=== PATIENT | male | born 1965 | race Caucasian/White ===

== ENCOUNTER 2016-10-06 11:03 | Inpatient (IN) | payer OTHER ==
[~2016-10-06] VITALS: Ht 182.9 cm; Wt 95.5 kg
[2016-10-06] MEDS ORDERED: SODIUM CHLOR 0.9% 1000 ML INJ 1,000 ML IV SCH (11:21)
[2016-10-06] MEDS ORDERED: MORPHINE SULFATE 4 MG/ML INJ IV PUSH ONE ×2 (11:30→15:00)
[2016-10-06] MEDS ORDERED: ONDANSETRON HCL 4 MG/2 ML VIAL IVP ONE (11:30)
[2016-10-06] MEDS ORDERED: SODIUM CHLORIDE 0.9% FLUSH 10 ML FLUSH IV FLUSH PRN ×2 (11:30→16:00)
[2016-10-06 11:35] VITALS: BP 184/103; PULSE 99; RESP 20; TEMP 98.4; O2SAT 95
[2016-10-06 11:50] VITALS: BP 139/114; PULSE 102; RESP 23; O2SAT 96
[2016-10-06 12:11] LABS: AUTOMATED NEUTROPHIL # 5.9 TH/MM3 (1.8-7.7); BASOPHIL # 0.1 TH/MM3 (0-0.2); BASOPHIL % 0.9 % (0.0-2.0); EOSINOPHIL # 0.1 TH/MM3 (0-0.4); EOSINOPHIL % 0.8 % (0.0-4.0); HEMATOCRIT 47.5 % (39.0-51.0); HEMO FLAGS DIFF FINAL; LYMPHOCYTE # 1.9 TH/MM3 (1.0-4.8); MEAN CORPUSCULAR HEMOGLOBIN 35.7 PG (27.0-34.0); MEAN CORPUSCULAR HGB CONC 35.6 % (32.0-36.0); MONO % 9.9 % (0.0-8.0); NEUT % 67.4 % (16.0-70.0); PLATELET COUNT 145 TH/MM3 (150-450); RED BLOOD COUNT 4.74 MIL/MM3 (4.50-5.90); RED CELL DISTRIBUTION WIDTH 13.9 % (11.6-17.2); WHITE BLOOD COUNT 8.8 TH/MM3 (4.0-11.0)
--- NOTE | 2016-10-06 12:22 | PD ---
HPI Chief Complaint: Abdominal Pain Time Seen by Provider: 11:13 Travel History International Travel<30 days: No Contact w/Intl Traveler<30days: No Traveled to known affect area: No History of Present Illness HPI This is a 51-year-old male who presents to the emergency department with 1 week of left-sided abdominal pain described as a cramping, constant, moderate severity associated with some loose stools and a fever to 102 this weekend. He went to an outside hospital 2 evenings ago and had a dry CT which demonstrated some lymphadenitis but no focal etiology for his symptoms. He was diagnosed with pancreatitis. At that time his lipase was 120. He's been at home but his symptoms are just getting worse and he is not been able to keep anything down. He says is not vomiting but he feels very nauseous. PFSH Past Medical History High Cholesterol: Yes Diminished Hearing: No GERD: Yes Hepatitis: Yes Hypertension: Yes Past Surgical History Oral Surgery: Yes (PLATE IN JAW ) Social History Alcohol Use: Yes (4-6 beers, 2-3 scotch ) Tobacco Use: Yes (1 PPD ) Substance Use: Yes (MARIJUANA DAILY ) Allergies-Medications (Allergen,Severity, Reaction): Coded Allergies: Codeine (Verified Adverse Reaction, Mild, 10/06/16) bothers stomach Review of Systems Except as stated in HPI: all other systems reviewed are Neg Physical Exam Narrative GENERAL:Well appearing, no acute distress SKIN: Focused skin assessment warm and dry. HEAD: Atraumatic. Normocephalic. EYES: Pupils equal and round. No injection or drainage. ENT: Moist mucous membranes NECK: Trachea midline. CARDIOVASCULAR: Regular rate and rhythm. No murmur appreciated. RESPIRATORY: Clear to auscultation. Breath sounds equal bilaterally. GASTROINTESTINAL: Abdomen soft, distended, tender to palpation in the left upper and left lower quadrants with guarding. MUSCULOSKELETAL: No obvious deformities. NEUROLOGICAL: Awake and alert. No obvious cranial nerve deficits. Moving all extremities. PSYCHIATRIC: Appropriate mood and affect; insight and judgment normal. Data Data Last Documented VS Vital Signs Date Time Temp Pulse Resp B/P Pulse Ox O2 Delivery O2 Flow Rate FiO2 10/06/16 14:50 90 21 150/80 97 Room Air 10/06/16 11:35 98.4 Orders Complete Blood Count With Diff (10/06/16 11:21) Comprehensive Metabolic Panel (10/06/16 11:21) Lipase (10/06/16 11:21) Urinalysis - C+S If Indicated (10/06/16 11:21) Ct Abd/Pel W Iv Contrast(Rout) (10/06/16 11:21) Iv Access Insert/Monitor (10/06/16 11:21) Ecg Monitoring (10/06/16 11:21) Oximetry (10/06/16 11:21) Morphine Inj (Morphine Inj) (10/06/16 11:30) Ondansetron Inj (Zofran Inj) (10/06/16 11:30) Sodium Chlor 0.9% 1000 Ml Inj (Ns 1000 M (10/06/16 11:21) Sodium Chloride 0.9% Flush (Ns Flush) (10/06/16 11:30) Iohexol 350 Inj (Omnipaque 350 Inj) (10/06/16 13:29) Admit Order (Ed Use Only) (10/06/16 14:54) Morphine Inj (Morphine Inj) (10/06/16 15:00) Labs Laboratory Tests Test 10/06/16 10/06/16 11:52 14:52 White Blood Count 8.8 TH/MM3 Red Blood Count 4.74 MIL/MM3 Hemoglobin 16.9 GM/DL Hematocrit 47.5 % Mean Corpuscular Volume 100.0 FL Mean Corpuscular Hemoglobin 35.7 PG Mean Corpuscular Hemoglobin 35.6 % Concent Red Cell Distribution Width 13.9 % Platelet Count 145 TH/MM3 Mean Platelet Volume 9.0 FL Neutrophils (%) (Auto) 67.4 % Lymphocytes (%) (Auto) 21.0 % Monocytes (%) (Auto) 9.9 % Eosinophils (%) (Auto) 0.8 % Basophils (%) (Auto) 0.9 % Neutrophils # (Auto) 5.9 TH/MM3 Lymphocytes # (Auto) 1.9 TH/MM3 Monocytes # (Auto) 0.9 TH/MM3 Eosinophils # (Auto) 0.1 TH/MM3 Basophils # (Auto) 0.1 TH/MM3 CBC Comment DIFF FINAL Differential Comment Sodium Level 134 MEQ/L Potassium Level 3.7 MEQ/L Chloride Level 97 MEQ/L Carbon Dioxide Level 28.7 MEQ/L Anion Gap 8 MEQ/L Blood Urea Nitrogen 10 MG/DL Creatinine 0.99 MG/DL Estimat Glomerular Filtration 79 ML/MIN Rate Random Glucose 92 MG/DL Calcium Level 9.3 MG/DL Total Bilirubin 1.2 MG/DL Aspartate Amino Transf 52 U/L (AST/SGOT) Alanine Aminotransferase 36 U/L (ALT/SGPT) Alkaline Phosphatase 102 U/L Total Protein 9.1 GM/DL Albumin 3.6 GM/DL Lipase 318 U/L Urine Color YELLOW Urine Turbidity CLEAR Urine pH 6.0 Urine Specific [place] 1.026 Urine Protein NEG mg/dL Urine Glucose (UA) NEG mg/dL Urine Ketones TRACE mg/dL Urine Occult Blood NEG Urine Nitrite NEG Urine Bilirubin NEG Urine Urobilinogen LESS THAN 2.0 MG/DL Urine Leukocyte Esterase NEG Urine RBC 1 /hpf Microscopic Urinalysis Comment CULT NOT INDICATED MDM Medical Decision Making Medical Screen Exam Complete: Yes Emergency Medical Condition: Yes Interpretation(s) Afebrile, mild tachycardia, hypertensive No leukocytosis Total bilirubin is 1.2 Urinalysis: No infection Last 24 hours Impressions Abdomen/Pelvis CT 10/06/16 1121 Signed Impressions: Service Date/Time: Thursday, October 06, 2016 13:23 - CONCLUSION: 1. No acute finding is identified to explain the left abdominal pain. 2. The liver demonstrates morphology diagnostic of cirrhosis. There is a suspicious hypodense lesion in the left lobe measuring 2.4 cm with possible perfusion abnormality versus enhancing mass within segment 2 of the liver. There is also an 8mm low density lesion in the right lobe that is incompletely characterized. These findings should be correlated with prior imaging studies and should be further characterized with liver protocol MRI with and without intravenous contrast. Since this is not an emergent finding this could be performed as an outpatient. 3. Abnormal retroperitoneal lymph nodes adjacent to the IVC. Reactive lymphadenopathy can sometimes be seen with chronic liver disease. However, these are larger than typically seen and demonstrate abnormal enhancement and surrounding stranding. Therefore, these are suspicious and should be followed. 4. Mild splenomegaly, likely related to portal hypertension. 5. Severe atherosclerotic disease. Santy Faria MD Differential Diagnosis Diverticulitis, pancreatitis, colitis, malignancy, dehydration, gastroenteritis Narrative Course This is a 51-year-old male who presents to the emergency department with left lower quadrant abdominal pain that's been going on for 1 week. He went to an outside hospital and had CT abdomen and pelvis and was diagnosed with possible acute pancreatitis. His lipase at that time was only 120. He was placed on a monitor and an IV was established. Labs were all reassuring. He was given a dose of IV pain medication and antiemetics. CT abdomen pelvis demonstrates a mass in the liver as well as bulky lymphadenopathy in the abdomen which I suspect is causing his pain. He continues to be really uncomfortable in the emergency department. Given this is his second presentation for intractable abdominal pain I think it's reasonable to place him in observation for GI consultation and continued pain control. Diagnosis Primary Impression: Intractable abdominal pain Admitting Information Admitting Physician Requests: Observation Elizabeth Todd MD Oct 06, 2016 12:22
[2016-10-06 12:30] LABS: ALT (GPT) 36 U/L (12-78); ANION GAP 8 MEQ/L (5-15); AST (GOT) 52 U/L (15-37); BICARBONATE 28.7 MEQ/L (21.0-32.0); BLOOD UREA NITROGEN 10 MG/DL (7-18); CHLORIDE 97 MEQ/L (98-107); GLOMERULAR FILTRATION RATE 79 ML/MIN (>89); POTASSIUM 3.7 MEQ/L (3.5-5.1); SODIUM (NA) 134 MEQ/L (136-145)
[2016-10-06 12:33] LABS: ALKALINE PHOSPHATASE 102 U/L (45-117); TOTAL BILIRUBIN ADULT 1.2 MG/DL (0.2-1.0)
[2016-10-06] MEDS ORDERED: IOHEXOL 350 MG/ML 10 ML VIAL (for RAD DIAG) IV ONE (13:29)
--- NOTE | 2016-10-06 14:10 | RADRPT ---
EXAM DATE/TIME: 10/06/2016 13:23 [facility] COMPARISON: No previous studies available for comparison. INDICATIONS : Left side abdominal pain. IV CONTRAST: 96 cc Omnipaque 350 (iohexol) IV ORAL CONTRAST: No oral contrast ingested. RADIATION DOSE: 10.48 CTDIvol (mGy) MEDICAL HISTORY : Hypertension. Hepatitis. SURGICAL HISTORY : None. ENCOUNTER: Initial ACUITY: 1 day PAIN SCALE: 8/10 LOCATION: Left abdomen TECHNIQUE: Volumetric scanning of the abdomen and pelvis was performed. Using automated exposure control and ad justment of the mA and/or kV according to patient size, radiation dose was kept as low as reasonably achievable to obtain optimal diagnostic quality images. DICOM format image data is available electro nically for review and comparison. FINDINGS: LOWER LUNGS: The visualized lower lungs are clear. There is coronary artery calcification. LIVER: Liver measures 15.5 cm and demonstrates a nodular contour characteristic of cirrhosis. In the left lo be there is a 2.4 cm hypo-dense lesion that does not meet criteria for a cyst. Superior from this are a within segment 2 is a geographic or potential masslike area of enhancement. In the right posterior liver there is an 8mm low density lesion that is too small to characterize. Portal vein and hepatic v eins demonstrate no abnormality. There is no dilation of the biliary tree. No calcified gallstones. SPLEEN: The spleen measures 13.4 cm. No focal lesion is present. PANCREAS: Within normal limits. KIDNEYS: Normal in size and shape. There is no mass, stone or hydronephrosis. ADRENAL GLANDS: Within normal limits. VASCULAR: There is no aortic aneurysm. There is severe atherosclerotic disease. BOWEL/MESENTERY: The stomach, small bowel, and colon demonstrate no acute abnormality. There is no free intraperitone al air or fluid. ABDOMINAL WALL: Within normal limits. RETROPERITONEUM: There are 2 abnormally enlarged lymph nodes adjacent to a normal sized portacaval lymph node. The lar rboyn of the 2 measures 2.4 x 3.6 cm and demonstrates heterogeneous enhancement. Immediately posterior to this lymph node and medial to the IVC is an abnormal lymph node measuring 1.8 cm. There are also p rominent lymph nodes in the gastrohepatic ligament. BLADDER: No wall thickening or mass. REPRODUCTIVE: Within normal limits. INGUINAL: There is no lymphadenopathy or hernia. MUSCULOSKELETAL: There are degenerative changes of the spine. CONCLUSION: 1. No acute finding is identified to explain the left abdominal pain. 2. The liver demonstrates morphology diagnostic of cirrhosis. There is a suspicious hypodense lesion in the left lobe measuring 2.4 cm with possible perfusion abnormality versus enhancing mass within se gment 2 of the liver. There is also an 8mm low density lesion in the right lobe that is incompletely characterized. These findings should be correlated with prior imaging studies and should be further c haracterized with liver protocol MRI with and without intravenous contrast. Since this is not an andrzej gent finding this could be performed as an outpatient. 3. Abnormal retroperitoneal lymph nodes adjacent to the IVC. Reactive lymphadenopathy can sometimes b e seen with chronic liver disease. However, these are larger than typically seen and demonstrate abno rmal enhancement and surrounding stranding. Therefore, these are suspicious and should be followed. 4. Mild splenomegaly, likely related to portal hypertension. 5. Severe atherosclerotic disease. Santy Faria MD on October 06, 2016 at 13:59 Board Certified Radiologist. This report was verified electronically.
[2016-10-06 14:50] VITALS: BP 150/80; PULSE 90; RESP 21; O2SAT 97
[2016-10-06 15:30] LABS: BLOOD, URINE NEG (NEG); GLUCOSE,URINE NEG (NEG); KETONE, URINE TRACE mg/dL (NEG); NITRITE,URINE NEG (NEG); URINE COLOR YELLOW (YELLW/STRAW)
[2016-10-06 15:31] LABS: COMMENT (UR) CULT NOT INDICATED; CULTURE IF INDICATED CULT NOT INDICATED
[2016-10-06] MEDS ORDERED: ONDANSETRON HCL 4 MG/2 ML VIAL IV PRN (16:00)
[2016-10-06] MEDS ORDERED: ACETAMINOPHEN/HYDROcodone 325 MG/5 MG TAB PO PRN (16:00)
[2016-10-06] MEDS ORDERED: ACETAMINOPHEN/HYDROcodone 325 MG/10 MG TAB PO PRN (16:00)
[2016-10-06] MEDS ORDERED: DOCUSATE SODIUM 50 MG/SENNA 8.6 MG TAB PO PRN (16:00)
[2016-10-06] MEDS: SODIUM CHLOR 0.9% 1000 ML INJ 1,000 ML IV SCH ×2 (16:12→23:15)
--- NOTE | 2016-10-06 16:13 | HHI.HP ---
[facility] Service Family Medicine Primary Care Physician [facility] Admission Diagnosis abdominal pain Diagnoses: International Travel<30 Days: No Contact w/Intl Traveler<30days: No Known Affected Area: No History of Present Illness 51 year old male with a history of hepatitis C, alcoholism, hypertension, hyperlipidemia, and GERD presents with left sided abdominal pain that started about one week ago. He presented to the ED in [facility] where he was diagnosed with pancreatitis. However, his lipase today is normal. Since last week the pain has been getting worse and he noticed significant abdominal distension. The pain is located in the left lower quadrant, and some going across his lower abdomen and even extending to his right lower quadrant. A CT with IV contrast performed in the ED found no acute finding to explain the abdominal pain. However, it did find liver morphology characteristic of liver cirrhosis, and a suspicious hypodense lesion with retroperitoneal lymphadenopathy. He has a small amount of diarrhea combined with constipation for the last couple of weeks. The diarrhea is semi-formed, and he has not noticed mucous or blood in the stool. 3 days ago he had multiple bowel movements that were very small and soft, and then has not had a bowel movement in the last 2 days. He has not taken in any food since his trip to the ED on Thursday after he was told to remain NPO until his symptoms resolved. He had fever a few days ago, with a Tmax of 102, measured in his ear canal. He has no fever in the ED here. He notes chills and night sweats for the past 2 days, but does not note any recent unintentional weight loss. He also is experiencing belching and reflux, and has a history of GERD. He feels nauseous but has not had any vomiting. He also has a headache and a runny nose for the last week. Review of Systems Constitutional: COMPLAINS OF: Fever, Chills, Change in appetite, Night Sweats, DENIES: Diaphoretic episodes, Weight gain, Weight loss Endocrine: DENIES: Polydipsia, Polyuria, Polyphagia Eyes: DENIES: Blurred vision, Diplopia Ears, nose, mouth, throat: COMPLAINS OF: Nasal discharge, Running Nose, DENIES : Ear Pain, Epistaxis, Sinus Pain Respiratory: DENIES: Cough, Wheezing, Hemoptysis, Shortness of breath Cardiovascular: DENIES: Chest pain, Dyspnea on Exertion Gastrointestinal: COMPLAINS OF: Abdominal pain, Constipation, Diarrhea, Nausea , DENIES: Black stools, Bloody stools, Vomiting, Difficulty Swallowing Genitourinary: DENIES: Urinary frequency, Urgency, Hematuria, Dysuria Musculoskeletal: DENIES: Muscle aches, Stiffness, Back pain, Neck pain Integumentary: DENIES: Rash Hematologic/lymphatic: COMPLAINS OF: Lymphadenopathy (retroperitoneal ) Neurologic: COMPLAINS OF: Headache, DENIES: Paresthesias, Seizures, Tremor Psychiatric: DENIES: Delusions Past Family Social History Past Medical History Hepatitis C, received treatment two years ago, reports that it was cured Hyperlipidemia GERD Hypertension Past Surgical History Ankle surgery Jaw wiring after fracture Allergies: Coded Allergies: Codeine (Verified Adverse Reaction, Mild, 10/06/16) bothers stomach Active Ordered Medications Inpatient Medications Acetaminophen/ Hydrocodone Bitart ([place] 5-325 Mg) 1 tab Q4H PRN PO PAIN SCALE 1 TO 5; Start 10/06/16 at 16:00; Status UNV Acetaminophen/ Hydrocodone Bitart ([place] 10-325 Mg) 1 tab Q4H PRN PO PAIN SCALE 6 TO 10; Start 10/06/16 at 16:00; Status UNV Enoxaparin Sodium (Lovenox Inj) 40 mg Q24H SQ ; Start 10/06/16 at 16:00; Status UNV Morphine Sulfate (Morphine Inj) 2 mg Q2H PRN IV BREAKTHROUGH PAIN; Start at 16:00; Status UNV Morphine Sulfate 4 mg 4 mg ONCE ONCE IV PUSH ; Start 10/06/16 at 15:00; Stop at 15:01; Status DC Ondansetron HCl (Zofran Inj) 4 mg Q6H PRN IV NAUSEA OR VOMITING; Start at 16:00; Status UNV Pantoprazole Sodium (Protonix) 40 mg DAILY PO ; Start 10/06/16 at 16:00; Status UNV Senna/Docusate Sodium (Sharlene-Colace) 2 tab BID PRN PO CONSTIPATION; Start at 16:00; Status UNV Sodium Chloride (NS 1000 ml Inj) 1,000 ml @ 135 mls/hr Q7H25M IV ; Start at 15:50; Status UNV Sodium Chloride (NS Flush) 2 ml BID IV FLUSH ; Start 10/06/16 at 21:00; Status UNV Family History Father: diabetes Mother: diabetes Social History Smoked 3 PPD before, now down to 1 PPD, started when he was a teenager Drinks 6 beers and 2 scotches a day Last drink was Thursday Drugs: Smokes marijuana, no reported history of IV drug use , lives with and 12 year old grand child Physical Exam Vital Signs Vital Signs Date Time Temp Pulse Resp B/P Pulse Ox O2 Delivery O2 Flow Rate FiO2 10/06/16 14:50 90 21 150/80 97 Room Air 10/06/16 11:50 102 23 139/114 96 Room Air 10/06/16 11:35 98.4 99 20 184/103 95 Physical Exam GENERAL: No acute distress, lying in bed, pleasant attitude SKIN: Very tanned, no spider angiomata, mild palmar erythema HEAD: Atraumatic. Normocephalic. No temporal or scalp tenderness. EYES: Pupils equal round and reactive. No scleral icterus. Extraocular motions intact. No injection or drainage. ENT: Nose without bleeding, purulent drainage or septal hematoma. Throat without erythema, tonsillar hypertrophy or exudate. Uvula midline. Airway patent. Moist mucous membranes. NECK: Trachea midline. No JVD or lymphadenopathy. Supple, nontender, no meningeal signs. CARDIOVASCULAR: Regular rate and rhythm without murmurs, gallops, or rubs. Normal pulses peripherally. RESPIRATORY: Mild rhonchi that clears after coughing, no wheezing, no respiratory distress, not on oxygen GASTROINTESTINAL: Positive fluid wave, has shifting dullness, significant abdominal distension, pain on palpation of left abdomen, some on the right abdomen, has some very mild rebound tenderness but no guarding, organomegaly not appreciated but patient is significantly distended MUSCULOSKELETAL: Extremities without clubbing, cyanosis, or edema. No joint tenderness, effusion, or edema noted. No calf tenderness. Negative Homans sign bilaterally. NEUROLOGICAL: Awake and alert. Cranial nerves II through XII intact. Laboratory Laboratory Tests Test 10/06/16 10/06/16 11:52 14:52 White Blood Count 8.8 Red Blood Count 4.74 Hemoglobin 16.9 Hematocrit 47.5 Mean Corpuscular Volume 100.0 Mean Corpuscular Hemoglobin 35.7 Mean Corpuscular Hemoglobin 35.6 Concent Red Cell Distribution Width 13.9 Platelet Count 145 Mean Platelet Volume 9.0 Neutrophils (%) (Auto) 67.4 Lymphocytes (%) (Auto) 21.0 Monocytes (%) (Auto) 9.9 Eosinophils (%) (Auto) 0.8 Basophils (%) (Auto) 0.9 Neutrophils # (Auto) 5.9 Lymphocytes # (Auto) 1.9 Monocytes # (Auto) 0.9 Eosinophils # (Auto) 0.1 Basophils # (Auto) 0.1 CBC Comment DIFF FINAL Differential Comment Sodium Level 134 Potassium Level 3.7 Chloride Level 97 Carbon Dioxide Level 28.7 Anion Gap 8 Blood Urea Nitrogen 10 Creatinine 0.99 Estimat Glomerular Filtration 79 Rate Random Glucose 92 Calcium Level 9.3 Total Bilirubin 1.2 Aspartate Amino Transf 52 (AST/SGOT) Alanine Aminotransferase 36 (ALT/SGPT) Alkaline Phosphatase 102 Total Protein 9.1 Albumin 3.6 Lipase 318 Urine Color YELLOW Urine Turbidity CLEAR Urine pH 6.0 Urine Specific [place] 1.026 Urine Protein NEG Urine Glucose (UA) NEG Urine Ketones TRACE Urine Occult Blood NEG Urine Nitrite NEG Urine Bilirubin NEG Urine Urobilinogen LESS THAN 2.0 Urine Leukocyte Esterase NEG Urine RBC 1 Microscopic Urinalysis Comment CULT NOT INDICATED Result Diagram: 10/06/16 1152 10/06/16 1152 Imaging Last 72 hours Impressions Abdomen/Pelvis CT 10/06/16 1121 Signed Impressions: Service Date/Time: Thursday, October 06, 2016 13:23 - CONCLUSION: 1. No acute finding is identified to explain the left abdominal pain. 2. The liver demonstrates morphology diagnostic of cirrhosis. There is a suspicious hypodense lesion in the left lobe measuring 2.4 cm with possible perfusion abnormality versus enhancing mass within segment 2 of the liver. There is also an 8mm low density lesion in the right lobe that is incompletely characterized. These findings should be correlated with prior imaging studies and should be further characterized with liver protocol MRI with and without intravenous contrast. Since this is not an emergent finding this could be performed as an outpatient. 3. Abnormal retroperitoneal lymph nodes adjacent to the IVC. Reactive lymphadenopathy can sometimes be seen with chronic liver disease. However, these are larger than typically seen and demonstrate abnormal enhancement and surrounding stranding. Therefore, these are suspicious and should be followed. 4. Mild splenomegaly, likely related to portal hypertension. 5. Severe atherosclerotic disease. Santy Faria MD Septic Shock Reassessment Heart: Regular rate and rhythm Lungs: Clear Skin: Warm Capillary Refill: <2 seconds Assessment and Plan Assessment and Plan 51 year old male presents with left sided abdominal pain and diarrhea, found to have possible cirrhosis on CT scan and a suspicious hypodense lesion on liver, possible ascites on physical exam, and retroperitoneal lymphadenopathy on CT scan Code Status FULL CODE Discussed Condition With Seen and discussed with Piedad Najera, MS4 Discussed with Dr. Todd Problem List: (1) Abdominal pain Status: Acute Plan: Left sided abdominal pain. CT scan rules out mesenteric ischemia. Lipase is normal, unlikely to be acute pancreatitis, although could be chronic pancreatitis. Has significant ascites, the pressure may be causing abdominal pain. Also with some diarrhea, possible gastroenteritis. No diverticulitis on CT scan. Possible spontaneous bacterial peritonitis given fevers and ascites. - US of abdomen to further evaluate ascites, paracentesis of enough fluid to tap - Consider ceftriaxone after paracentesis to cover for SBP - Fluid replacement: normal saline at maintenance - Pain management: oxycodone 5 mg for pain 1-5, oxycodone 10 mg for pain 6-10, morphine 2 mg IV for breakthrough pain. (2) Ascites due to alcoholic cirrhosis Status: Acute Plan: Positive fluid wave on exam, has shifting dullness, obvious abdominal distension. Apparent cirrhosis on CT scan. Significant history of alcohol use. AST elevated to 52, ALT 36, alcoholic pattern. ALP is 102. Total protein 9.1, albumin 3.6. - Obtain ultrasound to further assess ascites. - Paracentesis if ultrasound verifies ascites that can be tapped. - Check ammonia level - Check coag panel - MELD score: getting coag panel to calculate - Daily counseling on alcohol abuse - Findings discussed with patient. (3) Liver mass, left lobe Status: Acute Plan: CT with IV contrast showed liver cirrhosis with a suspicious hypodense lesion in the left lobe measuring 2.4 cm, and also an 8 mm low density lesion in the right lobe incompletely characterized. Also noted is retroperitoneal lymphadenopathy adjacent to the IVC. These are larger than typically seen and are suspicious for possible malignancy, although can also be reactive from chronic liver disease. - Further evaluate lesions with MRI with and without IV contrast. - Alpha protein level - UPDATE: MRI showing mass of left hepatic lobe with main portion 5.8 x 7.1 x 5.3, with numerous subcentimeter nodules adjacent to it, with overall affected area of 6.7 x 12.2 cm. Another lesion seen posteromedially in the right lobe measuring 3.8 x 3.9 x 4.0. Also with portal caval and retroperitoneal lymphadenopathy. - Oncology consulted for suspected hepatocellular carcinoma (4) Liver cirrhosis Status: Acute Plan: AST 52, ALT 36, ALP 102. Ammonia normal at 21. Albumin normal. INR 1.0. Bilirubin 1.2. - Counseling on alcohol abuse - Monitor liver enzymes - Check hepatitis profile - Check coag studies - MELD score 7, 1.9% estimated 3 month mortality (5) Hepatitis C Status: Chronic Plan: History of hepatitis C, treated in the past, patient reports that it was cured. - Check hepatitis profile - Check hepatitis C viral load (6) Hypertension Status: Chronic Plan: History of hypertension - Continue home medications - Clonidine PRN for BP 180/100 (7) GERD (gastroesophageal reflux disease) Status: Chronic Plan: - Continue pantoprazole 40 mg PO qday for GERD (8) Smokes one pack per day or less and motivated to quit Status: Chronic Plan: In the contemplation stage, would like to quit, has tried patches and gum before. Would like to quit cold turkey. - Does not want nicotine patch - Counseling on quitting (9) Alcoholism Status: Chronic Plan: Drinks 6 beers and two scotch drinks per day - [facility] protocol - Thiamine, multivitamin, folic acid - Ativan PRN for withdrawals - Seizure precautions - Daily counseling on alcohol abuse (10) Hyperlipidemia Status: Chronic Plan: - Continue home medicines (11) No contraindication to deep vein thrombosis (DVT) prophylaxis Status: Acute Plan: - Lovenox 40 mg daily - Bilateral SCD's (12) Nutrition, metabolism, and development symptoms Status: Acute Plan: - Maintenance fluids at 135 mls/hr with normal saline - Full liquid diet, advance as tolerated - Monitor electrolytes, has mild hyponatremia/hypochloremia Physician Certification 2 Midnight Certification Type: Admission for Inpatient Services Order for Inpatient Services The services are ordered in accordance with Medicare regulations or non- Medicare payer requirements, as applicable. In the case of services not specified as inpatient-only, they are appropriately provided as inpatient services in accordance with the 2-midnight benchmark. Estimated LOS (days): 3 days is the estimated time the patient will need to remain in the hospital, assuming treatment plan goals are met and no additional complications. Post-Hospital Plan: Home Saw Linares MD R3 Oct 06, 2016 16:13
[2016-10-06] MEDS ORDERED: LORazepam 1 MG TAB PO PRN (16:15)
[2016-10-06] MEDS ORDERED: FLUMAZENIL 0.5 MG/5 ML VIAL IV PUSH PRN (16:15)
[2016-10-06] MEDS ORDERED: cloNIDine HCL 0.1 MG TAB PO PRN (16:15)
[2016-10-06] MEDS ORDERED: LORazepam 2 MG TAB PO PRN (16:15)
[2016-10-06] MEDS ORDERED: LORazepam 2 MG/ML VIAL IV PUSH PRN ×4 (16:15)
[2016-10-06] MEDS: PANTOPRAZOLE SOD 40 MG DELAYED RELEASE TAB PO SCH (16:22)
[2016-10-06] MEDS ORDERED: VITA100064 PO (16:54)
[2016-10-06] MEDS ORDERED: LIPI10TA PO (16:54)
[2016-10-06] MEDS ORDERED: [UNRECOGNIZED DRUG - CODE] PO (16:54)
[2016-10-06] MEDS ORDERED: RANI300T PO (16:54)
[2016-10-06] MEDS ORDERED: CYCL7.5T33 PO (16:54)
[2016-10-06] MEDS ORDERED: HYDR25TA5 PO (16:54)
[2016-10-06] MEDS ORDERED: NIAC PO (16:54)
[2016-10-06] MEDS ORDERED: ASPI-110 PO (16:54)
[2016-10-06] MEDS ORDERED: METO25TA3 PO (16:54)
[2016-10-06] MEDS ORDERED: MECL12.574 PO (16:54)
[2016-10-06] MEDS ORDERED: ENOXAPARIN SODIUM 40 MG/0.4 ML SYRINGE SQ SCH (17:00)
[2016-10-06] MEDS: MULTIVITAMINS/MINERALS THERAPEUTIC TAB PO SCH (17:28)
[2016-10-06] MEDS: FOLIC ACID 1 MG TAB PO SCH (17:28)
[2016-10-06] MEDS: THIAMINE HCL 100 MG TAB PO SCH (17:29)
[2016-10-06 17:32] VITALS: BP 169/92; PULSE 104; RESP 24; O2SAT 97
[2016-10-06] MEDS ORDERED: GADODIAMIDE PF 287 MG/ML 5 ML VIAL (for RAD MRI) IV ONE (17:36)
--- NOTE | 2016-10-06 18:00 | RADRPT ---
EXAM DATE/TIME: 10/06/2016 17:40 [facility] COMPARISON: CT ABDOMEN & PELVIS W CONTRAST, October 06, 2016, 13:23. INDICATIONS : Ascites check. MEDICAL HISTORY : Hypercholesterolemia. Hypertension. Gastroesophageal reflux disease. Diarrhea. Headache. Abdominal pa in. SURGICAL HISTORY : Plate in jaw. ENCOUNTER: Initial ACUITY: 1 day PAIN SCORE: 3/10 LOCATION: Abdomen. AREA EVALUATED: Abdomen. FINDINGS: Imaging of the abdomen and pelvis was performed to evaluate for ascites for possible paracentesis. CONCLUSION: No ascites. Santy Dennis MD on October 06, 2016 at 17:58 Board Certified Radiologist. This report was verified electronically.
--- NOTE | 2016-10-06 18:36 | RADRPT ---
EXAM DATE/TIME: 10/06/2016 16:42 [facility] COMPARISON: No previous studies available for comparison. INDICATIONS : Liver lesion. Left lateral pain and swelling for one week. CONTRAST: 20 cc Omniscan (gadodiamide) IV MEDICAL HISTORY : Hypercholesterolemia. GERD SURGICAL HISTORY : Left ankle sx, jaw plate. ENCOUNTER: Initial ACUITY: 1 week PAIN SCORE: 7/10 LOCATION: Left lateral abdomen TECHNIQUE: Multiplanar, multisequence magnetic resonance imaging of the abdomen was performed without and with i ntravenous contrast. FINDINGS: Scattered areas of transient hepatic enhancement noted compatible with chronic liver disease. A lobul ated space-occupying lesion is seen in the lateral segment of the left hepatic lobe, measures approxi mately 5.8 x 7.1 x 5.3 cm in size. There is heterogeneous arterial enhancement. A similar lesion margy mated at 3.8 x 3.9 x 4.0 cm is seen posteromedially in the right hepatic lobe. Approximately 1 dozen subcentimeter enhancing nodules are seen in the lateral segment the left hepati c lobe, more to the left in the main left hepatic lobe lesion previously described. Caudate lobe is enlarged. Adjacent to the caudate lobe but I believe extrahepatic is a partially necr otic mass measuring 2.4 x 5.0 2.2 cm in size, likely a lymph node. Slightly more inferior in the retr operitoneum are multiple other lymph nodes that measure up to 1 cm in greater short axis dimension. O ne is seen immediately posterior to the third portion of the duodenum on series 12 image 55. Portal vein is patent. No ascites. CONCLUSION: 1. Heterogeneously enhancing mass of the left hepatic lobe in the setting of chronic liver disease an d of concern for hepatocellular carcinoma. The main portion of the mass is 5.8 x 7.1 x 5.3 cm but the re are numerous subcentimeter nodules more adjacent to it more laterally for an overall region of inv olvement estimated at 6.7 x 12.2 cm in greatest transaxial dimension. A similar lesion is seen newspaper photographer omedially the right hepatic lobe measuring 3.8 x 3.9 x 4.0 cm. 2. Nonspecific portal caval and retroperitoneal lymphadenopathy. Santy Dennis MD on October 06, 2016 at 18:27 Board Certified Radiologist. This report was verified electronically.
[2016-10-06 18:43] LABS: APTT (PATIENT) 28.9 SEC (24.3-30.1); PROTHROMBIN TIME - PATIENT 11.4 SEC (9.8-11.6)
[2016-10-06 19:36] VITALS: BP 137/95; PULSE 98; RESP 18; O2SAT 98
[2016-10-06 20:00] VITALS: BP 177/109; PULSE 96; RESP 18; TEMP 98.6; O2SAT 95
[2016-10-06] MEDS ORDERED: MECLIZINE HCL 25 MG TAB PO PRN (20:00)
[2016-10-06] MEDS: MORPHINE SULFATE 4 MG/ML INJ IV PRN (20:35)
[2016-10-06] MEDS: SODIUM CHLORIDE 0.9% FLUSH 10 ML FLUSH IV FLUSH SCH (21:00)
[2016-10-06] MEDS ORDERED: NON-FORMULARY DRUG (Ranitidine 300 MG) PO SCH (21:00)
[2016-10-06] MEDS ORDERED: PILL SPLITTER OTHER PRN (21:15)
--- NOTE | 2016-10-06 21:27 | HHI.FPPN ---
Subjective Remarks Attending medicine note: Very pleasant 51-year-old gentleman admitted through the emergency room with abdominal distention associated with abdominal pain. Patient has a prior history of hepatitis C treated with interferon and recalls that he's had at least 2 biopsies in the past associated with treatment , hypertension, hyperlipidemia, GERD, and an admitted history of increased alcohol in the form of beer, and Nav, sometimes up to 18 beers per day on a "[place] weekend ". Several months ago the patient began to feel not just right, was aware of some diminishing appetite, did have a gradual weight gain that he would estimate to be 20 pounds, more associated constipation, some urgency of urination, nausea and possibly 4 days ago began to have significant nausea, felt like he was in the vomit. Went to a local emergency room where he was told that he had "pancreatitis", and in the patient's words he was told that there would not be much treatment on the weekend and that he can go to the [place] on this day 10/06/2016. Patient presented today to the emergency room with the above symptoms. Subsequently imaging has been performed to include a CAT scan and MRI, the imaging is suspicious for possible hepatocellular carcinoma versus other etiologies. Patient denies any history of IV drug use, no history of blood transfusions, he believes that he acquired hepatitis C from a previous relationship, that person did have hepatitis C. Current has hepatitis C however he states that from a different "strain". Refer to resident's note for complete discussion of the presenting illness, past medical history, social history, family history, review of systems. Objective Vitals Vital signs noted. Afebrile. Gen. appearance: Thin skin, or a pleasant conversation, has a sense of humor. No acute distress, however is complaining of abdominal discomfort HEENT: Grossly nonlocalizing. Lungs: Scattered mild rhonchi which clear with cough, occasional squeaky wheeze. Cardiac: Distant sounds S1-S2, no S3 or murmurs. Abdomen: Active bowel sounds, appearance is that of rounded distention. On palpation the abdomen is soft to touch there is some reported discomfort more so on the left lower quadrant, no rebound referred, no definite organomegaly. Extremities: No edema, intact pedal pulses Neurologic: Grossly nonlocalizing. Labs and imaging reviewed including on the [facility] system. Vital Signs Date Time Temp Pulse Resp B/P Pulse Ox O2 Delivery O2 Flow Rate FiO2 10/06/16 19:36 98 18 137/95 98 Room Air 10/06/16 17:32 104 24 169/92 97 Room Air 10/06/16 16:20 21 10/06/16 14:50 90 21 150/80 97 Room Air 10/06/16 11:50 102 23 139/114 96 Room Air 10/06/16 11:35 98.4 99 20 184/103 95 Result Diagram: 10/06/16 1152 10/06/16 1152 A/P Assessment and Plan Clinical assessment: 51-year-old admitted with abdominal pain , nausea, abdominal distention with imaging suggestive of hepatocellular carcinoma. Patient is a history of hepatitis C treated with interferon, chronic alcoholism, hypertension, hyperlipidemia, GERD. Plan discussed with resident team. We will proceed toward a definitive diagnosis with biopsy by IR of probably the liver depending on IR'sis recommendations. Patient seen and examined. Case discussed with resident team, physician in accordance with the assessment and disposition as recorded by the residents, agree with orders as written. As per the above discussion. Problem List: (1) Abdominal pain Status: Acute Plan: Left sided abdominal pain. CT scan rules out mesenteric ischemia. Lipase is normal, unlikely to be acute pancreatitis, although could be chronic pancreatitis. Has significant ascites, the pressure may be causing abdominal pain. Also with some diarrhea, possible gastroenteritis. No diverticulitis on CT scan. Possible spontaneous bacterial peritonitis given fevers and ascites. - US of abdomen to further evaluate ascites, paracentesis of enough fluid to tap - Consider ceftriaxone after paracentesis to cover for SBP - Fluid replacement: normal saline at maintenance - Pain management: oxycodone 5 mg for pain 1-5, oxycodone 10 mg for pain 6-10, morphine 2 mg IV for breakthrough pain. (2) Ascites due to alcoholic cirrhosis Status: Acute Plan: Positive fluid wave on exam, has shifting dullness, obvious abdominal distension. Apparent cirrhosis on CT scan. Significant history of alcohol use. AST elevated to 52, ALT 36, alcoholic pattern. ALP is 102. Total protein 9.1, albumin 3.6. - Obtain ultrasound to further assess ascites. - Paracentesis if ultrasound verifies ascites that can be tapped. - Check ammonia level - Check coag panel - MELD score: getting coag panel to calculate - Daily counseling on alcohol abuse - Findings discussed with patient. (3) Liver mass, left lobe Status: Acute Plan: CT with IV contrast showed liver cirrhosis with a suspicious hypodense lesion in the left lobe measuring 2.4 cm, and also an 8 mm low density lesion in the right lobe incompletely characterized. Also noted is retroperitoneal lymphadenopathy adjacent to the IVC. These are larger than typically seen and are suspicious for possible malignancy, although can also be reactive from chronic liver disease. - Further evaluate lesions with MRI with and without IV contrast. - Alpha protein level - UPDATE: MRI showing mass of left hepatic lobe with main portion 5.8 x 7.1 x 5.3, with numerous subcentimeter nodules adjacent to it, with overall affected area of 6.7 x 12.2 cm. Another lesion seen posteromedially in the right lobe measuring 3.8 x 3.9 x 4.0. Also with portal caval and retroperitoneal lymphadenopathy. - Oncology consulted for suspected hepatocellular carcinoma (4) Liver cirrhosis Status: Acute Plan: AST 52, ALT 36, ALP 102. Ammonia normal at 21. Albumin normal. INR 1.0. Bilirubin 1.2. - Counseling on alcohol abuse - Monitor liver enzymes - Check hepatitis profile - Check coag studies - MELD score 7, 1.9% estimated 3 month mortality (5) Hepatitis C Status: Chronic Plan: History of hepatitis C, treated in the past, patient reports that it was cured. - Check hepatitis profile - Check hepatitis C viral load (6) Hypertension Status: Chronic Plan: History of hypertension - Continue home medications - Clonidine PRN for BP 180/100 (7) GERD (gastroesophageal reflux disease) Status: Chronic Plan: - Continue pantoprazole 40 mg PO qday for GERD (8) Smokes one pack per day or less and motivated to quit Status: Chronic Plan: In the contemplation stage, would like to quit, has tried patches and gum before. Would like to quit cold turkey. - Does not want nicotine patch - Counseling on quitting (9) Alcoholism Status: Chronic Plan: Drinks 6 beers and two scotch drinks per day - [facility] protocol - Thiamine, multivitamin, folic acid - Ativan PRN for withdrawals - Seizure precautions - Daily counseling on alcohol abuse (10) Hyperlipidemia Status: Chronic Plan: - Continue home medicines (11) No contraindication to deep vein thrombosis (DVT) prophylaxis Status: Acute Plan: - Lovenox 40 mg daily - Bilateral SCD's (12) Nutrition, metabolism, and development symptoms Status: Acute Plan: - Maintenance fluids at 135 mls/hr with normal saline - Full liquid diet, advance as tolerated - Monitor electrolytes, has mild hyponatremia/hypochloremia Manuelito Frey MD Oct 06, 2016 21:27
[2016-10-06] MEDS: METOPROLOL TARTRATE 25 MG TAB PO SCH (21:50)
[2016-10-06] MEDS: ATORVASTATIN 10 MG TAB PO SCH (21:50)
[2016-10-07] VITALS (7 sets, daily range): BP systolic 112–161; BP diastolic 72–98; PULSE 63–95; RESP 17–18; TEMP 96.2–98.7; O2SAT 92–96
[2016-10-07] MEDS: MORPHINE SULFATE 4 MG/ML INJ IV PRN ×4 (04:12→21:04)
[2016-10-07 05:19] LABS: AUTOMATED NEUTROPHIL # 4.3 TH/MM3 (1.8-7.7); BASOPHIL % 0.5 % (0.0-2.0); EOSINOPHIL # 0.2 TH/MM3 (0-0.4); HEMATOCRIT 41.4 % (39.0-51.0); HEMO FLAGS DIFF FINAL; LYMPHOCYTE # 2.3 TH/MM3 (1.0-4.8); MEAN CELL VOLUME 100.7 FL (80.0-100.0); MEAN CORPUSCULAR HEMOGLOBIN 35.4 PG (27.0-34.0); MEAN CORPUSCULAR HGB CONC 35.2 % (32.0-36.0); MONO % 10.4 % (0.0-8.0); NEUT % 57.1 % (16.0-70.0); PLATELET COUNT 131 TH/MM3 (150-450); RED BLOOD COUNT 4.11 MIL/MM3 (4.50-5.90); WHITE BLOOD COUNT 7.6 TH/MM3 (4.0-11.0)
[2016-10-07] MEDS: SODIUM CHLOR 0.9% 1000 ML INJ 1,000 ML IV SCH ×3 (06:36→19:44)
[2016-10-07] MEDS: CYCLOBENZAPRINE HCL 10 MG TAB PO SCH ×3 (08:23→17:40)
[2016-10-07] MEDS: CHOLECALCIFEROL (VIT D3) 1000 UNIT TAB PO SCH (08:23)
[2016-10-07] MEDS: FOLIC ACID 1 MG TAB PO SCH (08:23)
[2016-10-07] MEDS: THIAMINE HCL 100 MG TAB PO SCH (08:23)
[2016-10-07] MEDS: PANTOPRAZOLE SOD 40 MG DELAYED RELEASE TAB PO SCH (08:23)
[2016-10-07] MEDS: CYANOCOBALAMIN 1,000 MCG TAB PO SCH (08:23)
[2016-10-07] MEDS: MULTIVITAMINS/MINERALS THERAPEUTIC TAB PO SCH (08:23)
[2016-10-07] MEDS ORDERED: ASPIRIN EC 81 MG TABEC PO SCH (09:00)
[2016-10-07] MEDS ORDERED: CYCLOBENZAPRINE 7.5 MG PO SCH (09:00)
[2016-10-07] MEDS: SODIUM CHLORIDE 0.9% FLUSH 10 ML FLUSH IV FLUSH SCH ×2 (09:00→19:41)
--- NOTE | 2016-10-07 09:01 | HHI.FPPN ---
Subjective Remarks Patient seen and examined this morning by medical team. No acute events overnight. Patient's only complaint overnight is insomnia stating that he had racing thoughts about his likely diagnosis of a malignancy. His ABD pain is controlled with his pain medications. He does suffer from some mild nausea with the pain medications. Otherwise he has no complaints and denies any recent fevers, chills, SOB, chest pain, or calf tenderness. (Shlomo Escobar MD R2) Objective Vitals Vital Signs Date Time Temp Pulse Resp B/P Pulse Ox O2 Delivery O2 Flow Rate FiO2 10/07/16 08:08 18 10/07/16 04:17 18 10/07/16 00:00 98.7 74 18 112/72 92 10/06/16 20:00 98.6 96 18 177/109 95 10/06/16 19:36 98 18 137/95 98 Room Air 10/06/16 17:32 104 24 169/92 97 Room Air 10/06/16 16:20 21 10/06/16 14:50 90 21 150/80 97 Room Air 10/06/16 11:50 102 23 139/114 96 Room Air 10/06/16 11:35 98.4 99 20 184/103 95 I/O 10/06/16 10/06/16 10/06/16 10/07/16 10/07/16 10/07/16 07:00 15:00 23:00 07:00 15:00 23:00 Intake Total 54 ml 1018 ml Balance 54 ml 1018 ml Intake IV Total 54 ml 1018 ml # Voids 1 5 (Shlomo Escobar MD R2) Result Diagram: 10/07/16 0441 10/06/16 1152 Objective Remarks GENERAL: Elderly gentleman lying in bed in no acute distress. SKIN: Very tanned, no spider angiomata, mild palmar erythema. Multiple areas of palpable lymphadenopathy including the bilateral upper extremities and abdomen. HEENT: Atraumatic, normocephalic with EOMI. No scleral icterus. MMM. No rhinorrhea. CARDIOVASCULAR: Regular rate and rhythm without murmurs, gallops, or rubs. Normal pulses peripherally. RESPIRATORY: Mild rhonchi that clears after coughing, no wheezing, no respiratory distress. Not on oxygen supplementation. GASTROINTESTINAL: Positive fluid wave, has shifting dullness, significant abdominal distension, pain on palpation of left lower abdomen, some on the right lower abdomen. Mild rebound tenderness but no guarding. Organomegaly not appreciated but patient is significantly distended. MUSCULOSKELETAL: Extremities without cyanosis or edema. No joint tenderness, effusion, or edema noted. No calf tenderness. Negative Homans sign bilaterally. NEUROLOGICAL: AAO 3. Afocal. Normal speech and judgment. No monitor actual medical staff. (Shlomo Escobar MD R2) A/P Assessment and Plan 51 year old male presents with left sided abdominal pain and diarrhea, found to have possible cirrhosis on CT scan and a suspicious hypodense lesion on liver, possible ascites on physical exam, and retroperitoneal lymphadenopathy on CT scan Discharge Planning Pending further evaluation by medical oncology. (Shlomo Escobar MD R2) Assessment and Plan Patient seen and examined. Case reviewed and discussed with the resident team. Agree with plan of care as discussed with me and documented in the resident note. (Manuelito Frey MD) Problem List: (1) Liver mass, left lobe Status: Acute Plan: CT with IV contrast showed liver cirrhosis with a suspicious hypodense lesion in the left lobe measuring 2.4 cm, and also an 8 mm low density lesion in the right lobe incompletely characterized. Also noted is retroperitoneal lymphadenopathy adjacent to the IVC. These are larger than typically seen and are suspicious for possible malignancy, although can also be reactive from chronic liver disease. - Alpha protein: 219 - Abdominal MRI: Mass of left hepatic lobe with main portion 5.8 x 7.1 x 5.3, with numerous subcentimeter nodules adjacent to it, with overall affected area of 6.7 x 12.2 cm. Another lesion seen posteromedially in the right lobe measuring 3.8 x 3.9 x 4.0. Also with portal caval and retroperitoneal lymphadenopathy. - Oncology consulted for suspected hepatocellular carcinoma, appreciate recommendations - Medical team to do for her to medical oncology regarding liver biopsy (2) Abdominal pain Status: Acute Plan: Left sided abdominal pain. CT scan rules out mesenteric ischemia. Lipase is normal, unlikely to be acute pancreatitis, although could be chronic pancreatitis. Has significant ascites, the pressure may be causing abdominal pain. Also with some diarrhea, possible gastroenteritis. No diverticulitis on CT scan. Possible spontaneous bacterial peritonitis given fevers and ascites. - US of abdomen: No ascites - CT abdomen: No acute finding is identified to explain abdominal pain. Liver demonstrates morphology diagnostic of cirrhosis. There is a suspicious hypodense lesion in the left lobe measuring 2.4 cm with possible perfusion abnormality versus enhancing mass with significant of the liver. There is also an 8 mm low-density lesion in the right lobe that is incompletely characterized. These findings should be correlated with prior imaging studies and should be further characterized with liver protocol MRI with and without intravenous contrast. Since this is not an emergent finding this could be performed as an outpatient. Abnormal where troponin ear lymph nodes adjacent to the IVC. Reactive lymphadenopathy can sometimes be seen with chronic liver disease. However these are larger than typically seen and demonstrated abnormal enhancement and surrounding stranding. Therefore these are suspicious and should be followed. Mild splenomegaly, likely related to portal hypertension. Severe atherosclerotic disease. - Fluid replacement: normal saline at maintenance - Pain management: oxycodone 5 mg for pain 1-5, oxycodone 10 mg for pain 6-10, morphine 2 mg IV for breakthrough pain. (3) Liver cirrhosis Status: Acute Plan: AST 52, ALT 36, ALP 102. Ammonia normal at 21. Albumin normal. INR 1.0. Bilirubin 1.2. - Counseling on alcohol abuse - Monitor liver enzymes - Check hepatitis profile - Check coag studies - MELD score 7, 1.9% estimated 3 month mortality (4) Hepatitis C Status: Chronic Plan: History of hepatitis C, treated in the past, patient reports that it was cured. - Check hepatitis profile - Check hepatitis C viral load (5) Hypertension Status: Chronic Plan: History of hypertension - Continue home medications - Clonidine PRN for BP 180/100 (6) GERD (gastroesophageal reflux disease) Status: Chronic Plan: - Continue pantoprazole 40 mg PO qday for GERD (7) Smokes one pack per day or less and motivated to quit Status: Chronic Plan: In the contemplation stage, would like to quit, has tried patches and gum before. Would like to quit cold turkey. - Does not want nicotine patch - Counseling on quitting (8) Alcoholism Status: Chronic Plan: Drinks 6 beers and two scotch drinks per day - [facility] protocol - Thiamine, multivitamin, folic acid - Ativan PRN for withdrawals - Seizure precautions - Daily counseling on alcohol abuse (9) Hyperlipidemia Status: Chronic Plan: - Continue home medicines (10) No contraindication to deep vein thrombosis (DVT) prophylaxis Status: Acute Plan: - Lovenox 40 mg daily - Bilateral SCD's (11) Nutrition, metabolism, and development symptoms Status: Acute Plan: - Maintenance fluids at 135 mls/hr with normal saline - Full liquid diet, advance as tolerated - Monitor electrolytes, has mild hyponatremia/hypochloremia (Shlomo Escobar MD R2) Shlomo Escobar MD R2 Oct 07, 2016 09:01 Manuelito Frey MD Oct 08, 2016 16:39
[2016-10-07] MEDS: METOPROLOL TARTRATE 25 MG TAB PO SCH ×2 (09:05→19:43)
[2016-10-07] MEDS: HYDROCHLOROTHIAZIDE 25 MG TAB PO SCH (09:05)
[2016-10-07] MEDS ORDERED: RESP: ALBUTEROL 2.5 MG/IPRATROPIUM 0.5 MG NEB (PRN) NEB (09:15)
[2016-10-07] MEDS: ACETAMINOPHEN 500 MG CPLT PO PRN (10:07)
[2016-10-07 10:47] LABS: ALKALINE PHOSPHATASE 77 U/L (45-117); ALT (GPT) 27 U/L (12-78); ANION GAP 6 MEQ/L (5-15); AST (GOT) 42 U/L (15-37); BICARBONATE 25.4 MEQ/L (21.0-32.0); BLOOD UREA NITROGEN 9 MG/DL (7-18); CHLORIDE 102 MEQ/L (98-107); GLOMERULAR FILTRATION RATE 93 ML/MIN (>89); MAGNESIUM 2.1 MG/DL (1.5-2.5); POTASSIUM 3.8 MEQ/L (3.5-5.1); SODIUM (NA) 133 MEQ/L (136-145); TOTAL BILIRUBIN ADULT 0.8 MG/DL (0.2-1.0)
[2016-10-07] MEDS: ATORVASTATIN 10 MG TAB PO SCH (19:43)
--- NOTE | 2016-10-07 20:54 | RADRPT ---
EXAM DATE/TIME: 10/07/2016 20:35 [facility] COMPARISON: No previous studies available for comparison. INDICATIONS : Evaluate lung status. Neoplasm per order. MEDICAL HISTORY : Hypercholesterolemia. Hypertension. Gastroesophageal reflux disease. SURGICAL HISTORY : None. ENCOUNTER: Subsequent ACUITY: 2 days PAIN SCORE: 0/10 LOCATION: Bilateral chest FINDINGS: Mild bibasilar atelectasis noted. No pleural effusion. No pneumothorax. Heart size within normal limi ts. CONCLUSION: Mild bibasilar atelectasis. Santy Dennis MD on October 07, 2016 at 20:50 Board Certified Radiologist. This report was verified electronically.
--- NOTE | 2016-10-07 21:01 | MB ---
cc: AMRIK TRAORE DATE OF CONSULTATION: 10/07/2016 REASON FOR CONSULTATION: Liver mass. PATIENT PROFILE The patient is a 51 year-old white male. He has been twice. He lives with his . He has one son. He has a grandchild who lives with him. He is 60% disabled. He is a vet and his disability occurred because of arthritis but he was not specific about the type. He has smoked a pack of cigarettes per day since youth. He drinks 6-8 beers per day and in addition scotch. He uses occasional marijuana. There is no IV drug use. HISTORY OF PRESENT ILLNESS: The patient is a 51 year-old male who was well until the past week when he developed pain in the left upper quadrant of the abdomen. He went to [facility] and was told that he might have pancreatitis and he tells me he was discharged home and given a diet. The pain worsened. He went to the CT and he was told to go to [facility] for further evaluation. He had the following tests on 10/06/2016. He had an ultrasound of the abdomen and this showed no evidence of ascites. CT scan of the abdomen and pelvis was done on 10/06/2016 and showed the liver measured 15.5 cm, with a nodular contour characteristic of cirrhosis. In the left lobe there was a 2.4 cm hypodense lesion that did not meet the criteria for a cyst, superior to this was a mass-like area of enhancement. In the right posterior liver, there was an 8 millimeter low density. The portal vein and hepatic vein showed no abnormalities. The spleen measured 13.4 cm and the pancreas appeared normal, and in the retroperitoneum there were two abnormally enlarged lymph nodes, adjacent to a normal size brodie caval lymph node. The larger of the two measured 3.6 x 2.4 cm. Immediately posterior to the lymph node and immediate to the IVC was an abnormal lymph node measuring 1.8 cm. An abdominal MRI was done on 10/06/2016 and revealed a heterogeneously enhancing mass in the left hepatic lobe occurring in the setting of chronic liver disease and of concern for hepatocellular carcinoma. The main portion of the mass measured 5.8 x 7.1 x 5.3 cm. There are numerous subcentimeter nodules more adjacent to this laterally over a region of involvement estimated to be 6.7 x 12.2 cm. There was a similar lesion seen posterior medially involving the right hepatic lobe measuring 4 x 3.9 x 3.8 cm. There was nonspecific portal and caval, and retroperitoneal adenopathy. LABORATORY STUDIES: Laboratory studies on 10/07/2016, alpha-fetoprotein is 219. Bilirubin 0.8, AST 42, ALT 27, alk phos 77, albumin is 2.8, lipase 210, hemoglobin is 14.6, hematocrit 41, white count 7600 and platelets 131,000. He has a previous history of hepatitis C. He states he was treated at the CT approximately 2 years ago and is free of disease. He is unaware that he has cirrhosis. He also has hypertension, elevated cholesterol. PAST SURGICAL HISTORY Eight to nine surgeries involving feet, ankle and jaw. PAST MEDICAL HISTORY: 1. Hypertension. 2. Elevated cholesterol. 3. Hepatitis C treated approximately two years ago and now in remission according to the patient. MEDICATIONS PRIOR TO ADMISSION 1. Aspirin 81 mg a day 2. Lipitor 3. Vitamin D3 4. B12. 5. Flexeril 6. Hydrochlorothiazide 7. Meclizine 8. Metoprolol 9. Niacin 10. Zantac. ALLERGIES Codeine causes nausea and vomiting. FAMILY HISTORY Father age 60 of ? Complications of diabetes. Mother 49 of a cerebral hemorrhage. The patient has a brother and sister who are living. REVIEW OF SYSTEMS: No change in vision or hearing. No chest pain, palpitations or sob. No weight loss. No melena, hematochezia, hematemesis. No dysphagia, no dysuria, frequency, hematuria. He has pain in the ankles and knees. He has upper abdominal pain present for a week, primarily left upper quadrant. PHYSICAL EXAMINATION: Reveals a gentleman, who although not appearing in acute distress, is uncomfortable with mild abdominal distension. VITAL SIGNS: Blood pressure 160/80, respiratory rate 18, pulse 80 afebrile. O2 sat 96%. Head is normocephalic. Sclera and conjunctiva normal. Oropharynx unremarkable. There is no adenopathy. Heart: Regular rhythm. Lungs were clear. Abdomen is distended, there is upper abdominal tenderness, more in the epigastrium on the left side, than the right side. I believe the liver is 2 or 3 cm below the right costal margin. I cannot feel the spleen. Extremities: No edema. Musculoskeletal: No bone pain. Neurologic: No weakness. ASSESSMENT: The patient is a 51 year-old male with a previous history of Hepatitis C and with active alcoholism. He presents with multiple liver masses and an alpha-fetoprotein of 219. In this setting, the specificity should be about 98% for hepatocellular carcinoma. RECOMMENDATIONS: 1. Liver biopsy. 2. Chest x-ray. If he has hepatocellular carcinoma it is likely that he has extrahepatic disease, given the current presentation of lymphadenopathy outside of the liver, and in addition he appears to have multicentric disease in the liver. I have ordered the chest x-ray and needle biopsy of the liver. MD HERACLIO Garcia/AIDEN /8:01 PM /8:37 PM MTDD
[2016-10-08] VITALS (7 sets, daily range): BP systolic 111–177; BP diastolic 76–99; PULSE 67–122; RESP 16–19; TEMP 96.3–101; O2SAT 93–98
[2016-10-08] MEDS: SODIUM CHLOR 0.9% 1000 ML INJ 1,000 ML IV SCH ×2 (03:44→20:46)
[2016-10-08] MEDS ORDERED: MORPHINE SULFATE 4 MG/ML INJ IM PRN ×2 (04:00)
[2016-10-08] MEDS: CYCLOBENZAPRINE HCL 10 MG TAB PO SCH ×3 (07:46→16:18)
[2016-10-08] MEDS: METOPROLOL TARTRATE 25 MG TAB PO SCH ×2 (07:46→21:01)
[2016-10-08] MEDS: CYANOCOBALAMIN 1,000 MCG TAB PO SCH (07:46)
[2016-10-08] MEDS: SODIUM CHLORIDE 0.9% FLUSH 10 ML FLUSH IV FLUSH SCH ×2 (07:46→22:19)
[2016-10-08] MEDS: THIAMINE HCL 100 MG TAB PO SCH (07:46)
[2016-10-08] MEDS: CHOLECALCIFEROL (VIT D3) 1000 UNIT TAB PO SCH (07:46)
[2016-10-08] MEDS: PANTOPRAZOLE SOD 40 MG DELAYED RELEASE TAB PO SCH (07:46)
[2016-10-08] MEDS: MULTIVITAMINS/MINERALS THERAPEUTIC TAB PO SCH (07:46)
[2016-10-08] MEDS: HYDROCHLOROTHIAZIDE 25 MG TAB PO SCH (07:47)
[2016-10-08] MEDS: FOLIC ACID 1 MG TAB PO SCH (07:47)
[2016-10-08 08:13] LABS: HEMATOCRIT 39.7 % (39.0-51.0); MEAN CORPUSCULAR HEMOGLOBIN 35.3 PG (27.0-34.0); MEAN CORPUSCULAR HGB CONC 35.3 % (32.0-36.0); PLATELET COUNT 129 TH/MM3 (150-450); RED BLOOD COUNT 3.97 MIL/MM3 (4.50-5.90); RED CELL DISTRIBUTION WIDTH 13.4 % (11.6-17.2); REVIEW FLAG FINAL; WHITE BLOOD COUNT 7.9 TH/MM3 (4.0-11.0)
[2016-10-08 08:33] LABS: BICARBONATE 25.4 MEQ/L (21.0-32.0); POTASSIUM 3.7 MEQ/L (3.5-5.1)
[2016-10-08] MEDS: MORPHINE SULFATE 4 MG/ML INJ IV PUSH PRN ×5 (08:43→22:22)
[2016-10-08] MEDS: ACETAMINOPHEN 500 MG CPLT PO PRN (08:48)
[2016-10-08] MEDS ORDERED: FUROSEMIDE 40 MG/4 ML VIAL IV PUSH ONE ×2 (09:15→12:15)
--- NOTE | 2016-10-08 11:04 | PD.ONC.PN ---
Subjective Subjective Remarks Tmax 101.0 this am C/o feeling hot and feverish Mild SOB C/o mid L abdomen pain; improved with pain medication. Objective Data Date Time Temp Pulse Resp B/P Pulse Ox O2 Delivery O2 Flow Rate FiO2 10/08/16 08:45 93 Nasal Cannula 3.00 10/08/16 08:43 85 Room Air 10/08/16 08:00 101.0 122 19 177/99 93 10/08/16 04:39 18 10/08/16 04:39 18 10/08/16 00:00 96.5 81 17 158/87 93 10/07/16 21:09 18 10/07/16 20:00 98.6 95 17 138/74 93 10/07/16 18:13 96 21 10/07/16 16:00 97.2 76 18 161/80 96 10/07/16 12:00 96.8 63 18 143/79 93 10/07/16 11:07 18 10/08/16 10/08/16 10/08/16 06:59 14:59 22:59 Intake Total 915 ml Output Total 2000 ml Balance -1085 ml Result Diagram: 10/08/16 0649 10/08/16 0649 Laboratory Results Laboratory Tests Test 10/08/16 06:49 White Blood Count 7.9 TH/MM3 Red Blood Count 3.97 MIL/MM3 Hemoglobin 14.0 GM/DL Hematocrit 39.7 % Mean Corpuscular Volume 100.0 FL Mean Corpuscular Hemoglobin 35.3 PG Mean Corpuscular Hemoglobin 35.3 % Concent Red Cell Distribution Width 13.4 % Platelet Count 129 TH/MM3 Mean Platelet Volume 8.4 FL Sodium Level 132 MEQ/L Potassium Level 3.7 MEQ/L Chloride Level 99 MEQ/L Carbon Dioxide Level 25.4 MEQ/L Anion Gap 8 MEQ/L Blood Urea Nitrogen 7 MG/DL Creatinine 0.99 MG/DL Estimat Glomerular Filtration 79 ML/MIN Rate Random Glucose 96 MG/DL Calcium Level 8.6 MG/DL Culture Results Microbiology Date/Time Procedure Status Source Growth 10/07/16 04:41 Aerobic Blood Culture Received Blood Peripheral Pending 10/07/16 04:41 Anaerobic Blood Culture Received Blood Peripheral Pending 10/07/16 04:55 Aerobic Blood Culture Received Blood Peripheral Pending 10/07/16 04:55 Anaerobic Blood Culture Received Blood Peripheral Pending Administered Medications Medications (Trade) Dose Ordered Sig/Ivis Route PRN Reason Start Time Stop Time Status Last Admin Dose Admin Sodium Chloride (NS 1000 ml Inj) 1,000 ml @ 70 mls/hr [id number] IV 10/06/16 15:50 10/07/16 19:44 Ondansetron HCl (Zofran Inj) 4 mg Q6H PRN IV NAUSEA OR VOMITING 10/06/16 16:00 10/07/16 21:04 Pantoprazole Sodium (Protonix) 40 mg DAILY PO 10/06/16 16:00 10/08/16 07:46 Folic Acid (Folate) 1 mg DAILY PO 10/06/16 16:15 10/11/16 16:14 10/08/16 07:47 Thiamine HCl (Vitamin B1) 100 mg DAILY PO 10/06/16 16:15 10/08/16 07:46 Multivitamins/ Minerals Therapeutic (Theragran M Tab) 1 tab DAILY PO 10/06/16 16:15 10/11/16 16:14 10/08/16 07:46 Clonidine (Catapres) 0.1 mg Q6H PRN PO SEE LABEL COMMENTS 10/06/16 16:15 10/06/16 20:34 Oxycodone HCl (Roxicodone) 10 mg Q4H PRN PO pain6-10 10/06/16 16:30 10/08/16 07:47 Atorvastatin Calcium (Lipitor) 10 mg HS PO 10/06/16 21:00 10/07/16 19:43 Cholecalciferol (Vitamin D3) 1,000 units DAILY PO 10/07/16 09:00 10/08/16 07:46 Cyanocobalamin (Vitamin B12) 1,000 mcg DAILY PO 10/07/16 09:00 10/08/16 07:46 Hydrochlorothiazide (Hydrodiuril) 25 mg DAILY PO 10/07/16 09:00 10/08/16 07:47 Metoprolol Tartrate (Lopressor) 25 mg BID PO 10/06/16 21:00 10/08/16 07:46 Cyclobenzaprine HCl (Flexeril) 7.5 mg TID PO 10/07/16 09:00 10/08/16 07:46 Hydroxyzine Pamoate (Vistaril) 50 mg HS PO 10/07/16 21:00 10/07/16 19:44 Acetaminophen (Tylenol) 500 mg Q6H PRN PO HEADACHE 10/07/16 09:15 10/08/16 08:48 Morphine Sulfate (Morphine Inj) 2 mg Q2H PRN IV PUSH BREAKTHROUGH PAIN 10/08/16 10:00 10/08/16 08:43 Objective Remarks GENERAL: Middle-aged male resting in bed on 3 L O2 NC. SKIN: Warm and moist; mildly diaphoretic. HEAD: Normocephalic. EYES: No injection or drainage. NECK: Supple, trachea midline. CARDIOVASCULAR: Regular rate and rhythm without murmurs. RESPIRATORY: Fine rales posteriorly. GASTROINTESTINAL: Abdomen protuberant. Tenderness to palpation left mid and lower quadrant. EXTREMITIES: No cyanosis, or edema. MUSCULOSKELETAL: Adequate muscle tone. NEUROLOGICAL: No obvious focal deficit. Awake, alert, and oriented x3. Assessment/Plan Assessment 51 y/o male admitted with left-sided abdominal pain and fever. Oncology consulted what appears to be an incidental finding of possible hepatocellular cancer. Plan 1. Patient was diaphoretic and per the nurse had an O2 sat of 84% on room air this morning. The primary team has ordered a CTA to rule out pulmonary embolism. 2. With the left lower quadrant pain and fevers, would like to rule out diverticulitis. 3. From our standpoint in oncology we will await results of liver biopsy; we have told the patient and his that there is a greater then 90% chance that this is a hepatocellular cancer. His alpha-fetoprotein is elevated at 219. 4. Supportive care. Attending Statement The exam, history, and the medical decision-making described in the above note were completed with the assistance of the mid-level provider. I reviewed and agree with the findings presented. I attest that I had a [id number] encounter with the patient on the same day, and personally performed and documented my assessment and findings in the medical record. pain in the left side of the abdomen no better and does not appear to be related to malignancy. suspect diverticulitis. antibiotics started. Sob and hypoxia this am surprising and ct of thorax suggest CHF. It would not surprise me if he has a cardiomyopathy from etoh. He may need echo, BNP etc. Once better can try to do bx again. no lee as the liver lesions are not contributing in any significant way to current problem- ic ?CHF,?diverticulitis. Estefany Sanders Oct 08, 2016 11:04 Yosef Carey MD Oct 08, 2016 18:18
[2016-10-08 11:44] LABS: BLOOD, URINE NEG (NEG); COMMENT (UR) CULT NOT INDICATED; CULTURE IF INDICATED CULT NOT INDICATED; GLUCOSE,URINE NEG (NEG); KETONE, URINE NEG (NEG); NITRITE,URINE NEG (NEG); PH, URINE 5.5 (5.0-8.5); URINE COLOR YELLOW (YELLW/STRAW)
[2016-10-08] MEDS ORDERED: IOHEXOL 350 MG/ML 10 ML VIAL (for RAD DIAG) IV ONE (11:53)
[2016-10-08] MEDS ORDERED: metroNIDAZOLE 500 MG INJ 100 ML IV SCH (12:00)
--- NOTE | 2016-10-08 12:08 | RADRPT ---
EXAM DATE/TIME: 10/08/2016 11:29 [facility] COMPARISON: CT ABDOMEN & PELVIS W CONTRAST, October 06, 2016, 13:23. INDICATIONS : Shortness of breath. IV CONTRAST: 73 cc Omnipaque 350 (iohexol) IV RADIATION DOSE: 23.52 CTDIvol (mGy) MEDICAL HISTORY : Hypertension. SURGICAL HISTORY : None. ENCOUNTER: Initial ACUITY: 1 day PAIN SCALE: 3/10 LOCATION: chest TECHNIQUE: Volumetric scanning of the chest was performed using a pulmonary embolism protocol MIP images were re constructed. Using automated exposure control and adjustment of the mA and/or kV according to patien t size, radiation dose was kept as low as reasonably achievable to obtain optimal diagnostic quality images. DICOM format image data is available electronically for review and comparison. Follow-up recommendations for detected pulmonary nodules are based at a minimum on nodule size and pa tient risk factors according to Fleischner Society Guidelines. FINDINGS: The examination is of adequate diagnostic quality. No pulmonary embolus is identified. The heart is enlarged. There is atherosclerotic plaquing in the coronary arteries. No pericardial eff usion is seen. No significant hilar or mediastinal adenopathy is present.Imaging through the pulmonar y parenchyma demonstrates a small right-sided effusion and diffuse interstitial prominence. There is atelectasis in the right lower lobe. The exam could suggest mild congestive failure. There are COPD c hanges. No suspicious mass lesion is identified. The visualized bony structures are intact. CONCLUSION: 1. No pulmonary embolus is identified. 2. Cardiomegaly. 3. Diffuse interstitial prominence with minimal effusion and atelectasis at the right base suggesting possible mild congestive failure. Coy Stafford MD on October 08, 2016 at 11:59 Board Certified Radiologist. This report was verified electronically.
--- NOTE | 2016-10-08 12:43 | RADRPT ---
EXAM DATE/TIME: 10/08/2016 00:00 [facility] COMPARISON: No previous studies available for comparison. INDICATIONS : Anterior liver mass. CONSULTATION: Patient has multifocal liver mass previous hep C diagnosis. This most likely is in multifocal hepato cellular carcinoma. Patient has mild to moderate congestive failure on CT pulmonary angiogram this A M. Because of this, unable to proceed with biopsy. Please reconsult the patient currently stable. MRI shows patent portal vein without duct dilatation. Patient may be accounted for transarterial taylor moembolization. Nicanor Stafford MD FACR on October 08, 2016 at 12:39 Board Certified Radiologist. This report was verified electronically.
--- NOTE | 2016-10-08 14:15 | HHI.FPPN ---
Subjective Remarks Patient seen and examined by medical team this morning. No acute events overnight. Nursing staff reports that this morning patient had fever up to 101 , tachycardia to 1 72 bpm, blood pressure of 177/99, and pulse oximetry of 93% on room air. Patient continues to endorse left lower quadrant abdominal pain as well as right shoulder pain. He states that the pain medication does help, but does not completely take away his pain. He currently has no other complaints and denies any shortness of breath, chest pain, NVD, or calf tenderness. (Shlomo Escobar MD R2) Objective Vitals Vital Signs Date Time Temp Pulse Resp B/P Pulse Ox O2 Delivery O2 Flow Rate FiO2 10/08/16 12:00 96.5 82 18 120/79 95 10/08/16 08:45 93 Nasal Cannula 3.00 10/08/16 08:43 85 Room Air 10/08/16 08:00 101.0 122 19 177/99 93 10/08/16 04:39 18 10/08/16 04:39 18 10/08/16 00:00 96.5 81 17 158/87 93 10/07/16 21:09 18 10/07/16 20:00 98.6 95 17 138/74 93 10/07/16 18:13 96 21 10/07/16 16:00 97.2 76 18 161/80 96 I/O 10/07/16 10/07/16 10/07/16 10/08/16 10/08/16 10/08/16 06:59 14:59 22:59 06:59 14:59 22:59 Intake Total 1018 ml 3141 ml 1148 ml 915 ml 281 ml Output Total 450 ml 800 ml 2000 ml 875 ml Balance 1018 ml 2691 ml 348 ml -1085 ml -594 ml Intake Oral 1800 ml 240 ml 240 ml 0 ml IV Total 1018 ml 1341 ml 908 ml 675 ml 281 ml Output Urine Total 450 ml 800 ml 2000 ml 875 ml # Voids 5 3 # Bowel Movements 0 0 (Shlomo Escobar MD R2) Result Diagram: 10/08/16 0649 10/08/16 0649 Objective Remarks GENERAL: Elderly gentleman lying in bed in no acute distress. SKIN: Very tanned, no spider angiomata, mild palmar erythema. Multiple areas of palpable lymphadenopathy including the bilateral upper extremities and abdomen. HEENT: Atraumatic, normocephalic with EOMI. No scleral icterus. MMM. No rhinorrhea. CARDIOVASCULAR: Tachycardic rate and regular rhythm without murmurs, gallops, or rubs. Normal pulses peripherally. RESPIRATORY: Crackles heard at bilateral bases, poor aeration, therefore difficult examination.. Not on oxygen supplementation. GASTROINTESTINAL: Significant abdominal distention with pain upon palpation in all 4 quadrants, however most tender in the left lower quadrant. Positive bowel sounds. Mild rebound tenderness but no guarding. Organomegaly not appreciated but patient is significantly distended. MUSCULOSKELETAL: Extremities without cyanosis or edema. No joint tenderness, effusion, or edema noted. No calf tenderness. Negative Homans sign bilaterally. NEUROLOGICAL: AAO 3. Afocal. Normal speech and judgment. No monitor actual medical staff. (Shlomo Escobar MD R2) A/P Assessment and Plan 51 year old male presents with left sided abdominal pain and diarrhea, found to have possible cirrhosis on CT scan and a suspicious hypodense lesion on liver, possible ascites on physical exam, and retroperitoneal lymphadenopathy on CT scan Discharge Planning Pending further evaluation by medical oncology. (Shlomo Escobar MD R2) Assessment and Plan Patient seen and examined. Case reviewed and discussed with the resident team. Agree with plan of care as discussed with me and documented in the resident note. Very complicated patient with probable metastatic HCC to lymph nodes including mediastinum now with CHF, persistent LLQ abd pain, ?diverticulitis. Discussed with who was at bedside. (Manuelito Frey MD) Problem List: (1) SIRS (systemic inflammatory response syndrome) Status: Acute Plan: Patient found to have temperature of 101 and tachycardic to 122 currently meeting SIRS criteria. Left lower quadrant pain concerning for possible episode of diverticulitis. Blood cultures 2: Pending UA: Pending Flagyl 500 mg every 8 hours and Levaquin 750 mg daily ordered for antibiotic coverage for diverticulitis Fecal occult blood: Negative Wells score 4.5 CT pulmonary angiogram: No pulmonary embolism. Cardiomegaly. Diffuse interstitial prominence with minimal effusion and atelectasis at the right base suggesting possible mild congestive failure. Tylenol when necessary for fever Lasix 40 mg IV given once Incentive spirometry and acappella ordered (2) Liver mass, left lobe Status: Acute Plan: CT with IV contrast showed liver cirrhosis with a suspicious hypodense lesion in the left lobe measuring 2.4 cm, and also an 8 mm low density lesion in the right lobe incompletely characterized. Also noted is retroperitoneal lymphadenopathy adjacent to the IVC. These are larger than typically seen and are suspicious for possible malignancy, although can also be reactive from chronic liver disease. - Alpha protein: 219 - Abdominal MRI: Mass of left hepatic lobe with main portion 5.8 x 7.1 x 5.3, with numerous subcentimeter nodules adjacent to it, with overall affected area of 6.7 x 12.2 cm. Another lesion seen posteromedially in the right lobe measuring 3.8 x 3.9 x 4.0. Also with portal caval and retroperitoneal lymphadenopathy. - Oncology consulted for suspected hepatocellular carcinoma, appreciate recommendations - Recommend CT-guided liver biopsy, however due to patient's current SIRS status , defer procedure until 10/09 due to patient's clinical condition (3) Abdominal pain Status: Acute Plan: Left sided abdominal pain. CT scan rules out mesenteric ischemia. Lipase is normal, unlikely to be acute pancreatitis, although could be chronic pancreatitis. Has significant ascites, the pressure may be causing abdominal pain. Also with some diarrhea, possible gastroenteritis. No diverticulitis on CT scan. Possible spontaneous bacterial peritonitis given fevers and ascites. - US of abdomen: No ascites - CT abdomen: No acute finding is identified to explain abdominal pain. Liver demonstrates morphology diagnostic of cirrhosis. There is a suspicious hypodense lesion in the left lobe measuring 2.4 cm with possible perfusion abnormality versus enhancing mass with significant of the liver. There is also an 8 mm low-density lesion in the right lobe that is incompletely characterized. These findings should be correlated with prior imaging studies and should be further characterized with liver protocol MRI with and without intravenous contrast. Since this is not an emergent finding this could be performed as an outpatient. Abnormal where troponin ear lymph nodes adjacent to the IVC. Reactive lymphadenopathy can sometimes be seen with chronic liver disease. However these are larger than typically seen and demonstrated abnormal enhancement and surrounding stranding. Therefore these are suspicious and should be followed. Mild splenomegaly, likely related to portal hypertension. Severe atherosclerotic disease. - Fluid replacement: normal saline at maintenance - Pain management: oxycodone 5 mg for pain 1-5, oxycodone 10 mg for pain 6-10, morphine 2 mg IV for breakthrough pain. (4) Liver cirrhosis Status: Acute Plan: AST 52, ALT 36, ALP 102. Ammonia normal at 21. Albumin normal. INR 1.0. Bilirubin 1.2. - Counseling on alcohol abuse - Monitor liver enzymes - Check hepatitis profile - Check coag studies - MELD score 7, 1.9% estimated 3 month mortality (5) Hepatitis C Status: Chronic Plan: History of hepatitis C, treated in the past, patient reports that it was cured. - Check hepatitis profile - Check hepatitis C viral load (6) Hypertension Status: Chronic Plan: History of hypertension - Continue home medications - Clonidine PRN for BP 180/100 (7) GERD (gastroesophageal reflux disease) Status: Chronic Plan: - Continue pantoprazole 40 mg PO qday for GERD (8) Smokes one pack per day or less and motivated to quit Status: Chronic Plan: In the contemplation stage, would like to quit, has tried patches and gum before. Would like to quit cold turkey. - Does not want nicotine patch - Counseling on quitting (9) Alcoholism Status: Chronic Plan: Drinks 6 beers and two scotch drinks per day - [facility] protocol - Thiamine, multivitamin, folic acid - Ativan PRN for withdrawals - Seizure precautions - Daily counseling on alcohol abuse (10) Hyperlipidemia Status: Chronic Plan: - Continue home medicines (11) No contraindication to deep vein thrombosis (DVT) prophylaxis Status: Acute Plan: -Hold all anticoagulation for possible CT-guided liver biopsy - Bilateral SCD's (12) Nutrition, metabolism, and development symptoms Status: Acute Plan: - Maintenance fluids at 135 mls/hr with normal saline - Full liquid diet, advance as tolerated (patient to be nothing by mouth at midnight for possible CT-guided liver biopsy - Monitor electrolytes, has mild hyponatremia/hypochloremia (Shlomo Escobar MD R2) Shlomo Escobar MD R2 Oct 08, 2016 14:15 Manuelito Frey MD Oct 08, 2016 16:39
[2016-10-08] MEDS: LEVOFLOXACIN 750 MG PREMIX INJ 150 ML IV SCH (14:41)
[2016-10-08] MEDS: ATORVASTATIN 10 MG TAB PO SCH (21:00)
[2016-10-09] VITALS (10 sets, daily range): BP systolic 113–143; BP diastolic 73–90; PULSE 73–103; RESP 16–18; TEMP 96.2–98.1; O2SAT 88–95
[2016-10-09] MEDS: metroNIDAZOLE 500 MG INJ 100 ML IV SCH ×4 (00:59→23:46)
[2016-10-09] MEDS: MORPHINE SULFATE 4 MG/ML INJ IV PUSH PRN ×4 (05:34→23:46)
[2016-10-09 06:19] LABS: AUTOMATED NEUTROPHIL # 7.6 TH/MM3 (1.8-7.7); BASOPHIL % 0.4 % (0.0-2.0); EOSINOPHIL # 0.1 TH/MM3 (0-0.4); EOSINOPHIL % 0.9 % (0.0-4.0); HEMATOCRIT 41.7 % (39.0-51.0); HEMO FLAGS DIFF FINAL; LYMPH % 10.5 % (9.0-44.0); MEAN CELL VOLUME 100.1 FL (80.0-100.0); MEAN CORPUSCULAR HEMOGLOBIN 35.2 PG (27.0-34.0); MEAN CORPUSCULAR HGB CONC 35.1 % (32.0-36.0); MONO % 9.3 % (0.0-8.0); NEUT % 78.9 % (16.0-70.0); PLATELET COUNT 138 TH/MM3 (150-450); RED BLOOD COUNT 4.16 MIL/MM3 (4.50-5.90); RED CELL DISTRIBUTION WIDTH 13.4 % (11.6-17.2); WHITE BLOOD COUNT 9.6 TH/MM3 (4.0-11.0)
[2016-10-09 06:40] LABS: BICARBONATE 27.7 MEQ/L (21.0-32.0); POTASSIUM 3.6 MEQ/L (3.5-5.1)
[2016-10-09] MEDS ORDERED: LIDOCAINE HCL 1% 20 ML VIAL ONE (07:46)
[2016-10-09] MEDS ORDERED: MIDAZOLAM HCL 2 MG/2 ML VIAL ONE (07:55)
[2016-10-09] MEDS ORDERED: fentaNYL CITRATE 250 MCG/5 ML AMP ONE (07:55)
[2016-10-09] MEDS: CYCLOBENZAPRINE HCL 10 MG TAB PO SCH ×4 (09:00→20:30)
[2016-10-09] MEDS: CHOLECALCIFEROL (VIT D3) 1000 UNIT TAB PO SCH (09:00)
[2016-10-09] MEDS: HYDROCHLOROTHIAZIDE 25 MG TAB PO SCH (09:00)
[2016-10-09] MEDS: SODIUM CHLORIDE 0.9% FLUSH 10 ML FLUSH IV FLUSH SCH ×2 (09:00→20:30)
[2016-10-09] MEDS: METOPROLOL TARTRATE 25 MG TAB PO SCH ×2 (09:00→20:30)
[2016-10-09] MEDS: CYANOCOBALAMIN 1,000 MCG TAB PO SCH (09:00)
[2016-10-09] MEDS: THIAMINE HCL 100 MG TAB PO SCH (09:00)
[2016-10-09] MEDS: PANTOPRAZOLE SOD 40 MG DELAYED RELEASE TAB PO SCH (09:00)
[2016-10-09] MEDS: FOLIC ACID 1 MG TAB PO SCH (09:00)
[2016-10-09] MEDS: MULTIVITAMINS/MINERALS THERAPEUTIC TAB PO SCH (09:00)
[2016-10-09] MEDS: LEVOFLOXACIN 750 MG PREMIX INJ 150 ML IV SCH (11:19)
[2016-10-09 11:53] LABS: HCV RNA PCR IU/ML LESS THAN 15 IU/mL (()); HCV RNA PCR LOGIU/ML LESS THAN 1.18 (())
--- NOTE | 2016-10-09 12:34 | RADRPT ---
EXAM DATE/TIME: 10/09/2016 08:43 [place] COMPARISON: No previous studies available for comparison. INDICATIONS : Anterior liver mass. SEDATION TIME: 20 minutes BIOPSY SITE: Left lobe liver mass MEDICATION(S): 1.) 1 mg midazolam (Versed) IV 2.) 100 mcg fentanyl (Sublimaze) IV DEVICE(S): 1.) 18 gauge Temno core biopsy needle MEDICAL HISTORY : Hypertension. Gastroesophageal reflux disease. SURGICAL HISTORY : None. ENCOUNTER: Initial ACUITY: 1 day PAIN SCORE: 0/10 LOCATION: Right upper quadrant A total of two core specimen(s) were obtained and sent to the laboratory for pathologic evaluation. PROCEDURE: 1. CT guided liver biopsy. Prior to the procedure informed consent was obtained. Any appropriate prior imaging studies were rev iewed. Using automated exposure control and adjustment of the mA and/or kV according to patient size, radiat ion dose was kept as low as reasonably achievable to obtain optimal diagnostic quality images. DICOM format image data is available electronically for review and comparison. The site was prepped in a sterile fashion. Full sterile technique was used, including cap, mask, luci rile gloves and gown and a large sterile sheet. Hand hygiene and 2% chlorhexidine and/or betadine/al cohol prep was utilized per protocol for cutaneous antisepsis. The skin and subcutaneous tissues wer e infiltrated with local anesthetic solution. With CT guidance the previously identified target was localized. Biopsy was performed using the presc ribed needle as above. Adequate hemostasis was obtained with compression at the puncture site. Follow-up CT scan reveals no hemorrhage. The patient tolerated the procedure well and there were no complications. The patient was returned to the Radiology Outpatient Unit in stable condition. CONCLUSION: Uncomplicated CT guided biopsy. Julio Nicholas MD on October 09, 2016 at 12:32 Board Certified Radiologist. This report was verified electronically.
--- NOTE | 2016-10-09 12:49 | HHI.FPPN ---
Subjective Remarks Patient seen and examined this morning by medical team. No acute events overnight. Patient remains mildly hypoxic requiring 2 L nasal cannula. He has just arrived back to the floor s/p uncomplicated liver biopsy. He still endorses lower abdominal pain primarily in the left lower quadrant currently rating it a 6/10. He states that he has not had a bowel movement in a couple of days possibly causing some mild distention. He currently is requesting a laxative/stool softener after he eats in order to assist his bowel movements. Otherwise he has no complaints and denies any fevers, chills, shortness breath, chest pain, or calf tenderness. Objective Vitals Vital Signs Date Time Temp Pulse Resp B/P Pulse Ox O2 Delivery O2 Flow Rate FiO2 10/09/16 12:04 95 10/09/16 12:00 96.2 86 18 134/90 89 10/09/16 10:15 78 18 113/73 92 10/09/16 09:45 81 18 119/77 91 10/09/16 09:30 98.1 86 18 143/85 92 10/09/16 08:00 97.0 88 18 140/86 88 10/09/16 00:00 97.0 73 18 117/74 95 10/08/16 20:04 96 10/08/16 20:00 97.3 88 16 128/76 97 10/08/16 16:00 96.3 67 17 111/76 95 10/08/16 14:32 98 Nasal Cannula 2.00 I/O 10/08/16 10/08/16 10/08/16 10/09/16 10/09/16 10/09/16 07:00 15:00 23:00 07:00 15:00 23:00 Intake Total 915 ml 281 ml 360 ml 389 ml Output Total 2000 ml 1475 ml 650 ml 300 ml Balance -1085 ml -1194 ml -290 ml 89 ml Intake Oral 240 ml 360 ml 240 ml IV Total 675 ml 281 ml 149 ml Output Urine Total 2000 ml 1475 ml 650 ml 300 ml # Voids 2 # Bowel Movements 0 0 Result Diagram: 10/09/16 0510 10/09/16 0510 Objective Remarks GENERAL: Elderly gentleman lying in bed in no acute distress. SKIN: Very tanned, no spider angiomata, mild palmar erythema. Multiple areas of palpable lymphadenopathy including the bilateral upper extremities and abdomen. HEENT: Atraumatic, normocephalic with EOMI. No scleral icterus. MMM. No rhinorrhea. CARDIOVASCULAR: Tachycardic rate and regular rhythm without murmurs, gallops, or rubs. Normal pulses peripherally. RESPIRATORY:. Aeration improved from prior examinations, scattered fine crackles at bilateral bases, much improved from prior exam.. Not on oxygen supplementation. GASTROINTESTINAL: Significant abdominal distention with pain upon palpation in all 4 quadrants, however most tender in the left lower quadrant. Positive bowel sounds. Mild rebound tenderness but no guarding. Organomegaly not appreciated but patient is significantly distended. Bandage over biopsy incision at the medial aspect of the right upper quadrant. MUSCULOSKELETAL: Extremities without cyanosis or edema. No joint tenderness, effusion, or edema noted. No calf tenderness. Negative Homans sign bilaterally. NEUROLOGICAL: AAO 3. Afocal. Normal speech and judgment. No monitor actual medical staff. A/P Assessment and Plan 51 year old male presents with left sided abdominal pain and diarrhea, found to have possible cirrhosis on CT scan and a suspicious hypodense lesion on liver, possible ascites on physical exam, and retroperitoneal lymphadenopathy on CT scan Discharge Planning Pending further evaluation by echocardiogram. Case management to assist in confirming appointment with the [place] primary care physician. Problem List: (1) SIRS (systemic inflammatory response syndrome) Status: Acute Plan: Patient found to have temperature of 101 and tachycardic to 122 currently meeting SIRS criteria. Left lower quadrant pain concerning for possible episode of diverticulitis. Blood cultures 2: Negative to date UA: Within normal limits, no culture indicated Flagyl 500 mg every 8 hours and Levaquin 750 mg daily ordered for antibiotic coverage for diverticulitis Fecal occult blood: Negative Wells score 4.5 CT pulmonary angiogram: No pulmonary embolism. Cardiomegaly. Diffuse interstitial prominence with minimal effusion and atelectasis at the right base suggesting possible mild congestive failure. Tylenol when necessary for fever Lasix 40 mg IV given once for volume overload Incentive spirometry and acappella ordered Patient remaining hypoxic, walk test ordered (2) Liver mass, left lobe Status: Acute Plan: CT with IV contrast showed liver cirrhosis with a suspicious hypodense lesion in the left lobe measuring 2.4 cm, and also an 8 mm low density lesion in the right lobe incompletely characterized. Also noted is retroperitoneal lymphadenopathy adjacent to the IVC. These are larger than typically seen and are suspicious for possible malignancy, although can also be reactive from chronic liver disease. - Alpha protein: 219 - Abdominal MRI: Mass of left hepatic lobe with main portion 5.8 x 7.1 x 5.3, with numerous subcentimeter nodules adjacent to it, with overall affected area of 6.7 x 12.2 cm. Another lesion seen posteromedially in the right lobe measuring 3.8 x 3.9 x 4.0. Also with portal caval and retroperitoneal lymphadenopathy. - Oncology consulted for suspected hepatocellular carcinoma, appreciate recommendations - Uncomplicated CT-guided liver biopsy completed by IR this morning, pathology pending - [facility] to [facility] for proper referral (3) Abdominal pain Status: Acute Plan: Left sided abdominal pain. CT scan rules out mesenteric ischemia. Lipase is normal, unlikely to be acute pancreatitis, although could be chronic pancreatitis. Has significant ascites, the pressure may be causing abdominal pain. Also with some diarrhea, possible gastroenteritis. No diverticulitis on CT scan. Possible spontaneous bacterial peritonitis given fevers and ascites. - US of abdomen: No ascites - CT abdomen: No acute finding is identified to explain abdominal pain. Liver demonstrates morphology diagnostic of cirrhosis. There is a suspicious hypodense lesion in the left lobe measuring 2.4 cm with possible perfusion abnormality versus enhancing mass with significant of the liver. There is also an 8 mm low-density lesion in the right lobe that is incompletely characterized. These findings should be correlated with prior imaging studies and should be further characterized with liver protocol MRI with and without intravenous contrast. Since this is not an emergent finding this could be performed as an outpatient. Abnormal where troponin ear lymph nodes adjacent to the IVC. Reactive lymphadenopathy can sometimes be seen with chronic liver disease. However these are larger than typically seen and demonstrated abnormal enhancement and surrounding stranding. Therefore these are suspicious and should be followed. Mild splenomegaly, likely related to portal hypertension. Severe atherosclerotic disease. - Fluid replacement: normal saline at maintenance - Pain management: oxycodone 5 mg for pain 1-5, oxycodone 10 mg for pain 6-10, morphine 2 mg IV for breakthrough pain. (4) Liver cirrhosis Status: Acute Plan: AST 52, ALT 36, ALP 102. Ammonia normal at 21. Albumin normal. INR 1.0. Bilirubin 1.2. - Counseling on alcohol abuse - Monitor liver enzymes -Hepatitis profile: Hep C reactive, hepatitis C RNA less than 15, hepatitis C RNA PCR less than 1.18 -Coag studies: Within normal limits - MELD score 7, 1.9% estimated 3 month mortality (5) Hepatitis C Status: Chronic Plan: History of hepatitis C, treated in the past, patient reports that it was cured. Please see as above (6) Hypertension Status: Chronic Plan: History of hypertension - Continue home medications - Clonidine PRN for BP 180/100 (7) GERD (gastroesophageal reflux disease) Status: Chronic Plan: - Continue pantoprazole 40 mg PO qday for GERD (8) Smokes one pack per day or less and motivated to quit Status: Chronic Plan: In the contemplation stage, would like to quit, has tried patches and gum before. Would like to quit cold turkey. - Does not want nicotine patch - Counseling on quitting (9) Alcoholism Status: Chronic Plan: Drinks 6 beers and two scotch drinks per day - [facility] protocol - Thiamine, multivitamin, folic acid - Ativan PRN for withdrawals - Seizure precautions - Daily counseling on alcohol abuse (10) Hyperlipidemia Status: Chronic Plan: - Continue home medicines (11) No contraindication to deep vein thrombosis (DVT) prophylaxis Status: Acute Plan: -Hold all anticoagulation for s/p CT-guided liver biopsy - Bilateral SCD's (12) Nutrition, metabolism, and development symptoms Status: Acute Plan: - Maintenance fluids at 15 mls/hr with normal saline to maintain access - Full liquid diet, advance as tolerated (patient to be nothing by mouth at midnight for possible CT-guided liver biopsy - Monitor electrolytes, has mild hyponatremia/hypochloremia Shlomo Escobar MD R2 Oct 09, 2016 12:49
--- NOTE | 2016-10-09 16:28 | ECHRPT ---
Indication: Heart failure, unspecified CONCLUSIONS Normal left ventricular size and wall thickness. The left ventricular systolic function is normal wi th an estimated ejection fraction in the range of 60-65%. Left ventricular diastolic function parameters a re normal. There is trace tricuspid valve regurgitation. The estimated pulmonary arterial pressure is 23 mmHg. BP: 120 / 79 HR: 82 Rhythm: Sinus MEASUREMENTS (Male / Female) Normal Values Technical Quality:Fair 2D ECHO LV Diastolic Diameter PLAX 5.0 cm 4.2 - 5.9 / 3.9 - 5.3 cm LV Systolic Diameter PLAX 3.5 cm IVS Diastolic Thickness 1.0 cm 0.6 - 1.0 / 0.6 - 0.9 cm LVPW Diastolic Thickness 1.0 cm 0.6 - 1.0 / 0.6 - 0.9 cm LV Relative Wall Thickness 0.4 LVOT Diameter 2.0 cm M-MODE Aortic Root Diameter MM 2.5 cm LA Systolic Diameter MM 2.9 cm LA Ao Ratio MM 1.2 AV Cusp Separation MM 1.8 cm DOPPLER AV Peak Velocity 144.0 cm/s AV Peak Gradient 8.3 mmHg LVOT Peak Velocity 98.2 cm/s LVOT Peak Gradient 3.9 mmHg AV Area Cont Eq pk 2.1 cm Mitral E Point Velocity 85.9 cm/s Mitral A Point Velocity 68.1 cm/s Mitral E to A Ratio 1.3 LV E' Lateral Velocity 5.6 cm/s Mitral E to LV E' Lateral Ratio 15.4 LV E' Septal Velocity 7.4 cm/s Mitral E to LV E' Septal Ratio 11.6 TR Peak Velocity 210.0 cm/s TR Peak Gradient 17.6 mmHg PV Peak Velocity 118.0 cm/s PV Peak Gradient 5.6 mmHg FINDINGS LEFT VENTRICLE Normal left ventricular size and wall thickness. The left ventricular systolic function is normal wi th an estimated ejection fraction in the range of 60-65%. Left ventricular diastolic function parameters a re normal. RIGHT VENTRICLE Normal right ventricular size and systolic function. LEFT ATRIUM The left atrial size is normal. RIGHT ATRIUM The right atrial size is normal. ATRIAL SEPTUM Normal atrial septal thickness without atrial level shunting by limited color doppler interrogation. AORTA The aortic root and proximal ascending aorta are normal in size on limited imaging. MITRAL VALVE Structurally normal mitral valve. No mitral valve stenosis or regurgitation. AORTIC VALVE Trileaflet aortic valve. No aortic valve stenosis or regurgitation. TRICUSPID VALVE There is trace tricuspid valve regurgitation. The estimated pulmonary arterial pressure is 23 mmHg. PULMONARY VALVE The pulmonary valve is not well visualized. VESSELS The inferior vena cava is normal in size. PERICARDIUM No pericardial effusion. Farhad Myers MD (Electronically Signed) Final Date:09 October 2016 16:26
[2016-10-09] MEDS: ATORVASTATIN 10 MG TAB PO SCH (20:30)
--- NOTE | 2016-10-09 23:44 | HHI.DCPOC ---
Discharge Care Plan Diagnosis: (1) Liver mass, left lobe Goals to Promote Your Health * To prevent worsening of your condition and complications * To maintain your health at the optimal level Directions to Meet Your Goals Take your medications as prescribed Follow your dietary instruction Follow activity as directed Keep your appointments as scheduled Take your immunizations and boosters as scheduled If your symptoms worsen call your PCP, if no PCP go to Urgent Care Center or Emergency Room Smoking is Dangerous to Your Health. Avoid second hand smoke Call the 24-hour hour crisis hotline for domestic abuse at Shlomo Escobar MD R2 Oct 09, 2016 23:44
[2016-10-09] MEDS: SODIUM CHLOR 0.9% 1000 ML INJ 1,000 ML IV SCH (23:46)
[2016-10-10] VITALS: BP 125/78; PULSE 81; RESP 18; TEMP 97.4; O2SAT 94
[2016-10-10] MEDS ORDERED: BISACODYL 10 MG SUPP RECTAL PRN
[2016-10-10] MEDS ORDERED: MAGNESIUM HYDROXIDE SUSP 30 ML CUP PO PRN
[2016-10-10] MEDS ORDERED: LACTULOSE SYRUP 20 GM/30 ML CUP PO PRN
[2016-10-10] MEDS ORDERED: SENNOSIDES 8.6 MG TAB PO PRN
[2016-10-10 06:59] LABS: HEMATOCRIT 44.9 % (39.0-51.0); MEAN CELL VOLUME 102.2 FL (80.0-100.0); MEAN CORPUSCULAR HEMOGLOBIN 35.4 PG (27.0-34.0); MEAN CORPUSCULAR HGB CONC 34.6 % (32.0-36.0); PLATELET COUNT 144 TH/MM3 (150-450); RED BLOOD COUNT 4.39 MIL/MM3 (4.50-5.90); RED CELL DISTRIBUTION WIDTH 13.4 % (11.6-17.2); REVIEW FLAG FINAL; WHITE BLOOD COUNT 7.3 TH/MM3 (4.0-11.0)
[2016-10-10 07:06] LABS: BICARBONATE 28.1 MEQ/L (21.0-32.0); POTASSIUM 3.7 MEQ/L (3.5-5.1)
[2016-10-10] MEDS: MORPHINE SULFATE 4 MG/ML INJ IV PUSH PRN (07:34)
[2016-10-10] MEDS: FOLIC ACID 1 MG TAB PO SCH (07:34)
[2016-10-10] MEDS: CYANOCOBALAMIN 1,000 MCG TAB PO SCH (07:34)
[2016-10-10] MEDS: HYDROCHLOROTHIAZIDE 25 MG TAB PO SCH (07:35)
[2016-10-10] MEDS: PANTOPRAZOLE SOD 40 MG DELAYED RELEASE TAB PO SCH (07:35)
[2016-10-10] MEDS: MULTIVITAMINS/MINERALS THERAPEUTIC TAB PO SCH (07:35)
[2016-10-10] MEDS: metroNIDAZOLE 500 MG INJ 100 ML IV SCH (07:35)
[2016-10-10] MEDS: METOPROLOL TARTRATE 25 MG TAB PO SCH (07:35)
[2016-10-10] MEDS: THIAMINE HCL 100 MG TAB PO SCH (07:35)
[2016-10-10] MEDS: CHOLECALCIFEROL (VIT D3) 1000 UNIT TAB PO SCH (07:35)
[2016-10-10] MEDS: SODIUM CHLORIDE 0.9% FLUSH 10 ML FLUSH IV FLUSH SCH (07:36)
[2016-10-10 08:00] VITALS: BP 138/78; PULSE 93; RESP 18; TEMP 98.6; O2SAT 90
[2016-10-10] MEDS ORDERED: DOCUSATE SODIUM 50 MG/SENNA 8.6 MG TAB PO SCH (09:00)
[2016-10-10 09:51] VITALS: O2SAT 96
--- NOTE | 2016-10-10 11:05 | HHI.FPPN ---
Subjective Remarks Pt seen and examined bedside. No acute events overnight. Pt continues to complain of lower abdominal pain that is only partially relieved by pain medication. Abdominal pain is of the same severity and type as yesterday. + BM last night. Pt is tolerating PO and liquids. Denies N/V. Denies fever/chills. Denies CP/SOB/dizziness. pt is requesting to go home and would like to know what his plan is for follow up. Objective Vitals Vital Signs Date Time Temp Pulse Resp B/P Pulse Ox O2 Delivery O2 Flow Rate FiO2 10/10/16 09:51 96 10/10/16 08:00 98.6 93 18 138/78 90 10/10/16 00:00 97.4 81 18 125/78 94 10/09/16 22:10 93 21 10/09/16 20:00 97.8 103 16 124/83 92 10/09/16 20:00 97.8 103 16 124/83 92 10/09/16 16:00 96.5 93 18 138/80 91 10/09/16 12:04 95 10/09/16 12:00 96.2 86 18 134/90 89 I/O 10/09/16 10/09/16 10/09/16 10/10/16 10/10/16 10/10/16 07:00 15:00 23:00 07:00 15:00 23:00 Intake Total 389 ml 294 ml 635 ml 440 ml Output Total 300 ml 425 ml 450 ml 200 ml Balance 89 ml -131 ml 185 ml 240 ml Intake Oral 240 ml 240 ml 480 ml 250 ml IV Total 149 ml 54 ml 155 ml 190 ml Output Urine Total 300 ml 425 ml 450 ml 200 ml # Bowel Movements 0 0 1 0 Result Diagram: 10/10/1635 10/10/16 0535 Objective Remarks GENERAL: Elderly gentleman lying in bed in no acute distress. SKIN: Very tanned, no spider angiomata HEENT: Atraumatic, normocephalic with EOMI. No scleral icterus. MMM. No rhinorrhea. CARDIOVASCULAR: Tachycardic rate and regular rhythm without murmurs, gallops, or rubs. Normal pulses peripherally. RESPIRATORY:. Aeration improved from prior examinations, scattered fine crackles at bilateral bases, much improved from prior exam.. Not on oxygen supplementation. GASTROINTESTINAL: mild abdominal distension, mild tenderness in lower quadrants. Positive bowel sounds. no rebound tenderness, no guarding. Organomegaly not appreciated but patient is distended (same distension as prior exams). biopsy incision at the medial aspect of the right upper quadrant. MUSCULOSKELETAL: Extremities without cyanosis or edema. No joint tenderness, effusion, or edema noted. No calf tenderness. Negative Homans sign bilaterally. NEUROLOGICAL: AAO 3. Afocal. Normal speech and judgment. No monitor actual medical staff. A/P Assessment and Plan 51 year old male presents with left sided abdominal pain and diarrhea, found to have possible cirrhosis on CT scan and a suspicious hypodense lesion on liver, possible ascites on physical exam, and retroperitoneal lymphadenopathy on CT scan Discharge Planning Pending further evaluation by echocardiogram. Case management to assist in confirming appointment with the [place] primary care physician. Problem List: (1) SIRS (systemic inflammatory response syndrome) Status: Acute Plan: Patient found to have temperature of 101 and tachycardic to 122 on admission meeting SIRS criteria. Blood cultures negative UA: Within normal limits, no culture indicated s/p Flagyl 500 mg every 8 hours and Levaquin 750 mg daily ordered for antibiotic coverage for diverticulitis Fecal occult blood: Negative Wells score 4.5 CT pulmonary angiogram: No pulmonary embolism. Cardiomegaly. Diffuse interstitial prominence with minimal effusion and atelectasis at the right base suggesting possible mild congestive failure. Tylenol when necessary for fever Lasix 40 mg IV given once for volume overload Incentive spirometry and acappella ordered - Patient no longer meets SIRS criteria on discharge and there are no signs of infection (2) Liver mass, left lobe Status: Acute Plan: Patient with history of hep C, CT with IV contrast showed liver cirrhosis with a suspicious hypodense lesion in the left lobe measuring 2.4 cm, and also an 8 mm low density lesion in the right lobe incompletely characterized. Also noted is retroperitoneal lymphadenopathy adjacent to the IVC. These are larger than typically seen and are suspicious for possible malignancy, although can also be reactive from chronic liver disease. - 95% specific for HCC as per oncology - Alpha protein: 219 - Abdominal MRI: Mass of left hepatic lobe with main portion 5.8 x 7.1 x 5.3, with numerous subcentimeter nodules adjacent to it, with overall affected area of 6.7 x 12.2 cm. Another lesion seen posteromedially in the right lobe measuring 3.8 x 3.9 x 4.0. Also with portal caval and retroperitoneal lymphadenopathy. - Oncology consulted for suspected hepatocellular carcinoma, appreciate recommendations to follow up with oncology through his primary care at the [place] - Uncomplicated CT-guided liver biopsy completed by IR - pathology pending, likely will result next week - I will be contacting patient next week with his results from liver biopsy - Patient to follow-up with his primary care physician with the [place] after discharge for proper referral; appointment made by case management (3) Abdominal pain Status: Acute Plan: Left sided abdominal pain. CT scan rules out mesenteric ischemia. Lipase is normal. No diverticulitis on CT scan. - US of abdomen: No ascites - CT abdomen: No acute finding is identified to explain abdominal pain. History of hep C, high AFP, and large liver masses lead us to believe abdominal pain is a function of HCC. Since this is not an emergent finding as the patient's abdominal pain is stabilized ,this could be further worked up as an outpatient. - Patient to be discharged with oxycodone for pain management (4) Liver cirrhosis Status: Acute Plan: AST 52, ALT 36, ALP 102. Ammonia normal at 21. Albumin normal. INR 1.0. Bilirubin 1.2. - Counseling on alcohol abuse - Monitor liver enzymes -Hepatitis profile: Hep C reactive, hepatitis C RNA less than 15, hepatitis C RNA PCR less than 1.18 -Coag studies: Within normal limits - MELD score 7, 1.9% estimated 3 month mortality - Follow up with PCP and oncologist (5) Hepatitis C Status: Chronic Plan: History of hepatitis C, treated in the past, patient reports that it was cured. Please see as above (6) Hypertension Status: Chronic Plan: History of hypertension - Continue home medications - Clonidine PRN for BP 180/100 (7) GERD (gastroesophageal reflux disease) Status: Chronic Plan: - Continue pantoprazole 40 mg PO qday for GERD (8) Smokes one pack per day or less and motivated to quit Status: Chronic Plan: In the contemplation stage, would like to quit, has tried patches and gum before. Would like to quit cold turkey. - Does not want nicotine patch - Counseling on quitting (9) Alcoholism Status: Chronic Plan: Drinks 6 beers and two scotch drinks per day - [facility] protocol - Thiamine, multivitamin, folic acid - Ativan PRN for withdrawals - Seizure precautions - Daily counseling on alcohol abuse (10) Hyperlipidemia Status: Chronic Plan: - Continue home medicines (11) No contraindication to deep vein thrombosis (DVT) prophylaxis Status: Resolved Plan: - Bilateral SCD's (12) Nutrition, metabolism, and development symptoms Status: Resolved Plan: Patient to be discharged with regular diet as tolerated Lola Ayala MD R2 Oct 10, 2016 11:05 Plan: -Hold all anticoagulation for s/p CT-guided liver biopsy - Bilateral SCD's (12) Nutrition, metabolism, and development symptoms Status: Acute Plan: - Maintenance fluids at 15 mls/hr with normal saline to maintain access - Full liquid diet, advance as tolerated (patient to be nothing by mouth at midnight for possible CT-guided liver biopsy - Monitor electrolytes, has mild hyponatremia/hypochloremia Lola Ayala MD R2 Oct 10, 2016 11:05
[2016-10-10 12:00] VITALS: BP 127/82; PULSE 85; RESP 18; TEMP 97.4; O2SAT 91
[2016-10-10] MEDS ORDERED: OXYC-392 PO (12:47)
--- NOTE | 2016-10-15 23:20 | HHI.DS ---
Discharge Summary Admission Date Oct 06, 2016 at 16:02 Discharge Date: Oct 10, 2016 Admitting Diagnosis abdominal pain (1) SIRS (systemic inflammatory response syndrome) Plan: Patient found to have temperature of 101 and tachycardic to 122 on admission meeting SIRS criteria. Blood cultures negative UA: Within normal limits, no culture indicated s/p Flagyl 500 mg every 8 hours and Levaquin 750 mg daily ordered for antibiotic coverage for diverticulitis Fecal occult blood: Negative Wells score 4.5 CT pulmonary angiogram: No pulmonary embolism. Cardiomegaly. Diffuse interstitial prominence with minimal effusion and atelectasis at the right base suggesting possible mild congestive failure. Tylenol when necessary for fever Lasix 40 mg IV given once for volume overload Incentive spirometry and acappella ordered - Patient no longer meets SIRS criteria on discharge and there are no signs of infection ICD Codes: R65.10 - Systemic inflammatory response syndrome (SIRS) of non- infectious origin without acute organ dysfunction Status: Acute (2) Liver mass, left lobe Plan: Patient with history of hep C, CT with IV contrast showed liver cirrhosis with a suspicious hypodense lesion in the left lobe measuring 2.4 cm, and also an 8 mm low density lesion in the right lobe incompletely characterized. Also noted is retroperitoneal lymphadenopathy adjacent to the IVC. These are larger than typically seen and are suspicious for possible malignancy, although can also be reactive from chronic liver disease. - 95% specific for HCC as per oncology - Alpha protein: 219 - Abdominal MRI: Mass of left hepatic lobe with main portion 5.8 x 7.1 x 5.3, with numerous subcentimeter nodules adjacent to it, with overall affected area of 6.7 x 12.2 cm. Another lesion seen posteromedially in the right lobe measuring 3.8 x 3.9 x 4.0. Also with portal caval and retroperitoneal lymphadenopathy. - Oncology consulted for suspected hepatocellular carcinoma, appreciate recommendations to follow up with oncology through his primary care at the [place] - Uncomplicated CT-guided liver biopsy completed by IR - pathology pending, likely will result next week - I will be contacting patient next week with his results from liver biopsy - Patient to follow-up with his primary care physician with the [place] after discharge for proper referral; appointment made by case management ICD Codes: R16.0 - Hepatomegaly, not elsewhere classified Status: Acute (3) Abdominal pain Plan: Left sided abdominal pain. CT scan rules out mesenteric ischemia. Lipase is normal. No diverticulitis on CT scan. - US of abdomen: No ascites - CT abdomen: No acute finding is identified to explain abdominal pain. History of hep C, high AFP, and large liver masses lead us to believe abdominal pain is a function of HCC. Since this is not an emergent finding as the patient's abdominal pain is stabilized ,this could be further worked up as an outpatient. - Patient to be discharged with oxycodone for pain management ICD Codes: R10.9 - Unspecified abdominal pain Status: Acute (4) Liver cirrhosis Plan: AST 52, ALT 36, ALP 102. Ammonia normal at 21. Albumin normal. INR 1.0. Bilirubin 1.2. - Counseling on alcohol abuse - Monitor liver enzymes -Hepatitis profile: Hep C reactive, hepatitis C RNA less than 15, hepatitis C RNA PCR less than 1.18 -Coag studies: Within normal limits - MELD score 7, 1.9% estimated 3 month mortality - Follow up with PCP and oncologist ICD Codes: K74.60 - Unspecified cirrhosis of liver Status: Acute (5) Hepatitis C Plan: History of hepatitis C, treated in the past, patient reports that it was cured. Please see as above ICD Codes: B19.20 - Unspecified viral hepatitis C without hepatic coma Status: Chronic (6) Hypertension Plan: History of hypertension - Continue home medications - Clonidine PRN for BP 180/100 ICD Codes: I10 - Essential (primary) hypertension Status: Chronic (7) GERD (gastroesophageal reflux disease) Plan: - Continue pantoprazole 40 mg PO qday for GERD ICD Codes: K21.9 - Gastro-esophageal reflux disease without esophagitis Status: Chronic (8) Smokes one pack per day or less and motivated to quit Plan: In the contemplation stage, would like to quit, has tried patches and gum before. Would like to quit cold turkey. - Does not want nicotine patch - Counseling on quitting ICD Codes: F17.210 - Nicotine dependence, cigarettes, uncomplicated Status: Chronic (9) Alcoholism Plan: Drinks 6 beers and two scotch drinks per day - [facility] protocol - Thiamine, multivitamin, folic acid - Ativan PRN for withdrawals - Seizure precautions - Daily counseling on alcohol abuse ICD Codes: F10.20 - Alcohol dependence, uncomplicated Status: Chronic (10) Hyperlipidemia Plan: - Continue home medicines ICD Codes: E78.5 - Hyperlipidemia, unspecified Status: Chronic (11) No contraindication to deep vein thrombosis (DVT) prophylaxis Plan: - Bilateral SCD's ICD Codes: Z78.9 - Other specified health status Status: Resolved (12) Nutrition, metabolism, and development symptoms Plan: Patient to be discharged with regular diet as tolerated ICD Codes: R63.8 - Other symptoms and signs concerning food and fluid intake Status: Resolved Brief History 51 year old male with a history of hepatitis C, alcoholism, hypertension, hyperlipidemia, and GERD presents with left sided abdominal pain that started about one week ago. He presented to the ED in [facility] where he was diagnosed with pancreatitis. However, his lipase today is normal. Since last week the pain has been getting worse and he noticed significant abdominal distension. The pain is located in the left lower quadrant, and some going across his lower abdomen and even extending to his right lower quadrant. A CT with IV contrast performed in the ED found no acute finding to explain the abdominal pain. However, it did find liver morphology characteristic of liver cirrhosis, and a suspicious hypodense lesion with retroperitoneal lymphadenopathy. He has a small amount of diarrhea combined with constipation for the last couple of weeks. The diarrhea is semi-formed, and he has not noticed mucous or blood in the stool. 3 days ago he had multiple bowel movements that were very small and soft, and then has not had a bowel movement in the last 2 days. He has not taken in any food since his trip to the ED on Thursday after he was told to remain NPO until his symptoms resolved. He had fever a few days ago, with a Tmax of 102, measured in his ear canal. He has no fever in the ED here. He notes chills and night sweats for the past 2 days, but does not note any recent unintentional weight loss. He also is experiencing belching and reflux, and has a history of GERD. He feels nauseous but has not had any vomiting. He also has a headache and a runny nose for the last week. PE at Discharge GENERAL: Elderly gentleman lying in bed in no acute distress. SKIN: Very tanned, no spider angiomata HEENT: Atraumatic, normocephalic with EOMI. No scleral icterus. MMM. No rhinorrhea. CARDIOVASCULAR: Tachycardic rate and regular rhythm without murmurs, gallops, or rubs. Normal pulses peripherally. RESPIRATORY:. Aeration improved from prior examinations, scattered fine crackles at bilateral bases, much improved from prior exam.. Not on oxygen supplementation. GASTROINTESTINAL: mild abdominal distension, mild tenderness in lower quadrants. Positive bowel sounds. no rebound tenderness, no guarding. Organomegaly not appreciated but patient is distended (same distension as prior exams). biopsy incision at the medial aspect of the right upper quadrant. MUSCULOSKELETAL: Extremities without cyanosis or edema. No joint tenderness, effusion, or edema noted. No calf tenderness. Negative Homans sign bilaterally. NEUROLOGICAL: AAO 3. Afocal. Normal speech and judgment. No monitor actual medical staff. Hospital Course 51 year old male with a history of hepatitis C, alcoholism, hypertension, hyperlipidemia, and GERD presents with left sided abdominal pain that started about one week ago. Subsequently imaging has been performed to include a CAT scan and MRI, the imaging is suspicious for possible hepatocellular carcinoma, combined with risk factors of Hepatitis C and elevated AFP to 219. Abdominal MRI : Mass of left hepatic lobe with main portion 5.8 x 7.1 x 5.3, with numerous subcentimeter nodules adjacent to it, with overall affected area of 6.7 x 12.2 cm. Another lesion seen posteromedially in the right lobe measuring 3.8 x 3.9 x 4.0. Also with portal caval and retroperitoneal lymphadenopathy ; indicative per oncologist as advanced stage cancer (likely HCC). Patient is not eligible for liver transplant or resection. CT-guided liver biopsy completed by IR; path showing the following: Immunohistochemical studies, with appropriate positive and negative controls, were performed to further characterize the tumor. The tumor cells are immunoreactive for cytokeratin 20 and cytokeratin 7 (focally), while negative for CDX2, hepatocyte, PSA and TTF-1. The tumors immunophenotype is not entirely specific. The differential includes both metastases and cholangiocarcinoma. The tumors immunophenotype is not consistent with hepatocellular carcinoma. Dr. Carey, Dr. Ayala, and the pathologist have discussed the findings as they have been surprising and not consistent with the history of the patient. The findings have been called in to the patient and documentation has been sent with him for transfer to the [place]. His appointment with PCP at the [place] is 10/23/16. The PCP will have to forward him to oncologist, who will need to get another pathologist to look over the staining done. Pt Condition on Discharge: Stable Discharge Disposition: Discharge Home Discharge Instructions DIET: Follow Instructions for: As Tolerated, No Restrictions Activities you can perform: Regular-No Restrictions Lola Ayala MD R2 Oct 15, 2016 23:20
== END 2016-10-10 14:00 | disposition home or self-care (01) | DRG 436 ==
LOC: NEPE 11:03 → NEDA 14:56 → OBSVTOIN 16:02 → N07B 20:12
PROVIDERS: ADMIT Family Medicine; ATTEND Family Medicine
PROC: 0FB23ZX Excision of Left Lobe Liver, Percutaneous Approach, Diagnostic (ICD-10-PCS; principal; 2016-10-09)
DX: C22.0 Liver cell carcinoma (principal); R65.10 Systemic inflammatory response syndrome (SIRS) of non-infectious origin without acute organ dysfunction; K76.6 Portal hypertension; K57.92 Diverticulitis of intestine, part unspecified, without perforation or abscess without bleeding; E87.1 Hypo-osmolality and hyponatremia; K70.30 Alcoholic cirrhosis of liver without ascites; E87.70 Fluid overload, unspecified; I10 Essential (primary) hypertension; K21.9 Gastro-esophageal reflux disease without esophagitis; E78.5 Hyperlipidemia, unspecified; F17.210 Nicotine dependence, cigarettes, uncomplicated; F10.20 Alcohol dependence, uncomplicated; G47.00 Insomnia, unspecified; R09.02 Hypoxemia; R00.0 Tachycardia, unspecified; R59.0 Localized enlarged lymph nodes
CPT/HCPCS: 47000; 71020; 71275; 74177; 74183; 76705; 76937; 77012; 80048; 80053; 80074; 81001; 82105; 82140; 82272; 83690; 83735; 83880; 84100; 85025; 85027; 85610; 85652; 85730; 87040; 87522; 88307; 88341; 88342; 93306; 94150; 94664; 94667; 94668; 96361; 96374; 96375; A9579; J1650; J1940; J1956; J2250; J2270; J2405; J3010; J7030; Q9967

== ENCOUNTER 2016-11-05 10:55 | Observation (INO) | payer OTHER ==
[~2016-11-05] VITALS: Ht 182.9 cm; Wt 90.0 kg
[~2016-11-05 10:55] MED LIST: ASPI-110 PO; CYCL7.5T33 PO; HYDR25TA5 PO; LIPI10TA PO; MECL12.574 PO; METO25TA3 PO; NIAC PO; OXYC-392 PO; RANI300T PO; VITA100064 PO; [UNRECOGNIZED DRUG - CODE] PO
[2016-11-05 10:58] VITALS: BP 186/98; PULSE 86; RESP 20; TEMP 98; O2SAT 97
[2016-11-05 11:30] VITALS: BP 174/100; PULSE 77; RESP 18; TEMP 98.1; O2SAT 96
[2016-11-05] MEDS ORDERED: ONDANSETRON HCL 4 MG/2 ML VIAL IVP ONE (11:30)
[2016-11-05] MEDS ORDERED: SODIUM CHLORIDE 0.9% FLUSH 10 ML FLUSH IVF PRN (11:30)
[2016-11-05] MEDS ORDERED: OXYC-395 PO (11:47)
[2016-11-05] MEDS ORDERED: MORPHINE SULFATE 4 MG/ML INJ IV PUSH ONE (12:00)
[2016-11-05] MEDS ORDERED: MORPHINE SULFATE 2 MG/ML INJ IV PUSH ONE (12:00)
[2016-11-05 12:24] LABS: ALKALINE PHOSPHATASE 110 U/L (45-117); ALT (GPT) 41 U/L (12-78); AST (GOT) 61 U/L (15-37); BLOOD UREA NITROGEN 10 MG/DL (7-18); GLOMERULAR FILTRATION RATE 84 ML/MIN (>89)
[2016-11-05 12:25] LABS: ANION GAP 7 MEQ/L (5-15); BICARBONATE 26.5 MEQ/L (21.0-32.0); CHLORIDE 101 MEQ/L (98-107); POTASSIUM 3.5 MEQ/L (3.5-5.1); SODIUM (NA) 134 MEQ/L (136-145); TOTAL BILIRUBIN ADULT 0.6 MG/DL (0.2-1.0)
[2016-11-05 12:37] LABS: AUTOMATED NEUTROPHIL # 6.2 TH/MM3 (1.8-7.7); BASOPHIL # 0.1 TH/MM3 (0-0.2); BASOPHIL % 0.6 % (0.0-2.0); EOSINOPHIL # 0.2 TH/MM3 (0-0.4); EOSINOPHIL % 1.9 % (0.0-4.0); HEMATOCRIT 38.2 % (39.0-51.0); HEMO FLAGS DIFF FINAL; LYMPH % 17.6 % (9.0-44.0); LYMPHOCYTE # 1.5 TH/MM3 (1.0-4.8); MEAN CELL VOLUME 97.8 FL (80.0-100.0); MEAN CORPUSCULAR HEMOGLOBIN 33.7 PG (27.0-34.0); MEAN CORPUSCULAR HGB CONC 34.5 % (32.0-36.0); MONO % 7.9 % (0.0-8.0); PLATELET COUNT 123 TH/MM3 (150-450); RED BLOOD COUNT 3.91 MIL/MM3 (4.50-5.90); RED CELL DISTRIBUTION WIDTH 12.6 % (11.6-17.2); WHITE BLOOD COUNT 8.6 TH/MM3 (4.0-11.0)
--- NOTE | 2016-11-05 12:41 | PD ---
HPI Chief Complaint: GI Complaint Time Seen by Provider: 11:03 Travel History International Travel<30 days: No Contact w/Intl Traveler<30days: No Traveled to known affect area: No History of Present Illness HPI Patient's 49-year-old male presenting to emergency evaluation of black tar-like stools. He states this has been occurring for the last 3 days. He also reports abdominal pain that is ongoing for 1 month. He is taking oxycodone which improves his pain to a 6 out of 10. His abdominal pain is all over and has been occurring since he was diagnosed with liver cancer. Is a 20 pound weight loss, decreased appetite and nausea. He denies any alcohol use. He continues to smoke tobacco. He has not had a colonoscopy in several years. He denies any shortness of breath, dizziness, lightheadedness, chest pain. PFSH Past Medical History Cancer: No Cardiovascular Problems: Yes High Cholesterol: Yes Cirrhosis: Yes Diminished Hearing: No Endocrine: No GERD: Yes Genitourinary: No Hepatitis: Yes (HEP C) Hypertension: Yes Immune Disorder: No Musculoskeletal: No Neurologic: No Psychiatric: No Reproductive: No Respiratory: No Past Surgical History Abdominal Surgery: No Body Medical Devices: PLATE IN JAW Cardiac Surgery: No Ear Surgery: No Endocrine Surgery: No Eye Surgery: No Genitourinary Surgery: No Gynecologic Surgery: No Oral Surgery: Yes (PLATE IN JAW) Thoracic Surgery: No Social History Alcohol Use: No Tobacco Use: Yes (1 PPD ) Substance Use: Yes (MARIJUANA) Allergies-Medications (Allergen,Severity, Reaction): Coded Allergies: codeine (Unverified Adverse Reaction, Mild, 10/07/16) bothers stomach Reported Meds & Prescriptions Reported Meds & Active Scripts Active Reported Oxycodone (Oxycodone HCl) 10 Mg Tab 10 Mg PO Q4H PRN Meclizine (Meclizine HCl) 12.5 Mg Tab 12.5 Mg PO TID PRN Aspirin 81 (Aspirin) 81 Mg Tabdr 81 Mg PO DAILY Hydrochlorothiazide 25 Mg Tab 25 Mg PO DAILY Flexeril (Cyclobenzaprine HCl) 7.5 Mg Tab 7.5 Mg PO TID Metoprolol Tartrate 25 Mg Tab 25 Mg PO BID Slo-Niacin (Niacin) 250 Mg Tab 250 Mg PO DAILY B-12 (Cyanocobalamin (Vitamin B-12)) 1,000 Mcg Tablet 1 Tab PO DAILY Vitamin D3 (Cholecalciferol) 1,000 Unit Tab 1,000 Units PO DAILY Lipitor (Atorvastatin Calcium) 10 Mg Tab 10 Mg PO HS Ranitidine (Ranitidine HCl) 300 Mg Tab 300 Mg PO HS Review of Systems Except as stated in HPI: all other systems reviewed are Neg General / Constitutional: Positive: Weight Loss Gastrointestinal: Positive: Nausea, Abdominal Pain, Loss of Appetite, Other ( black stools) Physical Exam Narrative GENERAL: Well-developed, well-nourished, alert male. Resting comfortably in no acute distress. SKIN: Warm and dry. HEAD: Atraumatic. Normocephalic. EYES: Pupils equal and round. No scleral icterus. No injection or drainage. ENT: No nasal bleeding or discharge. Mucous membranes pink and moist. NECK: Trachea midline. No JVD. CARDIOVASCULAR: Regular rate and rhythm. RESPIRATORY: No accessory muscle use. Clear to auscultation. Breath sounds equal bilaterally. GASTROINTESTINAL: Abdomen soft, mildly tender, nondistended. Hepatic and splenic margins not palpable. Positive bowel sounds, no rebound, no guarding. MUSCULOSKELETAL: Extremities without clubbing, cyanosis, or edema. No obvious deformities. NEUROLOGICAL: Awake and alert. No obvious cranial nerve deficits. Motor grossly within normal limits. Five out of 5 muscle strength in the arms and legs. Normal speech. PSYCHIATRIC: Appropriate mood and affect; insight and judgment normal. Data Data Last Documented VS Vital Signs Date Time Temp Pulse Resp B/P (MAP) Pulse Ox O2 Delivery O2 Flow Rate FiO2 11/05/16 13:40 63 21 113/81 (92) 95 11/05/16 11:30 98.1 Room Air Orders Orders Complete Blood Count With Diff (11/05/16 11:24) Comprehensive Metabolic Panel (11/05/16 11:24) Ammonia (11/05/16 11:24) Prothrombin Time / Inr (Pt) (11/05/16 11:24) Act Partial Throm Time (Ptt) (11/05/16 11:24) Type And Screen (11/05/16 11:24) Ecg Monitoring (11/05/16 11:24) Iv Access Insert/Monitor (11/05/16 11:24) Oximetry (11/05/16 11:24) Ondansetron Inj (Zofran Inj) (11/05/16 11:30) Sodium Chloride 0.9% Flush (Ns Flush) (11/05/16 11:30) Vascular Access Team Consult/P PRN (11/05/16 11:24) Vascular Poc Ultrasound (11/05/16 ) Morphine Inj (Morphine Inj) (11/05/16 12:00) Morphine Inj (Morphine Inj) (11/05/16 12:00) Admit Order (Ed Use Only) (11/05/16 14:41) Labs Laboratory Tests Test 11/05/16 11:30 11/05/16 11:45 White Blood Count 8.6 TH/MM3 Red Blood Count 3.91 MIL/MM3 Hemoglobin 13.2 GM/DL Hematocrit 38.2 % Mean Corpuscular Volume 97.8 FL Mean Corpuscular Hemoglobin 33.7 PG Mean Corpuscular Hemoglobin Concent 34.5 % Red Cell Distribution Width 12.6 % Platelet Count 123 TH/MM3 Mean Platelet Volume 8.0 FL Neutrophils (%) (Auto) 72.0 % Lymphocytes (%) (Auto) 17.6 % Monocytes (%) (Auto) 7.9 % Eosinophils (%) (Auto) 1.9 % Basophils (%) (Auto) 0.6 % Neutrophils # (Auto) 6.2 TH/MM3 Lymphocytes # (Auto) 1.5 TH/MM3 Monocytes # (Auto) 0.7 TH/MM3 Eosinophils # (Auto) 0.2 TH/MM3 Basophils # (Auto) 0.1 TH/MM3 CBC Comment DIFF FINAL Differential Comment Prothrombin Time 12.0 SEC Prothromb Time International Ratio 1.1 RATIO Activated Partial Thromboplast Time 26.8 SEC Blood Urea Nitrogen 10 MG/DL Creatinine 0.94 MG/DL Random Glucose 125 MG/DL Total Protein 8.8 GM/DL Albumin 3.5 GM/DL Calcium Level 9.1 MG/DL Alkaline Phosphatase 110 U/L Aspartate Amino Transf (AST/SGOT) 61 U/L Alanine Aminotransferase (ALT/SGPT) 41 U/L Total Bilirubin 0.6 MG/DL Sodium Level 134 MEQ/L Potassium Level 3.5 MEQ/L Chloride Level 101 MEQ/L Carbon Dioxide Level 26.5 MEQ/L Anion Gap 7 MEQ/L Estimat Glomerular Filtration Rate 84 ML/MIN Ammonia 26 MCMOL/L MDM Medical Decision Making Medical Screen Exam Complete: Yes Emergency Medical Condition: Yes Medical Record Reviewed: Yes Interpretation(s) Laboratory Tests Test 11/05/16 11:30 11/05/16 11:45 White Blood Count 8.6 TH/MM3 Red Blood Count 3.91 MIL/MM3 Hemoglobin 13.2 GM/DL Hematocrit 38.2 % Mean Corpuscular Volume 97.8 FL Mean Corpuscular Hemoglobin 33.7 PG Mean Corpuscular Hemoglobin Concent 34.5 % Red Cell Distribution Width 12.6 % Platelet Count 123 TH/MM3 Mean Platelet Volume 8.0 FL Neutrophils (%) (Auto) 72.0 % Lymphocytes (%) (Auto) 17.6 % Monocytes (%) (Auto) 7.9 % Eosinophils (%) (Auto) 1.9 % Basophils (%) (Auto) 0.6 % Neutrophils # (Auto) 6.2 TH/MM3 Lymphocytes # (Auto) 1.5 TH/MM3 Monocytes # (Auto) 0.7 TH/MM3 Eosinophils # (Auto) 0.2 TH/MM3 Basophils # (Auto) 0.1 TH/MM3 CBC Comment DIFF FINAL Differential Comment Prothrombin Time 12.0 SEC Prothromb Time International Ratio 1.1 RATIO Activated Partial Thromboplast Time 26.8 SEC Blood Urea Nitrogen 10 MG/DL Creatinine 0.94 MG/DL Random Glucose 125 MG/DL Total Protein 8.8 GM/DL Albumin 3.5 GM/DL Calcium Level 9.1 MG/DL Alkaline Phosphatase 110 U/L Aspartate Amino Transf (AST/SGOT) 61 U/L Alanine Aminotransferase (ALT/SGPT) 41 U/L Total Bilirubin 0.6 MG/DL Sodium Level 134 MEQ/L Potassium Level 3.5 MEQ/L Chloride Level 101 MEQ/L Carbon Dioxide Level 26.5 MEQ/L Anion Gap 7 MEQ/L Estimat Glomerular Filtration Rate 84 ML/MIN Ammonia 26 MCMOL/L Vital Signs Date Time Temp Pulse Resp B/P (MAP) Pulse Ox O2 Delivery O2 Flow Rate FiO2 11/05/16 11:30 98.1 77 18 174/100 (124) 96 Room Air 11/05/16 10:58 98.0 86 20 186/98 (127) 97 Room Air Differential Diagnosis GI bleed versus anemia versus metabolic abnormality versus other Narrative Course Patient is 51-year-old male who presented to emergency evaluation of black tar- like stools for last 3 days. Patient's vital signs are stable, Hemoccult was positive on exam. Patient appears well. CBC is unremarkable Chemistry reviewed, no acute findings identified, specifically the BUN is within normal limits ammonia level is 26. Patient reported abdominal pain, this is chronic in nature occurring for the last month. He was given morphine and Zofran for pain. Patient was observed resting comfortably. Due to patient' s history of cirrhosis and liver cancer, he will be placed in observation. Discussed with Dr. Bradley, he accepted admission. Orders place. Care was also discussed by attending physician. HemaPrompt Point of Care Fecal Specimen Occult Blood: Positive Diagnosis Primary Impression: GI bleed Qualified Codes: K92.2 - Gastrointestinal hemorrhage, unspecified Admitting Information Admitting Physician Requests: Observation Condition: Stable Sherice Kaufman Nov 05, 2016 12:41
[2016-11-05 13:00] LABS: APTT (PATIENT) 26.8 SEC (24.3-30.1); INTERNATIONAL NORMALIZED RATIO 1.1 RATIO
[2016-11-05 13:40] VITALS: BP 113/81; PULSE 63; RESP 21; O2SAT 95
[2016-11-05] MEDS ORDERED: ONDANSETRON HCL 4 MG/2 ML VIAL IVP PRN (15:00)
[2016-11-05] MEDS ORDERED: SODIUM CHLORIDE 0.9% FLUSH 10 ML FLUSH IV FLUSH PRN (15:00)
[2016-11-05] MEDS ORDERED: NALOXONE HCL 0.4 MG/ML AMP IV PUSH PRN (15:00)
[2016-11-05] MEDS ORDERED: MECLIZINE HCL 25 MG TAB PO PRN (15:00)
[2016-11-05] MEDS: SODIUM CHLOR 0.9% 1000 ML INJ 1,000 ML IV SCH (16:06)
[2016-11-05] MEDS ORDERED: PILL SPLITTER OTHER PRN (16:15)
[2016-11-05 17:02] VITALS: BP 129/83; PULSE 76; RESP 18; TEMP 97.6; O2SAT 94
[2016-11-05] MEDS: CYCLOBENZAPRINE HCL 10 MG TAB PO SCH (17:28)
[2016-11-05] MEDS ORDERED: HYDROmorphone HCL PF 1 MG/ML VIAL IV PUSH PRN (18:00)
--- NOTE | 2016-11-05 18:15 | HHI.HP ---
[facility] Primary Care Physician [facility] Admission Diagnosis GI BLEED Diagnoses: (1) GI bleed Diagnosis: Principal (2) Smokes one pack per day or less and motivated to quit Diagnosis: Principal (3) Liver mass, left lobe Diagnosis: Principal (4) Hypertension Diagnosis: Principal (5) Liver cancer, primary, with metastasis from liver to other site Diagnosis: Principal Travel History International Travel<30 Days: No Contact w/Intl Traveler <30 Da: No Traveled to Known Affected Are: No History of Present Illness Mr. Barker is a 51 year old male. He has a past history of alcoholism and nicotine dependence. One month ago he was diagnosed with stage 4 liver cancer. He comes into the ER tonight reporting 3 days of black stools with abdominal pain. No bright red blood reported in bowel movements. He has a Hgb level of 13.2 despite the bleed. No nausea or vomiting reported. No diarrhea. No fevers. He is presently smoking 1ppd and has stopped all alcohol consumption. No other complaints. Review of Systems Constitutional: DENIES: Fatigue, Fever, Weight loss, Dizziness Eyes: DENIES: Blurred vision, Diplopia Ears, nose, mouth, throat: DENIES: Tinnitus, Hearing loss, Vertigo Respiratory: DENIES: Apneas, Cough, Wheezing, Sputum production, Shortness of breath Cardiovascular: DENIES: Chest pain, Palpitations, Syncope Gastrointestinal: COMPLAINS OF: Abdominal pain, Black stools, DENIES: Bloody stools, Diarrhea, Nausea, Vomiting, Difficulty Swallowing Musculoskeletal: DENIES: Joint pain, Muscle aches, Stiffness Integumentary: DENIES: Abnormal pigmentation Hematologic/lymphatic: DENIES: Bruising Immunologic/allergic: DENIES: Eczema Neurologic: DENIES: Abnormal gait, Headache Psychiatric: DENIES: Anxiety, Confusion, Depression Past Family Social History Past Medical History Liver Cancer (stage IV) Hepatitis C Alcoholism Hx Nicotine Dependence HTN GERD Past Surgical History Ankle Surgery Jaw Fracture repair Reported Medications Reported Meds & Active Scripts Active Reported Oxycodone (Oxycodone HCl) 10 Mg Tab 10 Mg PO Q4H PRN Meclizine (Meclizine HCl) 12.5 Mg Tab 12.5 Mg PO TID PRN Aspirin 81 (Aspirin) 81 Mg Tabdr 81 Mg PO DAILY Hydrochlorothiazide 25 Mg Tab 25 Mg PO DAILY Flexeril (Cyclobenzaprine HCl) 7.5 Mg Tab 7.5 Mg PO TID Metoprolol Tartrate 25 Mg Tab 25 Mg PO BID Slo-Niacin (Niacin) 250 Mg Tab 250 Mg PO DAILY B-12 (Cyanocobalamin (Vitamin B-12)) 1,000 Mcg Tablet 1 Tab PO DAILY Vitamin D3 (Cholecalciferol) 1,000 Unit Tab 1,000 Units PO DAILY Lipitor (Atorvastatin Calcium) 10 Mg Tab 10 Mg PO HS Ranitidine (Ranitidine HCl) 300 Mg Tab 300 Mg PO HS Allergies: Coded Allergies: codeine (Unverified Adverse Reaction, Mild, 10/07/16) bothers stomach Active Ordered Medications Administered Medications Medications (Trade) Dose Ordered Sig/Ivis Route PRN Reason Start Time Stop Time Status Last Admin Dose Admin Sodium Chloride 1,000 ml @ 100 mls/hr Q10H IV 11/05/16 16:30 11/05/16 16:06 Cyclobenzaprine HCl (Flexeril) 7.5 mg TID PO 11/05/16 18:00 11/05/16 17:28 Family History DM2 in mother and father Social History Smoking 1ppd, previously smoked 3ppd No alcohol use, previously drank 6 beers and 2 scotches daily Smokes marijuana occasionally, no history of IV Drug abuse or illicit drug abuse Physical Exam Vital Signs Vital Signs Date Time Temp Pulse Resp B/P (MAP) Pulse Ox O2 Delivery O2 Flow Rate FiO2 11/05/16 17:02 97.6 76 18 129/83 (98) 94 11/05/16 16:13 11/05/16 13:40 63 21 113/81 (92) 95 11/05/16 11:30 98.1 77 18 174/100 (124) 96 Room Air 11/05/16 10:58 98.0 86 20 186/98 (127) 97 Room Air Physical Exam GENERAL: NAD, A&Ox3 SKIN: Warm and dry. HEAD: Normocephalic. EYES: No scleral icterus. No injection or drainage. NECK: Supple, trachea midline. No JVD or lymphadenopathy. CARDIOVASCULAR: Regular rate and rhythm without murmurs, gallops, or rubs. RESPIRATORY: Breath sounds equal bilaterally. No accessory muscle use. GASTROINTESTINAL: Abdomen soft, non-tender. Distended. MUSCULOSKELETAL: No cyanosis, or edema. BACK: Nontender without obvious deformity. No CVA tenderness. Laboratory Laboratory Tests Test 11/05/16 11:30 11/05/16 11:45 White Blood Count 8.6 Red Blood Count 3.91 Hemoglobin 13.2 Hematocrit 38.2 Mean Corpuscular Volume 97.8 Mean Corpuscular Hemoglobin 33.7 Mean Corpuscular Hemoglobin Concent 34.5 Red Cell Distribution Width 12.6 Platelet Count 123 Mean Platelet Volume 8.0 Neutrophils (%) (Auto) 72.0 Lymphocytes (%) (Auto) 17.6 Monocytes (%) (Auto) 7.9 Eosinophils (%) (Auto) 1.9 Basophils (%) (Auto) 0.6 Neutrophils # (Auto) 6.2 Lymphocytes # (Auto) 1.5 Monocytes # (Auto) 0.7 Eosinophils # (Auto) 0.2 Basophils # (Auto) 0.1 CBC Comment DIFF FINAL Differential Comment Prothrombin Time 12.0 Prothromb Time International Ratio 1.1 Activated Partial Thromboplast Time 26.8 Blood Urea Nitrogen 10 Creatinine 0.94 Random Glucose 125 Total Protein 8.8 Albumin 3.5 Calcium Level 9.1 Alkaline Phosphatase 110 Aspartate Amino Transf (AST/SGOT) 61 Alanine Aminotransferase (ALT/SGPT) 41 Total Bilirubin 0.6 Sodium Level 134 Potassium Level 3.5 Chloride Level 101 Carbon Dioxide Level 26.5 Anion Gap 7 Estimat Glomerular Filtration Rate 84 Ammonia 26 Result Diagram: 11/05/16 1130 11/05/16 1130 Caprini VTE Risk Assessment Caprini VTE Risk Assessment: No/Low Risk (score <= 1) VTE Pharm Contraindication: Active bleeding Caprini Risk Assessment Model Point Value = 1 Point Value = 2 Point Value = 3 Point Value = 5 Age 41-60 Minor surgery BMI > 25 kg/m2 Swollen legs Varicose veins or History of unexplained or recurrent spontaneous Oral contraceptives or hormone replacement Sepsis (< 1 month) Serious lung disease, including pneumonia (< 1 month) Abnormal pulmonary function Acute myocardial infarction Congestive heart failure (< 1 month) History of inflammatory bowel disease Medical patient at bed rest Age 61-74 Arthroscopic surgery Major open surgery (> 45 min) Laparoscopic surgery (> 45 min) Malignancy Confined to bed (> 72 hours) Immobilizing plaster cast Central venous access Age >= 75 History of VTE Family history of VTE Factor V Leiden Prothrombin [id number] Lupus anticoagulant Anticardiolipin antibodies Elevated serum homocysteine Heparin-induced thrombocytopenia Other congenital or acquired thrombophilia Stroke (< 1 month) Elective arthroplasty Hip, pelvis, or leg fracture Acute spinal cord injury (< 1 month) Prophylaxis Regimen Total Risk Factor Score Risk Level Prophylaxis Regimen 0-1 Low Early ambulation 2 Moderate Order ONE of the following: *Sequential Compression Device (SCD) *Heparin 5000 units SQ BID 3-4 Higher Order ONE of the following medications: *Heparin 5000 units SQ TID *Enoxaparin/Lovenox 40 mg SQ daily (WT < 150 kg, CrCl > 30 mL/min) *Enoxaparin/Lovenox 30 mg SQ daily (WT < 150 kg, CrCl > 10-29 mL/min) *Enoxaparin/Lovenox 30 mg SQ BID (WT < 150 kg, CrCl > 30 mL/min) AND/OR *Sequential Compression Device (SCD) 5 or more Highest Order ONE of the following medications: *Heparin 5000 units SQ TID (Preferred with Epidurals) *Enoxaparin/Lovenox 40 mg SQ daily (WT < 150 kg, CrCl > 30 mL/min) *Enoxaparin/Lovenox 30 mg SQ daily (WT < 150 kg, CrCl > 10-29 mL/min) *Enoxaparin/Lovenox 30 mg SQ BID (WT < 150 kg, CrCl > 30 mL/min) AND *Sequential Compression Device (SCD) Assessment and Plan Problem List: (1) Liver cancer, primary, with metastasis from liver to other site ICD Code: C22.8 - Malignant neoplasm of liver, primary, unspecified as to type (2) Liver mass, left lobe ICD Code: R16.0 - Hepatomegaly, not elsewhere classified Status: Acute (3) Hypertension ICD Code: I10 - Essential (primary) hypertension Status: Chronic (4) GI bleed ICD Code: K92.2 - Gastrointestinal hemorrhage, unspecified Status: Acute Assessment and Plan Assessment and Plan 51 year old male with stage IV liver cancer admitted with GI Bleed for 3 days. GI Bleed Abdominal Pain No anemia GI consulted NPO after midnight PRN pain treatments Etiology does not appear to be related to a coagulopathy Metastasis vs. Varices vs. other Stage IV Liver Cancer Oncology consult Not under active treatments yet HTN Continue BP treatments Follow BP Hepatitis C Patient reports this was treated 2 years ago Hyperlipidemia Follow as an outpatient GERD Ranitidine DVT Prophylaxis SCDs Problem Qualifiers (1) GI bleed: Qualified Codes: K92.2 - Gastrointestinal hemorrhage, unspecified Coy Bradley MD Nov 05, 2016 18:15
[2016-11-05] MEDS: HYDROmorphone HCL PF 1 MG/ML VIAL IV PUSH PRN ×2 (18:25→22:21)
[2016-11-05] MEDS ORDERED: NICOTINE 14 MG/24 HR PATCH T-DERMAL ONE (18:30)
[2016-11-05 19:41] VITALS: BP 141/82; PULSE 84; RESP 20; TEMP 98.3; O2SAT 95
[2016-11-05] MEDS ORDERED: METOPROLOL TARTRATE 25 MG TAB PO SCH (21:00)
[2016-11-05] MEDS: ATORVASTATIN 10 MG TAB PO SCH (22:01)
[2016-11-05] MEDS: SODIUM CHLORIDE 0.9% FLUSH 10 ML FLUSH IV FLUSH SCH (22:01)
[2016-11-05] MEDS: FAMOTIDINE 20 MG TAB PO SCH (22:01)
[2016-11-06 00:13] VITALS: BP 115/81; PULSE 64; RESP 18; TEMP 98.6; O2SAT 96
[2016-11-06 04:02] VITALS: BP 116/80; PULSE 74; RESP 18; TEMP 98.6; O2SAT 98
[2016-11-06] MEDS: SODIUM CHLOR 0.9% 1000 ML INJ 1,000 ML IV SCH (04:26)
[2016-11-06] MEDS: HYDROmorphone HCL PF 1 MG/ML VIAL IV PUSH PRN ×4 (04:27→23:30)
[2016-11-06 06:14] LABS: AUTOMATED NEUTROPHIL # 3.9 TH/MM3 (1.8-7.7); BASOPHIL % 0.5 % (0.0-2.0); EOSINOPHIL # 0.2 TH/MM3 (0-0.4); EOSINOPHIL % 3.2 % (0.0-4.0); HEMATOCRIT 46.4 % (39.0-51.0); HEMO FLAGS DIFF FINAL; LYMPH % 28.8 % (9.0-44.0); LYMPHOCYTE # 1.9 TH/MM3 (1.0-4.8); MEAN CORPUSCULAR HEMOGLOBIN 34.1 PG (27.0-34.0); MEAN CORPUSCULAR HGB CONC 34.5 % (32.0-36.0); MONO % 8.7 % (0.0-8.0); NEUT % 58.8 % (16.0-70.0); PLATELET COUNT 125 TH/MM3 (150-450); RED BLOOD COUNT 4.69 MIL/MM3 (4.50-5.90); RED CELL DISTRIBUTION WIDTH 13.3 % (11.6-17.2); WHITE BLOOD COUNT 6.6 TH/MM3 (4.0-11.0)
[2016-11-06 06:45] LABS: ANION GAP 7 MEQ/L (5-15); AST (GOT) 62 U/L (15-37); BICARBONATE 28.6 MEQ/L (21.0-32.0); BLOOD UREA NITROGEN 7 MG/DL (7-18); CHLORIDE 97 MEQ/L (98-107); GLOMERULAR FILTRATION RATE 105 ML/MIN (>89); POTASSIUM 3.7 MEQ/L (3.5-5.1); SODIUM (NA) 133 MEQ/L (136-145)
[2016-11-06 06:46] LABS: ALT (GPT) 39 U/L (12-78)
[2016-11-06 06:49] LABS: ALKALINE PHOSPHATASE 107 U/L (45-117); TOTAL BILIRUBIN ADULT 0.6 MG/DL (0.2-1.0)
[2016-11-06] MEDS: CHOLECALCIFEROL (VIT D3) 1000 UNIT TAB PO SCH (08:29)
[2016-11-06] MEDS: SODIUM CHLORIDE 0.9% FLUSH 10 ML FLUSH IV FLUSH SCH ×2 (08:29→20:42)
[2016-11-06] MEDS: METOPROLOL TARTRATE 50 MG TAB PO SCH ×2 (08:29→20:40)
[2016-11-06] MEDS: HYDROCHLOROTHIAZIDE 25 MG TAB PO SCH (08:30)
[2016-11-06] MEDS: CYANOCOBALAMIN 1,000 MCG TAB PO SCH (08:30)
[2016-11-06] MEDS: CYCLOBENZAPRINE HCL 10 MG TAB PO SCH ×3 (08:31→18:51)
[2016-11-06] MEDS: NICOTINE 14 MG/24 HR PATCH T-DERMAL SCH (08:31)
[2016-11-06] MEDS: FAMOTIDINE 20 MG TAB PO SCH (08:31)
[2016-11-06] MEDS: REMOVE OLD PATCH T-DERMAL SCH (08:32)
[2016-11-06] MEDS: NIACIN 250 MG CONTROLLED RELEASE TAB PO SCH (08:51)
[2016-11-06] MEDS ORDERED: HYDROCHLOROTHIAZIDE 25 MG TAB PO SCH (09:00)
[2016-11-06 09:02] VITALS: BP 130/88; PULSE 52; RESP 18; TEMP 97.6; O2SAT 95
--- NOTE | 2016-11-06 09:18 | PD.CONS ---
HPI History of Present Illness This is a 51 year old male who reports that he was recently diagnosed with stage IV liver cancer. He was hospitalized last month for abdominal pain and found to have a heterogeneously enhancing mass of the left hepatic lobe in the setting of chronic liver disease and of concern for hepatocellular carcinoma ( the main portion of the mass is 5.8 x 7.1 x 5.3 cm but there are numerous subcentimeter nodules more adjacent to it more laterally for an overall region of involvement estimated at 6.7 x 12.2 cm in greatest transaxial dimension. A similar lesion is seen posteromedially the right hepatic lobe measuring 3.8 x 3.9 x 4.0 cm). He then underwent liver biopsy (10/09/16)----> poorly differentiated non-small cell carcinoma, favor adenocarcinoma- The differential includes both metastases and cholangiocarcinoma, the tumor's immuno phenotype is not consistent with hepatocellular carcinoma. The patient reports that he is followed at the [facility]. He was seen by an oncologist affiliated with the [facility] in [facility] and reports that he was told that his cancer was inoperable, that he had 1 year to live, and that they would start palliative chemotherapy. He reports that he is not able to drive to [facility] for treatment and therefore this was not an option and that the [facility] is working to get him to Dr. Carey for further evaluation and treatment. Since last month, he has had constant lower abdominal pain that radiates to his RUQ and back. This is a dull ache. There are no aggravating or alleviating factors. He feels that he is bloated, although he is no more bloated than he was in September and he was evaluated with US at that time that did not appreciate any ascites. He has also had intermittent nausea, without vomiting. About 3 days ago, he started passing black tarry stools. He does have GERD and takes ranitidine at home for this. This is controlled for the most part, but does still have occasional reflux. He last had an egd/colonoscopy through the [facility] a few years ago. He also reports decreased appetite and a 20 lb weight loss over the past month. He has a history of Hepatitis C and believes he was treated interferon and another pill x 3 months. He states that this was successful and he cleared the virus. He has never been told that he has liver cirrhosis. He denies any history of PUD. He does not take NSAIDs. He does not drink ETOH. (Dottie Briones) PFSH Past Medical History Liver masses, pathology poorly differentiated non-small cell carcinoma, favor adenocarcinoma Hepatitis C Alcoholism Hx Nicotine Dependence HTN GERD Hiatal hernia Past Surgical History Ankle Surgery Jaw Fracture repair Liver biopsy EGD/Colonoscopy (Dottie Briones) Coded Allergies: codeine (Unverified Adverse Reaction, Mild, 10/07/16) bothers stomach Medications Allergies Coded Allergies Type Severity Reaction Last Updated Verified codeine Adverse Reaction Mild 10/07/16 No Active Scripts Medications Dose Route/Sig Max Daily Dose Days Date Category Oxycodone (Oxycodone HCl) 10 Mg Tab 10 Mg PO Q4H PRN 11/05/16 Reported Meclizine (Meclizine HCl) 12.5 Mg Tab 12.5 Mg PO TID PRN 10/06/16 Reported Aspirin 81 (Aspirin) 81 Mg Tabdr 81 Mg PO DAILY 10/06/16 Reported Hydrochlorothiazide 25 Mg Tab 25 Mg PO DAILY 10/06/16 Reported Flexeril (Cyclobenzaprine HCl) 7.5 Mg Tab 7.5 Mg PO TID 10/06/16 Reported Metoprolol Tartrate 25 Mg Tab 25 Mg PO BID 10/06/16 Reported Slo-Niacin (Niacin) 250 Mg Tab 250 Mg PO DAILY 10/06/16 Reported B-12 (Cyanocobalamin (Vitamin B-12)) 1,000 Mcg Tablet 1 Tab PO DAILY 10/06/16 Reported Vitamin D3 (Cholecalciferol) 1,000 Unit Tab 1,000 Units PO DAILY 10/06/16 Reported Lipitor (Atorvastatin Calcium) 10 Mg Tab 10 Mg PO HS 10/06/16 Reported Ranitidine (Ranitidine HCl) 300 Mg Tab 300 Mg PO HS 10/06/16 Reported Family History DM2 in mother and father Social History Smoking 1ppd, previously smoked 3ppd No alcohol use, previously drank 6 beers and 2 scotches daily Smokes marijuana occasionally, no history of IV Drug abuse or illicit drug abuse (Dottie Briones) Review of Systems Constitutional: COMPLAINS OF: Fatigue, Weight loss Respiratory: DENIES: Cough, Shortness of breath Cardiovascular: DENIES: Chest pain Gastrointestinal: COMPLAINS OF: Abdominal pain, Black stools, Nausea, Swelling of Abdomen, Heartburn, DENIES: Bloody stools, Constipation, Diarrhea, Vomiting Musculoskeletal: COMPLAINS OF: Joint pain, Back pain Hematologic/lymphatic: DENIES: Bruising Neurologic: COMPLAINS OF: Headache Psychiatric: DENIES: Confusion (Dottie Briones) GI Exam Vitals I&O Vital Signs Date Time Temp Pulse Resp B/P (MAP) Pulse Ox O2 Delivery O2 Flow Rate FiO2 11/06/16 06:02 16 11/06/16 04:20 18 11/06/16 04:02 98.6 74 18 116/80 (92) 98 11/06/16 00:13 98.6 64 18 115/81 (92) 96 11/05/16 19:41 98.3 84 20 141/82 (101) 95 11/05/16 17:02 97.6 76 18 129/83 (98) 94 11/05/16 16:13 11/05/16 13:40 63 21 113/81 (92) 95 11/05/16 11:30 98.1 77 18 174/100 (124) 96 Room Air 11/05/16 10:58 98.0 86 20 186/98 (127) 97 Room Air Laboratory Test 11/05/16 11:30 11/05/16 11:45 11/06/16 04:50 White Blood Count 8.6 TH/MM3 6.6 TH/MM3 Red Blood Count 3.91 MIL/MM3 4.69 MIL/MM3 Hemoglobin 13.2 GM/DL 16.0 GM/DL Hematocrit 38.2 % 46.4 % Mean Corpuscular Volume 97.8 FL 99.0 FL Mean Corpuscular Hemoglobin 33.7 PG 34.1 PG Mean Corpuscular Hemoglobin Concent 34.5 % 34.5 % Red Cell Distribution Width 12.6 % 13.3 % Platelet Count 123 TH/MM3 125 TH/MM3 Mean Platelet Volume 8.0 FL 8.9 FL Neutrophils (%) (Auto) 72.0 % 58.8 % Lymphocytes (%) (Auto) 17.6 % 28.8 % Monocytes (%) (Auto) 7.9 % 8.7 % Eosinophils (%) (Auto) 1.9 % 3.2 % Basophils (%) (Auto) 0.6 % 0.5 % Neutrophils # (Auto) 6.2 TH/MM3 3.9 TH/MM3 Lymphocytes # (Auto) 1.5 TH/MM3 1.9 TH/MM3 Monocytes # (Auto) 0.7 TH/MM3 0.6 TH/MM3 Eosinophils # (Auto) 0.2 TH/MM3 0.2 TH/MM3 Basophils # (Auto) 0.1 TH/MM3 0.0 TH/MM3 CBC Comment DIFF FINAL DIFF FINAL Differential Comment Prothrombin Time 12.0 SEC Prothromb Time International Ratio 1.1 RATIO Activated Partial Thromboplast Time 26.8 SEC Blood Urea Nitrogen 10 MG/DL 7 MG/DL Creatinine 0.94 MG/DL 0.78 MG/DL Random Glucose 125 MG/DL 83 MG/DL Total Protein 8.8 GM/DL 7.9 GM/DL Albumin 3.5 GM/DL 3.2 GM/DL Calcium Level 9.1 MG/DL 9.2 MG/DL Alkaline Phosphatase 110 U/L 107 U/L Aspartate Amino Transf (AST/SGOT) 61 U/L 62 U/L Alanine Aminotransferase (ALT/SGPT) 41 U/L 39 U/L Total Bilirubin 0.6 MG/DL 0.6 MG/DL Sodium Level 134 MEQ/L 133 MEQ/L Potassium Level 3.5 MEQ/L 3.7 MEQ/L Chloride Level 101 MEQ/L 97 MEQ/L Carbon Dioxide Level 26.5 MEQ/L 28.6 MEQ/L Anion Gap 7 MEQ/L 7 MEQ/L Estimat Glomerular Filtration Rate 84 ML/MIN 105 ML/MIN Ammonia 26 MCMOL/L Physical Examination HEENT: Normocephalic; atraumatic; no jaundice. CHEST: CTA, diminished CARDIAC: RRR ABDOMEN: Soft, mildly bloated, RUQ diffuse lower abdominal tenderness; bowel sounds are present in all four quadrants. EXTREMITIES: No clubbing, cyanosis, or edema. SKIN: Normal; no rash; no jaundice. BAR HOST: No focal deficits; alert and oriented times three. (Dottie Briones) Assessment and Plan Plan ASSESSMENT: - Upper GIB, Melena. 3 day hx of black tarry stools. Hx gerd and malignant liver masses. Denies any known hx of cirrhosis, although previous CT scan did mention nodular contour characteristic of cirrhosis. He denies any history of PUD. He does not take NSAIDs. He does not drink ETOH. HH Stable. NPO. EGD today. - Liver masses, ? cholangiocarcinoma vs metastatic disease. He was hospitalized last month for abdominal pain and found to have a heterogeneously enhancing mass of the left hepatic lobe in the setting of chronic liver disease and of concern for hepatocellular carcinoma (the main portion of the mass is 5.8 x 7.1 x 5.3 cm but there are numerous subcentimeter nodules more adjacent to it more laterally for an overall region of involvement estimated at 6.7 x 12.2 cm in greatest transaxial dimension. A similar lesion is seen posteromedially the right hepatic lobe measuring 3.8 x 3.9 x 4.0 cm). Liver biopsy (10/09/16)----> poorly differentiated non-small cell carcinoma, favor adenocarcinoma- The differential includes both metastases and cholangiocarcinoma, the tumor' s immuno phenotype is not consistent with hepatocellular carcinoma. The patient reports that he is followed at the [facility]. He was seen by an oncologist affiliated with the [facility] in [facility] and reports that he was told that his cancer was inoperable, that he had 1 year to live, and that they would start palliative chemotherapy. He reports that he is not able to drive to [facility] for treatment and therefore this was not an option and that the [facility] is working to get him to Dr. Carey for further evaluation and treatment. AFP in September was 219.1. Will get repeat tumor markers. Consult Dr. Carey. - Abdominal pain x 1 month, nausea. Dull ache in lower abdomen, RUQ- constant no aggravating or alleviating factors. Has associated bloating, but US last month did not appreciate ascites. - Decreased appetite, 20 lb weight loss over one month - GERD, HH. Takes Ranitidine at home. - Hx Hepatitis C, s/p tx with shot/pills 2 years ago x 3 months. States successful, cleared virus. DENIES any known hx of liver cirrhosis. - HTN, Hyperlipidemia per attending. PLAN: - Plan for egd with possible band ligation today - Obtain consents - NPO - Change pepcid to Protonix 40mg IV BID - AFP, Ca19-9, CEA - Consult Dr. Carey - Monitor labs - Supportive care - Further recommendations to follow based on results of above - Pt seen and examined by Dr. Cardenas and myself and this note is written on her behalf (Dottie Briones) Physician Comments seen, examined agree with above egd today (Andria Cardenas MD) BrionesDottie downingjaney AYALA Nov 06, 2016 09:18 Andria Cardenas MD Nov 06, 2016 12:51
[2016-11-06 10:49] VITALS: BP 151/82; PULSE 97; RESP 18; TEMP 96.3; O2SAT 96
[2016-11-06] MEDS ORDERED: LACTATED RINGER'S 1000 ML INJ 1,000 ML ONE (11:37)
[2016-11-06] MEDS ORDERED: PROPOFOL 200 MG/20 ML AMP IV ONE (12:00)
--- NOTE | 2016-11-06 12:48 | GIPROC ---
[facility] [address] [facility]. [facility], [address] EGD PROCEDURE REPORT EXAM DATE: 11/06/2016 PATIENT NAME: Johnathan Barker MR #: [id number] BIRTHDATE: 1965 ATTENDING: Andria Cardenas MD ORDER #: [id number] CASE RESOURCE MANAGER: Tracy Becker and Risa Reagan STATUS: inpatient INDICATIONS: The patient is a 51 yr old male here for an EGD due anemia , gi bleeding , history of liver cancer duodenitis second portion-biopsy esophagitis distal esophagus -biopsy PROCEDURE PERFORMED: EGD w/ biopsy MEDICATIONS: None and Per Anesthesia. TOPICAL ANESTHETIC: none CONSENT: The patient understands the risks and benefits of the procedure and understands that these risks include, but are not limited to: sedation, allergic reaction, infection, perforation and/or bleeding. Alternative means of evaluation and treatment include, among others: physical exam, x-rays, and/or surgical intervention. The patient elects to proceed with this endoscopic procedure. medical equipment was checked for proper function. Hand hygiene and appropriate measures for infection prevention was taken. After the risks, benefits and alternatives of the procedure were thoroughly explained, Informed consent was verified, confirmed and timeout was successfully executed by the treatment team. The patient was anesthetized with topical anesthesia and the Pentax [id number] endoscope was introduced through the mouth and advanced to the second portion of the duodenum. Retroflexed views revealed a hiatal hernia The gastroscope was then slowly withdrawn and removed. Gastritis -antrum-biopsy duodenitis second portion-biopsy esophagitis distal esophagus-biopsy. ADVERSE EVENTS: There were no complications. IMPRESSIONS: 1. Gastritis -antrum-biopsy duodenitis second portion-biopsy esophagitis distal esophagus-biopsy 2. Retroflexed views revealed a hiatal hernia RECOMMENDATIONS: 1. Await biopsy results. Biopsy results will not be ready for 7-10 days. If you don't hear from us in two weeks, call our office for biopsy results. 2. Anti-reflux regimen 3. Continue PPI PATIENT CONDITION: stable DISPOSITION: Inpatient REPEAT EXAM: EGD pending biopsy results Andria Cardenas MD eSigned: Andria Cardenas MD 11/06/2016 12:48 PM cc: PATIENT NAME: Johnathan Barker MR#: [id number]
[2016-11-06] MEDS: PANTOPRAZOLE SODIUM 40 MG VIAL IV PUSH SCH ×2 (13:41→23:30)
[2016-11-06 15:19] VITALS: BP 145/97; PULSE 74; RESP 18; TEMP 97.4; O2SAT 97
--- NOTE | 2016-11-06 16:42 | HHI.PR ---
Subjective Remarks Status post EGD. No specific source of bleeding identified. Hemoglobin has increased today compared to yesterday. Patient still reports some dark stools. He still reports abdominal pain and distention. Objective Vital Signs Date Time Temp Pulse Resp B/P (MAP) Pulse Ox O2 Delivery O2 Flow Rate FiO2 11/06/16 15:19 97.4 74 18 145/97 (113) 97 11/06/16 12:50 97.7 55 18 121/73 (89) 98 Room Air 11/06/16 10:49 96.3 97 18 151/82 (105) 96 11/06/16 09:02 97.6 52 18 130/88 (102) 95 11/06/16 06:02 16 11/06/16 04:20 18 11/06/16 04:02 98.6 74 18 116/80 (92) 98 11/06/16 00:13 98.6 64 18 115/81 (92) 96 11/05/16 19:41 98.3 84 20 141/82 (101) 95 11/05/16 17:02 97.6 76 18 129/83 (98) 94 I/O 11/05/16 11/05/16 11/05/16 11/06/16 11/06/16 11/06/16 07:00 15:00 23:00 07:00 15:00 23:00 Intake Total 500 ml Balance 500 ml Intake IV Total 300 ml Other 200 ml Result Diagram: 11/06/1644911/06/16449 Objective Remarks GENERAL: NAD, A&Ox3 HEAD: Normocephalic. NECK: Supple, trachea midline. No lymphadenopathy. EYES: No scleral icterus. No injection or drainage. CARDIOVASCULAR: Regular rate and rhythm without murmurs, gallops, or rubs. RESPIRATORY: Breath sounds equal bilaterally. No accessory muscle use. GASTROINTESTINAL: Abdomen soft. Diffuse tenderness, mild. Distention. No hypertympany. MUSCULOSKELETAL: No cyanosis, or edema. SKIN: Warm and dry. NEURO: No focal neurological deficitis. A/P Problem List: (1) Liver mass, left lobe ICD Code: R16.0 - Hepatomegaly, not elsewhere classified Status: Acute (2) Liver cancer, primary, with metastasis from liver to other site ICD Code: C22.8 - Malignant neoplasm of liver, primary, unspecified as to type (3) Hypertension ICD Code: I10 - Essential (primary) hypertension Status: Chronic (4) GI bleed ICD Code: K92.2 - Gastrointestinal hemorrhage, unspecified Status: Acute Assessment and Plan Assessment and Plan 51 year old male with stage IV liver cancer admitted with GI Bleed for 3 days. GI Bleed Abdominal Pain No anemia GI following Status post EGD Monitor CBC Monitor bowel movements CBC in bowel movements shows stability will consider discharge Outpatient follow-up for biopsies in about 2 weeks Continue as needed pain treatments Stage IV Liver Cancer Oncology consulted Not under active treatments yet HTN Continue BP treatments Follow BP Hepatitis C Patient reports this was treated 2 years ago Hyperlipidemia Follow as an outpatient GERD Ranitidine DVT Prophylaxis SCDs Problem Qualifiers (1) GI bleed: Qualified Codes: K92.2 - Gastrointestinal hemorrhage, unspecified Coy Bradley MD Nov 06, 2016 16:42
[2016-11-06 20:36] VITALS: BP 139/93; PULSE 76; RESP 18; TEMP 97.7; O2SAT 96
[2016-11-06] MEDS: ATORVASTATIN 10 MG TAB PO SCH (20:42)
[2016-11-07] VITALS: BP 135/75; PULSE 65; RESP 18; TEMP 98.2; O2SAT 96
[2016-11-07 04:22] VITALS: BP 123/77; PULSE 69; RESP 18; TEMP 97.9; O2SAT 97
[2016-11-07 07:15] VITALS: BP 127/83; PULSE 61; RESP 18; TEMP 97.7; O2SAT 96
[2016-11-07] MEDS: HYDROmorphone HCL PF 1 MG/ML VIAL IV PUSH PRN (07:30)
[2016-11-07] MEDS: CHOLECALCIFEROL (VIT D3) 1000 UNIT TAB PO SCH (07:33)
[2016-11-07] MEDS: HYDROCHLOROTHIAZIDE 25 MG TAB PO SCH (07:33)
[2016-11-07] MEDS: CYANOCOBALAMIN 1,000 MCG TAB PO SCH (07:33)
[2016-11-07] MEDS: CYCLOBENZAPRINE HCL 10 MG TAB PO SCH ×2 (07:34→11:41)
[2016-11-07] MEDS: METOPROLOL TARTRATE 50 MG TAB PO SCH (07:34)
[2016-11-07] MEDS: NIACIN 250 MG CONTROLLED RELEASE TAB PO SCH (07:34)
[2016-11-07] MEDS: NICOTINE 14 MG/24 HR PATCH T-DERMAL SCH (07:35)
[2016-11-07] MEDS: SODIUM CHLORIDE 0.9% FLUSH 10 ML FLUSH IV FLUSH SCH (07:35)
[2016-11-07] MEDS: REMOVE OLD PATCH T-DERMAL SCH (07:35)
--- NOTE | 2016-11-07 07:52 | EKG ---
Date Performed: 11/06/2016 Time Performed: 11:32:13 PTAGE: 51 years EKG: SINUS BRADYCARDIA BORDERLINE ECG NO PREVIOUS TRACING DOCTOR: Yosef Edmondson Interpretating Date/Time 11/07/2016 07:50:33
[2016-11-07 09:13] LABS: HEMATOCRIT 44.1 % (39.0-51.0); MEAN CELL VOLUME 99.2 FL (80.0-100.0); MEAN CORPUSCULAR HEMOGLOBIN 34.3 PG (27.0-34.0); MEAN CORPUSCULAR HGB CONC 34.6 % (32.0-36.0); PLATELET COUNT 122 TH/MM3 (150-450); RED BLOOD COUNT 4.45 MIL/MM3 (4.50-5.90); RED CELL DISTRIBUTION WIDTH 13.1 % (11.6-17.2); REVIEW FLAG FINAL; WHITE BLOOD COUNT 6.8 TH/MM3 (4.0-11.0)
[2016-11-07 09:38] LABS: BICARBONATE 26.1 MEQ/L (21.0-32.0); POTASSIUM 3.9 MEQ/L (3.5-5.1)
--- NOTE | 2016-11-07 10:46 | MB ---
cc: AMRIK TRAORE DATE OF CONSULTATION 11/06/2016 REASON FOR VISIT 1. Dark stools which were heme positive. 2. Carcinoma in the liver. PATIENT PROFILE The patient is a 51-year-old white male. He has been twice. He lives with his . He has one son. He has a grandchild who lives with him. He is 60% disabled. 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 He has smoked a pack of cigarettes per day since youth. He has consumed 6-8 beers per day and also scotch but no alcohol during the past month. HISTORY OF PRESENT ILLNESS I originally saw the patient on 10/07/2016. He presented with upper abdominal pain. He went to [facility] and was initially felt to have pancreatitis and discharged home. The pain worsened. He went to the [facility] and was told to go to [facility]. On 10/06/2016, he had a CT scan of the abdomen and pelvis which showed the liver to be 15.5 cm with a nodular, contour characteristic of cirrhosis. There was a 2.5 cm lesion in the left lobe. In the right posterior liver, there was an 8 mm lesion. The spleen was 13 cm. There were two abnormally enlarged lymph nodes adjacent to a normal size brodie caval lymph node. The larger of the two measured 3.6 cm. Immediately posterior to this, there was abnormal lymph node measuring 1.8 cm. The patient had an abdominal MRI on the same day 10/06 showing a mass in the left hepatic lobe consistent with hepatocellular carcinoma. The mass measured 5.8 x 7.1 x 5.3 cm. There were numerous subcentimeter nodules adjacent to it covering an area of 12.2 x 6.7 cm. A similar lesion was seen in the right hepatic lobe measuring 4 x 3.9 x 3.8 cm. There was non-specific portocaval and retroperitoneal lymphadenopathy. The patient had a tumor alpha-fetoprotein of 219, CEA of 2.5 and a CA19-9 of 11.9. BUN and creatinine were normal. Liver function tests, total bilirubin 0.6, AST 62, ALT 39, alk phos 107. A liver biopsy was done on 10/08/2016. Prior to this, I felt that he had hepatocellular carcinoma because of the history which included hepatitis C treated approximately two years ago and now in remission, cirrhosis, alcoholism and an elevated alpha-fetoprotein. The liver biopsy on 10/09/2016 revealed a poorly differentiated non-small cell cancer favor adenocarcinoma. This is not felt to be consistent with a hepatocellular cancer. I spoke with the pathologist, Dr. Hernandez, and she maintained that this was not consistent with hepatocellular carcinoma and that a metastatic lesion was also a distinct possibility. This even included a bladder cancer. The patient was discharged to the [facility] with the above pathology report. He was seen by a physician and told that he had about a year to live and this was a cholangiocarcinoma. He could not travel the distance to see the physician and he was then told that he could follow up with me and that the [facility] had cleared this. On 11/05/2016, the patient came to the hospital because of black stools. During this time, he took Pepto-Bismol. What is remarkable is there was no fall in the hemoglobin. On 10/10/2016 the hemoglobin was 15.5, on 11/05, 13.2 and today 11/06 the hemoglobin is 16, white count 6000, platelets 125,000. PT and PTT are normal. Lytes, BUN and creatinine are notable for a bilirubin of 0.6, AST 62, ALT 39, alk phos 107, alpha-fetoprotein on 11/06 is 498 on 10/07 it is 219. PAST SURGICAL HISTORY Eight to nine surgeries involving feet, ankle and jaw. PAST MEDICAL HISTORY 1. Hypertension 2. Elevated cholesterol 3. History of hepatitis C treated approximately two years ago now in remission according to the patient. 4. alcoholism MEDICATIONS PRIOR TO ADMISSION 1. Aspirin 2. Lipitor 3. Vitamin D3 4. B12 5. Flexeril 6. Hydrochlorothiazide 7. Meclizine 8. Metoprolol 9. Niacin 10. Oxycodone 11. Zantac ALLERGIES CODEINE CAUSES NAUSEA AND VOMITING. REVIEW OF SYSTEMS Notable for weakness, fatigue and recent dark stools. occasional upper abd discomfort. PHYSICAL EXAMINATION This is a pleasant gentleman who does not appear in any distress. VITAL SIGNS: Blood pressure 130/90, respiratory rate 18, pulse 76, afebrile, O2 sat 96%. HEAD: Normocephalic. EYES, EARS, NOSE AND THROAT: Sclerae and conjunctivae are normal. Oropharynx unremarkable. NECK: No adenopathy. HEART: Regular rhythm. LUNGS: Clear. ABDOMEN: Distended, soft. I cannot feel the liver or spleen. EXTREMITIES: Trace edema. MUSCULOSKELETAL: No bone pain. NEUROLOGIC: No weakness. ADDITIONAL TESTS The patient had upper endoscopy by Dr. Cardenas on 11/06/2016. This showed gastritis in the antrum, biopsy was taken. Duodenitis second portion, biopsy taken. Esophagitis, biopsy taken. ASSESSMENT The patient is a 51-year male who has metastatic disease to the liver and abdominal adenopathy. In terms of tumor markers, his alpha-fetoprotein on 10/07 was 219 and now it is 498. I associate this with hepatocellular cancer. It is difficult for me to come to terms with another diagnosis such as cholangiocarcinoma or metastatic disease to the liver. The second issue is a black stools with a hemoglobin which has not fallen. I suspect this is due to Pepto-Bismol. PLAN No further tests are being done. He can be sent home. I will see him in 10-14 days time assuming the [facility] has in fact authorized visits and I will now be taking care of him. I have asked that the pathology department to send off the material for a second opinion and that if there is adequate specimen, it may be possible to do a gene expression analysis (pathways) to determine if this cancer is consistent with hepatocellular cancer, cholangiocarcinoma or metastatic disease. The rising alpha-fetoprotein certainly suggests hepatocellular carcinoma, but the pathologists have indicated that the pathology of the liver biopsy is not consistent with this diagnosis. I do not want to treat him inappropriately as the drugs have significant side effect. I have spoken with Dr Díaz and she will make arrangements for a second opinion and the possibility of using gene expression to determine the site of origin. MD HERACLIO Garcia/SHON /9:07 PM /10:20 AM BENITO
--- NOTE | 2016-11-07 10:51 | RADRPT ---
EXAM DATE/TIME: 11/07/2016 08:40 [facility] COMPARISON: MRI ABDOMEN W & W/O CONTRAST, October 06, 2016, 16:42. INDICATIONS : Liver cancer. Ascites. MEDICAL HISTORY : Hypercholesterolemia. Hepatitis C. Liver cancer. GI bleed. Hypertension. GERD. HX of ETOH abuse. SURGICAL HISTORY : Jaw surgery. Left ankle surgery. EGD. ENCOUNTER: Initial ACUITY: 1 day PAIN SCORE: 4/10 LOCATION: Bilateral upper quadrant MEASUREMENTS: LIVER: 15.0 cm length COMMON DUCT: 3 mm RIGHT KIDNEY: 9.8 x 6.0 x 6.0 cm LEFT KIDNEY: 12.4 x 5.2 x 6.4 cm SPLEEN: 11.3 cm length AORTA: 2.4cm maximal FINDINGS: No ascites LIVER: Cirrhotic appearance with lobulation of surface contours. Anterior surface convex E. and mild heterog eneity involving the left lobe, presumably at site of known liver mass. Subtle increased echogenicity at site of presumed mass in the right lobe. No evidence of biliary ductal dilatation. COMMON DUCT: No intraluminal mass or stone visualized. GALLBLADDER: Contains no stones, demonstrates no wall thickening or pericholecystic fluid. PANCREAS: The visualized portions are within normal limits. RIGHT KIDNEY: No hydronephrosis, stone or mass. LEFT KIDNEY: No hydronephrosis, stone or mass. SPLEEN: No focal lesion. AORTA: Non aneurysmal. IVC: Within normal limits. CONCLUSION: Cirrhotic liver appearance with masses poorly appreciated sonographically. No evidence of ascites Santy Styles MD on November 07, 2016 at 10:35 Board Certified Radiologist. This report was verified electronically.
[2016-11-07] MEDS ORDERED: DOCU100T9 PO (11:14)
[2016-11-07] MEDS ORDERED: SENN8.6T36 PO (11:14)
[2016-11-07] MEDS ORDERED: MS C15TA2 PO (11:14)
[2016-11-07] MEDS ORDERED: MORPHINE SULFATE 15 MG CONTROLLED RELEASE TAB PO ONE (11:15)
[2016-11-07] MEDS: PANTOPRAZOLE SODIUM 40 MG VIAL IV PUSH SCH (11:42)
--- NOTE | 2016-11-07 13:48 | HHI.DS ---
Discharge Summary Admission Date Nov 05, 2016 at 14:42 Discharge Date: Nov 07, 2016 Admitting Diagnosis GI BLEED (1) Liver cancer, primary, with metastasis from liver to other site ICD Code: C22.8 - Malignant neoplasm of liver, primary, unspecified as to type Diagnosis: Principal (2) Liver mass, left lobe ICD Code: R16.0 - Hepatomegaly, not elsewhere classified Diagnosis: Principal Status: Acute (3) Hypertension ICD Code: I10 - Essential (primary) hypertension Diagnosis: Principal Status: Chronic (4) GI bleed ICD Code: K92.2 - Gastrointestinal hemorrhage, unspecified Diagnosis: Principal Status: Acute Procedures EGD Brief History - From Admission Mr. Barker is a 51 year old male. He has a past history of alcoholism and nicotine dependence. One month ago he was diagnosed with stage 4 liver cancer. He comes into the ER tonight reporting 3 days of black stools with abdominal pain. No bright red blood reported in bowel movements. He has a Hgb level of 13.2 despite the bleed. No nausea or vomiting reported. No diarrhea. No fevers. He is presently smoking 1ppd and has stopped all alcohol consumption. No other complaints. CBC/BMP: 11/07/16 0849 11/07/16 0849 Significant Findings Laboratory Tests Test 11/05/16 11:30 11/05/16 11:45 11/06/16 04:50 11/06/16 17:10 Red Blood Count 3.91 MIL/MM3 (4.50-5.90) Hematocrit 38.2 % (39.0-51.0) Platelet Count 123 TH/MM3 (150-450) 125 TH/MM3 (150-450) Neutrophils (%) (Auto) 72.0 % (16.0-70.0) Prothrombin Time 12.0 SEC (9.8-11.6) Random Glucose 125 MG/DL (74-106) Total Protein 8.8 GM/DL (6.4-8.2) Aspartate Amino Transf (AST/SGOT) 61 U/L (15-37) 62 U/L (15-37) Sodium Level 134 MEQ/L (136-145) 133 MEQ/L (136-145) Estimat Glomerular Filtration Rate 84 ML/MIN (>89) Mean Corpuscular Hemoglobin 34.1 PG (27.0-34.0) Monocytes (%) (Auto) 8.7 % (0.0-8.0) Albumin 3.2 GM/DL (3.4-5.0) Chloride Level 97 MEQ/L (98-107) Tumor Marker Alpha Fetoprotein 498.0 NG/ML (0.5-8.0) Test 11/07/16 08:49 Red Blood Count 4.45 MIL/MM3 (4.50-5.90) Mean Corpuscular Hemoglobin 34.3 PG (27.0-34.0) Platelet Count 122 TH/MM3 (150-450) Sodium Level 134 MEQ/L (136-145) Hospital Course Mr. Barker is a 51-year-old male. He was admitted secondary to evidence of GI bleed. Black tarry stools are present. Monitoring in the hospital did not show a decrease in his hemoglobin. He also complained of abdominal pain. An abdominal ultrasound shows no ascites. He has a history of liver cancer diagnosed about one month ago. Liver cancer which is stage IV is likely the cause of his abdominal pain. No evidence of bowel obstruction. He had used Pepto-Bismol and this may have colored stools dark. He was evaluated by GI and oncology. EGD was performed and biopsies taken. He'll follow up with gastroenterology and oncology as an outpatient. Medically stable for discharge to home today. Pt Condition on Discharge: Stable Discharge Disposition: Discharge Home Discharge Time: <= 30 minutes Discharge Instructions DIET: Follow Instructions for: As Tolerated, No Restrictions Activities you can perform: Regular-No Restrictions Follow up Referrals: Gastroenterology - 2 Weeks with Andria Cardenas MD Oncology/Hematology - 1 Week with Yosef Carey MD PCP Follow-up - 2 Weeks New Medications: Docusate Sodium (Docusate Sodium) 100 Mg Tab 100 MG PO BID for Constipation, #60 TAB Morphine ER (Ms Contin) 15 Mg Tab 15 MG PO BID for Pain Management, #60 TAB 0 Refills Sennosides (Senna-Tabs) 8.6 Mg Tab 8.6 MG PO DAILY PRN for CONSTIPATION, #30 TAB 0 Refills Continued Medications: Atorvastatin (Lipitor) 10 Mg Tab 10 MG PO HS for Cholesterol Management, #30 TAB 0 Refills Cholecalciferol (Vitamin D3) 1,000 Unit Tab 1000 UNITS PO DAILY for Nutritional Supplement, #1 BOTTLE 0 Refills Cyanocobalamin (Vitamin B-12) (B-12) 1,000 Mcg Tablet 1 TAB PO DAILY Cyclobenzaprine (Flexeril) 7.5 Mg Tab 7.5 MG PO TID for Muscle Spasm, #90 TAB 0 Refills Hydrochlorothiazide (Hydrochlorothiazide) 25 Mg Tab 25 MG PO DAILY, #30 TAB 0 Refills Meclizine (Meclizine) 12.5 Mg Tab 12.5 MG PO TID PRN for VERTIGO, TAB 0 Refills Metoprolol Tartrate (Metoprolol Tartrate) 25 Mg Tab 25 MG PO BID, #60 TAB 0 Refills Niacin ER (Slo-Niacin) 250 Mg Tab 250 MG PO DAILY for Cholesterol Management, #30 TAB 0 Refills Oxycodone (Oxycodone) 10 Mg Tab 10 MG PO Q4H PRN for PAIN, TAB 0 Refills Ranitidine (Ranitidine) 300 Mg Tab 300 MG PO HS for Heartburn Management, #30 TAB 0 Refills Discontinued Medications: Aspirin DR (Aspirin 81) 81 Mg Tabdr 81 MG PO DAILY, TAB 0 Refills Coy Bradley MD Nov 07, 2016 13:48
== END 2016-11-07 16:56 | disposition home or self-care (01) ==
LOC: NEPE 10:55 → NEDA 14:42 → NEPFCDU 16:46
PROVIDERS: ADMIT Hospitalist; ATTEND Hospitalist
DX: K92.1 Melena (principal); F17.210 Nicotine dependence, cigarettes, uncomplicated; K29.80 Duodenitis without bleeding; K20.9 Esophagitis, unspecified; E78.00 Pure hypercholesterolemia, unspecified; K74.60 Unspecified cirrhosis of liver; K21.9 Gastro-esophageal reflux disease without esophagitis; B19.20 Unspecified viral hepatitis C without hepatic coma; I10 Essential (primary) hypertension; Z79.899 Other long term (current) drug therapy; F10.20 Alcohol dependence, uncomplicated; F12.90 Cannabis use, unspecified, uncomplicated; C22.8 Malignant neoplasm of liver, primary, unspecified as to type; R16.0 Hepatomegaly, not elsewhere classified
CPT/HCPCS: 00740; 43239; 76700; 80048; 80053; 82105; 82140; 82378; 85025; 85027; 85610; 85730; 86301; 86850; 86900; 86901; 88305; 88312; 93005; 96361; 96374; 96375; 96376; 99285; C9113; G0378; J1170; J2270; J2405; J3010; J7030; J7120

== ENCOUNTER 2016-12-02 13:57 | Day surgery (SDC) | payer OTHER ==
[~2016-12-02 13:57] MED LIST changes: -ASPI-110 PO; +DOCU100T9 PO; +MS C15TA2 PO; -OXYC-392 PO; +OXYC-395 PO; +SENN8.6T36 PO
[2016-12-02 14:18] VITALS: BP 149/97; PULSE 95; RESP 20; TEMP 97.4; O2SAT 93
[2016-12-02] MEDS ORDERED: MIRA3350 PO (14:29)
--- NOTE | 2016-12-02 15:39 | RADRPT ---
EXAM DATE/TIME: 12/02/2016 00:00 [facility] COMPARISON : Multiple 10/06/16 INDICATIONS : HCC. Locoregional treatment evaluation. OBJECTIVE: Temperature: 97.4 Heart Rate: 95 Blood Pressure: 149/97 Respiratory: 18 Oximetry: 93 PNEUMONIA VACCINE: HISTORY OF PRESENT ILLNESS: Mr. Barker is a very pleasant 51-year-old white male who is accompanied on this visit by his . He has a history of hepatitis C and was diagnosed with infiltrative multinodular bilobar enhancing h epatic masses in September with subsequent biopsy demonstrating hepatocellular carcinoma following camille ic testing. AFP level is 498. Most recent laboratory evaluation from 11/07/2016 demonstrate normal neha irubin with slightly decreased albumin of 3.2 and very slight transaminitis. He has discomfort partic ularly along the anterior right upper quadrant but is otherwise without significant complaints. He alfaro s an excellent functional status with ECOG 0. PAST MEDICAL HISTORY : 1. HTN 2. HYPERCHOLESTEROL 3. BRONCHITIS 4. LIVER CANCER 5. HEP C PAST SURGICAL HISTORY : 1. PLATE IN JAW 2. LT ANKLE FX SOCIAL HISTORY : Social alcohol use. Tobacco; ALLERGIES: 1. CODIENE MEDICATIONS: 1. RANITIDINE 300 mg q.h.s. VIT B 12 1000 mcg q.d. METOPROLOL 25 mg b.i.d. FLEXERIL 7.5 mg t.i.d. HYDROCHLOROTHIAZIDE mg q.d. OXYCODONE 10 mg prn MS CONTINE 15 mg b.i.d. POLYETHYLENE 17 mg q.d. PHYSICAL EXAMINATION: Gen: Well nourished and in no acute distress Abdomen: Soft, mildly distended. Mild tenderness on palpation. IMAGING STUDIES: CT and MRI exams dated 10/06/2016. Highly vascular heterogeneously enhancing dominant mass in segment 2 of the liver measuring approximately 8.3 x 6.7 cm. Additional satellite lesions are seen throughout the left lobe of the liver. There is also a dominant 3.9 x 3.8 cm enhancing mass in segment 6 of the liver with infiltrative enhancement throughout segment 7. There are additional scattered subcentimet er enhancing lesions noted in segments 3, 4, and 8. Portal vein is widely patent. There is no ascites or evidence for portal hypertension. ASSESSMENT: 51-year-old male with history of hepatitis C and newly diagnosed bilobar multifocal infiltrative hepa tocellular carcinoma. He has an excellent functional status and very good hepatic functional reserve. As such, he is an excellent candidate for locoregional therapy. Ideally, yttrium-90 embolization fol lowed by JERROD chemoembolization depending on initial response. Initial Y90 treatment will preserve the hepatic vasculature for future JERROD chemoembolizations. Y90 and chemoembolization treatment options were explained in detail with the patient and his . A ll questions were answered. Specifically, initial review of radiation precautions given cohabiting 12 year-old granddaughter. PLAN: Tentative plans for Y90 mapping pending insurance authorization. TIME SPENT: 20 minutes Chris Ybarra MD on December 02, 2016 at 15:09 Board Certified Radiologist. This report was verified electronically.
== END 2016-12-02 15:06 | disposition home or self-care (01) ==
LOC: HROP 13:57 → HRIP 14:01 → HROP 15:06
PROVIDERS: ATTEND Internal Medicine Hematology & Oncology
DX: C22.0 Liver cell carcinoma (principal); R16.0 Hepatomegaly, not elsewhere classified; I10 Essential (primary) hypertension; E78.00 Pure hypercholesterolemia, unspecified; B19.20 Unspecified viral hepatitis C without hepatic coma; Z79.899 Other long term (current) drug therapy
CPT/HCPCS: 99212; G0463

== ENCOUNTER 2016-12-16 06:28 | Day surgery (SDC) | payer OTHER ==
[2016-12-16] VITALS (7 sets, daily range): BP systolic 127–163; BP diastolic 76–119; PULSE 60–94; RESP 16–20; TEMP 97.6; O2SAT 93–96
[~2016-12-16] VITALS: Ht 182.9 cm; Wt 88.6 kg
[~2016-12-16 06:28] MED LIST changes: -DOCU100T9 PO; -LIPI10TA PO; -MECL12.574 PO; +MIRA3350 PO; -NIAC PO; -SENN8.6T36 PO; -VITA100064 PO
[2016-12-16] MEDS ORDERED: VERAPAMIL HCL 5 MG/2 ML VIAL OTHER ONE (06:29)
[2016-12-16] MEDS ORDERED: NITROGLYCERIN 50 MG/10 ML VIAL I-ARTERIAL ONE (06:29)
[2016-12-16] MEDS ORDERED: IOHEXOL 350 MG/ML 50 ML BTL (for RAD DIAG) OTHER ONE (06:29)
[2016-12-16] MEDS ORDERED: MIDAZOLAM HCL 2 MG/2 ML VIAL IV PUSH ONE (06:29)
[2016-12-16 07:18] LABS: AUTOMATED NEUTROPHIL # 8.5 TH/MM3 (1.8-7.7); BASOPHIL # 0.1 TH/MM3 (0-0.2); BASOPHIL % 0.9 % (0.0-2.0); EOSINOPHIL # 0.1 TH/MM3 (0-0.4); EOSINOPHIL % 1.1 % (0.0-4.0); HEMATOCRIT 48.9 % (39.0-51.0); HEMOGLOBIN 17.4 GM/DL (13.0-17.0); LYMPH % 21.6 % (9.0-44.0); LYMPHOCYTE # 2.7 TH/MM3 (1.0-4.8); MEAN CORPUSCULAR HEMOGLOBIN 33.7 PG (27.0-34.0); MEAN CORPUSCULAR HGB CONC 35.5 % (32.0-36.0); MEAN PLATELET VOLUME 8.5 FL (7.0-11.0); MONOCYTE # 0.9 TH/MM3 (0-0.9); NEUT % 69.4 % (16.0-70.0); PLATELET COUNT 188 TH/MM3 (150-450); RED BLOOD COUNT 5.15 MIL/MM3 (4.50-5.90); RED CELL DISTRIBUTION WIDTH 13.3 % (11.6-17.2); WHITE BLOOD COUNT 12.3 TH/MM3 (4.0-11.0)
[2016-12-16 07:27] LABS: PROTHROMBIN TIME - PATIENT 11.4 SEC (9.8-11.6)
[2016-12-16 07:34] LABS: BICARBONATE 27.8 MEQ/L (21.0-32.0); CALCIUM 9.5 MG/DL (8.5-10.1); CREATININE 0.87 MG/DL (0.60-1.30)
[2016-12-16] MEDS ORDERED: SODIUM CHLOR 0.9% 1000 ML INJ 1,000 ML IV SCH (08:00)
[2016-12-16] MEDS ORDERED: HEPARIN SODIUM - IV 10,000 UNITS/10 ML VIAL ONE (10:27)
[2016-12-16] MEDS ORDERED: HYDROmorphone HCL PF 2 MG/ML VIAL ONE (11:01)
[2016-12-16] MEDS ORDERED: MIDAZOLAM HCL 2 MG/2 ML VIAL ONE (11:06)
[2016-12-16] MEDS ORDERED: HYDROmorphone HCL PF 1 MG/ML VIAL ONE (13:17)
--- NOTE | 2016-12-16 14:07 | RADRPT ---
EXAM DATE/TIME: 12/16/2016 10:02 COMPARISON: No previous studies available for comparison. INDICATIONS : 51-year-old male with history of hepatitis C and newly diagnosed bilobar multifocal infiltrative hepatocellular carcinoma. MEDICAL HISTORY : Liver lesions Hepatocellular Carcinoma Hep C HTN Cirrhosis SURGICAL HISTORY : Colonoscopy Multiple surgeries on feet and ankle ENCOUNTER: Initial ACUITY: 2 months PAIN SCORE: 5/10 LOCATION: lower back FLUORO TIME: 18.1 minutes IMAGE SERIES: 8 ACCESS SITE: Left Radial artery SEDATION TIME: 100 minutes CONTRAST: 1.) 60 cc Omnipaque (iohexol) 350 MEDICATION(S): 1.) 6 mg midazolam (Versed) IV 2.) 200 mcg fentanyl (Sublimaze) IV 3.) 2 mg hydromorphone (Dilaudid) IV 4.) 2 mg Verapamil IART 5.) 200 mcg Nitroglycerin IART 6.) 3,000 units Heparin IV DEVICE(S): 1.) gastroduodenal artery [id number], [id number] .[id number] Interlock embolic coil(s) PROCEDURES PERFORMED: 1. Conscious sedation 2. Left radial artery ultrasound-guided access 3. Selective catheter placement in the celiac artery with selective angiography 4. coil embolization of the gastroduodenal artery 5. Subselective catheter placement in the right hepatic artery with subsequent angiography 6. Selective catheterize between the left hepatic artery with subselective angiography 7. Selective catheter placement in the SMA with selective angiography 8. Subselective split dose intra-arterial administration of technetium 99m MAA into the left and righ t hepatic arteries DISCUSSION: Monitored moderate conscious sedation was provided for this procedure with continued monitoring of pa tient consciousness and physiologic status provided by interventional radiology nurse throughout the procedure and documented. Patient was placed supine on the angiographic table. Ultrasound evaluation of the left radial artery demonstrated the artery to be patent. Single image was obtained and placed in PACS archive. Micropunc ture needle was advanced into the left radial artery under direct ultrasound guidance and subsequentl y exchanged for a slim 5 Barbadian sheath. The 4 Barbadian Reza catheter was then advanced into the celiac artery and angiography was performed. Microcatheter was then advanced into the gastroduodenal artery and angiography was performed confirming position. The GDA was subsequently coiled embolized with 3 interlock coils. Followup angiography demonstrated near stasis of flow. Catheter was then repositione d into the right hepatic artery and angiography was performed. The catheter was then repositioned int o the left hepatic artery and angiography was performed. A small branch arising from near the origin of the right hepatic artery was subsequently selected and angiography was performed confirming cystic artery. The catheter was then repositioned into the SMA and angiography was performed. Next, cathete r was repositioned into the left hepatic artery and 2 mCi of technetium 99m MAA was slowly injected i nto the left hepatic artery branches. Catheter was repositioned into the right hepatic artery and the remaining 2.2 mCi of technetium 99m MAA were slowly injected into the right hepatic arteries. Cathet ers and wires were then removed. Hemostasis was then obtained by placement of a radial compression device. Patient tolerated the proce dure well. FINDINGS: There is standard celiac and SMA anatomy. The gastroduodenal artery was coiled. The right gastric art yolanda is not visualized. There is significant abnormal enhancement throughout the left lobe of the live r with a large dominant mass and multiple satellite lesions. There is more subtle abnormal enhancemen t corresponding to masses in segments 6, 7 and 8 of the liver. CONCLUSION: 1. Standard celiac and SMA anatomy. 2. Coil embolization of the gastroduodenal artery. 3. Split dose intra-arterial administration of technetium 99m MAA into the left and right hepatic art eries. Plan: Y90 embolization next week pending nuclear medicine scan. Chris Ybarra MD on December 16, 2016 at 13:41 Board Certified Radiologist. This report was verified electronically.
--- NOTE | 2016-12-16 14:23 | PD.RAD ---
Post Procedure Progress Note Pre Procedure Diagnosis: (1) Hepatitis C (2) Liver mass, left lobe Post Procedure Diagnosis: (1) Liver mass, left lobe (2) Hepatitis C Procedure Date: Dec 16, 2016 Supervising Radiologist: Chris Ybarra Proceduralist/Assist: Alexander Lennon RT(R) Anesthesia: Conscious Sedation Plan of Activity Patient to Unit: ROPU Patient Condition: Good See PACS Report for procedural detail/treatment Chris Ybarra MD Dec 16, 2016 14:23
--- NOTE | 2016-12-17 07:36 | RADRPT ---
EXAM DATE/TIME: 12/16/2016 12:02 [facility] COMPARISON: No previous studies available for comparison. INDICATIONS : Liver cancer. DOSE: 4.4 mCi Tc99m MAA Intraarterial IMAGING: SPECT/CT imaging with fusion was performed. RADIATION DOSE: 3.32 CTDIvol (mGy) MEDICAL HISTORY : Cirrhosis. Hepatitis C. Hypertension. SURGICAL HISTORY : Inguinal hernia repair. ENCOUNTER: Initial ACUITY: 4 - 6 months PAIN SCALE: 4/10 LOCATION: Right upper quadrant COMPARISON: No previous studies obtainable for comparison. FINDINGS: Activity is confined to the liver with intense uptake in patient's known infiltrative tumors. No extr ahepatic activity is demonstrated. The lung shunt ratio is 1.9%. CT images demonstrate no significant hydronephrosis. Aorta is normal in caliber. There is redemonstration of periportal adenopathy. CONCLUSION: 1. Injected MAA confined to the liver without evidence for extrahepatic activity. 2. Lung shunt ratio of 1.9%. 3. Redemonstration of periportal adenopathy. Chris Ybarra MD on December 17, 2016 at 7:30 Board Certified Radiologist. This report was verified electronically.
== END 2016-12-16 16:00 | disposition home or self-care (01) ==
LOC: HROP 06:28 → HRIP 06:29 → HROP 16:00
PROVIDERS: ATTEND Internal Medicine Hematology & Oncology
DX: C22.0 Liver cell carcinoma (principal); C22.1 Intrahepatic bile duct carcinoma; K74.60 Unspecified cirrhosis of liver; B19.20 Unspecified viral hepatitis C without hepatic coma; I10 Essential (primary) hypertension
CPT/HCPCS: 36245; 36247; 36248; 37242; 75726; 75774; 76937; 78802; 80048; 85025; 85610; 85730; 99152; 99153; A9540; C1769; C1887; C1894; J1170; J1644; J2250; J3010; J7030; Q9967; 36217

== ENCOUNTER 2016-12-23 06:33 | Day surgery (SDC) | payer OTHER ==
[~2016-12-23] VITALS: Ht 182.9 cm; Wt 90.5 kg
[2016-12-23] VITALS (14 sets, daily range): BP systolic 113–145; BP diastolic 69–92; PULSE 54–90; RESP 16–20; TEMP 97.4–98; O2SAT 91–98
[~2016-12-23 06:33] MED LIST changes: -MS C15TA2 PO; +MS C15TA7 PO
[2016-12-23] MEDS ORDERED: IODIXANOL 320 MG/ML 50 ML VIAL (for RAD SPEC) I-ARTERIAL ONE (06:34)
[2016-12-23] MEDS ORDERED: ONDANSETRON HCL 4 MG/2 ML VIAL IV PUSH PRN ×2 (07:00→12:00)
[2016-12-23] MEDS ORDERED: ceFAZolin 1,000 MG/NS 100 ML IV SCH ×2 (07:00)
[2016-12-23] MEDS ORDERED: SODIUM CHLOR 0.9% 1000 ML INJ 1,000 ML IV SCH ×2 (07:00→12:00)
[2016-12-23] MEDS ORDERED: DEXAMETHASONE SOD PHOS 20 MG/5 ML VIAL IV SCH (07:00)
[2016-12-23] MEDS ORDERED: ceFAZolin 2 GM PREMIX 50 ML ONE (07:30)
[2016-12-23] MEDS ORDERED: DEXAMETHASONE SOD PHOS 4 MG/ML VIAL ONE (07:46)
[2016-12-23 07:47] LABS: ALT (GPT) 67 U/L (12-78)
[2016-12-23] MEDS ORDERED: HEPARIN SODIUM - IV 10,000 UNITS/10 ML VIAL ONE (07:48)
[2016-12-23] MEDS ORDERED: VERAPAMIL HCL 5 MG/2 ML VIAL ONE (07:49)
[2016-12-23 07:50] LABS: ALKALINE PHOSPHATASE 203 U/L (45-117)
[2016-12-23 07:58] LABS: ANION GAP 6 MEQ/L (5-15); AST (GOT) 150 U/L (15-37); BLOOD UREA NITROGEN 10 MG/DL (7-18); CHLORIDE 96 MEQ/L (98-107); GLOMERULAR FILTRATION RATE 85 ML/MIN (>89); POTASSIUM 4.2 MEQ/L (3.5-5.1); SODIUM (NA) 129 MEQ/L (136-145)
[2016-12-23] MEDS ORDERED: DEXAMETHASONE INJ 20 MG in SODIUM CHLORIDE 0.9% INJ 50 ML IV SCH (08:00)
[2016-12-23] MEDS ORDERED: MIDAZOLAM HCL 2 MG/2 ML VIAL ONE ×2 (08:57)
--- NOTE | 2016-12-23 10:57 | PD.RAD ---
Post Procedure Progress Note Pre Procedure Diagnosis: (1) Hepatitis C (2) Liver cirrhosis (3) Liver cancer, primary, with metastasis from liver to other site Post Procedure Diagnosis: (1) Hepatitis C (2) Liver cancer, primary, with metastasis from liver to other site Procedure Date: Dec 23, 2016 Supervising Radiologist: Chris Ybarra Proceduralist/Assist: Rebecca Jones, RT(R), Alexander Lennon RT(R) Anesthesia: Conscious Sedation Plan of Activity Patient to Unit: ROPU Patient Condition: Good See PACS Report for procedural detail/treatment Chris Ybarra MD Dec 23, 2016 10:57
--- NOTE | 2016-12-23 11:52 | RADRPT ---
EXAM DATE/TIME: 12/23/2016 08:54 COMPARISON: No previous studies available for comparison. INDICATIONS : 51-year-old male with history of hepatitis C and newly diagnosed bilobar multifocal infiltrative hepatocellular carcinoma. MEDICAL HISTORY : Liver Cancer (stage IV) Hepatitis C Alcoholism Hx Nicotine Dependence HTN GERD SURGICAL HISTORY : Left ankle Surgery Jaw Fracture repair ENCOUNTER: Subsequent ACUITY: 2 months PAIN SCORE: 0/10 LOCATION: N/A FLUORO TIME: 9.7 minutes IMAGE SERIES: 7 ACCESS SITE: Left Radial artery SEDATION TIME: 60 minutes CONTRAST: 1.) 60 cc Visipaque (iodixanol) MEDICATION(S): 1.) 5 mg midazolam (Versed) IV 2.) 250 mcg fentanyl (Sublimaze) IV DEVICE(S): 1.) Right hepatic artery YITTRIUM 90 DISCUSSION: Monitored moderate conscious sedation was provided for this procedure with continued monitoring of pa tient consciousness and physiologic status provided by interventional radiology nurse throughout the procedure and documented. Patient was placed supine on the angiographic table. Ultrasound evaluation of the left radial artery demonstrated the artery to be patent. Single image was obtained and placed in PACS archive. Micropunc ture needle was advanced into the left radial artery under direct ultrasound guidance and subsequentl y exchanged for a slim 5 Gabonese sheath. The 4 Gabonese Reza catheter was then advanced into the celiac artery and angiography was performed. Microcatheter was then advanced into the origin of the right h epatic artery and angiography was repeated. This confirmed the findings. The SIR-spheres acrylic delivery box (V-vial) and delivery set were prepped in standard fashion. The labels on the tubing and needles corresponding to manager home improvement's designations. The dose of SIR-sphere s to be delivered was determined by taking into account the patient's body surface area, tumor burden , liver function test, tumor burden, performance status, and lung shunting. Next, multiple small aliq uots of SIR-spheres were delivered intra-arterially to the hepatic masses with close fluoroscopic mon itoring to ensure forward flow in the vessel during the administration of the microspheres. Followup angiogram demonstrated persistent forward flow. Next, the microcatheter was withdrawn into the angiographic catheter, which was then removed from the sheath, and catheter tip grasped with multiple layers of sterile gauze. The angiographic catheter, m icrocatheter, V- vial, and all the tubing and needles associated with the delivery set were placed in to a container provided by radiation safety. Hemostasis was then obtained by placement of a radial compression device. Patient tolerated the proce dure well. FINDINGS: There was successful delivery of the radioactive microspheres to the hepatic artery. The microcathete r was positioned in the hepatic artery during the delivery of the microspheres. Throughout the proced ure, antegrade flow is maintained. No reflux was demonstrated fluoroscopically. Visually, entire dose within the V-vial was delivered to the patient. No leaks or spills of the radioactive material where identified during or after the procedure. CONCLUSION: 1. Technically successful Y-90 radioembolization of the right hepatic arteries, as above. PLAN: Embolization of the left hepatic arteries in 3-4 weeks. Chris Ybarra MD on December 23, 2016 at 11:48 Board Certified Radiologist. This report was verified electronically.
[2016-12-23] MEDS ORDERED: HYDROmorphone HCL PF 2 MG/ML VIAL ONE (11:59)
[2016-12-23] MEDS ORDERED: PANTOPRAZOLE SODIUM 40 MG VIAL IV PUSH SCH (12:00)
[2016-12-23] MEDS ORDERED: DEXTROSE 5% IN WATE 1000ML INJ 1,000 ML SCH (12:30)
[2016-12-23] MEDS: HYDROmorphone HCL PF 0.5 MG/0.5 ML SYRINGE IV PUSH PRN ×5 (13:15→22:39)
--- NOTE | 2016-12-23 13:17 | RADRPT ---
EXAM DATE/TIME: 12/23/2016 11:57 INDICATIONS : Liver cancer. DOSE: 29.7 mCi Yttrium-90 Intraarterial MEDICAL HISTORY : Hypertension. Hepatitis C. Cirrhosis. Liver cancer. SURGICAL HISTORY : Inguinal hernia repair. ENCOUNTER: Subsequent ACUITY: 1 yr PAIN SCALE: 0/10 LOCATION: Liver. COMPARISON: ANGIOGRAM, HEPATIC ARTERY, December 16, 2016, 0:00. TUMOR LOC WB MAPPING, December 16, 2016, 12:02. N o previous studies obtainable for comparison. FINDINGS: Wide energy window scanning was performed after intra-arterial injection of therapeutic Yttrium. Com parison is made to to intra-arterial MAA mapping scan on 12/16/16. Both whole body, planar spot imag ing, and transmission source planar spot imaging was performed. Activity is seen throughout the liver in a pattern which is very similar to the MAA mapping. No ecto pic activity seen. CONCLUSION: Scan confirms delivery of tracer to the liver, congruous with the preprocedure mapping. Maury Adkins MD on December 23, 2016 at 13:10 Board Certified Radiologist. This report was verified electronically.
--- NOTE | 2016-12-23 13:55 | HHI.HP ---
[facility] Brandon Canales M.D. Admission Diagnosis Diagnoses: Chief Complaint: Consulted by Interventional Radiology for 23 Hour Observation. Chris Ybarra MD Travel History International Travel<30 Days: No Contact w/Intl Traveler <30 Da: No Traveled to Known Affected Are: No History of Present Illness This is a pleasant 51 y/o Male with history of alcoholism Nicotine addiction, who was diagnosed in September this year with Stage IV liver cancer, after multiple Radiologic studies performed in this facility was found to have a mass 5.8 x 7.1 cm and other consistent with Numerous subcentimeter nodules over an area of 12.2 x 6.2 cm, CA 10-9 was 11 and CEA 2.5 , AFP 219 status post Liver biopsy on 10/08/16 Hepatocellular Carcinoma his Alpha-Fetoprotein increased to 498 on 11/06/16, given as primary Liver Cancer, non metastatic. seen in Radiology unit after procedure patient stable discussed with nurse. no new issues, continue abdominal distention. Review of Systems Constitutional: DENIES: Fever, Chills, Change in appetite Endocrine: DENIES: Heat/cold intolerance Eyes: DENIES: Blurred vision, Eye pain Except as stated in HPI: all other systems reviewed are Neg Past Family Social History Past Medical History Liver Cancer (stage IV) Hepatitis C Alcoholism Hx Nicotine Dependence HTN GERD Past Surgical History Ankle Surgery Jaw Fracture repair 10/08/16 Liver Biopsy poorly differentiated non small cell cancer favor adenocarcinoma EGD found Gastritis Duodenitis esophagitis Reported Medications Reported Meds & Active Scripts Active Ms Contin (Morphine Sulfate) 15 Mg Tab 15 Mg PO BID Reported Miralax Powder (Polyethylene Glycol 3350 Powder) 17 Gm Powd 17 Gm PO DAILY Mix and dissolve one measuring cap-ful (17 grams) in water or juice. Oxycodone (Oxycodone HCl) 10 Mg Tab 10 Mg PO Q4H PRN Hydrochlorothiazide 25 Mg Tab 25 Mg PO DAILY Flexeril (Cyclobenzaprine HCl) 7.5 Mg Tab 7.5 Mg PO TID Metoprolol Tartrate 25 Mg Tab 25 Mg PO BID B-12 (Cyanocobalamin (Vitamin B-12)) 1,000 Mcg Tablet 1 Tab PO DAILY Ranitidine (Ranitidine HCl) 300 Mg Tab 300 Mg PO HS Allergies: Coded Allergies: codeine (Verified Adverse Reaction, Mild, 12/16/16) bothers stomach Active Ordered Medications Current Medications Medications (Trade) Dose Ordered Sig/Ivis Route Start Time Stop Time Status Last Admin Cefazolin Sodium 1000 mg/Sodium Chloride 100 ml @ 200 mls/hr LOAD DISPATCHER IV 12/23/16 07:00 12/23/16 21:00 Dexamethasone Sodium Phosphate 20 mg/Sodium Chloride 55 ml @ 110 mls/hr UNSCH X1 IV 12/23/16 08:00 12/23/16 23:59 Sodium Chloride 1,000 ml @ 100 mls/hr Q10H IV 12/23/16 12:00 12/23/16 21:59 (Dilaudid Pf Inj) 0.5 mg Q1HR PRN IV PUSH 12/23/16 12:00 12/23/16 13:15 (Zofran Inj) 4 mg Q6HR PRN IV PUSH 12/23/16 12:00 (Protonix Inj) 40 mg Q24H IV PUSH 12/23/16 12:00 Dextrose 1,000 ml @ 0 mls/hr LOAD DISPATCHER .XX 12/23/16 12:30 12/24/16 12:29 Family History DM2 in mother and father Social History Smoking 1ppd, previously smoked 3ppd No alcohol use, previously drank 6 beers and 2 scotches daily Smokes marijuana occasionally, no history of IV Drug abuse or illicit drug abuse Physical Exam Vital Signs Vital Signs Date Time Temp Pulse Resp B/P (MAP) Pulse Ox O2 Delivery O2 Flow Rate FiO2 12/23/16 13:10 60 16 145/92 (109) 94 12/23/16 12:35 56 16 131/78 (95) 94 12/23/16 12:05 61 16 122/81 (95) 98 12/23/16 11:50 61 18 115/69 (84) 91 12/23/16 11:35 54 16 118/69 (85) 92 12/23/16 11:20 59 18 113/69 (84) 93 12/23/16 11:05 97.4 61 20 120/77 (91) 96 12/23/16 06:58 Room Air 97 12/23/16 06:48 97.7 68 20 124/89 (953) 97 Physical Exam GENERAL: NAD, A&Ox3 SKIN: Warm and dry. HEAD: Normocephalic. EYES: No scleral icterus. No injection or drainage. NECK: Supple, trachea midline. No JVD or lymphadenopathy. CARDIOVASCULAR: Regular rate and rhythm without murmurs, gallops, or rubs. RESPIRATORY: Breath sounds equal bilaterally. No accessory muscle use. GASTROINTESTINAL: Abdomen soft, non-tender. Distended. MUSCULOSKELETAL: No cyanosis, or edema. BACK: Nontender without obvious deformity. No CVA tenderness. Laboratory Laboratory Tests Test 12/23/16 07:10 Blood Urea Nitrogen 10 Creatinine 0.93 Random Glucose 95 Total Protein 8.9 Albumin 3.4 Calcium Level 9.5 Alkaline Phosphatase 203 Aspartate Amino Transf (AST/SGOT) 150 Alanine Aminotransferase (ALT/SGPT) 67 Total Bilirubin 1.0 Sodium Level 129 Potassium Level 4.2 Chloride Level 96 Carbon Dioxide Level 27.0 Anion Gap 6 Estimat Glomerular Filtration Rate 85 Result Diagram: 12/23/16 0710 Imaging Last Impressions Transcatheter Procedure 12/23/16 0000 Signed Impressions: Service Date/Time: Friday, December 23, 2016 08:54 - CONCLUSION: 1. Technically successful Y-90 radioembolization of the right hepatic arteries, as above. PLAN: Embolization of the left hepatic arteries in 3-4 weeks. Chris Ybarra MD Liver Scan Nuclear Medicine 12/23/16 0000 Signed Impressions: Service Date/Time: Friday, December 23, 2016 11:57 - CONCLUSION: Scan confirms delivery of tracer to the liver, congruous with the preprocedure mapping. Maury Adkins MD Caprini VTE Risk Assessment Caprini VTE Risk Assessment: Mod/High Risk (score >= 2) Caprini Risk Assessment Model Point Value = 1 Point Value = 2 Point Value = 3 Point Value = 5 Age 41-60 Minor surgery BMI > 25 kg/m2 Swollen legs Varicose veins or History of unexplained or recurrent spontaneous Oral contraceptives or hormone replacement Sepsis (< 1 month) Serious lung disease, including pneumonia (< 1 month) Abnormal pulmonary function Acute myocardial infarction Congestive heart failure (< 1 month) History of inflammatory bowel disease Medical patient at bed rest Age 61-74 Arthroscopic surgery Major open surgery (> 45 min) Laparoscopic surgery (> 45 min) Malignancy Confined to bed (> 72 hours) Immobilizing plaster cast Central venous access Age >= 75 History of VTE Family history of VTE Factor V Leiden Prothrombin [id number] Lupus anticoagulant Anticardiolipin antibodies Elevated serum homocysteine Heparin-induced thrombocytopenia Other congenital or acquired thrombophilia Stroke (< 1 month) Elective arthroplasty Hip, pelvis, or leg fracture Acute spinal cord injury (< 1 month) Prophylaxis Regimen Total Risk Factor Score Risk Level Prophylaxis Regimen 0-1 Low Early ambulation 2 Moderate Order ONE of the following: *Sequential Compression Device (SCD) *Heparin 5000 units SQ BID 3-4 Higher Order ONE of the following medications: *Heparin 5000 units SQ TID *Enoxaparin/Lovenox 40 mg SQ daily (WT < 150 kg, CrCl > 30 mL/min) *Enoxaparin/Lovenox 30 mg SQ daily (WT < 150 kg, CrCl > 10-29 mL/min) *Enoxaparin/Lovenox 30 mg SQ BID (WT < 150 kg, CrCl > 30 mL/min) AND/OR *Sequential Compression Device (SCD) 5 or more Highest Order ONE of the following medications: *Heparin 5000 units SQ TID (Preferred with Epidurals) *Enoxaparin/Lovenox 40 mg SQ daily (WT < 150 kg, CrCl > 30 mL/min) *Enoxaparin/Lovenox 30 mg SQ daily (WT < 150 kg, CrCl > 10-29 mL/min) *Enoxaparin/Lovenox 30 mg SQ BID (WT < 150 kg, CrCl > 30 mL/min) AND *Sequential Compression Device (SCD) Assessment and Plan Assessment and Plan 1. Hepatocellular Carcinoma with adenopathy outside of the liver and extensive involvement of the liver Status post Embolization of the Hepatic veins will continue hospitalized for 23 hour observation. 2. alcoholism by history 3. hepatitis C by History 4. Tobacco dependence not smoking anymore as per patient. 5. Hypertension controlled to continue Home medicines. 6. Hyperlipidemia on hold Statins 7. GERD stable continue PPIs. DVT Prophylaxis SCDs Code Status Full Code. Discussed Condition With patient and nurse. Derrell Mccallum MD Dec 23, 2016 1:55 pm
[2016-12-23] MEDS ORDERED: BISACODYL 10 MG SUPP RECTAL PRN (14:15)
[2016-12-23] MEDS ORDERED: ONDANSETRON HCL 4 MG/2 ML VIAL IVP PRN (14:15)
[2016-12-23] MEDS ORDERED: SODIUM CHLORIDE 0.9% FLUSH 10 ML FLUSH IV FLUSH PRN (14:15)
[2016-12-23] MEDS ORDERED: MAGNESIUM HYDROXIDE SUSP 30 ML CUP PO PRN (14:15)
[2016-12-23] MEDS ORDERED: SENNOSIDES 8.6 MG TAB PO PRN (14:15)
[2016-12-23] MEDS ORDERED: LACTULOSE SYRUP 20 GM/30 ML CUP PO PRN (14:15)
[2016-12-23] MEDS ORDERED: NALOXONE HCL 0.4 MG/ML AMP IV PUSH PRN (14:15)
[2016-12-23] MEDS: SODIUM CHLOR 0.9% 1000 ML INJ 1,000 ML IV SCH (16:37)
[2016-12-23] MEDS: METOPROLOL TARTRATE 25 MG TAB PO SCH (20:06)
[2016-12-23] MEDS: SODIUM CHLORIDE 0.9% FLUSH 10 ML FLUSH IV FLUSH SCH (20:08)
[2016-12-23] MEDS: DOCUSATE SODIUM 50 MG/SENNA 8.6 MG TAB PO SCH (20:08)
[2016-12-23] MEDS: MORPHINE SULFATE 15 MG CONTROLLED RELEASE TAB PO SCH (20:08)
[2016-12-24 00:07] VITALS: PULSE 64
[2016-12-24] MEDS: SODIUM CHLOR 0.9% 1000 ML INJ 1,000 ML IV SCH (03:40)
[2016-12-24 03:50] VITALS: BP 149/96; PULSE 80; RESP 18; TEMP 97.7; O2SAT 96
[2016-12-24 04:07] VITALS: PULSE 72
[2016-12-24] MEDS: HYDROmorphone HCL PF 0.5 MG/0.5 ML SYRINGE IV PUSH PRN ×2 (04:43→09:42)
[2016-12-24] MEDS ORDERED: MENTHOL/METHYL SALICYLATE OINT 30 GM TUBE TOPICAL PRN (05:30)
[2016-12-24 06:28] LABS: AUTOMATED NEUTROPHIL # 9.1 TH/MM3 (1.8-7.7); BASOPHIL # 0.1 TH/MM3 (0-0.2); HEMATOCRIT 46.1 % (39.0-51.0); HEMO FLAGS DIFF FINAL; LYMPH % 10.5 % (9.0-44.0); LYMPHOCYTE # 1.2 TH/MM3 (1.0-4.8); MEAN CELL VOLUME 96.3 FL (80.0-100.0); MEAN CORPUSCULAR HEMOGLOBIN 32.8 PG (27.0-34.0); MONO % 6.8 % (0.0-8.0); NEUT % 81.7 % (16.0-70.0); PLATELET COUNT 168 TH/MM3 (150-450); RED BLOOD COUNT 4.79 MIL/MM3 (4.50-5.90); RED CELL DISTRIBUTION WIDTH 13.5 % (11.6-17.2); WHITE BLOOD COUNT 11.2 TH/MM3 (4.0-11.0)
[2016-12-24 07:01] LABS: ALT (GPT) 56 U/L (12-78); ANION GAP 9 MEQ/L (5-15); AST (GOT) 113 U/L (15-37); BLOOD UREA NITROGEN 9 MG/DL (7-18); CHLORIDE 99 MEQ/L (98-107); GLOMERULAR FILTRATION RATE 127 ML/MIN (>89); POTASSIUM 3.9 MEQ/L (3.5-5.1); SODIUM (NA) 134 MEQ/L (136-145)
[2016-12-24 07:07] LABS: ALKALINE PHOSPHATASE 168 U/L (45-117); TOTAL BILIRUBIN ADULT 0.5 MG/DL (0.2-1.0)
[2016-12-24] MEDS: DOCUSATE SODIUM 50 MG/SENNA 8.6 MG TAB PO SCH ×2 (08:53→09:00)
[2016-12-24] MEDS: METOPROLOL TARTRATE 25 MG TAB PO SCH (08:54)
[2016-12-24] MEDS: SODIUM CHLORIDE 0.9% FLUSH 10 ML FLUSH IV FLUSH SCH (08:54)
[2016-12-24] MEDS: MORPHINE SULFATE 15 MG CONTROLLED RELEASE TAB PO SCH (08:54)
[2016-12-24] MEDS ORDERED: HYDROCHLOROTHIAZIDE 25 MG TAB PO SCH (09:00)
[2016-12-24 09:03] VITALS: BP 147/112; PULSE 102; RESP 18; TEMP 97.4; O2SAT 97
--- NOTE | 2016-12-24 11:12 | HHI.DS ---
Discharge Summary Admission Date Discharge Date: Dec 24, 2016 Admitting Diagnosis (1) Liver cancer, primary, with metastasis from liver to other site ICD Code: C22.8 - Malignant neoplasm of liver, primary, unspecified as to type Diagnosis: Principal Procedures Status post Embolization of the Hepatic veins Brief History - From Admission This is a pleasant 51 y/o Male with history of alcoholism Nicotine addiction, who was diagnosed in September this year with Stage IV liver cancer, after multiple Radiologic studies performed in this facility was found to have a mass 5.8 x 7.1 cm and other consistent with Numerous subcentimeter nodules over an area of 12.2 x 6.2 cm, CA 10-9 was 11 and CEA 2.5 , AFP 219 status post Liver biopsy on 10/08/16 Hepatocellular Carcinoma his Alpha-Fetoprotein increased to 498 on 11/06/16, given as primary Liver Cancer, non metastatic. seen in Radiology unit after procedure patient stable discussed with nurse. no new issues, continue abdominal distention. CBC/BMP: 12/24/16 0520 12/24/16 0520 Significant Findings Laboratory Tests Test 12/23/16 07:10 12/24/16 05:20 Total Protein 8.9 GM/DL (6.4-8.2) Alkaline Phosphatase 203 U/L (45-117) 168 U/L (45-117) Aspartate Amino Transf (AST/SGOT) 150 U/L (15-37) 113 U/L (15-37) Sodium Level 129 MEQ/L (136-145) 134 MEQ/L (136-145) Chloride Level 96 MEQ/L (98-107) Estimat Glomerular Filtration Rate 85 ML/MIN (>89) White Blood Count 11.2 TH/MM3 (4.0-11.0) Neutrophils (%) (Auto) 81.7 % (16.0-70.0) Neutrophils # (Auto) 9.1 TH/MM3 (1.8-7.7) Random Glucose 134 MG/DL (74-106) Albumin 2.5 GM/DL (3.4-5.0) Imaging Last Impressions Transcatheter Procedure 12/23/16 0000 Signed Impressions: Service Date/Time: Friday, December 23, 2016 08:54 - CONCLUSION: 1. Technically successful Y-90 radioembolization of the right hepatic arteries, as above. PLAN: Embolization of the left hepatic arteries in 3-4 weeks. Chris Ybarra MD Liver Scan Nuclear Medicine 12/23/16 0000 Signed Impressions: Service Date/Time: Friday, December 23, 2016 11:57 - CONCLUSION: Scan confirms delivery of tracer to the liver, congruous with the preprocedure mapping. Maury Adkins MD PE at Discharge GENERAL: NAD, A&Ox3 SKIN: Warm and dry. HEAD: Normocephalic. EYES: No scleral icterus. No injection or drainage. NECK: Supple, trachea midline. No JVD or lymphadenopathy. CARDIOVASCULAR: Regular rate and rhythm without murmurs, gallops, or rubs. RESPIRATORY: Breath sounds equal bilaterally. No accessory muscle use. GASTROINTESTINAL: Abdomen soft, non-tender. Distended. MUSCULOSKELETAL: No cyanosis, or edema. BACK: Nontender without obvious deformity. No CVA tenderness. Hospital Course This is a pleasant 51 y/o Male with history of alcoholism Nicotine addiction, who was diagnosed in September this year with Stage IV liver cancer, after multiple Radiologic studies performed in this facility was found to have a mass 5.8 x 7.1 cm and other consistent with Numerous subcentimeter nodules over an area of 12.2 x 6.2 cm, CA 10-9 was 11 and CEA 2.5 , AFP 219 status post Liver biopsy on 10/08/16 Hepatocellular Carcinoma his Alpha-Fetoprotein increased to 498 on 11/06/16, given as primary Liver Cancer, non metastatic. seen in Radiology unit after procedure patient stable discussed with nurse. no new issues, continue abdominal distention. Stable in his bedroom seen and discussed with Interventional forensic specialist and Nurse okay to discharge now. Assessment and Plan 1. Hepatocellular Carcinoma with adenopathy outside of the liver and extensive involvement of the liver Status post Embolization of the Hepatic veins will continue hospitalized for 23 hour observation. 2. alcoholism by history 3. hepatitis C by History 4. Tobacco dependence not smoking anymore as per patient. 5. Hypertension controlled to continue Home medicines. 6. Hyperlipidemia on hold Statins 7. GERD stable continue PPIs. DVT Prophylaxis SCDs Code Status Full Code. Discussed Condition With patient, Nurse and interventional forensic specialist at this time. the patient states he has his home medicines do not need any medicine from us Pt Condition on Discharge: Good Discharge Disposition: Discharge Home Discharge Time: <= 30 minutes Discharge Instructions DIET: Follow Instructions for: Heart Healthy Diet Activities you can perform: Regular-No Restrictions Derrell Mccallum MD Dec 24, 2016 11:12
[2016-12-28] MEDS ORDERED: PRED10 PO (08:59)
== END 2016-12-24 11:56 | disposition home or self-care (01) ==
LOC: HROP 06:33 → HRIP 06:33 → HCIS 15:34 → HROP 12-24 11:56
PROVIDERS: ATTEND Internal Medicine
DX: C22.0 Liver cell carcinoma (principal); C79.9 Secondary malignant neoplasm of unspecified site; K74.60 Unspecified cirrhosis of liver; B19.20 Unspecified viral hepatitis C without hepatic coma; R59.9 Enlarged lymph nodes, unspecified; I10 Essential (primary) hypertension; E78.00 Pure hypercholesterolemia, unspecified; K21.9 Gastro-esophageal reflux disease without esophagitis; F10.20 Alcohol dependence, uncomplicated; Z87.891 Personal history of nicotine dependence
CPT/HCPCS: 36247; 37243; 75726; 76937; 77470; 78201; 79445; 80053; 85025; 99152; 99153; C1769; C1887; C1894; C2616; C9113; J0690; J1100; J1170; J1644; J2250; J2405; J3010; J7030; Q9967; 77790

== ENCOUNTER 2016-12-26 08:05 | Inpatient (IN) | payer OTHER ==
[~2016-12-26] VITALS: Ht 182.9 cm; Wt 91.0 kg
[~2016-12-26 08:05] MED LIST changes: +MS C15TA2 PO; -MS C15TA7 PO
[2016-12-26 08:18] VITALS: BP 169/107; PULSE 122; RESP 22; TEMP 97.4; O2SAT 96
[2016-12-26] MEDS ORDERED: HYDROmorphone HCL PF 2 MG/ML VIAL ONE ×2 (08:47)
[2016-12-26] MEDS ORDERED: SODIUM CHLOR 0.9% 1000 ML INJ 1,000 ML IV SCH ×2 (09:00)
[2016-12-26] MEDS ORDERED: HYDROmorphone HCL PF 2 MG/ML VIAL IV ONE ×2 (09:15)
[2016-12-26] MEDS: HYDROmorphone HCL PF 2 MG/ML VIAL IV PRN ×6 (09:25→11:33)
[2016-12-26 09:27] LABS: AUTOMATED NEUTROPHIL # 14.5 TH/MM3 (1.8-7.7); BASOPHIL # 0.1 TH/MM3 (0-0.2); BASOPHIL % 0.3 % (0.0-2.0); EOSINOPHIL # 0.1 TH/MM3 (0-0.4); EOSINOPHIL % 0.4 % (0.0-4.0); HEMATOCRIT 56.6 % (39.0-51.0); LYMPH % 3.3 % (9.0-44.0); LYMPHOCYTE # 0.5 TH/MM3 (1.0-4.8); MEAN CELL VOLUME 96.7 FL (80.0-100.0); MEAN CORPUSCULAR HEMOGLOBIN 32.5 PG (27.0-34.0); MEAN CORPUSCULAR HGB CONC 33.6 % (32.0-36.0); MEAN PLATELET VOLUME 8.3 FL (7.0-11.0); MONO % 5.9 % (0.0-8.0); NEUT % 90.1 % (16.0-70.0); PLATELET COUNT 271 TH/MM3 (150-450); RED BLOOD COUNT 5.86 MIL/MM3 (4.50-5.90); RED CELL DISTRIBUTION WIDTH 13.6 % (11.6-17.2); WHITE BLOOD COUNT 16.1 TH/MM3 (4.0-11.0)
[2016-12-26] MEDS ORDERED: SODIUM CHLORID 0.9% 500 ML INJ 500 ML IV ONE ×2 (09:30)
[2016-12-26 09:55] LABS: ALBUMIN 3.5 GM/DL (3.4-5.0); ALKALINE PHOSPHATASE 241 U/L (45-117); ALT (GPT) 94 U/L (12-78); AST (GOT) 183 U/L (15-37); BLOOD UREA NITROGEN 15 MG/DL (7-18); CHLORIDE 93 MEQ/L (98-107); CREATININE 1.16 MG/DL (0.60-1.30); GLOMERULAR FILTRATION RATE 66 ML/MIN (>89); GLUCOSE,RANDOM 139 MG/DL (74-106); SODIUM (NA) 127 MEQ/L (136-145); TOTAL PROTEIN 9.5 GM/DL (6.4-8.2)
[2016-12-26] MEDS ORDERED: IOHEXOL 350 MG/ML 10 ML VIAL (for RAD DIAG) IVCONTRAST ONE ×2 (10:36)
[2016-12-26 11:34] LABS: INTERNATIONAL NORMALIZED RATIO 1.1 RATIO; PROTHROMBIN TIME - PATIENT 12.5 SEC (9.8-11.6)
--- NOTE | 2016-12-26 11:39 | RADRPT ---
EXAM DATE/TIME: 12/26/2016 10:28 [facility] COMPARISON: TRANSCATH, IV OCCL HEPATIC Y90, December 23, 2016, 8:54. CT PULMONARY ANGIOGRAM, October 08, 2016, 11: 29. INDICATIONS : Post Y-90 on right side. Abdominal pain IV CONTRAST: 70 cc Omnipaque 350 (iohexol) IV ORAL CONTRAST: No oral contrast ingested. RADIATION DOSE: 19.35 CTDIvol (mGy) MEDICAL HISTORY : Hypertension. Hepatitis C. Cirrhosis.Liver Cancer SURGICAL HISTORY : None. ENCOUNTER: Initial ACUITY: 1 day PAIN SCALE: 4/10 LOCATION: Right abdomen TECHNIQUE: Volumetric scanning of the abdomen was performed. Using automated exposure control and adjustment of the mA and/or kV according to patient size, radiation dose was kept as low as reasonably achievable to obtain optimal diagnostic quality images. DICOM format image data is available electronically for review and comparison. FINDINGS: LOWER LUNGS: Bibasilar ground glass opacities consistent with atelectasis. LIVER: Extensive bilobar infiltrative enhancing masses similar to recent prior examinations from [facility]. Redemonstration of portal vein thrombus involving the right portal vein branches. The left portal vein and main portal vein are patent. No ascites. Gallbladder appears unremarkable by CT witho ut significant abnormal thickening or pericholecystic fluid. SPLEEN: Normal size without lesion. PANCREAS: Within normal limits. KIDNEYS: Normal in size and shape. There is no mass, stone, or hydronephrosis. ADRENAL GLANDS: Within normal limits. AORTA/RETROPERITONEAL: Aorta is non-aneurysmal. Redemonstration of periportal adenopathy with the largest conglomerate nodes measuring 3.4 x 5.1 cm. There is moderate mass effect on the central IVC. BOWEL/MESENTERY: The stomach and visualized small and large bowel demonstrate no abnormality. ABDOMINAL WALL: Within normal limits. MUSCULOSKELETAL: Within normal limits for patient age. CONCLUSION: 1. No acute abnormal CT findings. 2. Extensive diffuse bilobar infiltrative hepatocarcinoma with right portal vein thrombosis, suspect bland thrombus. No significant ascites. 3. Gallbladder appears unremarkable by CT. 4. Stable periportal adenopathy with prominent conglomeration of nodes measuring 5.1 x 3.4 cm. Chris Ybarra MD on December 26, 2016 at 10:38 Board Certified Radiologist. This report was verified electronically.
[2016-12-26] MEDS ORDERED: ONDANSETRON HCL 4 MG/2 ML VIAL IV ONE ×2 (12:45)
[2016-12-26] MEDS ORDERED: NALOXONE HCL 0.4 MG/ML AMP IV PUSH PRN ×4 (13:15→14:00)
--- NOTE | 2016-12-26 13:47 | HHI.HP ---
[facility] Admission Diagnosis Diagnoses: Travel History International Travel<30 Days: No Contact w/Intl Traveler <30 Da: No Traveled to Known Affected Are: No History of Present Illness History from patient, radiology nurses, entry. MEDICAL records. Patient is a stage IV liver cancer patient who has had radiation Yittrium placed her treatment of his liver cancer around December 23, 2016. He stated this morning, he woke up with severe pain which is not controlled by his regular pain meds. He was profusely diaphoretic, nauseous, and vomited several times as well. He reports that he does have chronic on and off nausea, vomiting. He also does have on and off diaphoretic episodes. All these have started since the diagnosis of his liver cancer in September 2016. 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 Initially, patient's pain was thought to be secondary to gallbladder issues and therefore CT abdomen was obtained. This did not reveal any acute pathology regarding his gallbladder. Therefore his radiologist as decided to admit him for pain control. While in radiology suites, patient required several rounds of Dilaudid 2 mg IV. He was about to be started on Dilaudid WAREHOUSE EXAMINER pump. He is still quite painful by the time of my examination. However he is no longer diaphoretic and her tachycardic. He received 500 mL bolus of normal saline and was started on 200 mL per hour of normal saline IV fluids in radiology streets due to this significant tachycardia and pain. Review of Systems Except as stated in HPI: all other systems reviewed are Neg Past Family Social History Past Medical History Carcinoma in the liver stage IV: Poorly differentiated non-small cell cancer favoring adenocarcinoma per liver biopsy results Chronic tobacco abuse Prior history of alcohol abuse Hypertension Liver cirrhosis Portal hypertension Hepatitis C GERD Chronic back pains and neck pains requiring muscle relaxants Past Surgical History Colonoscopy 8 surgeries to left ankle Reported Medications Patient's medications listed on EMR: Reviewed. In addition to that, patient reports to me that he is still taking prednisone. He is unsure of the dose. He also reports that he takes oxycodone sustained-release 40 mg by mouth every 8 hours. He takes oxycodone immediate release 10-20 mg every 4 hours as needed as well. Nursing orders have been written to update the med reconciliation to reflect his home doses. Allergies: Coded Allergies: codeine (Verified Adverse Reaction, Mild, 12/26/16) bothers stomach Family History Reports his sister has cancer although he does not remember which one Social History Still smokes a pack a day. Physical Exam Vital Signs Vital Signs Date Time Temp Pulse Resp B/P (MAP) Pulse Ox O2 Delivery O2 Flow Rate FiO2 12/26/16 09:25 20 12/26/16 08:27 98 Room Air 12/26/16 08:18 97.4 122 22 169/107 (127) 96 Physical Exam GENERAL: This is a well-nourished, well-developed patient, in moderate distress from pain SKIN: No rashes, ecchymoses or lesions. Cool and dry. HEAD: Atraumatic. Normocephalic. No temporal or scalp tenderness. EYES: No scleral icterus. No injection or drainage. ENT: Nose without bleeding, purulent drainage or septal hematoma. Airway patent. NECK: Trachea midline. No JVD CARDIOVASCULAR: Regular rate and rhythm without murmurs, gallops, or rubs. RESPIRATORY: Clear to auscultation. Breath sounds equal bilaterally. No wheezes , rales, or rhonchi. GASTROINTESTINAL: Abdomen soft, distended abdomen, pain even on light touch, no rebound, has voluntary guarding MUSCULOSKELETAL: Extremities without clubbing, cyanosis, or edema. No calf tenderness. NEUROLOGICAL: Awake and alert. Motor and sensory grossly within normal limits. Normal speech. Laboratory Laboratory Tests Test 12/26/16 08:55 12/26/16 09:45 12/26/16 11:01 White Blood Count 16.1 Red Blood Count 5.86 Hemoglobin 19.0 Hematocrit 56.6 Mean Corpuscular Volume 96.7 Mean Corpuscular Hemoglobin 32.5 Mean Corpuscular Hemoglobin Concent 33.6 Red Cell Distribution Width 13.6 Platelet Count 271 Mean Platelet Volume 8.3 Neutrophils (%) (Auto) 90.1 Lymphocytes (%) (Auto) 3.3 Monocytes (%) (Auto) 5.9 Eosinophils (%) (Auto) 0.4 Basophils (%) (Auto) 0.3 Neutrophils # (Auto) 14.5 Lymphocytes # (Auto) 0.5 Monocytes # (Auto) 1.0 Eosinophils # (Auto) 0.1 Basophils # (Auto) 0.1 CBC Comment DIFF FINAL Differential Comment Blood Urea Nitrogen 15 Creatinine 1.16 Random Glucose 139 Total Protein 9.5 Albumin 3.5 Calcium Level 10.0 Alkaline Phosphatase 241 Aspartate Amino Transf (AST/SGOT) 183 Alanine Aminotransferase (ALT/SGPT) 94 Total Bilirubin 2.0 Sodium Level 127 Potassium Level 4.7 Chloride Level 93 Carbon Dioxide Level 23.0 Anion Gap 11 Estimat Glomerular Filtration Rate 66 Lactic Acid Level 2.4 Prothrombin Time 12.5 Prothromb Time International Ratio 1.1 Activated Partial Thromboplast Time 26.1 Result Diagram: 12/26/16 0855 12/26/16 0855 Imaging Last [address] 12/26/16 0000 Signed Impressions: Service Date/Time: Monday, December 26, 2016 10:28 - CONCLUSION: 1. No acute abnormal CT findings. 2. Extensive diffuse bilobar infiltrative hepatocarcinoma with right portal vein thrombosis, suspect bland thrombus. No significant ascites. 3. Gallbladder appears unremarkable by CT. 4. Stable periportal adenopathy with prominent conglomeration of nodes measuring 5.1 x 3.4 cm. MD Tonja Lares VTE Risk Assessment Tonja VTE Risk Assessment: Mod/High Risk (score >= 2) Caprini Risk Assessment Model Point Value = 1 Point Value = 2 Point Value = 3 Point Value = 5 Age 41-60 Minor surgery BMI > 25 kg/m2 Swollen legs Varicose veins or History of unexplained or recurrent spontaneous Oral contraceptives or hormone replacement Sepsis (< 1 month) Serious lung disease, including pneumonia (< 1 month) Abnormal pulmonary function Acute myocardial infarction Congestive heart failure (< 1 month) History of inflammatory bowel disease Medical patient at bed rest Age 61-74 Arthroscopic surgery Major open surgery (> 45 min) Laparoscopic surgery (> 45 min) Malignancy Confined to bed (> 72 hours) Immobilizing plaster cast Central venous access Age >= 75 History of VTE Family history of VTE Factor V Leiden Prothrombin [id number] Lupus anticoagulant Anticardiolipin antibodies Elevated serum homocysteine Heparin-induced thrombocytopenia Other congenital or acquired thrombophilia Stroke (< 1 month) Elective arthroplasty Hip, pelvis, or leg fracture Acute spinal cord injury (< 1 month) Prophylaxis Regimen Total Risk Factor Score Risk Level Prophylaxis Regimen 0-1 Low Early ambulation 2 Moderate Order ONE of the following: *Sequential Compression Device (SCD) *Heparin 5000 units SQ BID 3-4 Higher Order ONE of the following medications: *Heparin 5000 units SQ TID *Enoxaparin/Lovenox 40 mg SQ daily (WT < 150 kg, CrCl > 30 mL/min) *Enoxaparin/Lovenox 30 mg SQ daily (WT < 150 kg, CrCl > 10-29 mL/min) *Enoxaparin/Lovenox 30 mg SQ BID (WT < 150 kg, CrCl > 30 mL/min) AND/OR *Sequential Compression Device (SCD) 5 or more Highest Order ONE of the following medications: *Heparin 5000 units SQ TID (Preferred with Epidurals) *Enoxaparin/Lovenox 40 mg SQ daily (WT < 150 kg, CrCl > 30 mL/min) *Enoxaparin/Lovenox 30 mg SQ daily (WT < 150 kg, CrCl > 10-29 mL/min) *Enoxaparin/Lovenox 30 mg SQ BID (WT < 150 kg, CrCl > 30 mL/min) AND *Sequential Compression Device (SCD) Assessment and Plan Assessment and Plan Impression: Severe uncontrolled pain in a terminal stage IV liver cancer patient with recent radiation procedure Leukocytosis with left shift. Likely this is secondary to stress and dehydration. Patient does not seem to be septic. We'll repeat blood work post hydration. Hyponatremia Lactic acid acidosis Carcinoma in the liver stage IV: Poorly differentiated non-small cell cancer favoring adenocarcinoma per liver biopsy results Chronic tobacco abuse Prior history of alcohol abuse Hypertension Liver cirrhosis Portal hypertension Hepatitis C GERD Chronic back pains and neck pains requiring muscle relaxants Plan: Start patient on Dilaudid WAREHOUSE EXAMINER drip. We'll use oxycodone 20 mg by mouth every 4 hours when necessary if patient still has pain greater than 5 on top of being on the WAREHOUSE EXAMINER. Patient likely would need to be discharged home on Dilaudid by mouth. Would also consider a fentanyl patch. However for now, we'll see how he is on the WAREHOUSE EXAMINER pump and slowly taper him off to start with medications that he can go home with. Consult patient's oncologist as well as since [facility] to obtain pain medications from other physicians including hospitalist. Patient specifically requested for his oncologist to see him so that pain management could be applied for outpatient setting as well. Resume his muscle relaxants. Patient is on prednisone according to him. Our med reconciliation does not reflect that. Our nursing staff will be asking his for him to find out the dose. Also, patient would like to have a nicotinic patch while in hospital. His nurses double be calling his IR doctor to make sure that it is okay with his recent radiology procedure. DVT prophylaxis with SCD. Discussed Condition With patient, IR nurses Physician Certification 2 Midnight Certification Type: Admission for Inpatient Services Order for Inpatient Services The services are ordered in accordance with Medicare regulations or non- Medicare payer requirements, as applicable. In the case of services not specified as inpatient-only, they are appropriately provided as inpatient services in accordance with the 2-midnight benchmark. Estimated LOS (days): 2 days is the estimated time the patient will need to remain in the hospital, assuming treatment plan goals are met and no additional complications. Post-Hospital Plan: Home Aretha Francois MD Dec 26, 2016 13:47
[2016-12-26] MEDS: HYDROmorphone HCL PCA 6 MG/30 ML IV SCH ×6 (13:55→20:39)
[2016-12-26 14:00] VITALS: BP 167/105; PULSE 100; RESP 20; TEMP 98.1; O2SAT 94
[2016-12-26] MEDS ORDERED: SODIUM CHLORIDE 0.9% FLUSH 10 ML FLUSH IV FLUSH PRN ×2 (14:00)
[2016-12-26] MEDS: REMOVE OLD PATCH T-DERMAL SCH ×2 (15:00)
[2016-12-26] MEDS: NICOTINE 21 MG/24 HR PATCH T-DERMAL SCH ×2 (15:00)
[2016-12-26 16:29] LABS: AUTOMATED NEUTROPHIL # 7.2 TH/MM3 (1.8-7.7); BASOPHIL % 0.5 % (0.0-2.0); EOSINOPHIL % 0.1 % (0.0-4.0); HEMATOCRIT 47.2 % (39.0-51.0); HEMOGLOBIN 16.2 GM/DL (13.0-17.0); LYMPH % 4.2 % (9.0-44.0); LYMPHOCYTE # 0.3 TH/MM3 (1.0-4.8); MEAN CELL VOLUME 95.9 FL (80.0-100.0); MEAN CORPUSCULAR HGB CONC 34.4 % (32.0-36.0); MEAN PLATELET VOLUME 8.3 FL (7.0-11.0); MONO % 5.9 % (0.0-8.0); MONOCYTE # 0.5 TH/MM3 (0-0.9); NEUT % 89.3 % (16.0-70.0); PLATELET COUNT 117 TH/MM3 (150-450); RED BLOOD COUNT 4.92 MIL/MM3 (4.50-5.90); RED CELL DISTRIBUTION WIDTH 13.5 % (11.6-17.2)
[2016-12-26 17:02] LABS: CALCIUM 8.5 MG/DL (8.5-10.1); CREATININE 0.79 MG/DL (0.60-1.30)
[2016-12-26 17:29] LABS: BANDS 10 % (0-6); LYMPHOCYTES 4 % (9-44); MONOCYTES 2 % (0-8); POLYS (SEG NEUTROPHILS) 84 % (16-70)
[2016-12-26 17:42] LABS: NEUTROPHIL # MANUAL DIFF 7.5 TH/MM3 (1.8-7.7)
--- NOTE | 2016-12-26 19:56 | MB ---
cc: AMRIK TRAORE DATE OF CONSULTATION 12/26/16 REASON FOR CONSULTATION 1. Hepatocellular carcinoma status post treatment with radioactive Yttrium three days ago 2. Uncontrolled upper abdominal pain. PATIENT PROFILE The patient is a 51-year old white male. He has been twice. He lives with his . He has one son. He has a grandchild who lives with him. He is 60% disabled. 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 He had smoked a pack of cigarettes per day since youth. In the past, he would drinks 6-8 beers per day but has not had any alcohol in several months. HISTORY OF PRESENT ILLNESS I originally saw the patient on 10/07/2016. He had a history of upper abdominal pain. On 10/06/2016, he had CAT scan of the abdomen and pelvis showing a cirrhotic liver with several small lesions. An MRI on 10/06 showed a mass in the left hepatic lobe measuring 7.1 cm and numerous other subcentimeter nodules. There was nonspecific brodie caval and retroperitoneal lymphadenopathy. The patient underwent a biopsy and this was felt to be an adenocarcinoma, not a hepatocellular carcinoma. In spite of this, he had a rapidly rising alpha-fetoprotein and the clinical situation was consistent with hepatocellular carcinoma. I had the material sent outside of our institution for gene testing and the pattern and gene expression was consistent with hepatocellular carcinoma. In addition, the presentation and rapidly rising alpha-fetoprotein were felt to be consistent if not diagnostic of hepatocellular carcinoma and, therefore, the diagnosis was changed to hepatocellular carcinoma. Three days ago, the patient was treated with radioactive Yttrium. Prior to this, he was having pain in the liver and he was using oxycodone, approximately 10-20 mg every four hours. During the past 24 hours, he developed severe pain in the right upper quadrant. It is a pleuritic pain that hurts with a deep breath. The pain became unbearable. Yesterday we had started him on OxyContin 40 q.8 h and this initially worked well until the sharp stabbing pain in the right upper quadrant. He had a CT scan of the abdomen today. I have reviewed the x-rays and have spoken to Dr. Pablo, the radiologist who performed the radioactive Yttrium injection three days ago. He has extensive bilobar hepatocellular carcinoma. There is right portal vein thrombosis with what appears to a bland thrombus. There is no ascites. There is stable jailene-portal adenopathy with a conglomerate mass which now measures 5.1 x 3.4 cm. He has a Dilaudid THEORETICAL PHYSICS TEACHER pump which gives him a continuous 1 mg an hour with an extra mg per hour on a p.r.n. basis. PAST SURGICAL HISTORY 1. Treated with radioactive Yttrium three days ago. 2. Colonoscopy 3. Multiple surgeries involving feet, ankles and jaws PAST MEDICAL HISTORY 1. Previous history of alcoholism 2. Hepatocellular carcinoma involving predominantly liver and extra abdominal adenopathy, 3. Hypertension 4. In 2017 upper endoscopy revealing gastritis, duodenitis and esophagitis 5. Cirrhosis. MEDICATIONS Prior to admission 1. Prednisone 15 mg a day 2. B 12. 3. Flexeril 4. Hydrochlorothiazide 5. Metoprolol 6. Zantac. ALLERGIES CODEINE REVIEW OF SYSTEMS No change in vision or hearing. No chest pain or palpitations. She has mild shortness of breath. He has abdominal pain, primarily right upper quadrant. It aches and then he will have sharp stabbing pains. No melena, hematochezia or hematemesis. No dysphagia. No problems passing urine. No bone pain. No focal weakness. LABORATORY FINDINGS 12/26 - hemoglobin 16, white count 8000, platelets 117,000. Lytes, BUN, creatinine notable for sodium of 129, bilirubin is 2.0, AST 183, ALT 94, alk phos 241, albumin 3.5. PHYSICAL EXAM: appears uncomfortable RR 18, pulse 85, Afebrile HEENT: slight icterus Lymphatics: no adenopathy Heart: reg rhythm, without murmurs or gallops Lungs: Clear Abd: distended, moderate tenderness, most prominent in the right upper quadrant. no ascites. Extrem: trace edema Skin: intact Neuro: no weakness Psychiatric: appropriate, normal cognition. ASSESSMENT A 51-year old male with hepatocellular carcinoma status post radioactive Yttrium to the liver. At the present time, he has had an exacerbation of his pain. The hepatocellular carcinoma lies immediately under the capsule of the liver and I believe this is why he is having pain. He has two types of pain, one is the chronic pain from the presence of hepatocellular carcinoma in the liver, the other is the acute pain from the inflammation along the capsule of the liver which I suspect is in part due to the radioactive Yttrium. PLAN 1. OxyContin 40 q.8 h for chronic pain 2. He is on a Dilaudid THEORETICAL PHYSICS TEACHER. In the near future, would convert this to either oral Dilaudid or oral oxycodone. 3. I am going to increase the prednisone to 20 p.o. t.i.d. for the inflammatory component which is causing pain along the capsule of the liver. I would keep him in the hospital until he is more comfortable and pain can be controlled with oral medicines. I am very concerned with the extent of the extra hepatic disease. At some point in the near future will need to consider sorafenib and other similar medications. Above discussed with Dr. Pablo and the admitting physician. Orders written for prednisone and oxycontin. Will check glucose twice a day. MD HERACLIO Garcia/ /6:36 PM /7:42 PM BENITO
[2016-12-26] MEDS: FAMOTIDINE 20 MG TAB PO SCH ×2 (20:07)
[2016-12-26] MEDS: METOPROLOL TARTRATE 25 MG TAB PO SCH ×2 (20:08)
[2016-12-26] MEDS: predniSONE 20 MG TAB PO SCH ×2 (20:27)
[2016-12-26] MEDS: CYCLOBENZAPRINE HCL 10 MG TAB PO SCH ×2 (20:28)
[2016-12-26] MEDS ORDERED: ONDANSETRON HCL 4 MG/2 ML VIAL IV PUSH PRN ×2 (20:30)
[2016-12-26] MEDS: SODIUM CHLORIDE 0.9% FLUSH 10 ML FLUSH IV FLUSH SCH ×2 (20:41)
[2016-12-26 21:05] VITALS: BP 158/109; PULSE 102; PULSE 96; RESP 22; TEMP 98.9; O2SAT 94
[2016-12-26] MEDS: PCA - TOTAL MG DILAUDID DELIVERED PER SHIFT SCH ×2 (22:00)
[2016-12-26] MEDS: oxyCODONE HCL 40 MG CONTROLLED RELEASE TAB PO SCH ×2 (22:30)
[2016-12-27] VITALS (20 sets, daily range): BP systolic 134–176; BP diastolic 94–113; PULSE 67–126; RESP 16–20; TEMP 97.6–98.9; O2SAT 91–97
[2016-12-27] MEDS: HYDROmorphone HCL PCA 6 MG/30 ML IV SCH ×6 (01:23→09:45)
[2016-12-27] MEDS: oxyCODONE HCL 40 MG CONTROLLED RELEASE TAB PO SCH ×6 (05:19→22:08)
[2016-12-27] MEDS: NICOTINE 21 MG/24 HR PATCH T-DERMAL SCH ×4 (05:22→09:41)
[2016-12-27] MEDS: PCA - TOTAL MG DILAUDID DELIVERED PER SHIFT SCH ×2 (06:00)
[2016-12-27 07:08] LABS: AUTOMATED NEUTROPHIL # 7.3 TH/MM3 (1.8-7.7); BASOPHIL % 0.3 % (0.0-2.0); EOSINOPHIL % 0.1 % (0.0-4.0); HEMATOCRIT 46.3 % (39.0-51.0); HEMOGLOBIN 16.1 GM/DL (13.0-17.0); LYMPH % 4.3 % (9.0-44.0); LYMPHOCYTE # 0.3 TH/MM3 (1.0-4.8); MEAN CELL VOLUME 96.2 FL (80.0-100.0); MEAN CORPUSCULAR HEMOGLOBIN 33.4 PG (27.0-34.0); MEAN CORPUSCULAR HGB CONC 34.7 % (32.0-36.0); MONO % 5.5 % (0.0-8.0); MONOCYTE # 0.4 TH/MM3 (0-0.9); NEUT % 89.8 % (16.0-70.0); PLATELET COUNT 140 TH/MM3 (150-450); RED BLOOD COUNT 4.82 MIL/MM3 (4.50-5.90); RED CELL DISTRIBUTION WIDTH 13.4 % (11.6-17.2); WHITE BLOOD COUNT 8.1 TH/MM3 (4.0-11.0)
[2016-12-27 07:11] LABS: INTERNATIONAL NORMALIZED RATIO 1.1 RATIO
[2016-12-27 08:01] LABS: ALBUMIN 2.8 GM/DL (3.4-5.0); ALKALINE PHOSPHATASE 179 U/L (45-117); ALT (GPT) 65 U/L (12-78); AST (GOT) 137 U/L (15-37); BICARBONATE 26.7 MEQ/L (21.0-32.0); BLOOD UREA NITROGEN 10 MG/DL (7-18); CALCIUM 9.3 MG/DL (8.5-10.1); CHLORIDE 93 MEQ/L (98-107); CREATININE 0.68 MG/DL (0.60-1.30); GLOMERULAR FILTRATION RATE 122 ML/MIN (>89); GLUCOSE,RANDOM 119 MG/DL (74-106); SODIUM (NA) 128 MEQ/L (136-145); TOTAL BILIRUBIN ADULT 1.4 MG/DL (0.2-1.0); TOTAL PROTEIN 7.9 GM/DL (6.4-8.2)
[2016-12-27] MEDS ORDERED: HYDROmorphone HCL PF 1 MG/ML VIAL IV PUSH PRN ×2 (08:30)
--- NOTE | 2016-12-27 08:40 | PD.ONC.PN ---
Subjective Subjective Remarks Afebrile overnight. Patient resting in room eating breakfast. States he is feeling much better with PERMASTONE APPLICATOR. He is hoping to go home today. Discussed that we will need to wean him off PERMASTONE APPLICATOR and pain needs to be controlled with oral medications prior to discharge. Patient states he is ok to discontinuing the PERMASTONE APPLICATOR around noon today and then starting oral pain medications for breakthrough pain. wants diet changed to regular. no BM. Objective Data Date Time Temp Pulse Resp B/P (MAP) Pulse Ox O2 Delivery O2 Flow Rate FiO2 12/27/16 06:04 16 12/27/16 06:00 16 12/27/16 04:00 76 12/27/16 04:00 98.9 88 16 166/94 (118) 94 12/27/16 03:00 67 12/27/16 01:23 16 12/27/16 00:01 97.9 84 16 134/94 (107) 94 12/27/16 00:00 86 12/26/16 22:00 15 12/26/16 21:05 98.9 102 22 158/109 (125) 94 12/26/16 21:05 96 12/26/16 20:39 16 12/26/16 18:24 98 Nasal Cannula 1.00 12/26/16 17:22 18 12/26/16 14:00 98.1 100 20 167/105 (125) 94 12/26/16 09:25 20 12/27/16 12/27/16 12/27/16 07:00 15:00 23:00 Intake Total 480 ml Output Total 1100 ml Balance -620 ml Result Diagram: 12/27/16 0636 12/27/16 0636 Laboratory Results Laboratory Tests Test 12/26/16 08:55 12/26/16 09:45 12/26/16 11:01 12/26/16 16:12 White Blood Count 16.1 TH/MM3 8.0 TH/MM3 Red Blood Count 5.86 MIL/MM3 4.92 MIL/MM3 Hemoglobin 19.0 GM/DL 16.2 GM/DL Hematocrit 56.6 % 47.2 % Mean Corpuscular Volume 96.7 FL 95.9 FL Mean Corpuscular Hemoglobin 32.5 PG 33.0 PG Mean Corpuscular Hemoglobin Concent 33.6 % 34.4 % Red Cell Distribution Width 13.6 % 13.5 % Platelet Count 271 TH/MM3 117 TH/MM3 Mean Platelet Volume 8.3 FL 8.3 FL Neutrophils (%) (Auto) 90.1 % 89.3 % Lymphocytes (%) (Auto) 3.3 % 4.2 % Monocytes (%) (Auto) 5.9 % 5.9 % Eosinophils (%) (Auto) 0.4 % 0.1 % Basophils (%) (Auto) 0.3 % 0.5 % Neutrophils # (Auto) 14.5 TH/MM3 7.2 TH/MM3 Lymphocytes # (Auto) 0.5 TH/MM3 0.3 TH/MM3 Monocytes # (Auto) 1.0 TH/MM3 0.5 TH/MM3 Eosinophils # (Auto) 0.1 TH/MM3 0.0 TH/MM3 Basophils # (Auto) 0.1 TH/MM3 0.0 TH/MM3 CBC Comment DIFF FINAL AUTO DIFF Differential Comment FINAL DIFF MANUAL Blood Urea Nitrogen 15 MG/DL 11 MG/DL Creatinine 1.16 MG/DL 0.79 MG/DL Random Glucose 139 MG/DL 175 MG/DL Total Protein 9.5 GM/DL Albumin 3.5 GM/DL Calcium Level 10.0 MG/DL 8.5 MG/DL Alkaline Phosphatase 241 U/L Aspartate Amino Transf (AST/SGOT) 183 U/L Alanine Aminotransferase (ALT/SGPT) 94 U/L Total Bilirubin 2.0 MG/DL Sodium Level 127 MEQ/L 129 MEQ/L Potassium Level 4.7 MEQ/L 4.7 MEQ/L Chloride Level 93 MEQ/L 95 MEQ/L Carbon Dioxide Level 23.0 MEQ/L 25.0 MEQ/L Anion Gap 11 MEQ/L 9 MEQ/L Estimat Glomerular Filtration Rate 66 ML/MIN 103 ML/MIN Lactic Acid Level 2.4 mmol/L 2.1 mmol/L Prothrombin Time 12.5 SEC Prothromb Time International Ratio 1.1 RATIO Activated Partial Thromboplast Time 26.1 SEC Differential Total Cells Counted 100 Neutrophils % (Manual) 84 % Band Neutrophils % 10 % Lymphocytes % 4 % Monocytes % 2 % Neutrophils # (Manual) 7.5 TH/MM3 Atypical Lymphocytes % Test 12/27/16 06:36 White Blood Count 8.1 TH/MM3 Red Blood Count 4.82 MIL/MM3 Hemoglobin 16.1 GM/DL Hematocrit 46.3 % Mean Corpuscular Volume 96.2 FL Mean Corpuscular Hemoglobin 33.4 PG Mean Corpuscular Hemoglobin Concent 34.7 % Red Cell Distribution Width 13.4 % Platelet Count 140 TH/MM3 Mean Platelet Volume 8.0 FL Neutrophils (%) (Auto) 89.8 % Lymphocytes (%) (Auto) 4.3 % Monocytes (%) (Auto) 5.5 % Eosinophils (%) (Auto) 0.1 % Basophils (%) (Auto) 0.3 % Neutrophils # (Auto) 7.3 TH/MM3 Lymphocytes # (Auto) 0.3 TH/MM3 Monocytes # (Auto) 0.4 TH/MM3 Eosinophils # (Auto) 0.0 TH/MM3 Basophils # (Auto) 0.0 TH/MM3 CBC Comment DIFF FINAL Differential Comment Prothrombin Time 12.0 SEC Prothromb Time International Ratio 1.1 RATIO Blood Urea Nitrogen 10 MG/DL Creatinine 0.68 MG/DL Random Glucose 119 MG/DL Total Protein 7.9 GM/DL Albumin 2.8 GM/DL Calcium Level 9.3 MG/DL Alkaline Phosphatase 179 U/L Aspartate Amino Transf (AST/SGOT) 137 U/L Alanine Aminotransferase (ALT/SGPT) 65 U/L Total Bilirubin 1.4 MG/DL Sodium Level 128 MEQ/L Potassium Level 4.3 MEQ/L Chloride Level 93 MEQ/L Carbon Dioxide Level 26.7 MEQ/L Anion Gap 8 MEQ/L Estimat Glomerular Filtration Rate 122 ML/MIN Administered Medications Medications (Trade) Dose Ordered Sig/Ivis Route PRN Reason Start Time Stop Time Status Last Admin Dose Admin Hydromorphone HCl (Dilaudid PERMASTONE APPLICATOR Inj) 6 mg UNSCH IV 12/26/16 13:15 12/27/16 12:00 12/27/16 06:04 PERMASTONE APPLICATOR Dosage Infused (Pha) 1 Q8HR .XX 12/26/16 14:00 12/27/16 06:00 Metoprolol Tartrate (Lopressor) 25 mg BID PO 12/26/16 21:00 12/26/16 20:08 Cyclobenzaprine HCl (Flexeril) 7.5 mg TID PO 12/26/16 18:00 12/26/16 20:28 Famotidine (Pepcid) 20 mg BID PO 12/26/16 21:00 12/26/16 20:07 Oxycodone HCl (Roxicodone) 20 mg Q4H PRN PO PAIN SCALE 4 TO 7 12/26/16 14:00 12/27/16 04:08 Nicotine (Habitrol 21 Mg Patch.24 Hr) 1 patch DAILY T-DERMAL 12/26/16 15:00 12/27/16 05:22 Prednisone (Deltasone) 20 mg TID PO 12/26/16 20:00 12/26/16 20:27 Oxycodone HCl (OxyCONTIN CR) 40 mg Q8HR PO 12/26/16 22:00 12/27/16 05:19 Ondansetron HCl (Zofran Inj) 4 mg Q6HR PRN IV PUSH NAUSEA OR VOMITING 12/26/16 20:30 12/26/16 20:27 Objective Remarks GENERAL: Middle aged male sitting up in bed eating breakfast. SKIN: Warm and dry. HEAD: Normocephalic. EYES: No scleral icterus. No injection or drainage. NECK: Supple, trachea midline. CARDIOVASCULAR: Regular rate and rhythm RESPIRATORY: Breath sounds equal bilaterally. No accessory muscle use. GASTROINTESTINAL: Abdomen soft, +TTP RUQ, nondistended. EXTREMITIES: No cyanosis NEUROLOGICAL: No obvious focal deficit. Awake, alert, and oriented x3. Assessment/Plan Assessment 51-year old male with hepatocellular carcinoma treatment with Y99 three days prior to admission. HPI: 10/06/2016--CT ab/pelvis showed a cirrhotic liver with several small lesions. MRI showed mass in the left hepatic lobe measuring 7.1 cm and numerous other subcentimeter nodules. There was nonspecific brodie caval and retroperitoneal lymphadenopathy. biopsy showed possible an adenocarcinoma, not a hepatocellular carcinoma. pattern and gene expression was consistent with hepatocellular carcinoma. In addition, the presentation and rapidly rising alpha-fetoprotein were felt to be consistent if not diagnostic of hepatocellular carcinoma and, therefore, the diagnosis was changed to hepatocellular carcinoma. Plan 1. patient wants to try to go home today. I discussed with him that we will need to wean him off PERMASTONE APPLICATOR and pain needs to be controlled with oral medications prior to discharge. Patient states he is ok with discontinuing the PERMASTONE APPLICATOR around noon today and then starting oral pain medications for breakthrough pain. Therefore we will stop swing grinder around noon today and then start as follows: Oxycodone 10mg PO q 4 hours for breakthrough pain rated 1-3. Oxycodone 20mg PO q 4 hours for breakthrough pain rated 4-7. Dilaudid 2mg IV PO q 2 hours for severe pain rated 8-10. 2. change diet to regular 3. start Miralax for bowel regimen. Attending Statement The exam, history, and the medical decision-making described in the above note were completed with the assistance of the mid-level provider. I reviewed and agree with the findings presented. I attest that I had a [id number] encounter with the patient on the same day, and personally performed and documented my assessment and findings in the medical record. 51 yoM with HCC s/ p y90 admitted with abdominal pain. His pain is currently well controlled on PERMASTONE APPLICATOR. Will discontinue PERMASTONE APPLICATOR today and assess pain control on oral medication tomorrow. Nany Hamilton Dec 27, 2016 08:40 Michelle Gonzalez MD Dec 27, 2016 17:05
--- NOTE | 2016-12-27 08:40 | PD.ONC.PN ---
Subjective Subjective Remarks Afebrile overnight. Patient resting in room eating breakfast. States he is feeling much better with SOCIAL SERVICES SPECIALIST. He is hoping to go home today. Discussed that we will need to wean him off SOCIAL SERVICES SPECIALIST and pain needs to be controlled with oral medications prior to discharge. Patient states he is ok to discontinuing the SOCIAL SERVICES SPECIALIST around noon today and then starting oral pain medications for breakthrough pain. wants diet changed to regular. no BM. Objective Data Date Time Temp Pulse Resp B/P (MAP) Pulse Ox O2 Delivery O2 Flow Rate FiO2 12/27/16 06:04 16 12/27/16 06:00 16 12/27/16 04:00 76 12/27/16 04:00 98.9 88 16 166/94 (118) 94 12/27/16 03:00 67 12/27/16 01:23 16 12/27/16 00:01 97.9 84 16 134/94 (107) 94 12/27/16 00:00 86 12/26/16 22:00 15 12/26/16 21:05 98.9 102 22 158/109 (125) 94 12/26/16 21:05 96 12/26/16 20:39 16 12/26/16 18:24 98 Nasal Cannula 1.00 12/26/16 17:22 18 12/26/16 14:00 98.1 100 20 167/105 (125) 94 12/26/16 09:25 20 12/27/16 12/27/16 12/27/16 07:00 15:00 23:00 Intake Total 480 ml Output Total 1100 ml Balance -620 ml Result Diagram: 12/27/16 0636 12/27/16 0636 Laboratory Results Laboratory Tests Test 12/26/16 08:55 12/26/16 09:45 12/26/16 11:01 12/26/16 16:12 White Blood Count 16.1 TH/MM3 8.0 TH/MM3 Red Blood Count 5.86 MIL/MM3 4.92 MIL/MM3 Hemoglobin 19.0 GM/DL 16.2 GM/DL Hematocrit 56.6 % 47.2 % Mean Corpuscular Volume 96.7 FL 95.9 FL Mean Corpuscular Hemoglobin 32.5 PG 33.0 PG Mean Corpuscular Hemoglobin Concent 33.6 % 34.4 % Red Cell Distribution Width 13.6 % 13.5 % Platelet Count 271 TH/MM3 117 TH/MM3 Mean Platelet Volume 8.3 FL 8.3 FL Neutrophils (%) (Auto) 90.1 % 89.3 % Lymphocytes (%) (Auto) 3.3 % 4.2 % Monocytes (%) (Auto) 5.9 % 5.9 % Eosinophils (%) (Auto) 0.4 % 0.1 % Basophils (%) (Auto) 0.3 % 0.5 % Neutrophils # (Auto) 14.5 TH/MM3 7.2 TH/MM3 Lymphocytes # (Auto) 0.5 TH/MM3 0.3 TH/MM3 Monocytes # (Auto) 1.0 TH/MM3 0.5 TH/MM3 Eosinophils # (Auto) 0.1 TH/MM3 0.0 TH/MM3 Basophils # (Auto) 0.1 TH/MM3 0.0 TH/MM3 CBC Comment DIFF FINAL AUTO DIFF Differential Comment FINAL DIFF MANUAL Blood Urea Nitrogen 15 MG/DL 11 MG/DL Creatinine 1.16 MG/DL 0.79 MG/DL Random Glucose 139 MG/DL 175 MG/DL Total Protein 9.5 GM/DL Albumin 3.5 GM/DL Calcium Level 10.0 MG/DL 8.5 MG/DL Alkaline Phosphatase 241 U/L Aspartate Amino Transf (AST/SGOT) 183 U/L Alanine Aminotransferase (ALT/SGPT) 94 U/L Total Bilirubin 2.0 MG/DL Sodium Level 127 MEQ/L 129 MEQ/L Potassium Level 4.7 MEQ/L 4.7 MEQ/L Chloride Level 93 MEQ/L 95 MEQ/L Carbon Dioxide Level 23.0 MEQ/L 25.0 MEQ/L Anion Gap 11 MEQ/L 9 MEQ/L Estimat Glomerular Filtration Rate 66 ML/MIN 103 ML/MIN Lactic Acid Level 2.4 mmol/L 2.1 mmol/L Prothrombin Time 12.5 SEC Prothromb Time International Ratio 1.1 RATIO Activated Partial Thromboplast Time 26.1 SEC Differential Total Cells Counted 100 Neutrophils % (Manual) 84 % Band Neutrophils % 10 % Lymphocytes % 4 % Monocytes % 2 % Neutrophils # (Manual) 7.5 TH/MM3 Atypical Lymphocytes % Test 12/27/16 06:36 White Blood Count 8.1 TH/MM3 Red Blood Count 4.82 MIL/MM3 Hemoglobin 16.1 GM/DL Hematocrit 46.3 % Mean Corpuscular Volume 96.2 FL Mean Corpuscular Hemoglobin 33.4 PG Mean Corpuscular Hemoglobin Concent 34.7 % Red Cell Distribution Width 13.4 % Platelet Count 140 TH/MM3 Mean Platelet Volume 8.0 FL Neutrophils (%) (Auto) 89.8 % Lymphocytes (%) (Auto) 4.3 % Monocytes (%) (Auto) 5.5 % Eosinophils (%) (Auto) 0.1 % Basophils (%) (Auto) 0.3 % Neutrophils # (Auto) 7.3 TH/MM3 Lymphocytes # (Auto) 0.3 TH/MM3 Monocytes # (Auto) 0.4 TH/MM3 Eosinophils # (Auto) 0.0 TH/MM3 Basophils # (Auto) 0.0 TH/MM3 CBC Comment DIFF FINAL Differential Comment Prothrombin Time 12.0 SEC Prothromb Time International Ratio 1.1 RATIO Blood Urea Nitrogen 10 MG/DL Creatinine 0.68 MG/DL Random Glucose 119 MG/DL Total Protein 7.9 GM/DL Albumin 2.8 GM/DL Calcium Level 9.3 MG/DL Alkaline Phosphatase 179 U/L Aspartate Amino Transf (AST/SGOT) 137 U/L Alanine Aminotransferase (ALT/SGPT) 65 U/L Total Bilirubin 1.4 MG/DL Sodium Level 128 MEQ/L Potassium Level 4.3 MEQ/L Chloride Level 93 MEQ/L Carbon Dioxide Level 26.7 MEQ/L Anion Gap 8 MEQ/L Estimat Glomerular Filtration Rate 122 ML/MIN Administered Medications Medications (Trade) Dose Ordered Sig/Ivis Route PRN Reason Start Time Stop Time Status Last Admin Dose Admin Hydromorphone HCl (Dilaudid SOCIAL SERVICES SPECIALIST Inj) 6 mg UNSCH IV 12/26/16 13:15 12/27/16 12:00 12/27/16 06:04 SOCIAL SERVICES SPECIALIST Dosage Infused (Pha) 1 Q8HR .XX 12/26/16 14:00 12/27/16 06:00 Metoprolol Tartrate (Lopressor) 25 mg BID PO 12/26/16 21:00 12/26/16 20:08 Cyclobenzaprine HCl (Flexeril) 7.5 mg TID PO 12/26/16 18:00 12/26/16 20:28 Famotidine (Pepcid) 20 mg BID PO 12/26/16 21:00 12/26/16 20:07 Oxycodone HCl (Roxicodone) 20 mg Q4H PRN PO PAIN SCALE 4 TO 7 12/26/16 14:00 12/27/16 04:08 Nicotine (Habitrol 21 Mg Patch.24 Hr) 1 patch DAILY T-DERMAL 12/26/16 15:00 12/27/16 05:22 Prednisone (Deltasone) 20 mg TID PO 12/26/16 20:00 12/26/16 20:27 Oxycodone HCl (OxyCONTIN CR) 40 mg Q8HR PO 12/26/16 22:00 12/27/16 05:19 Ondansetron HCl (Zofran Inj) 4 mg Q6HR PRN IV PUSH NAUSEA OR VOMITING 12/26/16 20:30 12/26/16 20:27 Objective Remarks GENERAL: Middle aged male sitting up in bed eating breakfast. SKIN: Warm and dry. HEAD: Normocephalic. EYES: No scleral icterus. No injection or drainage. NECK: Supple, trachea midline. CARDIOVASCULAR: Regular rate and rhythm RESPIRATORY: Breath sounds equal bilaterally. No accessory muscle use. GASTROINTESTINAL: Abdomen soft, +TTP RUQ, nondistended. EXTREMITIES: No cyanosis NEUROLOGICAL: No obvious focal deficit. Awake, alert, and oriented x3. Assessment/Plan Assessment 51-year old male with hepatocellular carcinoma treatment with Y99 three days prior to admission. HPI: 10/06/2016--CT ab/pelvis showed a cirrhotic liver with several small lesions. MRI showed mass in the left hepatic lobe measuring 7.1 cm and numerous other subcentimeter nodules. There was nonspecific brodie caval and retroperitoneal lymphadenopathy. biopsy showed possible an adenocarcinoma, not a hepatocellular carcinoma. pattern and gene expression was consistent with hepatocellular carcinoma. In addition, the presentation and rapidly rising alpha-fetoprotein were felt to be consistent if not diagnostic of hepatocellular carcinoma and, therefore, the diagnosis was changed to hepatocellular carcinoma. Plan 1. patient wants to try to go home today. I discussed with him that we will need to wean him off SOCIAL SERVICES SPECIALIST and pain needs to be controlled with oral medications prior to discharge. Patient states he is ok with discontinuing the SOCIAL SERVICES SPECIALIST around noon today and then starting oral pain medications for breakthrough pain. Therefore we will stop interlacer around noon today and then start as follows: Oxycodone 10mg PO q 4 hours for breakthrough pain rated 1-3. Oxycodone 20mg PO q 4 hours for breakthrough pain rated 4-7. Dilaudid 2mg IV PO q 2 hours for severe pain rated 8-10. 2. change diet to regular 3. start Miralax for bowel regimen. Attending Statement The exam, history, and the medical decision-making described in the above note were completed with the assistance of the mid-level provider. I reviewed and agree with the findings presented. I attest that I had a [id number] encounter with the patient on the same day, and personally performed and documented my assessment and findings in the medical record. 51 yoM with HCC s/ p y90 admitted with abdominal pain. His pain is currently well controlled on SOCIAL SERVICES SPECIALIST. Will discontinue SOCIAL SERVICES SPECIALIST today and assess pain control on oral medication tomorrow. Nany Hamilton Dec 27, 2016 08:40 Michelle Gonzalez MD Dec 27, 2016 17:05
--- NOTE | 2016-12-27 08:40 | PD.ONC.PN ---
Subjective Subjective Remarks Afebrile overnight. Patient resting in room eating breakfast. States he is feeling much better with FUGITIVE INVESTIGATOR. He is hoping to go home today. Discussed that we will need to wean him off FUGITIVE INVESTIGATOR and pain needs to be controlled with oral medications prior to discharge. Patient states he is ok to discontinuing the FUGITIVE INVESTIGATOR around noon today and then starting oral pain medications for breakthrough pain. wants diet changed to regular. no BM. Objective Data Date Time Temp Pulse Resp B/P (MAP) Pulse Ox O2 Delivery O2 Flow Rate FiO2 12/27/16 06:04 16 12/27/16 06:00 16 12/27/16 04:00 76 12/27/16 04:00 98.9 88 16 166/94 (118) 94 12/27/16 03:00 67 12/27/16 01:23 16 12/27/16 00:01 97.9 84 16 134/94 (107) 94 12/27/16 00:00 86 12/26/16 22:00 15 12/26/16 21:05 98.9 102 22 158/109 (125) 94 12/26/16 21:05 96 12/26/16 20:39 16 12/26/16 18:24 98 Nasal Cannula 1.00 12/26/16 17:22 18 12/26/16 14:00 98.1 100 20 167/105 (125) 94 12/26/16 09:25 20 12/27/16 12/27/16 12/27/16 07:00 15:00 23:00 Intake Total 480 ml Output Total 1100 ml Balance -620 ml Result Diagram: 12/27/16 0636 12/27/16 0636 Laboratory Results Laboratory Tests Test 12/26/16 08:55 12/26/16 09:45 12/26/16 11:01 12/26/16 16:12 White Blood Count 16.1 TH/MM3 8.0 TH/MM3 Red Blood Count 5.86 MIL/MM3 4.92 MIL/MM3 Hemoglobin 19.0 GM/DL 16.2 GM/DL Hematocrit 56.6 % 47.2 % Mean Corpuscular Volume 96.7 FL 95.9 FL Mean Corpuscular Hemoglobin 32.5 PG 33.0 PG Mean Corpuscular Hemoglobin Concent 33.6 % 34.4 % Red Cell Distribution Width 13.6 % 13.5 % Platelet Count 271 TH/MM3 117 TH/MM3 Mean Platelet Volume 8.3 FL 8.3 FL Neutrophils (%) (Auto) 90.1 % 89.3 % Lymphocytes (%) (Auto) 3.3 % 4.2 % Monocytes (%) (Auto) 5.9 % 5.9 % Eosinophils (%) (Auto) 0.4 % 0.1 % Basophils (%) (Auto) 0.3 % 0.5 % Neutrophils # (Auto) 14.5 TH/MM3 7.2 TH/MM3 Lymphocytes # (Auto) 0.5 TH/MM3 0.3 TH/MM3 Monocytes # (Auto) 1.0 TH/MM3 0.5 TH/MM3 Eosinophils # (Auto) 0.1 TH/MM3 0.0 TH/MM3 Basophils # (Auto) 0.1 TH/MM3 0.0 TH/MM3 CBC Comment DIFF FINAL AUTO DIFF Differential Comment FINAL DIFF MANUAL Blood Urea Nitrogen 15 MG/DL 11 MG/DL Creatinine 1.16 MG/DL 0.79 MG/DL Random Glucose 139 MG/DL 175 MG/DL Total Protein 9.5 GM/DL Albumin 3.5 GM/DL Calcium Level 10.0 MG/DL 8.5 MG/DL Alkaline Phosphatase 241 U/L Aspartate Amino Transf (AST/SGOT) 183 U/L Alanine Aminotransferase (ALT/SGPT) 94 U/L Total Bilirubin 2.0 MG/DL Sodium Level 127 MEQ/L 129 MEQ/L Potassium Level 4.7 MEQ/L 4.7 MEQ/L Chloride Level 93 MEQ/L 95 MEQ/L Carbon Dioxide Level 23.0 MEQ/L 25.0 MEQ/L Anion Gap 11 MEQ/L 9 MEQ/L Estimat Glomerular Filtration Rate 66 ML/MIN 103 ML/MIN Lactic Acid Level 2.4 mmol/L 2.1 mmol/L Prothrombin Time 12.5 SEC Prothromb Time International Ratio 1.1 RATIO Activated Partial Thromboplast Time 26.1 SEC Differential Total Cells Counted 100 Neutrophils % (Manual) 84 % Band Neutrophils % 10 % Lymphocytes % 4 % Monocytes % 2 % Neutrophils # (Manual) 7.5 TH/MM3 Atypical Lymphocytes % Test 12/27/16 06:36 White Blood Count 8.1 TH/MM3 Red Blood Count 4.82 MIL/MM3 Hemoglobin 16.1 GM/DL Hematocrit 46.3 % Mean Corpuscular Volume 96.2 FL Mean Corpuscular Hemoglobin 33.4 PG Mean Corpuscular Hemoglobin Concent 34.7 % Red Cell Distribution Width 13.4 % Platelet Count 140 TH/MM3 Mean Platelet Volume 8.0 FL Neutrophils (%) (Auto) 89.8 % Lymphocytes (%) (Auto) 4.3 % Monocytes (%) (Auto) 5.5 % Eosinophils (%) (Auto) 0.1 % Basophils (%) (Auto) 0.3 % Neutrophils # (Auto) 7.3 TH/MM3 Lymphocytes # (Auto) 0.3 TH/MM3 Monocytes # (Auto) 0.4 TH/MM3 Eosinophils # (Auto) 0.0 TH/MM3 Basophils # (Auto) 0.0 TH/MM3 CBC Comment DIFF FINAL Differential Comment Prothrombin Time 12.0 SEC Prothromb Time International Ratio 1.1 RATIO Blood Urea Nitrogen 10 MG/DL Creatinine 0.68 MG/DL Random Glucose 119 MG/DL Total Protein 7.9 GM/DL Albumin 2.8 GM/DL Calcium Level 9.3 MG/DL Alkaline Phosphatase 179 U/L Aspartate Amino Transf (AST/SGOT) 137 U/L Alanine Aminotransferase (ALT/SGPT) 65 U/L Total Bilirubin 1.4 MG/DL Sodium Level 128 MEQ/L Potassium Level 4.3 MEQ/L Chloride Level 93 MEQ/L Carbon Dioxide Level 26.7 MEQ/L Anion Gap 8 MEQ/L Estimat Glomerular Filtration Rate 122 ML/MIN Administered Medications Medications (Trade) Dose Ordered Sig/Ivis Route PRN Reason Start Time Stop Time Status Last Admin Dose Admin Hydromorphone HCl (Dilaudid FUGITIVE INVESTIGATOR Inj) 6 mg UNSCH IV 12/26/16 13:15 12/27/16 12:00 12/27/16 06:04 FUGITIVE INVESTIGATOR Dosage Infused (Pha) 1 Q8HR .XX 12/26/16 14:00 12/27/16 06:00 Metoprolol Tartrate (Lopressor) 25 mg BID PO 12/26/16 21:00 12/26/16 20:08 Cyclobenzaprine HCl (Flexeril) 7.5 mg TID PO 12/26/16 18:00 12/26/16 20:28 Famotidine (Pepcid) 20 mg BID PO 12/26/16 21:00 12/26/16 20:07 Oxycodone HCl (Roxicodone) 20 mg Q4H PRN PO PAIN SCALE 4 TO 7 12/26/16 14:00 12/27/16 04:08 Nicotine (Habitrol 21 Mg Patch.24 Hr) 1 patch DAILY T-DERMAL 12/26/16 15:00 12/27/16 05:22 Prednisone (Deltasone) 20 mg TID PO 12/26/16 20:00 12/26/16 20:27 Oxycodone HCl (OxyCONTIN CR) 40 mg Q8HR PO 12/26/16 22:00 12/27/16 05:19 Ondansetron HCl (Zofran Inj) 4 mg Q6HR PRN IV PUSH NAUSEA OR VOMITING 12/26/16 20:30 12/26/16 20:27 Objective Remarks GENERAL: Middle aged male sitting up in bed eating breakfast. SKIN: Warm and dry. HEAD: Normocephalic. EYES: No scleral icterus. No injection or drainage. NECK: Supple, trachea midline. CARDIOVASCULAR: Regular rate and rhythm RESPIRATORY: Breath sounds equal bilaterally. No accessory muscle use. GASTROINTESTINAL: Abdomen soft, +TTP RUQ, nondistended. EXTREMITIES: No cyanosis NEUROLOGICAL: No obvious focal deficit. Awake, alert, and oriented x3. Assessment/Plan Assessment 51-year old male with hepatocellular carcinoma treatment with Y99 three days prior to admission. HPI: 10/06/2016--CT ab/pelvis showed a cirrhotic liver with several small lesions. MRI showed mass in the left hepatic lobe measuring 7.1 cm and numerous other subcentimeter nodules. There was nonspecific brodie caval and retroperitoneal lymphadenopathy. biopsy showed possible an adenocarcinoma, not a hepatocellular carcinoma. pattern and gene expression was consistent with hepatocellular carcinoma. In addition, the presentation and rapidly rising alpha-fetoprotein were felt to be consistent if not diagnostic of hepatocellular carcinoma and, therefore, the diagnosis was changed to hepatocellular carcinoma. Plan 1. patient wants to try to go home today. I discussed with him that we will need to wean him off FUGITIVE INVESTIGATOR and pain needs to be controlled with oral medications prior to discharge. Patient states he is ok with discontinuing the FUGITIVE INVESTIGATOR around noon today and then starting oral pain medications for breakthrough pain. Therefore we will stop brake tester around noon today and then start as follows: Oxycodone 10mg PO q 4 hours for breakthrough pain rated 1-3. Oxycodone 20mg PO q 4 hours for breakthrough pain rated 4-7. Dilaudid 2mg IV PO q 2 hours for severe pain rated 8-10. 2. change diet to regular 3. start Miralax for bowel regimen. Attending Statement The exam, history, and the medical decision-making described in the above note were completed with the assistance of the mid-level provider. I reviewed and agree with the findings presented. I attest that I had a [id number] encounter with the patient on the same day, and personally performed and documented my assessment and findings in the medical record. 51 yoM with HCC s/ p y90 admitted with abdominal pain. His pain is currently well controlled on FUGITIVE INVESTIGATOR. Will discontinue FUGITIVE INVESTIGATOR today and assess pain control on oral medication tomorrow. Nany Hamilton Dec 27, 2016 08:40 Michelle Gonzalez MD Dec 27, 2016 17:05
[2016-12-27] MEDS ORDERED: predniSONE 5 MG TAB PO SCH ×2 (09:00)
[2016-12-27] MEDS: REMOVE OLD PATCH T-DERMAL SCH ×2 (09:00)
[2016-12-27] MEDS: SODIUM CHLORIDE 0.9% FLUSH 10 ML FLUSH IV FLUSH SCH ×4 (09:00→20:26)
[2016-12-27] MEDS: CYCLOBENZAPRINE HCL 10 MG TAB PO SCH ×6 (09:00→17:36)
--- NOTE | 2016-12-27 09:15 | HHI.PR ---
Subjective Remarks Patient seen and examined this morning. Temperature 98.9, pulse 88, respiratory 16, blood pressure 166/94, pulse ox 94 on room air. Patient is sitting up comfortably eating his breakfast. He reports that the Dilaudid drip is working well for him. Anticipates transitioning from the PLYCOR OPERATOR to oral pain control this afternoon. He reports that he is still feeling the right upper quadrant pain with deep expirations and twisting of the body when it flares up it is nearly unbearable per his report. If he is laying in bed he is comfortable. Objective Vitals Vital Signs Date Time Temp Pulse Resp B/P (MAP) Pulse Ox O2 Delivery O2 Flow Rate FiO2 12/27/16 06:04 16 12/27/16 06:00 16 12/27/16 04:00 76 12/27/16 04:00 98.9 88 16 166/94 (118) 94 12/27/16 03:00 67 12/27/16 01:23 16 12/27/16 00:01 97.9 84 16 134/94 (107) 94 12/27/16 00:00 86 12/26/16 22:00 15 12/26/16 21:05 98.9 102 22 158/109 (125) 94 12/26/16 21:05 96 12/26/16 20:39 16 12/26/16 18:24 98 Nasal Cannula 1.00 12/26/16 17:22 18 12/26/16 14:00 98.1 100 20 167/105 (125) 94 12/26/16 09:25 20 I/O 12/26/16 12/26/16 12/26/16 12/27/16 12/27/16 12/27/16 07:00 15:00 23:00 07:00 15:00 23:00 Intake Total 1000 ml 400 ml 480 ml Output Total 400 ml 1100 ml Balance 1000 ml 0 ml -620 ml Intake Oral 400 ml 480 ml IV Total 1000 ml Output Urine Total 400 ml 1100 ml # Bowel Movements 0 Result Diagram: 12/27/16 0636 12/27/16 0636 Imaging Last Impressions Abdomen CT 12/26/16 0000 Signed Impressions: Service Date/Time: Monday, December 26, 2016 10:28 - CONCLUSION: 1. No acute abnormal CT findings. 2. Extensive diffuse bilobar infiltrative hepatocarcinoma with right portal vein thrombosis, suspect bland thrombus. No significant ascites. 3. Gallbladder appears unremarkable by CT. 4. Stable periportal adenopathy with prominent conglomeration of nodes measuring 5.1 x 3.4 cm. Chris Ybarra MD Objective Remarks GENERAL: Well-nourished well-developed in no apparent distress sitting up in bed eating breakfast SKIN: Warm and dry. HEAD: Normocephalic. EYES: No scleral icterus. No injection or drainage. NECK: Supple, trachea midline. CARDIOVASCULAR: Regular rate and rhythm RESPIRATORY: Breath sounds equal bilaterally. No accessory muscle use. GASTROINTESTINAL: Abdomen soft, +TTP RUQ, nondistended. EXTREMITIES: No cyanosis NEUROLOGICAL: No obvious focal deficit. Awake, alert, and oriented x3. Medications and IVs Current Medications Medications (Trade) Dose Ordered Sig/Ivis Route Start Time Stop Time Status Last Admin (Dilaudid PLYCOR OPERATOR Inj) 6 mg UNSCH IV 12/26/16 13:15 12/27/16 12:00 12/27/16 06:04 PLYCOR OPERATOR Dosage Infused (Pha) 1 Q8HR .XX 12/26/16 14:00 12/27/16 06:00 (Narcan Inj) 0.4 mg UNSCH PRN IV PUSH 12/26/16 13:15 (NS Flush) 2 ml UNSCH PRN IV FLUSH 12/26/16 14:00 (NS Flush) 2 ml BID IV FLUSH 12/26/16 21:00 (Narcan Inj) 0.4 mg UNSCH PRN IV PUSH 12/26/16 14:00 (Vitamin B12) 1,000 mcg DAILY PO 12/27/16 09:00 (Hydrodiuril) 25 mg DAILY PO 12/27/16 09:00 (Lopressor) 25 mg BID PO 12/26/16 21:00 12/26/16 20:08 (Flexeril) 7.5 mg TID PO 12/26/16 18:00 12/26/16 20:28 (Pepcid) 20 mg BID PO 12/26/16 21:00 12/26/16 20:07 (Roxicodone) 20 mg Q4H PRN PO 12/26/16 14:00 12/27/16 04:08 (Habitrol 21 Mg Patch.24 Hr) 1 patch DAILY T-DERMAL 12/26/16 15:00 12/27/16 05:22 Miscellaneous Information 1 DAILY T-DERMAL 12/26/16 15:00 (Deltasone) 20 mg TID PO 12/26/16 20:00 12/26/16 20:27 (OxyCONTIN CR) 40 mg Q8HR PO 12/26/16 22:00 12/27/16 05:19 (Zofran Inj) 4 mg Q6HR PRN IV PUSH 12/26/16 20:30 12/26/16 20:27 (Miralax) 17 gm DAILY PO 12/27/16 09:00 UNV (Roxicodone) 10 mg Q4H PRN PO 12/27/16 08:30 UNV (Dilaudid Pf Inj) 2 mg Q2HR PRN IV PUSH 12/27/16 08:45 UNV A/P Problem List: (1) Hepatitis C ICD Code: B19.20 - Unspecified viral hepatitis C without hepatic coma Status: Chronic (2) Liver cancer, primary, with metastasis from liver to other site ICD Code: C22.8 - Malignant neoplasm of liver, primary, unspecified as to type (3) Intractable abdominal pain ICD Code: R10.9 - Unspecified abdominal pain Status: Acute Assessment and Plan 51-year old male with hepatocellular carcinoma treatment with Y99 three days prior to admission Severe uncontrolled pain in a terminal stage IV liver cancer patient with recent radiation procedure - patient wants to try to go home today. I discussed with him that we will need to wean him off PLYCOR OPERATOR and pain needs to be controlled with oral medications prior to discharge. Patient states he is ok with discontinuing the PLYCOR OPERATOR around noon today and then starting oral pain medications for breakthrough pain. Therefore we will stop window and siding craftsman around noon today and then start as follows: - Oxycodone 10mg PO q 4 hours for breakthrough pain rated 1-3. - Oxycodone 20mg PO q 4 hours for breakthrough pain rated 4-7. - Dilaudid 2mg IV PO q 2 hours for severe pain rated 8-10. - Regular diet - start Miralax for bowel regimen. - Continue Flexeril Hypertension -Continue metoprolol -Continue hydrochlorothiazide PPX: DVT prophylaxis with SCDs GI prophylaxis with ranitidine Discharge Planning Anticipate discharge home tomorrow pending tolerating by mouth pain control Laz Villela MD, R3 Dec 27, 2016 09:15
--- NOTE | 2016-12-27 09:15 | HHI.PR ---
Subjective Remarks Patient seen and examined this morning. Temperature 98.9, pulse 88, respiratory 16, blood pressure 166/94, pulse ox 94 on room air. Patient is sitting up comfortably eating his breakfast. He reports that the Dilaudid drip is working well for him. Anticipates transitioning from the TELEPHONE INTERVIEWER to oral pain control this afternoon. He reports that he is still feeling the right upper quadrant pain with deep expirations and twisting of the body when it flares up it is nearly unbearable per his report. If he is laying in bed he is comfortable. Objective Vitals Vital Signs Date Time Temp Pulse Resp B/P (MAP) Pulse Ox O2 Delivery O2 Flow Rate FiO2 12/27/16 06:04 16 12/27/16 06:00 16 12/27/16 04:00 76 12/27/16 04:00 98.9 88 16 166/94 (118) 94 12/27/16 03:00 67 12/27/16 01:23 16 12/27/16 00:01 97.9 84 16 134/94 (107) 94 12/27/16 00:00 86 12/26/16 22:00 15 12/26/16 21:05 98.9 102 22 158/109 (125) 94 12/26/16 21:05 96 12/26/16 20:39 16 12/26/16 18:24 98 Nasal Cannula 1.00 12/26/16 17:22 18 12/26/16 14:00 98.1 100 20 167/105 (125) 94 12/26/16 09:25 20 I/O 12/26/16 12/26/16 12/26/16 12/27/16 12/27/16 12/27/16 07:00 15:00 23:00 07:00 15:00 23:00 Intake Total 1000 ml 400 ml 480 ml Output Total 400 ml 1100 ml Balance 1000 ml 0 ml -620 ml Intake Oral 400 ml 480 ml IV Total 1000 ml Output Urine Total 400 ml 1100 ml # Bowel Movements 0 Result Diagram: 12/27/16 0636 12/27/16 0636 Imaging Last Impressions Abdomen CT 12/26/16 0000 Signed Impressions: Service Date/Time: Monday, December 26, 2016 10:28 - CONCLUSION: 1. No acute abnormal CT findings. 2. Extensive diffuse bilobar infiltrative hepatocarcinoma with right portal vein thrombosis, suspect bland thrombus. No significant ascites. 3. Gallbladder appears unremarkable by CT. 4. Stable periportal adenopathy with prominent conglomeration of nodes measuring 5.1 x 3.4 cm. Chris Ybarra MD Objective Remarks GENERAL: Well-nourished well-developed in no apparent distress sitting up in bed eating breakfast SKIN: Warm and dry. HEAD: Normocephalic. EYES: No scleral icterus. No injection or drainage. NECK: Supple, trachea midline. CARDIOVASCULAR: Regular rate and rhythm RESPIRATORY: Breath sounds equal bilaterally. No accessory muscle use. GASTROINTESTINAL: Abdomen soft, +TTP RUQ, nondistended. EXTREMITIES: No cyanosis NEUROLOGICAL: No obvious focal deficit. Awake, alert, and oriented x3. Medications and IVs Current Medications Medications (Trade) Dose Ordered Sig/Ivis Route Start Time Stop Time Status Last Admin (Dilaudid TELEPHONE INTERVIEWER Inj) 6 mg UNSCH IV 12/26/16 13:15 12/27/16 12:00 12/27/16 06:04 TELEPHONE INTERVIEWER Dosage Infused (Pha) 1 Q8HR .XX 12/26/16 14:00 12/27/16 06:00 (Narcan Inj) 0.4 mg UNSCH PRN IV PUSH 12/26/16 13:15 (NS Flush) 2 ml UNSCH PRN IV FLUSH 12/26/16 14:00 (NS Flush) 2 ml BID IV FLUSH 12/26/16 21:00 (Narcan Inj) 0.4 mg UNSCH PRN IV PUSH 12/26/16 14:00 (Vitamin B12) 1,000 mcg DAILY PO 12/27/16 09:00 (Hydrodiuril) 25 mg DAILY PO 12/27/16 09:00 (Lopressor) 25 mg BID PO 12/26/16 21:00 12/26/16 20:08 (Flexeril) 7.5 mg TID PO 12/26/16 18:00 12/26/16 20:28 (Pepcid) 20 mg BID PO 12/26/16 21:00 12/26/16 20:07 (Roxicodone) 20 mg Q4H PRN PO 12/26/16 14:00 12/27/16 04:08 (Habitrol 21 Mg Patch.24 Hr) 1 patch DAILY T-DERMAL 12/26/16 15:00 12/27/16 05:22 Miscellaneous Information 1 DAILY T-DERMAL 12/26/16 15:00 (Deltasone) 20 mg TID PO 12/26/16 20:00 12/26/16 20:27 (OxyCONTIN CR) 40 mg Q8HR PO 12/26/16 22:00 12/27/16 05:19 (Zofran Inj) 4 mg Q6HR PRN IV PUSH 12/26/16 20:30 12/26/16 20:27 (Miralax) 17 gm DAILY PO 12/27/16 09:00 UNV (Roxicodone) 10 mg Q4H PRN PO 12/27/16 08:30 UNV (Dilaudid Pf Inj) 2 mg Q2HR PRN IV PUSH 12/27/16 08:45 UNV A/P Problem List: (1) Hepatitis C ICD Code: B19.20 - Unspecified viral hepatitis C without hepatic coma Status: Chronic (2) Liver cancer, primary, with metastasis from liver to other site ICD Code: C22.8 - Malignant neoplasm of liver, primary, unspecified as to type (3) Intractable abdominal pain ICD Code: R10.9 - Unspecified abdominal pain Status: Acute Assessment and Plan 51-year old male with hepatocellular carcinoma treatment with Y99 three days prior to admission Severe uncontrolled pain in a terminal stage IV liver cancer patient with recent radiation procedure - patient wants to try to go home today. I discussed with him that we will need to wean him off TELEPHONE INTERVIEWER and pain needs to be controlled with oral medications prior to discharge. Patient states he is ok with discontinuing the TELEPHONE INTERVIEWER around noon today and then starting oral pain medications for breakthrough pain. Therefore we will stop field marketing specialist around noon today and then start as follows: - Oxycodone 10mg PO q 4 hours for breakthrough pain rated 1-3. - Oxycodone 20mg PO q 4 hours for breakthrough pain rated 4-7. - Dilaudid 2mg IV PO q 2 hours for severe pain rated 8-10. - Regular diet - start Miralax for bowel regimen. - Continue Flexeril Hypertension -Continue metoprolol -Continue hydrochlorothiazide PPX: DVT prophylaxis with SCDs GI prophylaxis with ranitidine Discharge Planning Anticipate discharge home tomorrow pending tolerating by mouth pain control Laz Villela MD, R3 Dec 27, 2016 09:15
--- NOTE | 2016-12-27 09:15 | HHI.PR ---
Subjective Remarks Patient seen and examined this morning. Temperature 98.9, pulse 88, respiratory 16, blood pressure 166/94, pulse ox 94 on room air. Patient is sitting up comfortably eating his breakfast. He reports that the Dilaudid drip is working well for him. Anticipates transitioning from the SOFTWARE LEAD to oral pain control this afternoon. He reports that he is still feeling the right upper quadrant pain with deep expirations and twisting of the body when it flares up it is nearly unbearable per his report. If he is laying in bed he is comfortable. Objective Vitals Vital Signs Date Time Temp Pulse Resp B/P (MAP) Pulse Ox O2 Delivery O2 Flow Rate FiO2 12/27/16 06:04 16 12/27/16 06:00 16 12/27/16 04:00 76 12/27/16 04:00 98.9 88 16 166/94 (118) 94 12/27/16 03:00 67 12/27/16 01:23 16 12/27/16 00:01 97.9 84 16 134/94 (107) 94 12/27/16 00:00 86 12/26/16 22:00 15 12/26/16 21:05 98.9 102 22 158/109 (125) 94 12/26/16 21:05 96 12/26/16 20:39 16 12/26/16 18:24 98 Nasal Cannula 1.00 12/26/16 17:22 18 12/26/16 14:00 98.1 100 20 167/105 (125) 94 12/26/16 09:25 20 I/O 12/26/16 12/26/16 12/26/16 12/27/16 12/27/16 12/27/16 07:00 15:00 23:00 07:00 15:00 23:00 Intake Total 1000 ml 400 ml 480 ml Output Total 400 ml 1100 ml Balance 1000 ml 0 ml -620 ml Intake Oral 400 ml 480 ml IV Total 1000 ml Output Urine Total 400 ml 1100 ml # Bowel Movements 0 Result Diagram: 12/27/16 0636 12/27/16 0636 Imaging Last Impressions Abdomen CT 12/26/16 0000 Signed Impressions: Service Date/Time: Monday, December 26, 2016 10:28 - CONCLUSION: 1. No acute abnormal CT findings. 2. Extensive diffuse bilobar infiltrative hepatocarcinoma with right portal vein thrombosis, suspect bland thrombus. No significant ascites. 3. Gallbladder appears unremarkable by CT. 4. Stable periportal adenopathy with prominent conglomeration of nodes measuring 5.1 x 3.4 cm. Chris Ybarra MD Objective Remarks GENERAL: Well-nourished well-developed in no apparent distress sitting up in bed eating breakfast SKIN: Warm and dry. HEAD: Normocephalic. EYES: No scleral icterus. No injection or drainage. NECK: Supple, trachea midline. CARDIOVASCULAR: Regular rate and rhythm RESPIRATORY: Breath sounds equal bilaterally. No accessory muscle use. GASTROINTESTINAL: Abdomen soft, +TTP RUQ, nondistended. EXTREMITIES: No cyanosis NEUROLOGICAL: No obvious focal deficit. Awake, alert, and oriented x3. Medications and IVs Current Medications Medications (Trade) Dose Ordered Sig/Ivis Route Start Time Stop Time Status Last Admin (Dilaudid SOFTWARE LEAD Inj) 6 mg UNSCH IV 12/26/16 13:15 12/27/16 12:00 12/27/16 06:04 SOFTWARE LEAD Dosage Infused (Pha) 1 Q8HR .XX 12/26/16 14:00 12/27/16 06:00 (Narcan Inj) 0.4 mg UNSCH PRN IV PUSH 12/26/16 13:15 (NS Flush) 2 ml UNSCH PRN IV FLUSH 12/26/16 14:00 (NS Flush) 2 ml BID IV FLUSH 12/26/16 21:00 (Narcan Inj) 0.4 mg UNSCH PRN IV PUSH 12/26/16 14:00 (Vitamin B12) 1,000 mcg DAILY PO 12/27/16 09:00 (Hydrodiuril) 25 mg DAILY PO 12/27/16 09:00 (Lopressor) 25 mg BID PO 12/26/16 21:00 12/26/16 20:08 (Flexeril) 7.5 mg TID PO 12/26/16 18:00 12/26/16 20:28 (Pepcid) 20 mg BID PO 12/26/16 21:00 12/26/16 20:07 (Roxicodone) 20 mg Q4H PRN PO 12/26/16 14:00 12/27/16 04:08 (Habitrol 21 Mg Patch.24 Hr) 1 patch DAILY T-DERMAL 12/26/16 15:00 12/27/16 05:22 Miscellaneous Information 1 DAILY T-DERMAL 12/26/16 15:00 (Deltasone) 20 mg TID PO 12/26/16 20:00 12/26/16 20:27 (OxyCONTIN CR) 40 mg Q8HR PO 12/26/16 22:00 12/27/16 05:19 (Zofran Inj) 4 mg Q6HR PRN IV PUSH 12/26/16 20:30 12/26/16 20:27 (Miralax) 17 gm DAILY PO 12/27/16 09:00 UNV (Roxicodone) 10 mg Q4H PRN PO 12/27/16 08:30 UNV (Dilaudid Pf Inj) 2 mg Q2HR PRN IV PUSH 12/27/16 08:45 UNV A/P Problem List: (1) Hepatitis C ICD Code: B19.20 - Unspecified viral hepatitis C without hepatic coma Status: Chronic (2) Liver cancer, primary, with metastasis from liver to other site ICD Code: C22.8 - Malignant neoplasm of liver, primary, unspecified as to type (3) Intractable abdominal pain ICD Code: R10.9 - Unspecified abdominal pain Status: Acute Assessment and Plan 51-year old male with hepatocellular carcinoma treatment with Y99 three days prior to admission Severe uncontrolled pain in a terminal stage IV liver cancer patient with recent radiation procedure - patient wants to try to go home today. I discussed with him that we will need to wean him off SOFTWARE LEAD and pain needs to be controlled with oral medications prior to discharge. Patient states he is ok with discontinuing the SOFTWARE LEAD around noon today and then starting oral pain medications for breakthrough pain. 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 - Oxycodone 20mg PO q 4 hours for breakthrough pain rated 4-7. - Dilaudid 2mg IV PO q 2 hours for severe pain rated 8-10. - Regular diet - start Miralax for bowel regimen. - Continue Flexeril Hypertension -Continue metoprolol -Continue hydrochlorothiazide PPX: DVT prophylaxis with SCDs GI prophylaxis with ranitidine Discharge Planning Anticipate discharge home tomorrow pending tolerating by mouth pain control Laz Villela MD, R3 Dec 27, 2016 09:15
[2016-12-27] MEDS: HYDROCHLOROTHIAZIDE 25 MG TAB PO SCH ×2 (09:40)
[2016-12-27] MEDS: predniSONE 20 MG TAB PO SCH ×6 (09:41→17:36)
[2016-12-27] MEDS: FAMOTIDINE 20 MG TAB PO SCH ×4 (09:41→22:08)
[2016-12-27] MEDS: METOPROLOL TARTRATE 25 MG TAB PO SCH ×4 (09:41→20:25)
[2016-12-27] MEDS: CYANOCOBALAMIN 1,000 MCG TAB PO SCH ×2 (09:42)
[2016-12-27] MEDS: POLYETHYLENE GLYCOL 17 GM PKG PO SCH ×2 (09:42)
[2016-12-27] MEDS: HYDROmorphone HCL PF 1 MG/ML VIAL IV PUSH PRN ×4 (17:47→20:17)
[2016-12-28] VITALS: BP 158/102; PULSE 86; RESP 18; O2SAT 93; O2SAT 98
[2016-12-28] MEDS: HYDROmorphone HCL PF 1 MG/ML VIAL IV PUSH PRN ×6 (00:18→08:23)
[2016-12-28 03:00] VITALS: BP 168/98; PULSE 80; PULSE 84; RESP 18; O2SAT 97
[2016-12-28] MEDS: oxyCODONE HCL 40 MG CONTROLLED RELEASE TAB PO SCH ×2 (06:15)
--- NOTE | 2016-12-28 08:13 | PD.ONC.PN ---
Subjective Subjective Remarks Afebrile overnight. Patient resting in bed. States pain is well controlled on current regimen. He is still requiring IV dilaudid for breakthrough pain, but states he believes he is ready to go home. States he will only be able to have Oxycontin filled if Dr. Carey or Dr. Pablo writes it through policies at the [facility]. Objective Data Date Time Temp Pulse Resp B/P (MAP) Pulse Ox O2 Delivery O2 Flow Rate FiO2 12/28/16 07:43 18 12/28/16 03:00 84 18 168/98 (121) 97 12/28/16 03:00 97 Room Air 12/28/16 03:00 80 12/28/16 00:00 86 18 158/102 (120) 98 12/28/16 00:00 98 Nasal Cannula 2.00 12/27/16 23:25 84 12/27/16 19:30 97 Nasal Cannula 2.00 12/27/16 19:30 97.7 94 18 163/105 (124) 97 12/27/16 19:00 91 12/27/16 18:17 18 12/27/16 18:00 108 12/27/16 17:04 18 12/27/16 17:00 94 12/27/16 16:09 97.6 99 20 176/113 (134) 97 12/27/16 16:00 87 12/27/16 15:00 84 12/27/16 14:00 92 12/27/16 13:00 84 12/27/16 12:00 97.8 96 18 141/99 (113) 95 12/27/16 12:00 89 12/27/16 11:00 94 12/27/16 10:00 112 12/27/16 09:45 16 12/27/16 09:00 126 12/27/16 09:00 97.7 114 18 167/109 (128) 91 12/28/16 12/28/16 12/28/16 07:00 15:00 23:00 Intake Total 800 ml Output Total 2325 ml Balance -1525 ml Result Diagram: 12/27/1663512/27/1636 Administered Medications Medications (Trade) Dose Ordered Sig/Ivis Route PRN Reason Start Time Stop Time Status Last Admin Dose Admin Sodium Chloride (NS Flush) 2 ml BID IV FLUSH 12/26/16 21:00 12/27/16 20:26 Cyanocobalamin (Vitamin B12) 1,000 mcg DAILY PO 12/27/16 09:00 12/27/16 09:42 Hydrochlorothiazide (Hydrodiuril) 25 mg DAILY PO 12/27/16 09:00 12/27/16 09:40 Metoprolol Tartrate (Lopressor) 25 mg BID PO 12/26/16 21:00 12/27/16 20:25 Cyclobenzaprine HCl (Flexeril) 7.5 mg TID PO 12/26/16 18:00 12/27/16 17:36 Famotidine (Pepcid) 20 mg BID PO 12/26/16 21:00 12/27/16 22:08 Oxycodone HCl (Roxicodone) 20 mg Q4H PRN PO PAIN SCALE 4 TO 7 12/26/16 14:00 12/28/16 03:32 Nicotine (Habitrol 21 Mg Patch.24 Hr) 1 patch DAILY T-DERMAL 12/26/16 15:00 12/27/16 09:41 Miscellaneous Information 1 DAILY T-DERMAL 12/26/16 15:00 12/27/16 09:00 Prednisone (Deltasone) 20 mg TID PO 12/26/16 20:00 12/27/16 17:36 Oxycodone HCl (OxyCONTIN CR) 40 mg Q8HR PO 12/26/16 22:00 12/28/16 06:15 Ondansetron HCl (Zofran Inj) 4 mg Q6HR PRN IV PUSH NAUSEA OR VOMITING 12/26/16 20:30 12/26/16 20:27 Polyethylene Glycol (Miralax) 17 gm DAILY PO 12/27/16 09:00 12/27/16 09:42 Hydromorphone HCl (Dilaudid Pf Inj) 2 mg Q2HR PRN IV PUSH PAIN SCALE 8 TO 10 12/27/16 08:45 12/28/16 03:34 Objective Remarks GENERAL: Middle aged male upright in bed. SKIN: Warm and dry. HEAD: Normocephalic. EYES: No injection or drainage. NECK: Supple, trachea midline. CARDIOVASCULAR: Regular rate and rhythm RESPIRATORY: Breath sounds equal bilaterally. No accessory muscle use. GASTROINTESTINAL: Abdomen soft, non-distension. tender along RUQ EXTREMITIES: No cyanosis NEUROLOGICAL: No obvious focal deficit. Awake, alert, and oriented x3. Assessment/Plan Assessment 51-year old male with hepatocellular carcinoma treatment with Y99 three days prior to admission. HPI: 10/06/2016--CT ab/pelvis showed a cirrhotic liver with several small lesions. MRI showed mass in the left hepatic lobe measuring 7.1 cm and numerous other subcentimeter nodules. There was nonspecific brodie caval and retroperitoneal lymphadenopathy. biopsy showed possible an adenocarcinoma, not a hepatocellular carcinoma. pattern and gene expression was consistent with hepatocellular carcinoma. In addition, the presentation and rapidly rising alpha-fetoprotein were felt to be consistent if not diagnostic of hepatocellular carcinoma and, therefore, the diagnosis was changed to hepatocellular carcinoma. Plan 1. ok to d/c home from oncology perspective. continue pain regimen of Oxycontin + Oxycodone for breakthrough pain. 2. will ask Dr. Carey or Dr. Pablo to write Rx for Oxycontin tomorrow. 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 3. follow up in clinic with Dr. Carey in 1 week. 4. continue Miralax for bowel regimen. Nany Hamilton Dec 28, 2016 08:13 Michelle Gonzalez MD Dec 28, 2016 12:51
[2016-12-28] MEDS: METOPROLOL TARTRATE 25 MG TAB PO SCH ×2 (08:19)
[2016-12-28] MEDS: FAMOTIDINE 20 MG TAB PO SCH ×2 (08:19)
[2016-12-28] MEDS: POLYETHYLENE GLYCOL 17 GM PKG PO SCH ×2 (08:20)
[2016-12-28] MEDS: CYCLOBENZAPRINE HCL 10 MG TAB PO SCH ×2 (08:20)
[2016-12-28] MEDS: predniSONE 20 MG TAB PO SCH ×2 (08:20)
[2016-12-28] MEDS: HYDROCHLOROTHIAZIDE 25 MG TAB PO SCH ×2 (08:20)
[2016-12-28] MEDS: CYANOCOBALAMIN 1,000 MCG TAB PO SCH ×2 (08:20)
[2016-12-28] MEDS: SODIUM CHLORIDE 0.9% FLUSH 10 ML FLUSH IV FLUSH SCH ×2 (08:26)
[2016-12-28] MEDS: REMOVE OLD PATCH T-DERMAL SCH ×2 (08:29)
[2016-12-28] MEDS: NICOTINE 21 MG/24 HR PATCH T-DERMAL SCH ×2 (08:30)
--- NOTE | 2016-12-28 08:33 | HHI.PR ---
Subjective Remarks Patient seen and examined this morning. Afebrile vital signs stable. Sitting up in bed appears quite comfortable. He reports that he is ready to get out of the hospital. His oncologist will be prescribing his pain medications and will be adjusting them to OxyContin plus oxycodone for breakthrough pain. He agrees with this plan of care. His only wish is that he waits for his next dose of pain meds prior to discharge. Objective Vitals Vital Signs Date Time Temp Pulse Resp B/P (MAP) Pulse Ox O2 Delivery O2 Flow Rate FiO2 12/28/16 07:43 18 12/28/16 03:00 84 18 168/98 (121) 97 12/28/16 03:00 97 Room Air 12/28/16 03:00 80 12/28/16 00:00 86 18 158/102 (120) 98 12/28/16 00:00 98 Nasal Cannula 2.00 12/27/16 23:25 84 12/27/16 19:30 97 Nasal Cannula 2.00 12/27/16 19:30 97.7 94 18 163/105 (124) 97 12/27/16 19:00 91 12/27/16 18:17 18 12/27/16 18:00 108 12/27/16 17:04 18 12/27/16 17:00 94 12/27/16 16:09 97.6 99 20 176/113 (134) 97 12/27/16 16:00 87 12/27/16 15:00 84 12/27/16 14:00 92 12/27/16 13:00 84 12/27/16 12:00 97.8 96 18 141/99 (113) 95 12/27/16 12:00 89 12/27/16 11:00 94 12/27/16 10:00 112 12/27/16 09:45 16 12/27/16 09:00 126 12/27/16 09:00 97.7 114 18 167/109 (128) 91 I/O 12/27/16 12/27/16 12/27/16 12/28/16 12/28/16 12/28/16 07:00 15:00 23:00 07:00 15:00 23:00 Intake Total 480 ml 720 ml 800 ml Output Total 1100 ml 1375 ml 2325 ml Balance -620 ml -655 ml -1525 ml Intake Oral 480 ml 720 ml 800 ml Output Urine Total 1100 ml 1375 ml 2325 ml # Bowel Movements 1 0 Result Diagram: 12/27/16 0636 12/27/16 0636 Imaging Last Impressions Abdomen CT 12/26/16 0000 Signed Impressions: Service Date/Time: Monday, December 26, 2016 10:28 - CONCLUSION: 1. No acute abnormal CT findings. 2. Extensive diffuse bilobar infiltrative hepatocarcinoma with right portal vein thrombosis, suspect bland thrombus. No significant ascites. 3. Gallbladder appears unremarkable by CT. 4. Stable periportal adenopathy with prominent conglomeration of nodes measuring 5.1 x 3.4 cm. Chris Ybarra MD Objective Remarks GENERAL: Well-nourished well-developed in no apparent distress sitting up in bed eating breakfast SKIN: Warm and dry. HEAD: Normocephalic. EYES: No scleral icterus. No injection or drainage. NECK: Supple, trachea midline. CARDIOVASCULAR: Regular rate and rhythm RESPIRATORY: Breath sounds equal bilaterally. No accessory muscle use. GASTROINTESTINAL: Abdomen soft, +TTP RUQ, tender to palpation across the lower quadrants, nondistended. EXTREMITIES: No cyanosis NEUROLOGICAL: No obvious focal deficit. Awake, alert, and oriented x3. Medications and IVs Current Medications Medications (Trade) Dose Ordered Sig/Ivis Route Start Time Stop Time Status Last Admin (NS Flush) 2 ml UNSCH PRN IV FLUSH 12/26/16 14:00 (NS Flush) 2 ml BID IV FLUSH 12/26/16 21:00 12/27/16 20:26 (Narcan Inj) 0.4 mg UNSCH PRN IV PUSH 12/26/16 14:00 (Vitamin B12) 1,000 mcg DAILY PO 12/27/16 09:00 12/27/16 09:42 (Hydrodiuril) 25 mg DAILY PO 12/27/16 09:00 12/27/16 09:40 (Lopressor) 25 mg BID PO 12/26/16 21:00 12/27/16 20:25 (Flexeril) 7.5 mg TID PO 12/26/16 18:00 12/27/16 17:36 (Pepcid) 20 mg BID PO 12/26/16 21:00 12/27/16 22:08 (Roxicodone) 20 mg Q4H PRN PO 12/26/16 14:00 12/28/16 03:32 (Habitrol 21 Mg Patch.24 Hr) 1 patch DAILY T-DERMAL 12/26/16 15:00 12/27/16 09:41 Miscellaneous Information 1 DAILY T-DERMAL 12/26/16 15:00 12/27/16 09:00 (Deltasone) 20 mg TID PO 12/26/16 20:00 12/27/16 17:36 (OxyCONTIN CR) 40 mg Q8HR PO 12/26/16 22:00 12/28/16 06:15 (Zofran Inj) 4 mg Q6HR PRN IV PUSH 12/26/16 20:30 12/26/16 20:27 (Miralax) 17 gm DAILY PO 12/27/16 09:00 12/27/16 09:42 (Roxicodone) 10 mg Q4H PRN PO 12/27/16 08:30 (Dilaudid Pf Inj) 2 mg Q2HR PRN IV PUSH 12/27/16 08:45 12/28/16 03:34 A/P Problem List: (1) Hepatitis C ICD Code: B19.20 - Unspecified viral hepatitis C without hepatic coma Status: Chronic (2) Liver cancer, primary, with metastasis from liver to other site ICD Code: C22.8 - Malignant neoplasm of liver, primary, unspecified as to type (3) Intractable abdominal pain ICD Code: R10.9 - Unspecified abdominal pain Status: Acute Assessment and Plan 51-year old male with hepatocellular carcinoma treatment with Y99 three days prior to admission Severe uncontrolled pain in a terminal stage IV liver cancer patient with recent radiation procedure - patient will be discharged home today: With pain regimen of Oxycontin + Oxycodone for breakthrough pain. Pain medications will be prescribed by his oncologist Dr. Carey or Dr. Pablo - Oxycodone 10mg PO q 4 hours for breakthrough pain rated 1-3. - Oxycodone 20mg PO q 4 hours for breakthrough pain rated 4-7. - Dilaudid 2mg IV PO q 2 hours for severe pain rated 8-10. - Regular diet - Continue Miralax for bowel regimen. - Continue Flexeril Hypertension -Continue metoprolol -Continue hydrochlorothiazide PPX: DVT prophylaxis with SCDs GI prophylaxis with ranitidine Discharge Planning Anticipate discharge home tomorrow pending tolerating by mouth pain control Laz Villela MD, R3 Dec 28, 2016 08:33
[2016-12-28] MEDS ORDERED: PRED10 PO ×2 (08:59)
[2016-12-28 09:00] VITALS: BP 183/98; PULSE 107; RESP 18; TEMP 97.6; O2SAT 96
--- NOTE | 2016-12-28 09:02 | HHI.DCPOC ---
Discharge Care Plan Diagnosis: (1) Liver cancer, primary, with metastasis from liver to other site (2) Intractable abdominal pain Goals to Promote Your Health * To prevent worsening of your condition and complications * To maintain your health at the optimal level Directions to Meet Your Goals Take your medications as prescribed Follow your dietary instruction Follow activity as directed Keep your appointments as scheduled Take your immunizations and boosters as scheduled If your symptoms worsen call your PCP, if no PCP go to Urgent Care Center or Emergency Room Smoking is Dangerous to Your Health. Avoid second hand smoke Call the 24-hour hour crisis hotline for domestic abuse at Laz Villela MD, R3 Dec 28, 2016 09:02
--- NOTE | 2016-12-28 09:02 | HHI.DCPOC ---
Discharge Care Plan Diagnosis: (1) Liver cancer, primary, with metastasis from liver to other site (2) Intractable abdominal pain Goals to Promote Your Health * To prevent worsening of your condition and complications * To maintain your health at the optimal level Directions to Meet Your Goals Take your medications as prescribed Follow your dietary instruction Follow activity as directed Keep your appointments as scheduled Take your immunizations and boosters as scheduled If your symptoms worsen call your PCP, if no PCP go to Urgent Care Center or Emergency Room Smoking is Dangerous to Your Health. Avoid second hand smoke Call the 24-hour hour crisis hotline for domestic abuse at Laz Villela MD, R3 Dec 28, 2016 09:02
--- NOTE | 2016-12-28 09:02 | HHI.DCPOC ---
Discharge Care Plan Diagnosis: (1) Liver cancer, primary, with metastasis from liver to other site (2) Intractable abdominal pain Goals to Promote Your Health * To prevent worsening of your condition and complications * To maintain your health at the optimal level Directions to Meet Your Goals Take your medications as prescribed Follow your dietary instruction Follow activity as directed Keep your appointments as scheduled Take your immunizations and boosters as scheduled If your symptoms worsen call your PCP, if no PCP go to Urgent Care Center or Emergency Room Smoking is Dangerous to Your Health. Avoid second hand smoke Call the 24-hour hour crisis hotline for domestic abuse at Laz Villela MD, R3 Dec 28, 2016 09:02
--- NOTE | 2016-12-28 09:05 | HHI.DS ---
Discharge Summary Admission Date Dec 26, 2016 at 13:49 Discharge Date: Dec 28, 2016 Admitting Diagnosis (1) Hepatitis C Diagnosis: Secondary ICD Codes: B19.20 - Unspecified viral hepatitis C without hepatic coma Status: Chronic (2) Liver cancer, primary, with metastasis from liver to other site Diagnosis: Principal ICD Codes: C22.8 - Malignant neoplasm of liver, primary, unspecified as to type (3) Intractable abdominal pain Diagnosis: Principal ICD Codes: R10.9 - Unspecified abdominal pain Status: Acute Brief History History from patient, radiology nurses, entry. MEDICAL records. Patient is a stage IV liver cancer patient who has had radiation Yittrium placed her treatment of his liver cancer around December 23, 2016. He stated this morning, he woke up with severe pain which is not controlled by his regular pain meds. He was profusely diaphoretic, nauseous, and vomited several times as well. He reports that he does have chronic on and off nausea, vomiting. He also does have on and off diaphoretic episodes. All these have started since the diagnosis of his liver cancer in September 2016. 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 Initially, patient's pain was thought to be secondary to gallbladder issues and therefore CT abdomen was obtained. This did not reveal any acute pathology regarding his gallbladder. Therefore his radiologist as decided to admit him for pain control. While in radiology suites, patient required several rounds of Dilaudid 2 mg IV. He was about to be started on Dilaudid UTILITIES SERVICE INVESTIGATOR pump. He is still quite painful by the time of my examination. However he is no longer diaphoretic and her tachycardic. He received 500 mL bolus of normal saline and was started on 200 mL per hour of normal saline IV fluids in radiology streets due to this significant tachycardia and pain. CBC/BMP: 12/27/16 0636 12/27/16 0636 Significant Findings Laboratory Tests Test 12/26/16 08:55 12/26/16 09:45 12/26/16 11:01 12/26/16 16:12 White Blood Count 16.1 TH/MM3 (4.0-11.0) Hemoglobin 19.0 GM/DL (13.0-17.0) Hematocrit 56.6 % (39.0-51.0) Neutrophils (%) (Auto) 90.1 % (16.0-70.0) 89.3 % (16.0-70.0) Lymphocytes (%) (Auto) 3.3 % (9.0-44.0) 4.2 % (9.0-44.0) Neutrophils # (Auto) 14.5 TH/MM3 (1.8-7.7) Lymphocytes # (Auto) 0.5 TH/MM3 (1.0-4.8) 0.3 TH/MM3 (1.0-4.8) Monocytes # (Auto) 1.0 TH/MM3 (0-0.9) Random Glucose 139 MG/DL (74-106) 175 MG/DL (74-106) Total Protein 9.5 GM/DL (6.4-8.2) Alkaline Phosphatase 241 U/L (45-117) Aspartate Amino Transf (AST/SGOT) 183 U/L (15-37) Alanine Aminotransferase (ALT/SGPT) 94 U/L (12-78) Total Bilirubin 2.0 MG/DL (0.2-1.0) Sodium Level 127 MEQ/L (136-145) 129 MEQ/L (136-145) Chloride Level 93 MEQ/L (98-107) 95 MEQ/L (98-107) Estimat Glomerular Filtration Rate 66 ML/MIN (>89) Lactic Acid Level 2.4 mmol/L (0.4-2.0) 2.1 mmol/L (0.4-2.0) Prothrombin Time 12.5 SEC (9.8-11.6) Platelet Count 117 TH/MM3 (150-450) Neutrophils % (Manual) 84 % (16-70) Band Neutrophils % 10 % (0-6) Lymphocytes % 4 % (9-44) Test 12/27/16 06:36 Platelet Count 140 TH/MM3 (150-450) Neutrophils (%) (Auto) 89.8 % (16.0-70.0) Lymphocytes (%) (Auto) 4.3 % (9.0-44.0) Lymphocytes # (Auto) 0.3 TH/MM3 (1.0-4.8) Prothrombin Time 12.0 SEC (9.8-11.6) Random Glucose 119 MG/DL (74-106) Albumin 2.8 GM/DL (3.4-5.0) Alkaline Phosphatase 179 U/L (45-117) Aspartate Amino Transf (AST/SGOT) 137 U/L (15-37) Total Bilirubin 1.4 MG/DL (0.2-1.0) Sodium Level 128 MEQ/L (136-145) Chloride Level 93 MEQ/L (98-107) Imaging Last Impressions Abdomen CT 12/26/16 0000 Signed Impressions: Service Date/Time: Monday, December 26, 2016 10:28 - CONCLUSION: 1. No acute abnormal CT findings. 2. Extensive diffuse bilobar infiltrative hepatocarcinoma with right portal vein thrombosis, suspect bland thrombus. No significant ascites. 3. Gallbladder appears unremarkable by CT. 4. Stable periportal adenopathy with prominent conglomeration of nodes measuring 5.1 x 3.4 cm. Chris Ybarra MD PE at Discharge GENERAL: Well-nourished well-developed in no apparent distress sitting up in bed eating breakfast SKIN: Warm and dry. HEAD: Normocephalic. EYES: No scleral icterus. No injection or drainage. NECK: Supple, trachea midline. CARDIOVASCULAR: Regular rate and rhythm RESPIRATORY: Breath sounds equal bilaterally. No accessory muscle use. GASTROINTESTINAL: Abdomen soft, +TTP RUQ, tender to palpation across the lower quadrants, nondistended. EXTREMITIES: No cyanosis NEUROLOGICAL: No obvious focal deficit. Awake, alert, and oriented x3. Hospital Course Patient was admitted on 12/26/16 for intractable abdominal pain. He has a history of stage IV liver cancer. It took several days including a UTILITIES SERVICE INVESTIGATOR pump in order to control his pain. He was slowly progressed off of the pain pump to by mouth medications. By 12/28/16 he felt that his pain was tolerable and that he could be discharged home. He was discharged home with planned follow-up with his oncologist. Pt Condition on Discharge: Stable Discharge Disposition: Discharge Home Discharge Instructions DIET: Follow Instructions for: As Tolerated, No Restrictions Activities you can perform: Regular-No Restrictions Follow up Referrals: Oncology - 1 Week with Yosef Carey MD PCP Follow-up - 1 Week New Medications: Prednisone (Prednisone) 10 Mg Tab 10 MG PO DAILY, #5 TAB 0 Refills Continued Medications: Cyanocobalamin (Vitamin B-12) (B-12) 1,000 Mcg Tablet 1 TAB PO DAILY Cyclobenzaprine (Flexeril) 7.5 Mg Tab 7.5 MG PO TID for Muscle Spasm, #90 TAB 0 Refills Hydrochlorothiazide (Hydrochlorothiazide) 25 Mg Tab 25 MG PO DAILY, #30 TAB 0 Refills Metoprolol Tartrate (Metoprolol Tartrate) 25 Mg Tab 25 MG PO BID, #60 TAB 0 Refills Oxycodone (Oxycodone) 10 Mg Tab 40 MG PO Q4H PRN for PAIN, TAB 0 Refills Polyethylene Glycol 3350 Powder (Miralax Powder) 17 Gm Powd 17 GM PO DAILY for Constipation, #1 CAN 0 Refills Mix and dissolve one measuring cap-ful (17 grams) in water or juice. Ranitidine (Ranitidine) 300 Mg Tab 300 MG PO HS for Heartburn Management, #30 TAB 0 Refills Laz Villela MD, R3 Dec 28, 2016 09:05
[2016-12-28 09:40] VITALS: RESP 18
== END 2016-12-28 09:41 | disposition home or self-care (01) | DRG 948 ==
LOC: HROP 08:05 → HRIP 08:09 → HCIS 13:49 → HROP 20:15
PROVIDERS: ADMIT Hospitalist; ATTEND Hospitalist
DX: G89.3 Neoplasm related pain (acute) (chronic) (principal); C22.0 Liver cell carcinoma; K76.6 Portal hypertension; E87.2 Acidosis; I10 Essential (primary) hypertension; E86.0 Dehydration; E87.1 Hypo-osmolality and hyponatremia; K74.60 Unspecified cirrhosis of liver; K21.9 Gastro-esophageal reflux disease without esophagitis; B19.20 Unspecified viral hepatitis C without hepatic coma; G89.29 Other chronic pain; M54.9 Dorsalgia, unspecified; F17.210 Nicotine dependence, cigarettes, uncomplicated; R00.0 Tachycardia, unspecified; R59.0 Localized enlarged lymph nodes
CPT/HCPCS: 74160; 76937; 80048; 80053; 82948; 83605; 85007; 85025; 85027; 85610; 85730; J1170; J2405; J7030; J7040; J7512; Q9967

== ENCOUNTER 2017-01-02 13:13 | Day surgery (SDC) | payer OTHER ==
[~2017-01-02 13:13] MED LIST changes: -MS C15TA2 PO; +PRED10 PO
[2017-01-02 13:54] VITALS: BP 155/106; PULSE 110; RESP 20; TEMP 97.4; O2SAT 96
--- NOTE | 2017-01-02 15:01 | RADRPT ---
EXAM DATE/TIME: 01/02/2017 14:29 [facility] COMPARISON : INDICATIONS : FOLLOW UP VISIT POST Y 90 TREATMENT OBJECTIVE: Temperature: 97.4 Heart Rate: 110 Blood Pressure: 155/106 Respiratory: 20 Oximetry: 96 PNEUMONIA VACCINE: HISTORY OF PRESENT ILLNESS: Mr. Lynn is a 51-year-old male with history of hepatitis C and infiltrative multinodular bilobar en hancing hepatocellular carcinoma status post Y90 embolization of the right hepatic artery. Postoperat makeda course was complicated by significant pain 48 hours postembolization requiring rehospitalization for pain management. He reports significant interval improvement with minimal residual pain at the tr eatment site. He however continues to have significant lower epigastric pain similar to his pain prio r to the procedure. Otherwise, he is without significant complaints. ASSESSMENT: Postop day #10 status post Y90 embolization of the right hepatic arteries, now doing well with return to baseline midepigastric pain. PLAN: Tentative plans for Y90 embolization of the left lobe in approximately 2-3 weeks. TIME SPENT: 20 minutes Chris Ybarra MD on January 02, 2017 at 14:44 Board Certified Radiologist. This report was verified electronically.
== END 2017-01-02 14:20 | disposition home or self-care (01) ==
LOC: HROP 13:13 → HRIP 13:14 → HROP 14:20
PROVIDERS: ATTEND Radiology Body Imaging
DX: C22.0 Liver cell carcinoma (principal); B19.20 Unspecified viral hepatitis C without hepatic coma; Z98.890 Other specified postprocedural states

== ENCOUNTER 2017-01-17 10:31 | Inpatient (IN) | payer OTHER ==
[2017-01-17] VITALS (10 sets, daily range): BP systolic 137–161; BP diastolic 75–123; PULSE 97–145; RESP 13–33; TEMP 96.5–98.9; O2SAT 96–99
[~2017-01-17] VITALS: Ht 182.9 cm; Wt 89.1 kg
[2017-01-17] MEDS ORDERED: IOHEXOL 350 MG/ML 10 ML VIAL (for RAD DIAG) IVCONTRAST ONE ×2 (10:32→20:13)
[2017-01-17] MEDS ORDERED: SODIUM CHLOR 0.9% 1000 ML INJ 1,000 ML IV SCH (11:26)
[2017-01-17] MEDS ORDERED: ONDANSETRON HCL 4 MG/2 ML VIAL IVP ONE (11:30)
[2017-01-17] MEDS ORDERED: FAMOTIDINE 20 MG/2 ML VIAL IV PUSH ONE (11:30)
[2017-01-17] MEDS ORDERED: HYDROmorphone HCL PF 1 MG/ML VIAL IVS ONE (11:30)
--- NOTE | 2017-01-17 11:34 | PD ---
HPI Chief Complaint: Abdominal Pain Time Seen by Provider: 11:14 Travel History International Travel<30 days: No Contact w/Intl Traveler<30days: No Traveled to known affect area: No History of Present Illness HPI 52-year-old male complains of severe abdominal pain with nausea vomiting diarrhea. Patient has history of hepatocellular carcinoma and on chemotherapy. Patient has history of chronic abdominal pain and has been taking oxycodone for that. Patient states that he has increasing abdominal pain with intermittent nausea vomiting diarrhea for the past 3 days. Patient denies any fever chills. Patient denies any dysuria or frequency. Patient has history of alcoholism, hepatitis C, hypertension, liver cirrhosis and GERD. PFSH Past Medical History Blood Disorders: No Anxiety: No Depression: No Heart Rhythm Problems: No Cardiovascular Problems: No High Cholesterol: Yes Chemotherapy: Yes (liver ca) Chest Pain: Yes Congestive Heart Failure: No Cirrhosis: Yes Diabetes: No Diminished Hearing: No Endocrine: No Gastrointestinal Disorders: Yes (LIVER CANCER) GERD: Yes Genitourinary: No Hepatitis: Yes (HEPATITIS C treated) Hiatal Hernia: Yes Hypertension: Yes Immune Disorder: No Musculoskeletal: Yes Neurologic: No Psychiatric: Yes (DEPRESSION) Reproductive: No Respiratory: No Radiation Therapy: Yes (y ) Thyroid Disease: No Past Surgical History Abdominal Surgery: No AICD: No Body Medical Devices: PLATE IN JAW Cardiac Surgery: No Ear Surgery: No Endocrine Surgery: No Eye Surgery: No Genitourinary Surgery: No Gynecologic Surgery: No Joint Replacement: No Oral Surgery: No Pacemaker: No Thoracic Surgery: No Other Surgery: Yes Social History Alcohol Use: No Tobacco Use: Yes (6 cigs per day) Substance Use: Yes (MARIJUANA) Allergies-Medications (Allergen,Severity, Reaction): Coded Allergies: codeine (Verified Adverse Reaction, Mild, 01/17/17) bothers stomach Reported Meds & Prescriptions Reported Meds & Active Scripts Active Prednisone 10 Mg Tab 10 Mg PO DAILY Reported Miralax Powder (Polyethylene Glycol 3350 Powder) 17 Gm Powd 17 Gm PO DAILY Mix and dissolve one measuring cap-ful (17 grams) in water or juice. Oxycodone (Oxycodone HCl) 10 Mg Tab 40 Mg PO Q4H PRN Hydrochlorothiazide 25 Mg Tab 25 Mg PO DAILY Flexeril (Cyclobenzaprine HCl) 7.5 Mg Tab 7.5 Mg PO TID Metoprolol Tartrate 25 Mg Tab 25 Mg PO BID B-12 (Cyanocobalamin (Vitamin B-12)) 1,000 Mcg Tablet 1 Tab PO DAILY Ranitidine (Ranitidine HCl) 300 Mg Tab 300 Mg PO HS Review of Systems General / Constitutional: No: Fever Eyes: No: Visual changes HENT: No: Headaches Cardiovascular: No: Chest Pain or Discomfort Respiratory: No: Shortness of Breath Gastrointestinal: Positive: Nausea, Vomiting, Diarrhea, Abdominal Pain Genitourinary: No: Dysuria Musculoskeletal: No: Pain Skin: No Rash Neurologic: No: Weakness Psychiatric: No: Depression Endocrine: No: Polydipsia Hematologic/Lymphatic: No: Easy Bruising Physical Exam Narrative GENERAL: Well-nourished, well-developed patient. SKIN: Focused skin assessment warm/dry. Patient is jaundiced HEAD: Normocephalic. EYES: Bilateral scleral icterus. No injection or drainage. NECK: Supple, trachea midline. No JVD or lymphadenopathy. CARDIOVASCULAR: Regular rate and rhythm without murmurs, gallops, or rubs. RESPIRATORY: Breath sounds equal bilaterally. No accessory muscle use. GASTROINTESTINAL: Abdomen with moderate distention. Active bowel sounds. Moderate diffuse tenderness over the abdomen. No rebound tenderness. Patient has ecchymosis periumbilical area. MUSCULOSKELETAL: No cyanosis, or edema. BACK: Nontender without obvious deformity. No CVA tenderness. Neurologic exam normal. Data Data Last Documented VS Vital Signs Date Time Temp Pulse Resp B/P (MAP) Pulse Ox O2 Delivery O2 Flow Rate FiO2 01/17/17 11:42 99 Room Air 01/17/17 11:09 140 33 01/17/17 10:34 98.9 Orders Orders Complete Blood Count With Diff (01/17/17 11:26) Comprehensive Metabolic Panel (01/17/17 11:26) Lipase (01/17/17 11:26) Prothrombin Time / Inr (Pt) (01/17/17 11:26) Act Partial Throm Time (Ptt) (01/17/17 11:26) Urinalysis - C+S If Indicated (01/17/17 11:26) Ct Abd/Pel W Iv Contrast(Rout) (01/17/17 11:26) Iv Access Insert/Monitor (01/17/17 11:26) Ecg Monitoring (01/17/17 11:26) Oximetry (01/17/17 11:26) Ondansetron Inj (Zofran Inj) (01/17/17 11:30) Sodium Chlor 0.9% 1000 Ml Inj (Ns 1000 M (01/17/17 11:26) Sodium Chloride 0.9% Flush (Ns Flush) (01/17/17 11:30) Famotidine Inj (Pepcid Inj) (01/17/17 11:30) Hydromorphone Pf Inj (Dilaudid Pf Inj) (01/17/17 11:30) Iohexol 350 Inj (Omnipaque 350 Inj) (01/17/17 10:32) Hydromorphone Pf Inj (Dilaudid Pf Inj) (01/17/17 13:15) Labs Laboratory Tests Test 01/17/17 11:05 White Blood Count 9.7 TH/MM3 Red Blood Count 5.42 MIL/MM3 Hemoglobin 17.7 GM/DL Hematocrit 51.6 % Mean Corpuscular Volume 95.2 FL Mean Corpuscular Hemoglobin 32.7 PG Mean Corpuscular Hemoglobin Concent 34.4 % Red Cell Distribution Width 16.5 % Platelet Count 242 TH/MM3 Mean Platelet Volume 9.3 FL Neutrophils (%) (Auto) 88.8 % Lymphocytes (%) (Auto) 5.0 % Monocytes (%) (Auto) 5.1 % Eosinophils (%) (Auto) 0.6 % Basophils (%) (Auto) 0.5 % Neutrophils # (Auto) 8.6 TH/MM3 Lymphocytes # (Auto) 0.5 TH/MM3 Monocytes # (Auto) 0.5 TH/MM3 Eosinophils # (Auto) 0.1 TH/MM3 Basophils # (Auto) 0.0 TH/MM3 CBC Comment DIFF FINAL Differential Comment Prothrombin Time 16.0 SEC Prothromb Time International Ratio 1.4 RATIO Activated Partial Thromboplast Time 27.3 SEC Blood Urea Nitrogen 10 MG/DL Creatinine 1.08 MG/DL Random Glucose 128 MG/DL Total Protein 10.3 GM/DL Albumin 2.6 GM/DL Calcium Level 9.6 MG/DL Alkaline Phosphatase 319 U/L Aspartate Amino Transf (AST/SGOT) 233 U/L Alanine Aminotransferase (ALT/SGPT) 104 U/L Total Bilirubin 10.2 MG/DL Sodium Level 129 MEQ/L Potassium Level 4.3 MEQ/L Chloride Level 89 MEQ/L Carbon Dioxide Level 30.0 MEQ/L Anion Gap 10 MEQ/L Estimat Glomerular Filtration Rate 72 ML/MIN Lipase 218 U/L MDM Medical Decision Making Medical Screen Exam Complete: Yes Emergency Medical Condition: Yes Interpretation(s) Last Impressions Abdomen/Pelvis CT 01/17/17 1126 Signed Impressions: Service Date/Time: Tuesday, January 17, 2017 12:24 - CONCLUSION: 1. Diffuse neoplastic infiltration of the liver similar to December 26. Stable to worsened periportal and retroperitoneal adenopathy. 2. Trace free fluid in the abdomen and pelvis with some new nodularity along the left peritoneal surface. 3. No bowel obstruction or free air. Donaldo Braga MD 13 12 PM. CBC with WBC 9.7. Hemoglobin 17.7 hematocrit 51.6. 88 neutrophil. Sodium 129. Chloride 89. GFR 72. Total bili 10.2. AST 233. ALT 104. Alkaline phosphatase 319. INR 1.4. Differential Diagnosis Differential diagnosis including acute exacerbation of abdominal pain from cancer, gastritis, PUD, pancreatitis, cholecystitis, colitis, UTI, pyelonephritis, nephrolithiasis, dehydration, electrolyte imbalance. Narrative Course 52-year-old male with acute exacerbation of abdominal pain nausea vomiting diarrhea. History of hepatocellular carcinoma. On chemotherapy. Normal saline solution 1 L IV bolus. Dilaudid 1 mg IV. Zofran 4 mg IV. Pepcid 20 mg IV. Normal saline solution 125 cc an hour. Repeated Dilaudid 1 mg IV. Diagnosis Primary Impression: Intractable abdominal pain Additional Impressions: Liver cancer, primary, with metastasis from liver to other site Hyponatremia Admitting Information Admitting Physician Requests: Observation Lazarus Krueger MD Jan 17, 2017 11:34
[2017-01-17 11:49] LABS: AUTOMATED NEUTROPHIL # 8.6 TH/MM3 (1.8-7.7); BASOPHIL % 0.5 % (0.0-2.0); EOSINOPHIL # 0.1 TH/MM3 (0-0.4); EOSINOPHIL % 0.6 % (0.0-4.0); HEMATOCRIT 51.6 % (39.0-51.0); HEMO FLAGS DIFF FINAL; LYMPHOCYTE # 0.5 TH/MM3 (1.0-4.8); MEAN CELL VOLUME 95.2 FL (80.0-100.0); MEAN CORPUSCULAR HEMOGLOBIN 32.7 PG (27.0-34.0); MEAN CORPUSCULAR HGB CONC 34.4 % (32.0-36.0); MONO % 5.1 % (0.0-8.0); NEUT % 88.8 % (16.0-70.0); PLATELET COUNT 242 TH/MM3 (150-450); RED BLOOD COUNT 5.42 MIL/MM3 (4.50-5.90); RED CELL DISTRIBUTION WIDTH 16.5 % (11.6-17.2); WHITE BLOOD COUNT 9.7 TH/MM3 (4.0-11.0)
[2017-01-17 12:07] LABS: APTT (PATIENT) 27.3 SEC (24.3-30.1); INTERNATIONAL NORMALIZED RATIO 1.4 RATIO
[2017-01-17 12:16] LABS: ALKALINE PHOSPHATASE 319 U/L (45-117); ALT (GPT) 104 U/L (12-78); ANION GAP 10 MEQ/L (5-15); AST (GOT) 233 U/L (15-37); BLOOD UREA NITROGEN 10 MG/DL (7-18); CHLORIDE 89 MEQ/L (98-107); GLOMERULAR FILTRATION RATE 72 ML/MIN (>89); SODIUM (NA) 129 MEQ/L (136-145)
[2017-01-17 12:17] LABS: POTASSIUM 4.3 MEQ/L (3.5-5.1); TOTAL BILIRUBIN ADULT 10.2 MG/DL (0.2-1.0)
--- NOTE | 2017-01-17 12:59 | RADRPT ---
EXAM DATE/TIME: 01/17/2017 12:24 [facility] COMPARISON: CT ABDOMEN W CONTRAST, December 26, 2016, 10:28. INDICATIONS : Diffuse lower right region abdomen pain for three days. IV CONTRAST: 96 cc Omnipaque 350 (iohexol) IV ORAL CONTRAST: No oral contrast ingested. RADIATION DOSE: 7.77 CTDIvol (mGy) MEDICAL HISTORY : Hypertension. Liver cancer, chemo, Rad. therapy. SURGICAL HISTORY : None. ENCOUNTER: Initial ACUITY: 3 days PAIN SCALE: 9/10 LOCATION: Right lower quadrant TECHNIQUE: Volumetric scanning of the abdomen and pelvis was performed. Using automated exposure control and ad justment of the mA and/or kV according to patient size, radiation dose was kept as low as reasonably achievable to obtain optimal diagnostic quality images. DICOM format image data is available electro nically for review and comparison. FINDINGS: Minimal basal atelectasis and scarring. No pleural effusion. There is extensive infiltrative neoplast ic disease in the lumbar with partial thrombosis of the portal vein present. No acute findings in the spleen, adrenals, kidneys and pancreas. Periportal adenopathy measures up to 5.9 3.7 cm, slightly in creased from December 26. There is additional retroperitoneal adenopathy that is stable to slightly in creased in size. Trace free fluid present in the abdomen and pelvis. There is some nodularity along the left peritonea l surface not seen on the prior exam. No bowel obstruction. No free air. No acute bony abnormalities. CONCLUSION: 1. Diffuse neoplastic infiltration of the liver similar to December 26. Stable to worsened periportal and retroperitoneal adenopathy. 2. Trace free fluid in the abdomen and pelvis with some new nodularity along the left peritoneal surf sonia. 3. No bowel obstruction or free air. Donaldo Braga MD on January 17, 2017 at 12:48 Board Certified Radiologist. This report was verified electronically.
[2017-01-17] MEDS ORDERED: HYDROmorphone HCL PF 1 MG/ML VIAL IV PUSH ONE (13:15)
--- NOTE | 2017-01-17 15:12 | HHI.HP ---
[facility] Service [facility] Primary Care Physician Zaki Mal[facility] Admission Diagnosis intractable abdominal pain. Metastatic hepatocellular carcinoma. H Diagnoses: Chief Complaint: Abdominal pain Travel History International Travel<30 Days: No Contact w/Intl Traveler <30 Da: No Traveled to Known Affected Are: No History of Present Illness 52-year-old white male being admitted for intractable abdominal pain. Patient states that he was in his usual state of health until about 2-3 days ago when his chronic abdominal pain became worse. States that the pain will become a 10 at times and will fluctuate, most of the pain is on his right side over the abdomen and right underneath this lowermost ribs. States that it hurts for him to take a deep breath. He says the pain eases up when he leans forward. Says that he normally takes 40 mg of oxycodone every 8 hours as well as "10 mg pills of oxycodone" for breakthrough in between. He says he took 3 of the 10 mg pills back to back with no relief of his pain this time around. He says he almost wanted to cry; did not want to come 2 days ago when the pain was at its worse because he did not feel like moving around. Now he says he is just tired of it and wants to seek assistance. He states that he has not eaten anything in the last 2-3 days including , has not had the appetite to do so. Reports that he has chronic intermittent N/V/D since the onset of his cancer which is largely unchanged. CT scan in the emergency room of the abdomen shows slightly increased size of retroportal and retroperitoneal adenopathy as well as a partially thrombosed portal vein. He recently had a postprocedure follow-up visit on 01/02 regarding his Y 90 embolization of the right hepatic artery, he is now in the time frame due for embolization of the left hepatic lobe. Review of Systems Except as stated in HPI: all other systems reviewed are Neg Past Family Social History Past Medical History Carcinoma in the liver stage IV: Poorly differentiated non-small cell cancer favoring adenocarcinoma per liver biopsy results Chronic tobacco abuse Prior history of alcohol abuse Hypertension Liver cirrhosis Portal hypertension Hepatitis C GERD Chronic back pains and neck pains requiring muscle relaxants Past Surgical History Y 90 embolization of liver colonoscopy multiple left ankle surgeries Allergies: Coded Allergies: codeine (Verified Adverse Reaction, Mild, 01/17/17) bothers stomach Family History Says he has a sister with some history of cancer, he is not sure exactly what Social History Prior hx of alcohol drinking Physical Exam Vital Signs Vital Signs Date Time Temp Pulse Resp B/P (MAP) Pulse Ox O2 Delivery O2 Flow Rate FiO2 01/17/17 11:42 99 Room Air 01/17/17 11:09 140 33 161/75 (103) 99 Room Air 01/17/17 10:34 98.9 145 20 143/97 (112) 98 Physical Exam VS: Afebrile GENERAL: Mild distress secondary to pain SKIN: Warm and dry. Appears quite jaundiced EYES: No scleral icterus. No injection or drainage. ENT: No nasal bleeding or discharge. Mucous membranes pink and moist. CARDIOVASCULAR: Tachycardic rate, regular rhythm, no murmurs RESPIRATORY: No accessory muscle use. Clear to auscultation. Breath sounds equal bilaterally. GASTROINTESTINAL: Abdomen with mild distention, soft, as diffuse tenderness to palpation, most prominently over right upper quadrant and over right lower rib cage Extremities: No clubbing, cyanosis, or edema. No obvious deformities. MUSCULOSKELETAL: Extremities without clubbing, cyanosis, or edema. No obvious deformities. grossly intact ROM with 5/5 strength bilateral proximal upper extremities and right lower leg, hold back on strength demonstration of his left leg and says that it is chronically weak NEUROLOGICAL: Awake and alert. No obvious cranial nerve deficits. No facial droop nor slurred speech noted. PSYCHIATRIC: Appropriate mood and affect; insight and judgment normal. Gets intermittently tearful Laboratory Laboratory Tests Test 01/17/17 11:05 White Blood Count 9.7 Red Blood Count 5.42 Hemoglobin 17.7 Hematocrit 51.6 Mean Corpuscular Volume 95.2 Mean Corpuscular Hemoglobin 32.7 Mean Corpuscular Hemoglobin Concent 34.4 Red Cell Distribution Width 16.5 Platelet Count 242 Mean Platelet Volume 9.3 Neutrophils (%) (Auto) 88.8 Lymphocytes (%) (Auto) 5.0 Monocytes (%) (Auto) 5.1 Eosinophils (%) (Auto) 0.6 Basophils (%) (Auto) 0.5 Neutrophils # (Auto) 8.6 Lymphocytes # (Auto) 0.5 Monocytes # (Auto) 0.5 Eosinophils # (Auto) 0.1 Basophils # (Auto) 0.0 CBC Comment DIFF FINAL Differential Comment Prothrombin Time 16.0 Prothromb Time International Ratio 1.4 Activated Partial Thromboplast Time 27.3 Blood Urea Nitrogen 10 Creatinine 1.08 Random Glucose 128 Total Protein 10.3 Albumin 2.6 Calcium Level 9.6 Alkaline Phosphatase 319 Aspartate Amino Transf (AST/SGOT) 233 Alanine Aminotransferase (ALT/SGPT) 104 Total Bilirubin 10.2 Sodium Level 129 Potassium Level 4.3 Chloride Level 89 Carbon Dioxide Level 30.0 Anion Gap 10 Estimat Glomerular Filtration Rate 72 Lipase 218 Result Diagram: 01/17/17 1105 01/17/17 1105 Imaging Last Impressions Abdomen/Pelvis CT 01/17/17 1126 Signed Impressions: Service Date/Time: Thursday, January 17, 2017 12:24 - CONCLUSION: 1. Diffuse neoplastic infiltration of the liver similar to December 3. Stable to worsened periportal and retroperitoneal adenopathy. 2. Trace free fluid in the abdomen and pelvis with some new nodularity along the left peritoneal surface. 3. No bowel obstruction or free air. Donaldo Braga MD Caprini VTE Risk Assessment Caprini VTE Risk Assessment: Mod/High Risk (score >= 2) VTE Pharm Contraindication: End Stage Liver Disease Caprini Risk Assessment Model Point Value = 1 Point Value = 2 Point Value = 3 Point Value = 5 Age 41-60 Minor surgery BMI > 25 kg/m2 Swollen legs Varicose veins or History of unexplained or recurrent spontaneous Oral contraceptives or hormone replacement Sepsis (< 1 month) Serious lung disease, including pneumonia (< 1 month) Abnormal pulmonary function Acute myocardial infarction Congestive heart failure (< 1 month) History of inflammatory bowel disease Medical patient at bed rest Age 61-74 Arthroscopic surgery Major open surgery (> 45 min) Laparoscopic surgery (> 45 min) Malignancy Confined to bed (> 72 hours) Immobilizing plaster cast Central venous access Age >= 75 History of VTE Family history of VTE Factor V Leiden Prothrombin [id number] Lupus anticoagulant Anticardiolipin antibodies Elevated serum homocysteine Heparin-induced thrombocytopenia Other congenital or acquired thrombophilia Stroke (< 1 month) Elective arthroplasty Hip, pelvis, or leg fracture Acute spinal cord injury (< 1 month) Prophylaxis Regimen Total Risk Factor Score Risk Level Prophylaxis Regimen 0-1 Low Early ambulation 2 Moderate Order ONE of the following: *Sequential Compression Device (SCD) *Heparin 5000 units SQ BID 3-4 Higher Order ONE of the following medications: *Heparin 5000 units SQ TID *Enoxaparin/Lovenox 40 mg SQ daily (WT < 150 kg, CrCl > 30 mL/min) *Enoxaparin/Lovenox 30 mg SQ daily (WT < 150 kg, CrCl > 10-29 mL/min) *Enoxaparin/Lovenox 30 mg SQ BID (WT < 150 kg, CrCl > 30 mL/min) AND/OR *Sequential Compression Device (SCD) 5 or more Highest Order ONE of the following medications: *Heparin 5000 units SQ TID (Preferred with Epidurals) *Enoxaparin/Lovenox 40 mg SQ daily (WT < 150 kg, CrCl > 30 mL/min) *Enoxaparin/Lovenox 30 mg SQ daily (WT < 150 kg, CrCl > 10-29 mL/min) *Enoxaparin/Lovenox 30 mg SQ BID (WT < 150 kg, CrCl > 30 mL/min) AND *Sequential Compression Device (SCD) Assessment and Plan Assessment and Plan 52-year-old white male being admitted for worsening, now intractable abdominal pain. history of hepatocellular carcinoma with metastases Intractable abdominal pain - likely multifactorial, from worsening periportal and retroperitoneal adenopathy - metastases, acute hepatic inflammation, partial portal vein thrombosis vs Cholecystitis. - Independent review the CT scan shows diffuse gas throughout the colon with mild constipation - Will obtain Gallbladder US given elevated LFTs and no charted hx of cholecystectomy - I will start simethicone as well as Relistor since the patient is on narcotics and is likely undergoing some component of constipation. - I will also administer IV Dilaudid diluted in 100 cc to be infused in 20-30 minutes every 4 hours when necessary pain not controlled with by mouth meds. Resume home oxycodone dosing. Consulting oncology. Will need to monitor for resp depression. Partial thrombosis of portal vein - likely predisposing cause is hepatocellular carcinoma, will let oncology decide if this needs to be anticoagulated given his end-stage liver disease with an INR of 1.4 Acutely elevated LFTs - likely from hep C and metastases, GB US ordered as above , continue with IV fluids, repeat levels in a.m. Hyperbilirubinemia - likely from hep C/ESLD, f/u GB US, trend in a.m., if experiencing pruritus can consider starting cholestyramine Rib pain - likely pleurisy, pain meds as above, will consider anti- inflammatories as well as lidocaine patch Tachycardia - given pleuritic component of abdominal and lower chest pain, I feel it is reasonable to rule out a pulmonary embolism given that the patient has a history of cancer. We'll obtain a CT pulm angiogram. We'll obtain an EKG as well to ensure this is sinus tachycardia. nausea - 2/2 pain, see above. Zofran prn. Hyponatremia - likely from decreased food intake, IVFs for now given acute picture and repeat cmp in am, Will give periactin to see if this stimulates his appetite in setting of carcinoma Physician Certification 2 Midnight Certification Type: Admission for Inpatient Services Order for Inpatient Services The services are ordered in accordance with Medicare regulations or non- Medicare payer requirements, as applicable. In the case of services not specified as inpatient-only, they are appropriately provided as inpatient services in accordance with the 2-midnight benchmark. Estimated LOS (days): 2 2 days is the estimated time the patient will need to remain in the hospital, assuming treatment plan goals are met and no additional complications. Post-Hospital Plan: Home Lavon Rosario MD Jan 17, 2017 15:12
[2017-01-17] MEDS ORDERED: HYDROmorphone HCL PF 1 MG/ML VIAL IV PUSH PRN (16:00)
[2017-01-17] MEDS: POLYETHYLENE GLYCOL 17 GM PKG PO SCH (16:00)
[2017-01-17] MEDS: SIMETHICONE 125 MG CHEWABLE TAB PO SCH ×2 (16:05→21:59)
[2017-01-17] MEDS: HYDROCHLOROTHIAZIDE 25 MG TAB PO SCH (16:05)
[2017-01-17] MEDS: SODIUM CHLOR 0.9% 1000 ML INJ 1,000 ML IV SCH (16:05)
[2017-01-17] MEDS: HYDROmorphone HCL PF 1 MG/ML VIAL IV PRN ×2 (16:06→22:17)
[2017-01-17] MEDS: METHYLNALTREXONE BROMIDE 12 MG/0.6 ML VIAL SQ SCH (16:59)
--- NOTE | 2017-01-17 16:59 | RADRPT ---
EXAM DATE/TIME: 01/17/2017 16:11 [facility] COMPARISON: CT ABDOMEN & PELVIS W CONTRAST, January 17, 2017, 12:24. INDICATIONS : Right upper quadrant pain. MEDICAL HISTORY : Hypercholesterolemia. Hepatitis C. Liver cancer. GI bleed. Hypertension. GERD. Hx of ETOH abuse. SURGICAL HISTORY : Jaw surgery. Left ankle surgery. EGD. ENCOUNTER: Subsequent ACUITY: 4-6 months PAIN SCORE: 6/10 LOCATION: Right upper quadrant MEASUREMENTS: LIVER: 16.1 cm length COMMON DUCT: 9 mm RIGHT KIDNEY: 11.6 x 5.1 x 6.5 cm FINDINGS: LIVER: Multiple solid masses throughout the liver orally with abnormality seen on CT scan. The largest natalie urable lesion is located in the left lobe and measures 5.9 x 4.6 x 4.3 cm and is heterogeneous in ech otexture, but overall hyperechoic with respect to the remainder of the hepatic parenchyma. Hepatoped al flow is seen in one of the portal veins. COMMON DUCT: No intraluminal mass or stone visualized. GALLBLADDER: No echogenic or shadowing stones seen. The gallbladder wall is markedly thickened measuring in exces s of 10 mm; the wall is hyperechoic. No pericholecystic fluid. PANCREAS: The visualized portions are within normal limits. RIGHT KIDNEY: No evidence of hydronephrosis, stone, or mass. CONCLUSION: 1. Gallbladder wall is diffusely thickened measuring in excess of 10 mm. No gallstones seen however. 2. Common bile duct is mildly dilated at 9 mm. 3. Multiple solid masses in the enlarged liver measuring up to 5.9 cm. Maury Adkins MD on January 17, 2017 at 16:54 Board Certified Radiologist. This report was verified electronically.
[2017-01-17] MEDS ORDERED: LABETALOL HCL 100 MG/20 ML VIAL IV PUSH ONE (18:15)
--- NOTE | 2017-01-17 20:31 | RADRPT ---
EXAM DATE/TIME: 01/17/2017 20:00 [facility] COMPARISON: CT PULMONARY ANGIOGRAM, October 08, 2016, 11:29. INDICATIONS : Tachycardia with lower chest pain. IV CONTRAST: 50 cc Omnipaque 350 (iohexol) IV RADIATION DOSE: 18.32 CTDIvol (mGy) MEDICAL HISTORY : Hypertension. Metastatic, liver. Hepatitis C.GERD Chemotherapy Radiation therapy SURGICAL HISTORY : None. ENCOUNTER: Initial ACUITY: 2 days PAIN SCALE: 10/10 LOCATION: Right lower chest TECHNIQUE: Volumetric scanning of the chest was performed using a pulmonary embolism protocol MIP images were re constructed. Using automated exposure control and adjustment of the mA and/or kV according to patien t size, radiation dose was kept as low as reasonably achievable to obtain optimal diagnostic quality images. DICOM format image data is available electronically for review and comparison. Follow-up recommendations for detected pulmonary nodules are based at a minimum on nodule size and pa tient risk factors according to Fleischner Society Guidelines. FINDINGS: PULMONARY ARTERIES: No filling defects are seen in the pulmonary arteries through the segmental level. LUNGS: There is a focal masslike opacity in the lower lateral left lung measuring 1.7 cm which is a new find ing from prior CT pulmonary angiogram. There are some air bronchograms along the inferior margin, bu t the remainder of the opacity is devoid of air bronchograms. There is thickening of the lateral inf erior right major fissure which corresponds to a larger area of pleural effusion and infiltrate seen on prior scan. PLEURAE: There is no pleural thickening or pleural effusion. MEDIASTINUM: There is good visualization of the great vessels of the middle mediastinum. No evidence of mediastin al or hilar adenopathy/mass. MISCELLANEOUS: There is a 1.3 cm nodule between the fundus of the stomach and left diaphragmatic crura which is a ne w finding compared prior examination, possibly representing adenopathy. CONCLUSION: 1. The study is negative for pulmonary embolism. 2. There is a new 1.7 cm masslike opacity in the lower lateral left lung costophrenic angle and there is a new 1.3 cm perigastric lymph node. Cannot differentiate between malignancy and infectious/infl ammatory process; but both of these findings are new compared to a prior CT pulmonary angiogram in [facility] 2017. Maury Adkins MD on January 17, 2017 at 20:22 Board Certified Radiologist. This report was verified electronically.
[2017-01-17] MEDS: METOPROLOL TARTRATE 25 MG TAB PO SCH (20:39)
[2017-01-17] MEDS: SODIUM CHLORIDE 0.9% FLUSH 10 ML FLUSH IV FLUSH PRN (20:39)
[2017-01-17] MEDS: FAMOTIDINE 20 MG TAB PO SCH (20:39)
[2017-01-17] MEDS: CYPROHEPTADINE HCL 4 MG TAB PO SCH (21:59)
[2017-01-17] MEDS: LIDOCAINE HCL 5% PATCH T-DERMAL SCH (21:59)
--- NOTE | 2017-01-17 23:26 | EKG ---
Date Performed: 01/17/2017 Time Performed: 17:33:35 PTAGE: 52 years EKG: SINUS TACHYCARDIA ABNORMAL RHYTHM ECG PREVIOUS TRACING : 11/06/2016 11.32 Compared to the previous tracing, now in sinus tachycardia DOCTOR: Oswaldo Lowe Interpretating Date/Time 01/17/2017 23:26:08
[2017-01-18] VITALS (12 sets, daily range): BP systolic 140–172; BP diastolic 74–107; PULSE 96–114; RESP 18–20; TEMP 97.5–99; O2SAT 92–99
[2017-01-18] MEDS: SODIUM CHLOR 0.9% 1000 ML INJ 1,000 ML IV SCH ×3 (01:30→20:25)
[2017-01-18] MEDS ORDERED: ENALAPRILAT 1.25 MG/ML VIAL IV PUSH ONE (01:45)
[2017-01-18] MEDS: HYDROmorphone HCL PF 1 MG/ML VIAL IV PRN ×5 (02:40→23:26)
[2017-01-18] MEDS: SIMETHICONE 125 MG CHEWABLE TAB PO SCH ×3 (04:55→20:20)
[2017-01-18 07:34] LABS: INTERNATIONAL NORMALIZED RATIO 1.3 RATIO
[2017-01-18 08:14] LABS: ALKALINE PHOSPHATASE 213 U/L (45-117); ALT (GPT) 69 U/L (12-78); ANION GAP 8 MEQ/L (5-15); AST (GOT) 159 U/L (15-37); BICARBONATE 26.3 MEQ/L (21.0-32.0); BLOOD UREA NITROGEN 9 MG/DL (7-18); CHLORIDE 94 MEQ/L (98-107); GLOMERULAR FILTRATION RATE 138 ML/MIN (>89); SODIUM (NA) 128 MEQ/L (136-145); TOTAL BILIRUBIN ADULT 7.8 MG/DL (0.2-1.0)
[2017-01-18 08:24] LABS: POTASSIUM 3.9 MEQ/L (3.5-5.1)
[2017-01-18] MEDS: FAMOTIDINE 20 MG TAB PO SCH ×2 (08:53→20:20)
[2017-01-18] MEDS: HYDROCHLOROTHIAZIDE 25 MG TAB PO SCH (08:53)
[2017-01-18] MEDS: CYPROHEPTADINE HCL 4 MG TAB PO SCH ×2 (08:53→20:20)
[2017-01-18] MEDS: METOPROLOL TARTRATE 25 MG TAB PO SCH ×2 (08:53→20:19)
[2017-01-18] MEDS: LIDOCAINE HCL 5% PATCH T-DERMAL SCH (08:54)
[2017-01-18] MEDS: POLYETHYLENE GLYCOL 17 GM PKG PO SCH (08:56)
[2017-01-18] MEDS: METHYLNALTREXONE BROMIDE 12 MG/0.6 ML VIAL SQ SCH (09:00)
--- NOTE | 2017-01-18 09:10 | PD.CONS ---
HPI History of Present Illness This is a 52 year old male who presented to the ED with abdominal pain. PMH significant for chronic abdominal pain secondary to stage 4 hepatic carcinoma. Patient reports that 3 days ago he abdominal pain worsened. Reports abdominal pain is diffuse, but localizes most of the pain at RUQ. Reports pain fluctuates in intensity, and does reach pain level of 10/10. Taking a deep breath or moving around aggravates the pain. Leaning forward does help improve the pain. Patient reports that today he feels hungry and states he has not eaten in about 3-4 days due to decreased appetite. Patient does have chronic nausea, vomiting, and diarrhea secondary to cancer. Patient takes Oxycodone 40 mg q8h and Oxycodone 10 mg for breakthrough pain at home. Patient reports pain medicine is not helping decrease the pain. CT abdomen/pelvis on 01/17 shows diffuse neoplastic infiltration of the liver similar to December 26, stable to worsened periportal and retroperitoneal adenopathy, trace free fluid in the abdomen and pelvis with some new nodularity along the left peritoneal surface, and no bowel obstruction or free air. Gallbladder US 01/17 shows gallbladder wall is diffusely thickened measuring in excess of 10 mm, no gallstones seen however, common bile duct is mildly dilated at 9 mm, and multiple solid masses in the enlarged liver measuring up to 5.9 cm. (Arielle Edmonds) PFSH Past Medical History Carcinoma in the liver stage IV: Poorly differentiated non-small cell cancer favoring adenocarcinoma per liver biopsy results Chronic tobacco abuse Prior history of alcohol abuse Hypertension Liver cirrhosis Portal hypertension Hepatitis C GERD Chronic back pains and neck pains requiring muscle relaxants Past Surgical History Y 90 embolization of liver Colonoscopy Multiple left ankle surgeries (Arielle Edmonds) Coded Allergies: codeine (Verified Adverse Reaction, Mild, 01/17/17) bothers stomach Medications Current Medications Medications (Trade) Dose Ordered Sig/Ivis Route PRN Reason Start Time Stop Time Status Last Admin Dose Admin Sodium Chloride (NS Flush) 2 ml UNSCH PRN IV FLUSH FLUSH AFTER USING IV ACCESS 01/17/17 11:30 01/17/17 20:39 Metoprolol Tartrate (Lopressor) 25 mg BID PO 01/17/17 21:00 01/17/17 20:39 Oxycodone HCl (Roxicodone) 40 mg Q4H PRN PO PAIN 01/17/17 16:00 01/18/17 04:56 Famotidine (Pepcid) 20 mg BID PO 01/17/17 21:00 01/17/17 20:39 Simethicone (Phazyme Chew) 125 mg Q8HR PO 01/17/17 16:00 01/18/17 04:55 Hydrochlorothiazide (Hydrodiuril) 25 mg DAILY PO 01/17/17 16:00 01/17/17 16:05 Polyethylene Glycol (Miralax) 17 gm DAILY PO 01/17/17 16:00 Methylnaltrexone [place] (Relistor Inj) 12 mg DAILY SQ 01/17/17 16:00 01/17/17 16:59 Sodium Chloride 1,000 ml @ 100 mls/hr Q10H IV 01/17/17 15:30 01/18/17 01:30 Cyproheptadine HCl (Periactin) 4 mg BID PO 01/17/17 21:00 01/17/17 21:59 Hydromorphone HCl (Dilaudid Pf Inj) 1 mg Q4H PRN IV pain not controlled w/ po med 01/17/17 16:00 01/18/17 06:49 Promethazine HCl (Phenergan) 12.5 mg Q4H PRN PO nausea 01/17/17 17:30 Lidocaine HCl (Lidoderm 5% Patch.12 Hr) 1 patch DAILY T-DERMAL 01/17/17 19:45 01/17/17 21:59 Family History Sister, cancer? Social History ETOH, history of alcohol use Tobacco, yes, unable to quantify Illicit drugs, denies (Arielle Edmonds) Review of Systems Gastrointestinal: COMPLAINS OF: Abdominal pain, Nausea, Swelling of Abdomen, DENIES: Black stools, Bloody stools, Constipation, Diarrhea, Vomiting, Difficulty Swallowing, Anorexia, Odynophagia, Heartburn, Hematemesis (Arielle Edmonds) GI Exam Vitals I&O Vital Signs Date Time Temp Pulse Resp B/P (MAP) Pulse Ox O2 Delivery O2 Flow Rate FiO2 01/18/17 07:32 92 Room Air 01/18/17 07:26 97.5 97 18 172/103 (126) 92 164/100 (121) 01/18/17 05:56 20 01/18/17 04:30 Room Air 01/18/17 04:30 98.4 98 20 148/76 (100) 96 01/18/17 03:10 20 01/18/17 03:05 140/74 (96) 01/18/17 02:43 163/99 (120) 01/18/17 01:05 161/105 (123) 01/18/17 00:35 Room Air 01/18/17 00:35 98.2 105 20 169/107 (127) 97 01/17/17 21:15 146/84 (104) 01/17/17 20:45 97 01/17/17 20:00 96.5 109 20 148/103 (118) 96 01/17/17 20:00 Room Air 01/17/17 18:31 130 01/17/17 18:21 01/17/17 18:13 159/112 (128) 01/17/17 18:10 96.8 127 18 150/123 (132) 97 01/17/17 15:17 129 13 137/91 (106) 96 Room Air 01/17/17 11:42 99 Room Air 01/17/17 11:09 140 33 161/75 (103) 99 Room Air 01/17/17 10:34 98.9 145 20 143/97 (112) 98 I/O 01/17/17 01/17/17 01/17/17 01/18/17 01/18/17 01/18/17 07:00 15:00 23:00 07:00 15:00 23:00 Intake Total 1000 ml 1190 ml Output Total 550 ml Balance 1000 ml 640 ml Intake Oral 240 ml IV Total 1000 ml 950 ml Output Urine Total 550 ml # Bowel Movements 0 Imaging Last Impressions Abdomen/Pelvis CT 01/17/17 1126 Signed Impressions: Service Date/Time: Tuesday, January 17, 2017 12:24 - CONCLUSION: 1. Diffuse neoplastic infiltration of the liver similar to December 3. Stable to worsened periportal and retroperitoneal adenopathy. 2. Trace free fluid in the abdomen and pelvis with some new nodularity along the left peritoneal surface. 3. No bowel obstruction or free air. Donaldo Braga MD Gall Bladder Ultrasound 01/17/17 0000 Signed Impressions: Service Date/Time: Tuesday, January 17, 2017 16:11 - CONCLUSION: 1. Gallbladder wall is diffusely thickened measuring in excess of 10 mm. No gallstones seen however. 2. Common bile duct is mildly dilated at 9 mm. 3. Multiple solid masses in the enlarged liver measuring up to 5.[address] Angiography 01/17/17 0000 Signed Impressions: Service Date/Time: Tuesday, January 17, 2017 20:00 - CONCLUSION: 1. The study is negative for pulmonary embolism. 2. There is a new 1.7 cm masslike opacity in the lower lateral left lung costophrenic angle and there is a new 1.3 cm perigastric lymph node. Cannot differentiate between malignancy and infectious/inflammatory process; but both of these findings are new compared to a prior CT pulmonary angiogram in September 2016. Maury Adkins MD Laboratory Test 01/17/17 11:05 01/18/17 06:50 White Blood Count 9.7 TH/MM3 Red Blood Count 5.42 MIL/MM3 Hemoglobin 17.7 GM/DL Hematocrit 51.6 % Mean Corpuscular Volume 95.2 FL Mean Corpuscular Hemoglobin 32.7 PG Mean Corpuscular Hemoglobin Concent 34.4 % Red Cell Distribution Width 16.5 % Platelet Count 242 TH/MM3 Mean Platelet Volume 9.3 FL Neutrophils (%) (Auto) 88.8 % Lymphocytes (%) (Auto) 5.0 % Monocytes (%) (Auto) 5.1 % Eosinophils (%) (Auto) 0.6 % Basophils (%) (Auto) 0.5 % Neutrophils # (Auto) 8.6 TH/MM3 Lymphocytes # (Auto) 0.5 TH/MM3 Monocytes # (Auto) 0.5 TH/MM3 Eosinophils # (Auto) 0.1 TH/MM3 Basophils # (Auto) 0.0 TH/MM3 CBC Comment DIFF FINAL Differential Comment Prothrombin Time 16.0 SEC 14.0 SEC Prothromb Time International Ratio 1.4 RATIO 1.3 RATIO Activated Partial Thromboplast Time 27.3 SEC Blood Urea Nitrogen 10 MG/DL 9 MG/DL Creatinine 1.08 MG/DL 0.61 MG/DL Random Glucose 128 MG/DL 94 MG/DL Total Protein 10.3 GM/DL 8.0 GM/DL Albumin 2.6 GM/DL 1.9 GM/DL Calcium Level 9.6 MG/DL 8.4 MG/DL Alkaline Phosphatase 319 U/L 213 U/L Aspartate Amino Transf (AST/SGOT) 233 U/L 159 U/L Alanine Aminotransferase (ALT/SGPT) 104 U/L 69 U/L Total Bilirubin 10.2 MG/DL 7.8 MG/DL Sodium Level 129 MEQ/L 128 MEQ/L Potassium Level 4.3 MEQ/L 3.9 MEQ/L Chloride Level 89 MEQ/L 94 MEQ/L Carbon Dioxide Level 30.0 MEQ/L 26.3 MEQ/L Anion Gap 10 MEQ/L 8 MEQ/L Estimat Glomerular Filtration Rate 72 ML/MIN 138 ML/MIN Lipase 218 U/L Physical Examination HEENT: Normocephalic; atraumatic; no jaundice. NECK: Neck is supple. CARDIAC: Regular rate and rhythm with no murmur gallop or rubs. ABDOMEN: Abdomen distended. Diffuses TTP, worse at RUQ. EXTREMITIES: No clubbing, cyanosis, or edema. SKIN: Jaundice BAND SPLICER: No focal deficits; alert and oriented x 3. Mild distress secondary to pain. (Arielle Edmonds) Assessment and Plan Plan ASSESSMENT: - Abdominal pain, multifactorial. Patient with known diagnosis of stage 4 hepatocellular carcinoma. Followed by Oncology. CT Abdomen/Pelvis 01/17/17--1. Diffuse neoplastic infiltration of the liver similar to December 26. Stable to worsened periportal and retroperitoneal adenopathy. 2. Trace free fluid in the abdomen and pelvis with some new nodularity along the left peritoneal surface. 3. No bowel obstruction or free air. Gallbladder US 01/17/17--1. Gallbladder wall is diffusely thickened measuring in excess of 10 mm. No gallstones seen however. 2. Common bile duct is mildly dilated at 9 mm. 3. Multiple solid masses in the enlarged liver measuring up to 5.9 cm. - Elevated LFTs and Hyperbilirubinemia, secondary to Hepatitis C and liver cancer? CT abdomen and US gallbladder as above. LFTs trending down. 01/17--AST 233, ALT 104, ALK PHOS 319, T. Bili 10.2. 01/18- -AST 159, ALT 69, ALK PHOS 213, T. Bili 7.8 PLAN: - Keep NPO for now - Consider ERCP - Monitor labs - Pain control - Anti-emetics - Supportive care - Further recommendations to follow based on results of above Patient seen and examined by Dr. Cuevas and myself and this note is written on his behalf (Arielle Edmonds) Physician Comments Seen and examined with LUCY, doing better with pain. HIDA scan ordered. ERCP not clearly indicated at this time. Discussed with Dr. Patel. (Roger Cuevas MD) Arielle Edmonds Jan 18, 2017 09:10 Roger Cuevas MD Jan 18, 2017 12:15
--- NOTE | 2017-01-18 10:15 | HHI.PR ---
Subjective Remarks Nursing denies any deterioration since last night. State that the patient claims that with both the IV in the oral narcotics his pain is now controlled. Tachycardia has resolved with heart rate now the 90s. CTA was negative for pulmonary embolism but did show a new perigastric lymph node and left costophrenic angle opacity. Patient says he had a bowel movement yesterday in the emergency room, not otherwise. Says he is hungry. Objective Vital Signs Date Time Temp Pulse Resp B/P (MAP) Pulse Ox O2 Delivery O2 Flow Rate FiO2 01/18/17 08:01 96 01/18/17 07:32 92 Room Air 01/18/17 07:26 97.5 97 18 172/103 (126) 92 164/100 (121) 01/18/17 05:56 20 01/18/17 04:30 Room Air 01/18/17 04:30 98.4 98 20 148/76 (100) 96 01/18/17 03:10 20 01/18/17 03:05 140/74 (96) 01/18/17 02:43 163/99 (120) 01/18/17 01:05 161/105 (123) 01/18/17 00:35 Room Air 01/18/17 00:35 98.2 105 20 169/107 (127) 97 01/17/17 21:15 146/84 (104) 01/17/17 20:45 97 01/17/17 20:00 96.5 109 20 148/103 (118) 96 01/17/17 20:00 Room Air 01/17/17 18:31 130 01/17/17 18:21 01/17/17 18:13 159/112 (128) 01/17/17 18:10 96.8 127 18 150/123 (132) 97 01/17/17 15:17 129 13 137/91 (106) 96 Room Air 01/17/17 11:42 99 Room Air 01/17/17 11:09 140 33 161/75 (103) 99 Room Air 01/17/17 10:34 98.9 145 20 143/97 (112) 98 I/O 01/17/17 01/17/17 01/17/17 01/18/17 01/18/17 01/18/17 07:00 15:00 23:00 07:00 15:00 23:00 Intake Total 1000 ml 1190 ml Output Total 550 ml Balance 1000 ml 640 ml Intake Oral 240 ml IV Total 1000 ml 950 ml Output Urine Total 550 ml # Bowel Movements 0 Result Diagram: 01/17/17 1105 01/18/17 0650 Imaging Last Impressions Abdomen/Pelvis CT 01/17/17 1126 Signed Impressions: Service Date/Time: Tuesday, January 17, 2017 12:24 - CONCLUSION: 1. Diffuse neoplastic infiltration of the liver similar to December 3. Stable to worsened periportal and retroperitoneal adenopathy. 2. Trace free fluid in the abdomen and pelvis with some new nodularity along the left peritoneal surface. 3. No bowel obstruction or free air. Donaldo Braga MD Gall Bladder Ultrasound 01/17/17 0000 Signed Impressions: Service Date/Time: Tuesday, January 17, 2017 16:11 - CONCLUSION: 1. Gallbladder wall is diffusely thickened measuring in excess of 10 mm. No gallstones seen however. 2. Common bile duct is mildly dilated at 9 mm. 3. Multiple solid masses in the enlarged liver measuring up to 5.[address] Angiography 01/17/17 0000 Signed Impressions: Service Date/Time: Tuesday, January 17, 2017 20:00 - CONCLUSION: 1. The study is negative for pulmonary embolism. 2. There is a new 1.7 cm masslike opacity in the lower lateral left lung costophrenic angle and there is a new 1.3 cm perigastric lymph node. Cannot differentiate between malignancy and infectious/inflammatory process; but both of these findings are new compared to a prior CT pulmonary angiogram in September 2016. Maury Adkins MD Objective Remarks Lying in bed, no acute distress When sitting up appears to be common distress until he stabilizes himself by leaning forward in a sitting position Has exquisite tenderness to palpation over the right upper quadrant, abdomen is slightly distended otherwise, jaundice is slightly improved since yesterday A/P Assessment and Plan 52-year-old white male being admitted for worsening, now intractable abdominal pain. history of hepatocellular carcinoma with metastases Intractable abdominal pain - improved since yesterda - likely multifactorial, from worsening periportal and retroperitoneal adenopathy - metastases, acute hepatic inflammation, partial portal vein thrombosis and/or primary or secondary Cholecystitis. - see blow Acute transaminitis - Possibly from cholecystitis and/or choledocholithiasis given elevated bilirubin and enzymes, partially improved since yesterday - GI consultation - appreciate input, possible ERCP today - Continue simethicone for possible excess colonic gas, relistor for narcotic- induced constipation - IV dilaudid slow infusion + home oxycodone by mouth - monitor resp status Partial thrombosis of portal vein - likely predisposing cause is hepatocellular carcinoma, will let oncology decide if this needs to be anticoagulated given his end-stage liver disease with an INR of 1.3 this AM sinus Tachycardia - resolved, CTA angiogram neg for PE, likely was 2/2 pain nausea - 2/2 pain, see above. Zofran prn. Hyponatremia - appears chronic and suspect from cirrhosis, will slow IVFs once pt tolerates PO intake Lavon Rosario MD Jan 18, 2017 10:15
[2017-01-18] MEDS: NICOTINE 21 MG/24 HR PATCH T-DERMAL SCH (10:46)
--- NOTE | 2017-01-18 12:01 | MB ---
cc: HARSH KWAN MD DATE OF CONSULTATION: 01/18/2017 Date of : 1965. REQUESTING PHYSICIAN: Hospitalist service. REASON FOR CONSULTATION Patient with diagnosis of multifocal hepatocellular carcinoma with suspected metastases to retroperitoneal lymph nodes. Treatment history to date: The patient is status post Y-90 transarterial radial embolization. This procedure was performed in late November 2016. CHIEF COMPLAINT The patient reports progressive abdominal pain. He tells me the pain is mostly focused in the right upper part of his abdomen and is worse with deep breathing. He reports poor appetite and generalized fatigue. HISTORY OF PRESENT ILLNESS Mr. Barker is a very pleasant 52 year-old male with a history of hepatitis C (he tells me the infection was cleared about two years ago with a combination of interferon and anti viral tablets), he also has a history of heavy alcohol consumption. This patient does have hepatic cirrhosis secondary to the above issues. In October 2016 he was diagnosed with a diffuse intrahepatic malignancy, radiographic imaging studies and serum tumor markers were most consistent with a diagnosis of hepatocellular carcinoma. The patient was evaluated by my associate Dr. Carey who recommended transarterial radioembolization with Y-90 injection. Treatment was delivered in late November here at [facility]. The plan post transarterial radio embolization was to treat the patient with palliative sorafenib or palliative nivolumab. He has yet to start systemic therapy. He comes into the hospital with progressive abdominal pain. Imaging studies of the abdomen and pelvis performed on 11/17/2016 indicates findings of progressive hepatic infiltration. Findings seem to be somewhat worse when compared to previous due to enlargement of retroperitoneal lymphadenopathy. There was also noted to be thickening of the gallbladder wall and the common bile duct. There is some concern of cholecystitis/cholelithiasis. GI has been involved and medical oncology has also been asked to see him. The patient's main complaint is that of abdominal pain. PAST MEDICAL HISTORY 1. Chronic hepatitis C. 2. Hepatic cirrhosis. 3. Previous history of alcohol abuse. 4. Hepatocellular carcinoma. 5. Hypertension. 6. Gastroesophageal reflux disease. PAST SURGICAL HISTORY: 1. Surgeries on his ankle, feet and jaws. 2. Colonoscopy. FAMILY HISTORY: Mother is . She at the age of 55 of cerebral hemorrhage. Father of complications of pneumonia. He had CHF and diabetes. SOCIAL HISTORY: The patient is . He lives at home with his second . He reports smoking a pack a day of cigarettes since he was younger. He also reports drinking up to 6 to 8 cans of beer daily but quit earlier this year. ALLERGIES CODEINE. Causes nausea, vomiting, diarrhea. CURRENT INPATIENT MEDICATIONS 1. Normal saline 100 cc per hour. 2. Periactin 4 milligrams p.o. b.i.d. 3. Famotidine 20 milligrams p.o. b.i.d. 4. Hydrochlorothiazide 25 milligrams p.o. daily 5. Hydromorphone 1 milligram IV q4 hours as needed for pain control. 6. Relistor 12 milligrams subcu daily. 7. Metoprolol 25 milligrams p.o. b.i.d. 8. Nicotine patch 21 milligram patch transdermal every 24 hours. 9. Oxycodone 40 milligrams p.o. q4 hours as needed for pain control. 10. MiraLax 17 grams p.o. daily as needed. 11. Promethazine 12.5 milligrams p.o. q4 hours as needed for nausea. 12. Simethicone 125 milligrams p.o. q8 hours. REVIEW OF SYSTEMS: 13-point review of systems is obtained. The following are pertinent positives: Constitutional: The patient reports generalized fatigue, weakness, reports lack of appetite, he reports weight loss but he denies fevers, chills or night sweats. HEENT: Denies headaches, blurry vision, difficulty swallowing or soreness in the throat. Respiratory: Reports exertional dyspnea, reports pleuritic chest pain, denies cough, hemoptysis. Cardiovascular: Denies angina-like chest pain, PND, orthopnea, lower extremity edema. GI: Reports nausea, abdominal pain in the right upper quadrant and epigastric area. : Denies dysuria, hematuria, urinary incontinence. [employer]: Denies any focal sensory or motor deficits. No other complaints reported. PHYSICAL EXAMINATION Vital signs: Temperature 97.6 degrees Fahrenheit, heart rate 98 beats per minute, respiratory rate 18, blood pressure 152 x 100, O2 sats 95% on room air. General physical appearance: Mr. Buenrostro is a middle-aged male, he is tall and moderate build. He is icteric. He appears to be in pain and is somewhat anxious. HEENT: Head atraumatic, normocephalic, conjunctive are pale, sclerae are icteric (deeply icteric), EOMI, PERRLA, oral exam no pharyngeal erythema. Neck exam: No palpable cervical or supraclavicular adenopathy. Respiratory exam: Good air movement bilaterally with decreased bibasilar breath sounds. He denies prolonged expiratory phase, no crackles, rales or wheezes. Cardiovascular: Regular rate and rhythm, S1-S2. No obvious murmurs, rubs or gallops. Abdomen: Protuberant belly, free fluid noted. There is tenderness over the right upper quadrant. Hepatomegaly is noted. No splenomegaly is noted. Skin examination: Extensive sequelae of hepatocellular disease with spider angiomas and bruising noted diffusely present over his torso. Extremities: No pretibial edema or calf tenderness. Musculoskeletal: Patient with generally decreased muscle mass. Adequate strength without any focal sensory motor deficits. LABORATORY FINDINGS Blood work dated 01/17/2017: WBC count 9.7, hemoglobin 17.7 gm/dl, hematocrit 51.6%, platelet count 242, absolute neutrophil count is 8.7. Chemistries: Sodium 128, potassium 3.9, chloride 94, bicarbonate 26.3, BUN 9, creatinine 0.61, glucose is 94, calcium is 8.4, total bilirubin is 7.8, AST is 159, ALT is 69, alkaline phosphatase is 213, albumin 1.9. AFP level is pending at this time. Coags dated 01/18/2017: PT 14, INR 1.3, PTT was 17.3. IMAGING STUDIES CT scan of the abdomen and pelvis with IV contrast indicates diffuse neoplastic infiltration of the liver which is similar when compared to the scans from early December of 2016, stable to worsened periportal and retroperitoneal adenopathy. Trace free fluid in the abdomen and pelvis with some new nodularity along the left peritoneal surface. No obvious obstruction or free air was appreciated. CT angiogram dated 01/07/2017 of the thorax indicates no evidence of pulmonary embolus. There is a new 1.7 cm mass-like opacity in the lower lateral left lung costophrenic angle. There is a 1.3 cm perigastric lymph nodes. It is unclear whether this represents malignancy or infectious/inflammatory process. Both of these findings are new compared to the prior CT angiogram dated September 2016. ASSESSMENT Mr. Barker is a 52-year-old male with a history of hepatitis C (now cleared), hepatic cirrhosis and alcoholism. In October 2016 he presented to one of the [facility] with abdominal pain and was noted to have diffuse liver infiltration with a neoplastic process. His imaging study findings and serum tumor markers and history was most consistent with hepatocellular carcinoma especially given the elevation in the alpha-fetoprotein levels. He was recommended by Dr. Carey to undergo first-line transarterial radial embolization of the measurable hepatic disease and this was performed in late November 2016. The patient was recommended initiation of systemic therapy with sorafenib versus nivolumab. This is yet to be initiated. He presents to the hospital with progressive abdominal pain. Imaging studies of his abdomen reports diffuse and multifocal infiltration with neoplastic process given the arterial enhancement diffusely present in the right and left hepatic lobe. He has enlarging retroperitoneal lymphadenopathy and in addition that has radiographic findings concerning for cholecystitis. RECOMMENDATIONS 1. Multifocal hepatocellular carcinoma: The patient is a candidate for palliative systemic therapy with sorafenib. I will defer to long-term / intermediate management to Dr. Carey. At present the patient ought to be continued on pain control and supportive care. He is undergoing a GI evaluation with a HIDA scan to rule out cholecystitis. 2. Continue symptom management. MD SANGITA Maki/AIDEN /11:04 AM /11:35 AM
--- NOTE | 2017-01-18 14:31 | RADRPT ---
EXAM DATE/TIME: 01/18/2017 12:09 [place] COMPARISON: CT ABDOMEN & PELVIS W CONTRAST, January 17, 2017, 12:24. INDICATIONS : Right upper quandrant pain x 3 days. History of liver cancer. DOSE: 4.3 mCi Tc99m Mebrofenin IV MEDICAL HISTORY : Carcinoma, hepatocellular. Hepatitis C. Hypertension. Smoker. SURGICAL HISTORY : Jaw. ENCOUNTER: Initial ACUITY: 3 days PAIN SCALE: 3/10 LOCATION: Right upper quadrant TECHNIQUE: Following the intravenous administration of radiotracer, dynamic sequential images were performed wit h continuous acquisition for total of 75 minutes. The study was terminated at that point at the requ est the patient due to severe discomfort.. FINDINGS: There is delayed uptake phase of radiotracer with persistent blood pool activity out to 40 minutes. Peak activity is not seen in the liver until 30 minutes. There is a large photopenic area in the vickie tral left lobe of the liver. Activity is 1st seen in the gallbladder at 40 minutes. There is also e vidence of vicarious excretion of radiotracer with activity present in the urinary bladder. CONCLUSION: 1. Visualization of gallbladder within the 1st hour excludes cystic duct obstruction. 2. Slow uptake of radiotracer in the hepatic vein with prolonged retention in the blood pool. Thi s is indicative of hepatocellular dysfunction. There is also a photopenic area in the central left l obe of the liver which corresponds to the hypodense [address] on [address]. Maury Adkins MD on January 18, 2017 at 14:26 Board Certified Radiologist. This report was verified electronically.
[2017-01-18 15:38] LABS: BLOOD, URINE NEG (NEG); COMMENT (UR) CULT NOT INDICATED; CULTURE IF INDICATED CULT NOT INDICATED; GLUCOSE,URINE NEG (NEG); KETONE, URINE NEG (NEG); MUCUS URINE FEW /lpf (OCC); NITRITE,URINE NEG (NEG)
[2017-01-18 15:41] LABS: URINE COLOR ORANGE (YELLW/STRAW)
[2017-01-19] VITALS (10 sets, daily range): BP systolic 140–155; BP diastolic 98–108; PULSE 101–116; RESP 18–20; TEMP 97–98.3; O2SAT 93–98
[2017-01-19] MEDS: HYDROmorphone HCL PF 1 MG/ML VIAL IV PRN ×2 (03:27→08:34)
[2017-01-19] MEDS: PROMETHAZINE HCL 25 MG TAB PO PRN (03:32)
[2017-01-19] MEDS: SIMETHICONE 125 MG CHEWABLE TAB PO SCH ×3 (06:07→21:06)
[2017-01-19] MEDS: SODIUM CHLOR 0.9% 1000 ML INJ 1,000 ML IV SCH ×2 (06:08→17:00)
[2017-01-19] MEDS: FAMOTIDINE 20 MG TAB PO SCH ×2 (08:34→21:06)
[2017-01-19] MEDS: HYDROCHLOROTHIAZIDE 25 MG TAB PO SCH (08:34)
[2017-01-19] MEDS: METOPROLOL TARTRATE 25 MG TAB PO SCH ×2 (08:34→21:07)
[2017-01-19] MEDS: METHYLNALTREXONE BROMIDE 12 MG/0.6 ML VIAL SQ SCH (08:35)
[2017-01-19] MEDS: CYPROHEPTADINE HCL 4 MG TAB PO SCH ×2 (08:35→21:06)
[2017-01-19] MEDS: POLYETHYLENE GLYCOL 17 GM PKG PO SCH (08:35)
[2017-01-19] MEDS: REMOVE OLD PATCH T-DERMAL SCH (08:35)
[2017-01-19] MEDS: NICOTINE 21 MG/24 HR PATCH T-DERMAL SCH (08:35)
[2017-01-19] MEDS: LIDOCAINE HCL 5% PATCH T-DERMAL SCH (08:44)
[2017-01-19] MEDS ORDERED: HYDROmorphone HCL PF 2 MG/ML VIAL IV PUSH PRN (12:15)
[2017-01-19] MEDS: HYDROmorphone HCL PF 2 MG/ML VIAL IV PUSH PRN ×5 (12:46→23:28)
[2017-01-19] MEDS: predniSONE 5 MG TAB PO SCH (12:51)
--- NOTE | 2017-01-19 12:51 | HHI.PR ---
Subjective Remarks Nursing denies any deterioration since last night. Patient himself says he is still hurting badly, says the pain only gets better to an 8/10 and says he is not leaving this place until his pain is gone or better . He says that the slow infusions are not working for him and that he wants to get IV pushes despite knowing he can't go home on IV pushes. States he keeps sweating profusely from his head and abdomen. Objective Vital Signs Date Time Temp Pulse Resp B/P (MAP) Pulse Ox O2 Delivery O2 Flow Rate FiO2 01/19/17 11:45 97.7 113 18 154/108 (123) 93 01/19/17 08:41 Room Air 01/19/17 08:28 97.6 116 18 148/106 (120) 97 01/19/17 08:14 103 01/19/17 04:09 106 01/19/17 04:01 108 18 96 01/19/17 03:56 97.0 140/98 (112) 01/19/17 00:07 101 01/19/17 00:00 18 01/18/17 23:28 97.7 106 20 156/98 (117) 94 01/18/17 20:20 Room Air 01/18/17 20:11 99.0 114 20 148/92 (110) 97 01/18/17 20:09 108 01/18/17 16:45 97.6 99 18 152/102 (119) 99 I/O 01/18/17 01/18/17 01/18/17 01/19/17 01/19/17 01/19/17 07:00 15:00 23:00 07:00 15:00 23:00 Intake Total 1190 ml 1080 ml 1515 ml Output Total 550 ml 850 ml 800 ml Balance 640 ml 230 ml 715 ml Intake Oral 240 ml 720 ml 480 ml IV Total 950 ml 360 ml 1035 ml Output Urine Total 550 ml 850 ml 800 ml # Bowel Movements 0 Result Diagram: 01/17/17 1105 01/18/17 0650 Objective Remarks Lying in bed, no acute distress When he sits up he appears to be common distress until he stabilizes himself by leaning forward in a sitting position still Has exquisite tenderness to palpation over the right upper quadrant, abdomen is slightly distended A/P Assessment and Plan 52-year-old white male being admitted for worsening, now intractable abdominal pain. history of hepatocellular carcinoma with metastases Intractable abdominal pain - per pt now is not controlled - likely multifactorial, from worsening periportal and retroperitoneal adenopathy - metastases, acute hepatic inflammation, partial portal vein thrombosis and/or primary or secondary Cholecystitis. - see blow. D/w oncology, will consult palliative care since pt's pain is not controlled. Need to elucidate goals of care since he has pretty extensive mets. Acute transaminitis - HIDA scan appears to show functional gallbladder but will let GI review it. bilirubin still elevated but somewhat improved - Continue simethicone for possible excess colonic gas, relistor for narcotic- induced constipation - IV dilaudid slow infusion + home oxycodone by mouth - monitor resp status Partial thrombosis of portal vein - likely predisposing cause is hepatocellular carcinoma, no clear data showing benefit per oncology to anticoagulate sinus Tachycardia --intermittent, 2/2 pain nausea - 2/2 pain, see above. Zofran prn. Hyponatremia - chronic, will stop IVFs Lovepriy[employer] Lavon Rosario MD Jan 19, 2017 12:51
[2017-01-19 13:19] LABS: ALKALINE PHOSPHATASE 194 U/L (45-117); TOTAL BILIRUBIN ADULT 9.7 MG/DL (0.2-1.0)
[2017-01-19 13:20] LABS: ALT (GPT) 64 U/L (12-78); ANION GAP 9 MEQ/L (5-15); AST (GOT) 164 U/L (15-37); BICARBONATE 24.8 MEQ/L (21.0-32.0); BLOOD UREA NITROGEN 11 MG/DL (7-18); CHLORIDE 95 MEQ/L (98-107); GLOMERULAR FILTRATION RATE 131 ML/MIN (>89); POTASSIUM 3.9 MEQ/L (3.5-5.1); SODIUM (NA) 129 MEQ/L (136-145)
--- NOTE | 2017-01-19 14:31 | PD.ONC.PN ---
Subjective Subjective Remarks Afebrile overnight. Patient continuing to have severe pain in right upper quadrant. Pain improved with IV Dilaudid. Objective Data Date Time Temp Pulse Resp B/P (MAP) Pulse Ox O2 Delivery O2 Flow Rate FiO2 01/19/17 11:45 97.7 113 18 154/108 (123) 93 01/19/17 08:41 Room Air 01/19/17 08:28 97.6 116 18 148/106 (120) 97 01/19/17 08:14 103 01/19/17 04:09 106 01/19/17 04:01 108 18 96 01/19/17 03:56 97.0 140/98 (112) 01/19/17 00:07 101 01/19/17 00:00 18 01/18/17 23:28 97.7 106 20 156/98 (117) 94 01/18/17 20:20 Room Air 01/18/17 20:11 99.0 114 20 148/92 (110) 97 01/18/17 20:09 108 01/18/17 16:45 97.6 99 18 152/102 (119) 99 01/19/17 01/19/17 01/19/17 07:00 15:00 23:00 Intake Total 1515 ml Output Total 800 ml Balance 715 ml Result Diagram: 01/17/17 1105 01/19/17 1134 Laboratory Results Laboratory Tests Test 01/18/17 15:15 01/18/17 16:31 01/19/17 11:34 Urine Color ORANGE Urine Turbidity CLEAR Urine pH 6.0 Urine Specific [place] 1.024 Urine Protein NEG mg/dL Urine Glucose (UA) NEG mg/dL Urine Ketones NEG mg/dL Urine Occult Blood NEG Urine Nitrite NEG Urine Bilirubin MOD Urine Urobilinogen 8.0 MG/DL Urine Leukocyte Esterase NEG Urine RBC 1 /hpf Urine WBC 1 /hpf Urine Mucus FEW /lpf Microscopic Urinalysis Comment CULT NOT INDICATED Tumor Marker Alpha Fetoprotein GREATER THAN 1000.0 NG/ML Blood Urea Nitrogen 11 MG/DL Creatinine 0.64 MG/DL Random Glucose 110 MG/DL Total Protein 7.7 GM/DL Albumin 1.9 GM/DL Calcium Level 8.4 MG/DL Alkaline Phosphatase 194 U/L Aspartate Amino Transf (AST/SGOT) 164 U/L Alanine Aminotransferase (ALT/SGPT) 64 U/L Total Bilirubin 9.7 MG/DL Sodium Level 129 MEQ/L Potassium Level 3.9 MEQ/L Chloride Level 95 MEQ/L Carbon Dioxide Level 24.8 MEQ/L Anion Gap 9 MEQ/L Estimat Glomerular Filtration Rate 131 ML/MIN Administered Medications Medications (Trade) Dose Ordered Sig/Ivis Route PRN Reason Start Time Stop Time Status Last Admin Dose Admin Sodium Chloride (NS Flush) 2 ml UNSCH PRN IV FLUSH FLUSH AFTER USING IV ACCESS 01/17/17 11:30 01/17/17 20:39 Metoprolol Tartrate (Lopressor) 25 mg BID PO 01/17/17 21:00 01/19/17 08:34 Oxycodone HCl (Roxicodone) 40 mg Q4H PRN PO PAIN 01/17/17 16:00 01/19/17 11:41 Famotidine (Pepcid) 20 mg BID PO 01/17/17 21:00 01/19/17 08:34 Simethicone (Phazyme Chew) 125 mg Q8HR PO 01/17/17 16:00 01/19/17 06:07 Hydrochlorothiazide (Hydrodiuril) 25 mg DAILY PO 01/17/17 16:00 01/19/17 08:34 Methylnaltrexone [place] (Relistor Inj) 12 mg DAILY SQ 01/17/17 16:00 01/17/17 16:59 Sodium Chloride 1,000 ml @ 100 mls/hr Q10H IV 01/17/17 15:30 01/19/17 06:08 Cyproheptadine HCl (Periactin) 4 mg BID PO 01/17/17 21:00 01/19/17 08:35 Promethazine HCl (Phenergan) 12.5 mg Q4H PRN PO nausea 01/17/17 17:30 01/19/17 03:32 Nicotine (Habitrol 21 Mg Patch.24 Hr) 1 patch DAILY T-DERMAL 01/18/17 09:30 01/19/17 08:35 Miscellaneous Information 1 DAILY T-DERMAL 01/19/17 09:00 01/19/17 08:35 Prednisone (Deltasone) 15 mg DAILY PO 01/19/17 12:00 01/19/17 12:51 Hydromorphone HCl (Dilaudid Pf Inj) 2 mg Q2H PRN IV PUSH pain unrelieved with PO meds 01/19/17 12:30 01/19/17 12:46 Objective Remarks GENERAL: Middle aged male supine in bed resting. SKIN: Warm and dry. HEAD: Normocephalic. EYES: No injection or drainage. NECK: Supple, trachea midline. CARDIOVASCULAR: +S1/S2, tachy RESPIRATORY: anterior [place] clear. GASTROINTESTINAL: Abdomen distended, tender to palpation, RUQ. EXTREMITIES: No cyanosis NEUROLOGICAL: awake and alert, normal speech. moving all extremities. Assessment/Plan Assessment 52y/o male with Multifocal hepatocellular carcinoma admitted with intractable abdominal pain. Plan 1. patient will need long-acting pain meds. discussed with palliative care who plans to start him on Oxycontin and continue IV dilaudid for breakthrough pain. 2. resume Prednisone at 15mg PO daily. 3. We will need to start the patient on Sorafenib 400mg PO BID as soon as possible. Patient's pain is likely due to both liver masses and enlarging retroperitoneal lymph nodes. I have called Shirin Jaimes to ask for her assistance with obtaining Sorafenib. (can be started outpatient) 4. patient can be discharged once pain is controlled. Nany Hamilton Jan 19, 2017 14:31 Yosef Carey MD Jan 20, 2017 22:06
[2017-01-19] MEDS ORDERED: HYDROmorphone HCL PF 1 MG/ML VIAL IV PUSH PRN (14:45)
--- NOTE | 2017-01-19 14:45 | HHI.GIFU ---
Subjective Remarks Pt sitting up in bed. Complaining of continued RUQ abdominal pain, receives short term relief with IV pain medication. Currently on full liquid diet, reports decreased appetite, nausea, vomiting. BM yesterday. Objective Vitals I&O Vital Signs Date Time Temp Pulse Resp B/P (MAP) Pulse Ox O2 Delivery O2 Flow Rate FiO2 01/19/17 11:45 97.7 113 18 154/108 (123) 93 01/19/17 08:41 Room Air 01/19/17 08:28 97.6 116 18 148/106 (120) 97 01/19/17 08:14 103 01/19/17 04:09 106 01/19/17 04:01 108 18 96 01/19/17 03:56 97.0 140/98 (112) 01/19/17 00:07 101 01/19/17 00:00 18 01/18/17 23:28 97.7 106 20 156/98 (117) 94 01/18/17 20:20 Room Air 01/18/17 20:11 99.0 114 20 148/92 (110) 97 01/18/17 20:09 108 01/18/17 16:45 97.6 99 18 152/102 (119) 99 I/O 01/18/17 01/18/17 01/18/17 01/19/17 01/19/17 01/19/17 07:00 15:00 23:00 07:00 15:00 23:00 Intake Total 1190 ml 1080 ml 1515 ml Output Total 550 ml 850 ml 800 ml Balance 640 ml 230 ml 715 ml Intake Oral 240 ml 720 ml 480 ml IV Total 950 ml 360 ml 1035 ml Output Urine Total 550 ml 850 ml 800 ml # Bowel Movements 0 Laboratory Laboratory Tests Test 01/18/17 15:15 01/18/17 16:31 01/19/17 11:34 Urine Color ORANGE Urine Turbidity CLEAR Urine pH 6.0 Urine Specific Raymond 1.024 Urine Protein NEG Urine Glucose (UA) NEG Urine Ketones NEG Urine Occult Blood NEG Urine Nitrite NEG Urine Bilirubin MOD Urine Urobilinogen 8.0 Urine Leukocyte Esterase NEG Urine RBC 1 Urine WBC 1 Urine Mucus FEW Microscopic Urinalysis Comment CULT NOT INDICATED Tumor Marker Alpha Fetoprotein GREATER THAN 1000.0 Blood Urea Nitrogen 11 Creatinine 0.64 Random Glucose 110 Total Protein 7.7 Albumin 1.9 Calcium Level 8.4 Alkaline Phosphatase 194 Aspartate Amino Transf (AST/SGOT) 164 Alanine Aminotransferase (ALT/SGPT) 64 Total Bilirubin 9.7 Sodium Level 129 Potassium Level 3.9 Chloride Level 95 Carbon Dioxide Level 24.8 Anion Gap 9 Estimat Glomerular Filtration Rate 131 Imaging Last Impressions Hepatobiliary Scan Nuclear Medicine 01/18/17 0000 Signed Impressions: Service Date/Time: Wednesday, January 18, 2017 12:09 - CONCLUSION: 1. Visualization of gallbladder within the 1st hour excludes cystic duct obstruction. 2. Slow uptake of radiotracer in the hepatic vein with prolonged retention in the blood pool. This is indicative of hepatocellular dysfunction. There is also a photopenic area in the central left lobe of the liver which corresponds to the hypodense 6 cm mass seen on CT. Maury Adkins MD Abdomen/Pelvis CT 01/17/17 [id number] Signed Impressions: Service Date/Time: Tuesday, January 17, 2017 12:24 - CONCLUSION: 1. Diffuse neoplastic infiltration of the liver similar to December 3. Stable to worsened periportal and retroperitoneal adenopathy. 2. Trace free fluid in the abdomen and pelvis with some new nodularity along the left peritoneal surface. 3. No bowel obstruction or free air. Donaldo Braga MD Gall Bladder Ultrasound 01/17/17 0000 Signed Impressions: Service Date/Time: Tuesday, January 17, 2017 16:11 - CONCLUSION: 1. Gallbladder wall is diffusely thickened measuring in excess of 10 mm. No gallstones seen however. 2. Common bile duct is mildly dilated at 9 mm. 3. Multiple solid masses in the enlarged liver measuring up to 5.[address] Angiography 01/17/17 0000 Signed Impressions: Service Date/Time: Tuesday, January 17, 2017 20:00 - CONCLUSION: 1. The study is negative for pulmonary embolism. 2. There is a new 1.7 cm masslike opacity in the lower lateral left lung costophrenic angle and there is a new 1.3 cm perigastric lymph node. Cannot differentiate between malignancy and infectious/inflammatory process; but both of these findings are new compared to a prior CT pulmonary angiogram in September 2016. Maury Adkins MD Physical Exam HEENT: Normocephalic; atraumatic; no jaundice. CHEST: CTA CARDIAC: RRR ABDOMEN: Distended, Diffuse TTP, worse at RUQ; hepatomegaly EXTREMITIES: No clubbing, cyanosis, or edema. SKIN: Normal; no rash; no jaundice. KNOCKER OUT: No focal deficits; alert and oriented times three. Assessment and Plan Plan ASSESSMENT: - Abdominal pain, multifactorial. Patient with known diagnosis of stage 4 hepatocellular carcinoma, diagnosed in September followed by the [facility], received Y-90 treatment, he is unsure when, states he is due for another soon. Followed by Oncology. CT Abdomen/Pelvis 01/17/17--1. Diffuse neoplastic infiltration of the liver similar to December 3. Stable to worsened periportal and retroperitoneal adenopathy. 2. Trace free fluid in the abdomen and pelvis with some new nodularity along the left peritoneal surface. 3. No bowel obstruction or free air. Gallbladder US 01/17/17--1. Gallbladder wall is diffusely thickened measuring in excess of 10 mm. No gallstones seen however. 2. Common bile duct is mildly dilated at 9 mm. 3. Multiple solid masses in the enlarged liver measuring up to 5.9 cm. HIDA scan (01/17/17) --> Visualization of the gallbladder within the 1st hour excludes cystic duct obstruction. Slow uptake of radiotracer in the hepatic vein with prolonged retention in the blood pool. This is indicative of hepatocellular dysfunction. There is also a photopenic area in the central left lobe of the liver which corresponds to the hypodense [address] Reports continued RUQ abdominal pain, nausea, vomiting, and decreased appetite. - Elevated LFTs and Hyperbilirubinemia- CT abdomen, US gallbladder, and HIDA scan as above. Currently AST-164 ALT-64 Tbili-9.7 Alk Phos- 194. HIDA scan ruled out cholecystitis and showed no gallstones. Will do MRCP to rule out choledocholithiasis. - Constipation- Reports BM yesterday, but states will go days without having BM. Dilaudid and Oxycodone. Pt refused Miralax. Consider Relistor if constipation continues to be issue. - History of hepatitis C- reports he received treatment and cleared the virus approx 3-4 years ago PLAN: - MRCP - Full liquid diet - Monitor labs - Pain control - Anti-emetics - Supportive care - Further recommendations to follow based on results of above Patient seen and examined by Dr. Cardenas and myself and this note is written on her behalf Disha Gonzalez Jan 19, 2017 14:45
--- NOTE | 2017-01-19 16:44 | PD.CONS ---
Consult Service Palliative Care Consult Requested By Dr. Rosario . Primary Care Physician [facility] . Reason for Consultation a. To assist with evaluation and management of symptoms including: Pain b. To assist medical decision maker(s) with: better understanding of current medical conditions; weighing benefits/burdens of medical treatment options; making medical treatment decisions. . HPI History of Present Illness This 52-year-old male, with underlying cirrhosis, hypertension, daily alcohol use, chronic back/neck pain, and a history of hepatitis C, initially presented to the hospital on 10/06/16 because of abdominal pain and weakness. CT scan revealed findings consistent with malignancy, and alpha-fetoprotein was 219 at that time. A biopsy was reported as poorly differentiated adenocarcinoma, and further studies found it to be most consistent with hepatocellular carcinoma. The patient subsequently was seen back at the [place], but referred back to [place] for further treatment the following month. In October, his alpha-fetoprotein was up to 498. The patient reports that he has lost significant muscle mass over the past couple months, and that his abdomen has become increasingly more distended. On 12/23/16, the patient underwent embolization via radioactive yttrium in the right hepatic artery, and there was a plan to proceed with the left side 2 or 3 weeks later. Plans were being made for possible systemic treatment with sorafenib. However, the patient developed markedly worse pain and was admitted to the hospital here from 12/26-12/28/16 for pain management, and he was sent home on OxyContin 40 mg every 8 hours, and PRN oxycodone, as well as 20 mg of prednisone. He improved for a few days, but then presented here again on because of worsening pain. The pain had a dull constant component, but then had sharp stabbing pains in the right lower chest and right flank that seemed to be worse with coughing or deep breaths. Since admission here, he has been receiving PRN oxycodone 40 mg every 4 hours to a total of 200 mg in the past 24 hours, and parenteral Dilaudid 2 mg to a total of 10 mg in the past 24 hours. The patient continued to have pain, and Palliative Care was consulted to assist with symptom management, and to further clarify goals of care. . Function/Cognitive Trajectory The patient was functioning independently prior to this admission. . Review of Systems Constitutional: COMPLAINS OF: Weight loss, DENIES: Fever Endocrine: DENIES: Polyuria Ears, nose, mouth, throat: DENIES: Hearing loss, Hoarseness, Epistaxis Respiratory: DENIES: Cough, Shortness of breath Cardiovascular: COMPLAINS OF: Chest pain (right lower), DENIES: Dyspnea on Exertion, Lower Extremity Edema Gastrointestinal: DENIES: Bloody stools, Constipation, Diarrhea, Vomiting, Vomiting blood Genitourinary: DENIES: Hematuria Musculoskeletal: COMPLAINS OF: Back pain (chronic), Neck pain (chronic) Integumentary: DENIES: Abnormal pigmentation Hematologic/Lymphatics: DENIES: Bruising Immunologic/Allergic: DENIES: Urticaria Neurologic: DENIES: Localized weakness, Seizures Psychiatric: COMPLAINS OF: Depression, DENIES: Hallucinations, Agitation Past Family Social History Coded Allergies: codeine (Verified Adverse Reaction, Mild, 01/17/17) bothers stomach Past Medical History Carcinoma in the liver stage IV: Poorly differentiated non-small cell cancer favoring adenocarcinoma per liver biopsy results Chronic tobacco abuse Prior history of alcohol abuse Hypertension Liver cirrhosis Portal hypertension Hepatitis C GERD Chronic back pains and neck pains requiring muscle relaxants Past Surgical History Y 90 embolization of liver Colonoscopy Multiple left ankle surgeries Reported Medications Reported Meds & Active Scripts Active Prednisone 10 Mg Tab 20 Mg PO DAILY Reported Miralax Powder (Polyethylene Glycol 3350 Powder) 17 Gm Powd 17 Gm PO DAILY Mix and dissolve one measuring cap-ful (17 grams) in water or juice. Oxycodone (Oxycodone HCl) 10 Mg Tab 40 Mg PO Q4H PRN OxyContin 40 mg every 8 hours Hydrochlorothiazide 25 Mg Tab 25 Mg PO DAILY Flexeril (Cyclobenzaprine HCl) 7.5 Mg Tab 7.5 Mg PO TID Metoprolol Tartrate 25 Mg Tab 25 Mg PO BID B-12 (Cyanocobalamin (Vitamin B-12)) 1,000 Mcg Tablet 1 Tab PO DAILY Ranitidine (Ranitidine HCl) 300 Mg Tab 300 Mg PO HS . Current Medications Medications (Trade) Dose Ordered Sig/Ivis Route Start Time Stop Time Status Last Admin (NS Flush) 2 ml UNSCH PRN IV FLUSH 01/17/17 11:30 01/17/17 20:39 (Lopressor) 25 mg BID PO 01/17/17 21:00 01/19/17 08:34 (Pepcid) 20 mg BID PO 01/17/17 21:00 01/19/17 08:34 (Phazyme Chew) 125 mg Q8HR PO 01/17/17 16:00 01/19/17 15:42 (Hydrodiuril) 25 mg DAILY PO 01/17/17 16:00 01/19/17 08:34 (Miralax) 17 gm DAILY PO 01/17/17 16:00 (Relistor Inj) 12 mg DAILY SQ 01/17/17 16:00 01/17/17 16:59 Sodium Chloride 1,000 ml @ 100 mls/hr Q10H IV 01/17/17 15:30 01/19/17 06:08 (Periactin) 4 mg BID PO 01/17/17 21:00 01/19/17 08:35 (Phenergan) 12.5 mg Q4H PRN PO 01/17/17 17:30 01/19/17 03:32 (Habitrol 21 Mg Patch.24 Hr) 1 patch DAILY T-DERMAL 01/18/17 09:30 01/19/17 08:35 Miscellaneous Information 1 DAILY T-DERMAL 01/19/17 09:00 01/19/17 08:35 (Deltasone) 15 mg DAILY PO 01/19/17 12:00 01/19/17 12:51 (Dilaudid Pf Inj) 2 mg Q2H PRN IV PUSH 01/19/17 12:30 01/19/17 12:46 (OxyCONTIN CR) 80 mg Q8HR PO 01/19/17 22:00 (Dilaudid Pf Inj) 1 mg Q2H PRN IV PUSH 01/19/17 14:45 Family History The patient's father at age 60 of complications of diabetes, and his mother at age 49 of an intracranial hemorrhage. . Substance Use Tobacco: Long-term 1 pack per day cigarette smoker. Alcohol: 6-8 beers per day plus some scotch for many years, but quit a couple months ago. Prescription med abuse: None Illicits: Reportedly occasional marijuana . Psychosocial History The patient was born in the [place] area and moved here couple years ago. He lives with his . He worked "in [employer]" until his neck and back pain caused enough disability 3 or 4 years ago that he could no longer work. He says he is about 70% service-connected disabled, and he receives his self care at the [place]. Currently in second marriage for about 20 years. He has one son who lives in [place]. The patient is a of the [employer], discharged in 1986. . Spiritual/Cultural Factors The patient reports he is a fistula and a believer, but he is on affiliated with any particular voodoo or clergy at this time. He is open to addiction specialist visits. . Living Will: Never completed Health Care Surrogate: Never completed Durable Power of Head Bookkeeper: Never completed Today's verbally stated goals: The patient's main goal is to get the pain under control; secondarily, he is hoping to get started on the sorafenib VIOLETTE. . Ethical and Legal Issues There are no ethical issues that would impact his care or decision-making at this time. The patient has capacity for decision-making at this time. When he loses that capacity, his will be the proxy decision-maker. . Physical Exam Vital Signs Date Time Temp Pulse Resp B/P (MAP) Pulse Ox O2 Delivery O2 Flow Rate FiO2 01/19/17 15:43 97.8 109 18 155/101 (119) 98 01/19/17 11:45 97.7 113 18 154/108 (123) 93 01/19/17 08:41 Room Air 01/19/17 08:28 97.6 116 18 148/106 (120) 97 01/19/17 08:14 103 01/19/17 04:09 106 01/19/17 04:01 108 18 96 01/19/17 03:56 97.0 140/98 (112) 01/19/17 00:07 101 01/19/17 00:00 18 01/18/17 23:28 97.7 106 20 156/98 (117) 94 01/18/17 20:20 Room Air 01/18/17 20:11 99.0 114 20 148/92 (110) 97 01/18/17 20:09 108 01/18/17 16:45 97.6 99 18 152/102 (119) 99 Exam CONSTITUTIONAL/GENERAL: This is a thin patient, in mild to moderate distress from pain. TUBES/LINES/DRAINS: Peripheral IV SKIN: No jaundice, rashes, or lesions. Ecchymoses on upper extremities. No wounds seen anteriorly. Skin temperature appropriate. Not diaphoretic. HEAD: Atraumatic. Normocephalic. EYES: Pupils equal and round and reactive. Extraocular motions intact. No scleral icterus. No injection or drainage. Fundi not examined. ENT: Hearing grossly normal. Nose without bleeding or purulent drainage. Throat without visible erythema, exudates, masses, or lesions. NECK: Trachea midline. Supple, nontender. No palpable thyroid enlargement or nodularity. CARDIOVASCULAR: Regular rate and rhythm without murmurs, gallops, or rubs. No JVD. Peripheral pulses symmetric. RESPIRATORY/CHEST: Symmetric, unlabored respirations. Clear to auscultation. Breath sounds equal bilaterally. No wheezes, rales, or rhonchi. GASTROINTESTINAL: Abdomen soft, but moderately distended. There is mild tenderness to palpation at the liver edge 4 cm below the RCM. No hepato- splenomegaly, or palpable masses. No guarding. Bowel sounds present. GENITOURINARY: Without palpable bladder distension. MUSCULOSKELETAL: Extremities without clubbing, cyanosis, or edema. No joint tenderness or effusion noted. No calf tenderness. No mottling or clubbing. LYMPHATICS: No palpable cervical or supraclavicular adenopathy. NEUROLOGICAL: Awake and alert. Motor and sensory grossly within normal limits. Follows commands. Cognitively sharp. Moves all extremities. PSYCHIATRIC: No obvious anxiety/depression. no apparent hallucinations or other psychotic thought process. . Diagnostic Tests Laboratory Laboratory Tests Test 01/17/17 11:05 01/18/17 06:50 01/18/17 15:15 01/18/17 16:31 White Blood Count 9.7 TH/MM3 (4.0-11.0) Red Blood Count 5.42 MIL/MM3 (4.50-5.90) Hemoglobin 17.7 GM/DL (13.0-17.0) Hematocrit 51.6 % (39.0-51.0) Mean Corpuscular Volume 95.2 FL (80.0-100.0) Mean Corpuscular Hemoglobin 32.7 PG (27.0-34.0) Mean Corpuscular Hemoglobin Concent 34.4 % (32.0-36.0) Red Cell Distribution Width 16.5 % (11.6-17.2) Platelet Count 242 TH/MM3 (150-450) Mean Platelet Volume 9.3 FL (7.0-11.0) Neutrophils (%) (Auto) 88.8 % (16.0-70.0) Lymphocytes (%) (Auto) 5.0 % (9.0-44.0) Monocytes (%) (Auto) 5.1 % (0.0-8.0) Eosinophils (%) (Auto) 0.6 % (0.0-4.0) Basophils (%) (Auto) 0.5 % (0.0-2.0) Neutrophils # (Auto) 8.6 TH/MM3 (1.8-7.7) Lymphocytes # (Auto) 0.5 TH/MM3 (1.0-4.8) Monocytes # (Auto) 0.5 TH/MM3 (0-0.9) Eosinophils # (Auto) 0.1 TH/MM3 (0-0.4) Basophils # (Auto) 0.0 TH/MM3 (0-0.2) CBC Comment DIFF FINAL Differential Comment Prothrombin Time 16.0 SEC (9.8-11.6) 14.0 SEC (9.8-11.6) Prothromb Time International Ratio 1.4 RATIO 1.3 RATIO Activated Partial Thromboplast Time 27.3 SEC (24.3-30.1) Blood Urea Nitrogen 10 MG/DL (7-18) 9 MG/DL (7-18) Creatinine 1.08 MG/DL (0.60-1.30) 0.61 MG/DL (0.60-1.30) Random Glucose 128 MG/DL (74-106) 94 MG/DL (74-106) Total Protein 10.3 GM/DL (6.4-8.2) 8.0 GM/DL (6.4-8.2) Albumin 2.6 GM/DL (3.4-5.0) 1.9 GM/DL (3.4-5.0) Calcium Level 9.6 MG/DL (8.5-10.1) 8.4 MG/DL (8.5-10.1) Alkaline Phosphatase 319 U/L (45-117) 213 U/L (45-117) Aspartate Amino Transf (AST/SGOT) 233 U/L (15-37) 159 U/L (15-37) Alanine Aminotransferase (ALT/SGPT) 104 U/L (12-78) 69 U/L (12-78) Total Bilirubin 10.2 MG/DL (0.2-1.0) 7.8 MG/DL (0.2-1.0) Sodium Level 129 MEQ/L (136-145) 128 MEQ/L (136-145) Potassium Level 4.3 MEQ/L (3.5-5.1) 3.9 MEQ/L (3.5-5.1) Chloride Level 89 MEQ/L (98-107) 94 MEQ/L (98-107) Carbon Dioxide Level 30.0 MEQ/L (21.0-32.0) 26.3 MEQ/L (21.0-32.0) Anion Gap 10 MEQ/L (5-15) 8 MEQ/L (5-15) Estimat Glomerular Filtration Rate 72 ML/MIN (>89) 138 ML/MIN (>89) Lipase 218 U/L (73-393) Urine Color ORANGE (YELLW/STRAW) Urine Turbidity CLEAR (CLEAR) Urine pH 6.0 (5.0-8.5) Urine Specific Bassett 1.024 (1.002-1.035) Urine Protein NEG mg/dL (NEG-TRACE) Urine Glucose (UA) NEG mg/dL (NEG) Urine Ketones NEG mg/dL (NEG) Urine Occult Blood NEG (NEG) Urine Nitrite NEG (NEG) Urine Bilirubin MOD (NEG) Urine Urobilinogen 8.0 MG/DL (LESS THAN Urine Leukocyte Esterase NEG (NEG) Urine RBC 1 /hpf (0-3) Urine WBC 1 /hpf (0-5) Urine Mucus FEW /lpf (OCC) Microscopic Urinalysis Comment CULT NOT INDICATED Tumor Marker Alpha Fetoprotein GREATER THAN 1000.0 NG/ML Test 01/19/17 11:34 Blood Urea Nitrogen 11 MG/DL (7-18) Creatinine 0.64 MG/DL (0.60-1.30) Random Glucose 110 MG/DL (74-106) Total Protein 7.7 GM/DL (6.4-8.2) Albumin 1.9 GM/DL (3.4-5.0) Calcium Level 8.4 MG/DL (8.5-10.1) Alkaline Phosphatase 194 U/L (45-117) Aspartate Amino Transf (AST/SGOT) 164 U/L (15-37) Alanine Aminotransferase (ALT/SGPT) 64 U/L (12-78) Total Bilirubin 9.7 MG/DL (0.2-1.0) Sodium Level 129 MEQ/L (136-145) Potassium Level 3.9 MEQ/L (3.5-5.1) Chloride Level 95 MEQ/L (98-107) Carbon Dioxide Level 24.8 MEQ/L (21.0-32.0) Anion Gap 9 MEQ/L (5-15) Estimat Glomerular Filtration Rate 131 ML/MIN (>89) Result Diagram: 01/17/17 1105 01/19/17 1134 Imaging Last Impressions Hepatobiliary Scan Nuclear Medicine 01/18/17 0000 Signed Impressions: Service Date/Time: Wednesday, January 18, 2017 12:09 - CONCLUSION: 1. Visualization of gallbladder within the 1st hour excludes cystic duct obstruction. 2. Slow uptake of radiotracer in the hepatic vein with prolonged retention in the blood pool. This is indicative of hepatocellular dysfunction. There is also a photopenic area in the central left lobe of the liver which corresponds to the hypodense 6 cm mass seen on CT. Maury Adkins MD Abdomen/Pelvis CT 01/17/17 1126 Signed Impressions: Service Date/Time: Tuesday, January 17, 2017 12:24 - CONCLUSION: 1. Diffuse neoplastic infiltration of the liver similar to December 3. Stable to worsened periportal and retroperitoneal adenopathy. 2. Trace free fluid in the abdomen and pelvis with some new nodularity along the left peritoneal surface. 3. No bowel obstruction or free air. Donaldo Braga MD Gall Bladder Ultrasound 01/17/17 0000 Signed Impressions: Service Date/Time: Tuesday, January 17, 2017 16:11 - CONCLUSION: 1. Gallbladder wall is diffusely thickened measuring in excess of 10 mm. No gallstones seen however. 2. Common bile duct is mildly dilated at 9 mm. 3. Multiple solid masses in the enlarged liver measuring up to 5.[address] Angiography 01/17/17 0000 Signed Impressions: Service Date/Time: Tuesday, January 17, 2017 20:00 - CONCLUSION: 1. The study is negative for pulmonary embolism. 2. There is a new 1.7 cm masslike opacity in the lower lateral left lung costophrenic angle and there is a new 1.3 cm perigastric lymph node. Cannot differentiate between malignancy and infectious/inflammatory process; but both of these findings are new compared to a prior CT pulmonary angiogram in September 2016. Maury Adkins MD Patient/Family Conference Present at Family Conference: Present with the patient and me was Dr. Cora Nicholson. . Family Conference Time (mins): 36 Family Conference Location: Bedside Issues Discussed: * Palliative care role, purpose, approach * Additional medical, psychosocial, and spiritual history * Patients general health, functional status, and cognitive changes in the months leading up to the current hospitalization * Patient/family understanding of the current medical problems * Patient/family understanding of prognosis * Patients goals of care as best understood from advance directives and/or conversations and/or values * Current medical treatment options and benefits/burdens of those options * Likely scenarios comparing ongoing aggressive care with a transition to comfort measures only * Questions answered to the best of my ability * Palliative care contact information provided . Assessment and Plan Disease Oriented Problem List: (1) uncontrolled pain Comment: Most likely due to the tumor burden, and particular the increasingly large areas of adenopathy including in the retroperitoneum and perigastric areas (2) metastatic hepatocellular carcinoma (3) hepatic cirrhosis (4) history of daily alcohol use (5) history of hepatitis C (6) hypertension (7) hyperlipidemia (8) depression (9) GERD (10) chronic neck/back pain for several years Symptom Scale: (1) pain 0-10 Scale: 6 Pertinent Non-Medical Issues Psychosocial: Originally from [place], lives with , has one son in [place]. Former telecommunications worker, now on disability. Spiritual: Unaffiliated [employer] Zoroastrianism, open to addiction specialist visits. Legal: The patient has capacity for decision-making. His will be the healthcare proxy if he loses that capacity. Ethical issues impacting care: None . Important Contacts Spouse: Alethea [phone] . Prognosis This patient is likely terminal, with weeks or months to live depending on his response to further treatment. . Code Status: Full Code Plan * FULL CODE - the patient says he would want to be on life support "for a few days, but not hanging on for a month." He reports that his knows that she is to remove him from life support if it "goes on and on." * GOALS: The patient's main goal is to get the pain under control; secondarily , he is hoping to get started on the sorafenib VIOLETTE. * DECISION-MAKING: The patient has capacity for decision-making. His will be the healthcare proxy if he loses that capacity. * SYMPTOMS: * PAIN: He had been on 40 mg OxyContin and 40 mg plain oxycodone at home, and has received 200 mg of oral oxycodone and 10 mg of parenteral Dilaudid over the past 24 hours; he is still having significant pain and shows no signs of sedation or opiate toxicity. I believe he will do better on a long-acting opiate, and I have written orders to begin OxyContin 80 mg every 8 hours, continuing to use the parenteral Dilaudid as the breakthrough opiate. He will also continue on the prednisone which was restarted today. * Palliative Care will continue to follow the patient during this hospitalization. . Time Spent Total Floor Time (mins): 76 Face to Face Time (mins): 42 >50% Counseling/Coord of Care: Yes (D/W Can Hamilton PA-C) Thank you for the opportunity to participate in the care of Mr. Barker. Attestation To help prompt me to consider important information that might be impacting today's encounter and assessment, information from prior notes written by myself or my colleagues may have been "brought forward" into today's note. My signature on this note, however, is an attestation that I personally performed the exam, history, and/or decision-making noted today, and, unless otherwise indicated, the interactions with patient, family, and staff as well as the review of records all occurred today. I also attest that the listed assessment and stated plan reflect my best clinical judgment today based on the combination of historical information, prior notes, and today's exam/ interactions. When time spent is documented, it refers only to time spent today by the signer, or if indicated, combined time spent today by collaborating physician/nurse practitioner. Thalia Solano MD Jan 19, 2017 16:44
[2017-01-19] MEDS: SODIUM CHLORIDE 0.9% FLUSH 10 ML FLUSH IV FLUSH PRN (21:08)
[2017-01-19] MEDS: oxyCODONE HCL 80 MG CONTROLLED RELEASE TAB PO SCH (22:11)
[2017-01-20] VITALS (7 sets, daily range): BP systolic 136–155; BP diastolic 90–105; PULSE 90–123; RESP 16–20; TEMP 97.8–98.8; O2SAT 94–97
[2017-01-20] MEDS: SODIUM CHLOR 0.9% 1000 ML INJ 1,000 ML IV SCH ×2 (04:06→16:50)
[2017-01-20] MEDS: HYDROmorphone HCL PF 2 MG/ML VIAL IV PUSH PRN ×7 (04:07→23:55)
[2017-01-20] MEDS: SODIUM CHLORIDE 0.9% FLUSH 10 ML FLUSH IV FLUSH PRN (04:08)
[2017-01-20] MEDS: SIMETHICONE 125 MG CHEWABLE TAB PO SCH ×3 (05:35→21:49)
[2017-01-20] MEDS: oxyCODONE HCL 80 MG CONTROLLED RELEASE TAB PO SCH ×3 (05:36→21:49)
[2017-01-20 06:46] LABS: AUTOMATED NEUTROPHIL # 8.3 TH/MM3 (1.8-7.7); BASOPHIL # 0.1 TH/MM3 (0-0.2); BASOPHIL % 0.9 % (0.0-2.0); EOSINOPHIL # 0.1 TH/MM3 (0-0.4); EOSINOPHIL % 1.2 % (0.0-4.0); HEMATOCRIT 39.7 % (39.0-51.0); HEMO FLAGS DIFF FINAL; LYMPH % 4.3 % (9.0-44.0); LYMPHOCYTE # 0.4 TH/MM3 (1.0-4.8); MEAN CELL VOLUME 94.6 FL (80.0-100.0); MEAN CORPUSCULAR HEMOGLOBIN 33.3 PG (27.0-34.0); MEAN CORPUSCULAR HGB CONC 35.2 % (32.0-36.0); MONO % 6.8 % (0.0-8.0); NEUT % 86.8 % (16.0-70.0); PLATELET COUNT 133 TH/MM3 (150-450); RED CELL DISTRIBUTION WIDTH 16.6 % (11.6-17.2); WHITE BLOOD COUNT 9.6 TH/MM3 (4.0-11.0)
[2017-01-20 06:47] LABS: INTERNATIONAL NORMALIZED RATIO 1.4 RATIO
[2017-01-20 07:00] LABS: ALT (GPT) 65 U/L (12-78); ANION GAP 5 MEQ/L (5-15); AST (GOT) 171 U/L (15-37); BLOOD UREA NITROGEN 9 MG/DL (7-18); CHLORIDE 95 MEQ/L (98-107); GLOMERULAR FILTRATION RATE 147 ML/MIN (>89); POTASSIUM 3.6 MEQ/L (3.5-5.1); SODIUM (NA) 128 MEQ/L (136-145)
[2017-01-20 07:03] LABS: ALKALINE PHOSPHATASE 185 U/L (45-117); TOTAL BILIRUBIN ADULT 9.6 MG/DL (0.2-1.0)
[2017-01-20] MEDS: REMOVE OLD PATCH T-DERMAL SCH (09:00)
[2017-01-20] MEDS: POLYETHYLENE GLYCOL 17 GM PKG PO SCH (09:00)
[2017-01-20] MEDS: HYDROCHLOROTHIAZIDE 25 MG TAB PO SCH (09:10)
[2017-01-20] MEDS: predniSONE 5 MG TAB PO SCH (09:10)
[2017-01-20] MEDS: FAMOTIDINE 20 MG TAB PO SCH ×2 (09:10→21:49)
[2017-01-20] MEDS: METOPROLOL TARTRATE 25 MG TAB PO SCH ×2 (09:10→21:49)
[2017-01-20] MEDS: METHYLNALTREXONE BROMIDE 12 MG/0.6 ML VIAL SQ SCH (09:11)
[2017-01-20] MEDS: CYPROHEPTADINE HCL 4 MG TAB PO SCH ×2 (09:11→21:49)
[2017-01-20] MEDS: NICOTINE 21 MG/24 HR PATCH T-DERMAL SCH (09:11)
--- NOTE | 2017-01-20 10:53 | HHI.HCPN ---
Reason for visit a. To assist with evaluation and management of symptoms including: Pain b. To assist medical decision maker(s) with: better understanding of current medical conditions; weighing benefits/burdens of medical treatment options; making medical treatment decisions. . Subjective/Interval History INTERVAL NOTE: The patient's pain was a little better controlled last night and he was able to sleep couple hours twice. He does believe the long-acting oxycodone is more helpful for him. He did receive the breakthrough parenteral Dilaudid twice during the night, and again this morning. He is scheduled to go for MRCP this morning. His bilirubin remains elevated at 9.6. The latest alpha-fetoprotein is greater than 1000. . Advance Directives Living Will: Never completed Health Care Surrogate: Never completed Durable Power of Ui Software Developer: Never completed Objective Vital Signs Date Time Temp Pulse Resp B/P (MAP) Pulse Ox O2 Delivery O2 Flow Rate FiO2 01/20/17 06:36 20 01/20/17 04:00 90 01/20/17 04:00 97.9 90 16 155/96 (115) 94 01/20/17 00:00 95 01/20/17 00:00 97.8 97 20 147/100 (116) 94 Manual Cuff/Auscultation 01/19/17 20:00 98.3 107 20 145/101 (116) 94 01/19/17 20:00 94 Room Air 21 01/19/17 20:00 109 01/19/17 19:00 20 01/19/17 15:43 97.8 109 18 155/101 (119) 98 01/19/17 11:45 97.7 113 18 154/108 (123) 93 Intake & Output 01/20/17 01/20/17 07:00 19:00 Intake Total 1000 ml Output Total 800 ml Balance 200 ml IV Total 1000 ml Output Urine Total 800 ml Physical Exam CONSTITUTIONAL/GENERAL: This is a thin patient, in mild to moderate distress from pain. TUBES/LINES/DRAINS: Peripheral IV EYES: Pupils equal and round and reactive. Extraocular motions intact. May have some mild scleral icterus. No injection or drainage. Fundi not examined. ENT: Hearing grossly normal. Nose without bleeding or purulent drainage. Throat without visible erythema, exudates, masses, or lesions. NECK: Trachea midline. Supple, nontender. No palpable thyroid enlargement or nodularity. CARDIOVASCULAR: Regular rate and rhythm without murmurs, gallops, or rubs. No JVD. Peripheral pulses symmetric. RESPIRATORY/CHEST: Symmetric, unlabored respirations. Clear to auscultation. Breath sounds equal bilaterally. No wheezes, rales, or rhonchi. GASTROINTESTINAL: Abdomen soft, but moderately distended. There is mild tenderness to palpation at the liver edge 4 cm below the RCM. No hepato- splenomegaly, or palpable masses. No guarding. Bowel sounds present. MUSCULOSKELETAL: Extremities without clubbing, cyanosis, or edema. No joint tenderness or effusion noted. No calf tenderness. No mottling or clubbing. NEUROLOGICAL: Awake and alert. Motor and sensory grossly within normal limits. Follows commands. Cognitively sharp. Moves all extremities. PSYCHIATRIC: No obvious anxiety/depression. no apparent hallucinations or other psychotic thought process. . Diagnostic Tests Laboratory Laboratory Tests Test 01/17/17 11:05 01/18/17 06:50 01/18/17 15:15 01/18/17 16:31 White Blood Count 9.7 TH/MM3 (4.0-11.0) Red Blood Count 5.42 MIL/MM3 (4.50-5.90) Hemoglobin 17.7 GM/DL (13.0-17.0) Hematocrit 51.6 % (39.0-51.0) Mean Corpuscular Volume 95.2 FL (80.0-100.0) Mean Corpuscular Hemoglobin 32.7 PG (27.0-34.0) Mean Corpuscular Hemoglobin Concent 34.4 % (32.0-36.0) Red Cell Distribution Width 16.5 % (11.6-17.2) Platelet Count 242 TH/MM3 (150-450) Mean Platelet Volume 9.3 FL (7.0-11.0) Neutrophils (%) (Auto) 88.8 % (16.0-70.0) Lymphocytes (%) (Auto) 5.0 % (9.0-44.0) Monocytes (%) (Auto) 5.1 % (0.0-8.0) Eosinophils (%) (Auto) 0.6 % (0.0-4.0) Basophils (%) (Auto) 0.5 % (0.0-2.0) Neutrophils # (Auto) 8.6 TH/MM3 (1.8-7.7) Lymphocytes # (Auto) 0.5 TH/MM3 (1.0-4.8) Monocytes # (Auto) 0.5 TH/MM3 (0-0.9) Eosinophils # (Auto) 0.1 TH/MM3 (0-0.4) Basophils # (Auto) 0.0 TH/MM3 (0-0.2) CBC Comment DIFF FINAL Differential Comment Prothrombin Time 16.0 SEC (9.8-11.6) 14.0 SEC (9.8-11.6) Prothromb Time International Ratio 1.4 RATIO 1.3 RATIO Activated Partial Thromboplast Time 27.3 SEC (24.3-30.1) Blood Urea Nitrogen 10 MG/DL (7-18) 9 MG/DL (7-18) Creatinine 1.08 MG/DL (0.60-1.30) 0.61 MG/DL (0.60-1.30) Random Glucose 128 MG/DL (74-106) 94 MG/DL (74-106) Total Protein 10.3 GM/DL (6.4-8.2) 8.0 GM/DL (6.4-8.2) Albumin 2.6 GM/DL (3.4-5.0) 1.9 GM/DL (3.4-5.0) Calcium Level 9.6 MG/DL (8.5-10.1) 8.4 MG/DL (8.5-10.1) Alkaline Phosphatase 319 U/L (45-117) 213 U/L (45-117) Aspartate Amino Transf (AST/SGOT) 233 U/L (15-37) 159 U/L (15-37) Alanine Aminotransferase (ALT/SGPT) 104 U/L (12-78) 69 U/L (12-78) Total Bilirubin 10.2 MG/DL (0.2-1.0) 7.8 MG/DL (0.2-1.0) Sodium Level 129 MEQ/L (136-145) 128 MEQ/L (136-145) Potassium Level 4.3 MEQ/L (3.5-5.1) 3.9 MEQ/L (3.5-5.1) Chloride Level 89 MEQ/L (98-107) 94 MEQ/L (98-107) Carbon Dioxide Level 30.0 MEQ/L (21.0-32.0) 26.3 MEQ/L (21.0-32.0) Anion Gap 10 MEQ/L (5-15) 8 MEQ/L (5-15) Estimat Glomerular Filtration Rate 72 ML/MIN (>89) 138 ML/MIN (>89) Lipase 218 U/L (73-393) Urine Color ORANGE (YELLW/STRAW) Urine Turbidity CLEAR (CLEAR) Urine pH 6.0 (5.0-8.5) Urine Specific [place] 1.024 (1.002-1.035) Urine Protein NEG mg/dL (NEG-TRACE) Urine Glucose (UA) NEG mg/dL (NEG) Urine Ketones NEG mg/dL (NEG) Urine Occult Blood NEG (NEG) Urine Nitrite NEG (NEG) Urine Bilirubin MOD (NEG) Urine Urobilinogen 8.0 MG/DL (LESS THAN Urine Leukocyte Esterase NEG (NEG) Urine RBC 1 /hpf (0-3) Urine WBC 1 /hpf (0-5) Urine Mucus FEW /lpf (OCC) Microscopic Urinalysis Comment CULT NOT INDICATED Tumor Marker Alpha Fetoprotein GREATER THAN 1000.0 NG/ML Test 01/19/17 11:34 01/20/17 06:15 Blood Urea Nitrogen 11 MG/DL (7-18) 9 MG/DL (7-18) Creatinine 0.64 MG/DL (0.60-1.30) 0.58 MG/DL (0.60-1.30) Random Glucose 110 MG/DL (74-106) 109 MG/DL (74-106) Total Protein 7.7 GM/DL (6.4-8.2) 7.4 GM/DL (6.4-8.2) Albumin 1.9 GM/DL (3.4-5.0) 1.8 GM/DL (3.4-5.0) Calcium Level 8.4 MG/DL (8.5-10.1) 8.1 MG/DL (8.5-10.1) Alkaline Phosphatase 194 U/L (45-117) 185 U/L (45-117) Aspartate Amino Transf (AST/SGOT) 164 U/L (15-37) 171 U/L (15-37) Alanine Aminotransferase (ALT/SGPT) 64 U/L (12-78) 65 U/L (12-78) Total Bilirubin 9.7 MG/DL (0.2-1.0) 9.6 MG/DL (0.2-1.0) Sodium Level 129 MEQ/L (136-145) 128 MEQ/L (136-145) Potassium Level 3.9 MEQ/L (3.5-5.1) 3.6 MEQ/L (3.5-5.1) Chloride Level 95 MEQ/L (98-107) 95 MEQ/L (98-107) Carbon Dioxide Level 24.8 MEQ/L (21.0-32.0) 28.0 MEQ/L (21.0-32.0) Anion Gap 9 MEQ/L (5-15) 5 MEQ/L (5-15) Estimat Glomerular Filtration Rate 131 ML/MIN (>89) 147 ML/MIN (>89) White Blood Count 9.6 TH/MM3 (4.0-11.0) Red Blood Count 4.20 MIL/MM3 (4.50-5.90) Hemoglobin 14.0 GM/DL (13.0-17.0) Hematocrit 39.7 % (39.0-51.0) Mean Corpuscular Volume 94.6 FL (80.0-100.0) Mean Corpuscular Hemoglobin 33.3 PG (27.0-34.0) Mean Corpuscular Hemoglobin Concent 35.2 % (32.0-36.0) Red Cell Distribution Width 16.6 % (11.6-17.2) Platelet Count 133 TH/MM3 (150-450) Mean Platelet Volume 8.5 FL (7.0-11.0) Neutrophils (%) (Auto) 86.8 % (16.0-70.0) Lymphocytes (%) (Auto) 4.3 % (9.0-44.0) Monocytes (%) (Auto) 6.8 % (0.0-8.0) Eosinophils (%) (Auto) 1.2 % (0.0-4.0) Basophils (%) (Auto) 0.9 % (0.0-2.0) Neutrophils # (Auto) 8.3 TH/MM3 (1.8-7.7) Lymphocytes # (Auto) 0.4 TH/MM3 (1.0-4.8) Monocytes # (Auto) 0.6 TH/MM3 (0-0.9) Eosinophils # (Auto) 0.1 TH/MM3 (0-0.4) Basophils # (Auto) 0.1 TH/MM3 (0-0.2) CBC Comment DIFF FINAL Differential Comment Prothrombin Time 16.0 SEC (9.8-11.6) Prothromb Time International Ratio 1.4 RATIO Result Diagram: 01/20/1715 01/20/1715 Assessment and Plan Disease Oriented Problem List: (1) uncontrolled pain Comment: Most likely due to the tumor burden, and particular the increasingly large areas of adenopathy including in the retroperitoneum and perigastric areas (2) metastatic hepatocellular carcinoma (3) hepatic cirrhosis (4) history of daily alcohol use (5) history of hepatitis C (6) hypertension (7) hyperlipidemia (8) depression (9) GERD (10) chronic neck/back pain for several years Symptom Scale: (1) pain 0-10 Scale: 6 Pertinent Non-Medical Issues Psychosocial: Originally from [place], lives with , has one son in [place]. Former [id number] worker, now on disability. Spiritual: Unaffiliated Shinto [employer], open to supervisor slashing department visits. Legal: The patient has capacity for decision-making. His will be the healthcare proxy if he loses that capacity. Ethical issues impacting care: None . Important Contacts Spouse: Alethea [phone] . Prognosis This patient is likely terminal, with weeks or months to live depending on his response to further treatment. . Code Status: Full Code Plan * FULL CODE - the patient says he would want to be on life support "for a few days, but not hanging on for a month." He reports that his knows that she is to remove him from life support if it "goes on and on." * GOALS: The patient's main goal is to get the pain under control; secondarily , he is hoping to get started on the sorafenib VIOLETTE. * DECISION-MAKING: The patient has capacity for decision-making. His will be the healthcare proxy if he loses that capacity. * SYMPTOMS: * PAIN: The 80 mg OxyContin every 8 hour dosing was begun last evening, and may be causing some improvement already. I would like to see how much parenteral Dilaudid is needed today and then likely will be able to switch to short acting oxycodone as the breakthrough opiate by tomorrow. * Palliative Care will continue to follow the patient during this hospitalization. . Time Spent Total Floor Time (mins): 36 Face to Face Time (mins): 22 >50% Counseling/Coord of Care: Yes (d/w Dr. Rosario in pt's room, and tenzin Hamilton PA-C) Attestation To help prompt me to consider important information that might be impacting today's encounter and assessment, information from prior notes written by myself or my colleagues may have been "brought forward" into today's note. My signature on this note, however, is an attestation that I personally performed the exam, history, and/or decision-making noted today, and, unless otherwise indicated, the interactions with patient, family, and staff as well as the review of records all occurred today. I also attest that the listed assessment and stated plan reflect my best clinical judgment today based on the combination of historical information, prior notes, and today's exam/ interactions. When time spent is documented, it refers only to time spent today by the signer, or if indicated, combined time spent today by collaborating physician/nurse practitioner. Thalia Solano MD Jan 20, 2017 10:53
[2017-01-20] MEDS ORDERED: GADODIAMIDE PF 287 MG/ML 20 ML VIAL (for RAD MRI) IV PUSH ONE (12:05)
--- NOTE | 2017-01-20 12:46 | RADRPT ---
EXAM DATE/TIME: 01/20/2017 11:17 [facility] COMPARISON: CT ABDOMEN & PELVIS W CONTRAST, January 17, 2017, 12:24. INDICATIONS : Abdominal pain. CONTRAST: 18 cc Omniscan (gadodiamide) IV MEDICAL HISTORY : Hepatitis C. Gastroesophageal reflux disease. Liver ca. SURGICAL HISTORY : Left ankle/wire in jaw. ENCOUNTER: Initial ACUITY: 3 day PAIN SCORE: 4/10 LOCATION: abdomen. TECHNIQUE: Multiplanar, multisequence magnetic resonance imaging of the abdomen was performed. High-resolution 3D dataset was utilized to reconstruct maximum-intensity projection (MIP) images. FINDINGS: INTRAHEPATIC BILE DUCTS: Within normal limits. No significant anatomical variant is present. EXTRAHEPATIC BILE DUCTS: The common bile duct measures 4 mm. No stone or filling defect is identified. No distal obstructing m ass is visualized. GALLBLADDER: The gallbladder is contracted and demonstrates generalized mild wall thickening and contains inspissa latrice bile. LIVER: Multiple hepatic lesions ranging in size up to 5 cm characteristic of a neoplastic disease are again noted. Portal vein is effaced and significantly narrowed in the brodie hepatis. Right hepatic portal v ein cannot be clearly identified. The left portal vein contains intraluminal filling defect consisten t with thrombus. PANCREAS: The main pancreatic duct is normal in size. There is no significant anatomical variant. Signal inte nsity is within normal limits. No mass is visualized. OTHER: A large necrotic appearing fantasma mass posterior and inferior to the portal vein and along the right l ateral margin of the celiac artery is again noted and has not significantly changed since the CT. Daisy sures greater than 6 cm in diameter. Additional enlarged nodes are seen pericaval region of the retro peritoneum. CONCLUSION: 1. No evidence of biliary obstructive disease. 2. Diffuse neoplastic disease to liver. 3. Portal vein effacement with developing intraluminal thrombus and poorly documented flow into the r ight lobe. 4. 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 5. Decompressed gallbladder with mild wall thickening, pericholecystic fluid and inspissated bile. Cheng Alford MD on January 20, 2017 at 12:29 Board Certified Radiologist. This report was verified electronically.
--- NOTE | 2017-01-20 13:48 | HHI.PR ---
Subjective Remarks Follow-up intractable abdominal pain/HCC 01/20/17-patient seen and examined reports some improvement overnight with current regimen as patient was able to sleep at least 2-4 hours. Still using breakthrough IV Dilaudid Objective Vitals Vital Signs Date Time Temp Pulse Resp B/P (MAP) Pulse Ox O2 Delivery O2 Flow Rate FiO2 01/20/17 12:23 98.4 112 20 136/97 (110) 96 01/20/17 11:31 94 Room Air 01/20/17 08:00 97.8 118 20 147/91 (109) 94 01/20/17 06:36 20 01/20/17 04:00 90 01/20/17 04:00 97.9 90 16 155/96 (115) 94 01/20/17 00:00 95 01/20/17 00:00 97.8 97 20 147/100 (116) 94 Manual Cuff/Auscultation 01/19/17 20:00 98.3 107 20 145/101 (116) 94 01/19/17 20:00 94 Room Air 21 01/19/17 20:00 109 01/19/17 19:00 20 01/19/17 15:43 97.8 109 18 155/101 (119) 98 I/O 01/19/17 01/19/17 01/19/17 01/20/17 01/20/17 01/20/17 07:00 15:00 23:00 07:00 15:00 23:00 Intake Total 1515 ml 2000 ml 1000 ml Output Total 800 ml 800 ml 800 ml Balance 715 ml 1200 ml 200 ml Intake Oral 480 ml 2000 ml IV Total 1035 ml 1000 ml Output Urine Total 800 ml 800 ml 800 ml Result Diagram: 01/20/17 0615 01/20/17 0615 Imaging Last Impressions Cholangiopancreatography MRI 01/20/17 0000 Signed Impressions: Service Date/Time: Friday, January 20, 2017 11:17 - CONCLUSION: 1. No evidence of biliary obstructive disease. 2. Diffuse neoplastic disease to liver. 3. Portal vein effacement with developing intraluminal thrombus and poorly documented flow into the right lobe. 4. 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 5. Decompressed gallbladder with mild wall thickening, pericholecystic fluid and inspissated bile. Cheng Alford MD Hepatobiliary Scan Nuclear Medicine 01/18/17 0000 Signed Impressions: Service Date/Time: Wednesday, January 18, 2017 12:09 - CONCLUSION: 1. Visualization of gallbladder within the 1st hour excludes cystic duct obstruction. 2. Slow uptake of radiotracer in the hepatic vein with prolonged retention in the blood pool. This is indicative of hepatocellular dysfunction. There is also a photopenic area in the central left lobe of the liver which corresponds to the hypodense 6 [address] seen on [address]. Maury Adkins MD Abdomen/Pelvis CT 01/17/17 1126 Signed Impressions: Service Date/Time: Tuesday, January 17, 2017 12:24 - CONCLUSION: 1. Diffuse neoplastic infiltration of the liver similar to December 3. Stable to worsened periportal and retroperitoneal adenopathy. 2. Trace free fluid in the abdomen and pelvis with some new nodularity along the left peritoneal surface. 3. No bowel obstruction or free air. Donaldo Braga MD Gall Bladder Ultrasound 01/17/17 0000 Signed Impressions: Service Date/Time: Tuesday, January 17, 2017 16:11 - CONCLUSION: 1. Gallbladder wall is diffusely thickened measuring in excess of 10 mm. No gallstones seen however. 2. Common bile duct is mildly dilated at 9 mm. 3. Multiple solid masses in the enlarged liver measuring up to 5.[address] Angiography 01/17/17 0000 Signed Impressions: Service Date/Time: Tuesday, January 17, 2017 20:00 - CONCLUSION: 1. The study is negative for pulmonary embolism. 2. There is a new 1.7 cm masslike opacity in the lower lateral left lung costophrenic angle and there is a new 1.3 cm perigastric lymph node. Cannot differentiate between malignancy and infectious/inflammatory process; but both of these findings are new compared to a prior CT pulmonary angiogram in September 2016. Maury Adkins MD Objective Remarks GENERAL: NAD SKIN: Warm and dry. HEAD: Normocephalic. EYES: No scleral icterus. No injection or drainage. NECK: Supple, trachea midline. No JVD or lymphadenopathy. CARDIOVASCULAR: Regular rate and rhythm without murmurs, gallops, or rubs. RESPIRATORY: Breath sounds equal bilaterally. No accessory muscle use. GASTROINTESTINAL: Abdomen hard, mildly tender, distended. Positive for hepatosplenomegaly MUSCULOSKELETAL: No cyanosis, or edema. BACK: Nontender without obvious deformity. No CVA tenderness. A/P Problem List: (1) Intractable abdominal pain ICD Code: R10.9 - Unspecified abdominal pain Status: Acute (2) metastatic hepatocellular carcinoma Assessment and Plan 52-year-old man with Intractable abdominal pain Patient with a history of hepatocellular carcinoma Currently on sick contact and 80 mg every 8 hour as well as Dilaudid IV for breakthrough pain Likely will start short acting oxycodone as breakthrough pain in a.m. per palliative care medicine Acute transaminitis MRCP pending this a.m. Appreciate input from gastroenterology Continue simethicone, Relistor for narcotic-induced constipation History of metastasis hepatocellular carcinoma Appreciate input from oncology Continue with prednisone, Periactin sinus Tachycardia intermittent, 2/2 pain-pain management accordingly Continue as well with Lopressor Hypertension Currently on Lopressor 12 mg daily, hydrochlorothiazide 25 mg daily DVT prophylaxis :Govind Waggoner MD Jan 20, 2017 13:48
[2017-01-20] MEDS: NYSTAT/DIPHENHY/LIDO MOUTHWASH (Adult) 120ML SWISH-SWAL SCH ×2 (18:00→20:01)
--- NOTE | 2017-01-20 22:18 | PD.ONC.PN ---
Subjective Subjective Remarks patient miserable and with each passing week he is worse. still with abd pain Objective Data Date Time Temp Pulse Resp B/P (MAP) Pulse Ox O2 Delivery O2 Flow Rate FiO2 01/20/17 20:30 19 01/20/17 20:04 98.2 123 137/105 (116) 94 01/20/17 17:19 98.8 98 18 144/90 (108) 97 01/20/17 12:23 98.4 112 20 136/97 (110) 96 01/20/17 11:31 94 Room Air 01/20/17 08:00 97.8 118 20 147/91 (109) 94 01/20/17 06:36 20 01/20/17 04:00 90 01/20/17 04:00 97.9 90 16 155/96 (115) 94 01/20/17 00:00 95 01/20/17 00:00 97.8 97 20 147/100 (116) 94 Manual Cuff/Auscultation 01/20/17 01/20/17 01/20/17 07:00 15:00 23:00 Intake Total 1000 ml 420 ml Output Total 800 ml 400 ml Balance 200 ml 20 ml Result Diagram: 01/20/1715 01/20/17 0615 Laboratory Results Laboratory Tests Test 01/20/17 06:15 White Blood Count 9.6 TH/MM3 Red Blood Count 4.20 MIL/MM3 Hemoglobin 14.0 GM/DL Hematocrit 39.7 % Mean Corpuscular Volume 94.6 FL Mean Corpuscular Hemoglobin 33.3 PG Mean Corpuscular Hemoglobin Concent 35.2 % Red Cell Distribution Width 16.6 % Platelet Count 133 TH/MM3 Mean Platelet Volume 8.5 FL Neutrophils (%) (Auto) 86.8 % Lymphocytes (%) (Auto) 4.3 % Monocytes (%) (Auto) 6.8 % Eosinophils (%) (Auto) 1.2 % Basophils (%) (Auto) 0.9 % Neutrophils # (Auto) 8.3 TH/MM3 Lymphocytes # (Auto) 0.4 TH/MM3 Monocytes # (Auto) 0.6 TH/MM3 Eosinophils # (Auto) 0.1 TH/MM3 Basophils # (Auto) 0.1 TH/MM3 CBC Comment DIFF FINAL Differential Comment Prothrombin Time 16.0 SEC Prothromb Time International Ratio 1.4 RATIO Blood Urea Nitrogen 9 MG/DL Creatinine 0.58 MG/DL Random Glucose 109 MG/DL Total Protein 7.4 GM/DL Albumin 1.8 GM/DL Calcium Level 8.1 MG/DL Alkaline Phosphatase 185 U/L Aspartate Amino Transf (AST/SGOT) 171 U/L Alanine Aminotransferase (ALT/SGPT) 65 U/L Total Bilirubin 9.6 MG/DL Sodium Level 128 MEQ/L Potassium Level 3.6 MEQ/L Chloride Level 95 MEQ/L Carbon Dioxide Level 28.0 MEQ/L Anion Gap 5 MEQ/L Estimat Glomerular Filtration Rate 147 ML/MIN Imaging Studies Last 24 hours Impressions Cholangiopancreatography MRI 01/20/17 0000 Signed Impressions: Service Date/Time: Friday, January 20, 2017 11:17 - CONCLUSION: 1. No evidence of biliary obstructive disease. 2. Diffuse neoplastic disease to liver. 3. Portal vein effacement with developing intraluminal thrombus and poorly documented flow into the right lobe. 4. 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 5. Decompressed gallbladder with mild wall thickening, pericholecystic fluid and inspissated bile. Cheng Alford MD Administered Medications Medications (Trade) Dose Ordered Sig/Ivis Route PRN Reason Start Time Stop Time Status Last Admin Dose Admin Sodium Chloride (NS Flush) 2 ml UNSCH PRN IV FLUSH FLUSH AFTER USING IV ACCESS 01/17/17 11:30 01/20/17 04:08 Metoprolol Tartrate (Lopressor) 25 mg BID PO 01/17/17 21:00 01/20/17 21:49 Famotidine (Pepcid) 20 mg BID PO 01/17/17 21:00 01/20/17 21:49 Simethicone (Phazyme Chew) 125 mg Q8HR PO 01/17/17 16:00 01/20/17 21:49 Hydrochlorothiazide (Hydrodiuril) 25 mg DAILY PO 01/17/17 16:00 01/20/17 09:10 Methylnaltrexone [place] (Relistor Inj) 12 mg DAILY SQ 01/17/17 16:00 01/20/17 09:11 Cyproheptadine HCl (Periactin) 4 mg BID PO 01/17/17 21:00 01/20/17 21:49 Promethazine HCl (Phenergan) 12.5 mg Q4H PRN PO nausea 01/17/17 17:30 01/19/17 03:32 Nicotine (Habitrol 21 Mg Patch.24 Hr) 1 patch DAILY T-DERMAL 01/18/17 09:30 01/20/17 09:11 Miscellaneous Information 1 DAILY T-DERMAL 01/19/17 09:00 01/20/17 09:00 Prednisone (Deltasone) 15 mg DAILY PO 01/19/17 12:00 01/20/17 09:10 Hydromorphone HCl (Dilaudid Pf Inj) 2 mg Q2H PRN IV PUSH pain 5-10 01/19/17 12:30 01/20/17 21:45 Oxycodone HCl (OxyCONTIN CR) 80 mg Q8HR PO 01/19/17 22:00 01/20/17 21:49 Multi-Ingredient Mouthwash/Gargle (Magic Mouthwash Adult Liq) 5 ml QID SWISH-SWAL 01/20/17 18:00 01/20/17 20:01 Objective Remarks GENERAL: both acute and chronically ill and now very jaundiced SKIN: Warm and dry. HEAD: Normocephalic. EYES: jaundiced NECK: Supple, trachea midline. No JVD or lymphadenopathy. LYMPHATIC: No adenopathy. CARDIOVASCULAR: Regular rate and rhythm without murmurs. RESPIRATORY: Breath sounds equal bilaterally. No accessory muscle use. GASTROINTESTINAL: abdomen distended and tender to right of midline below liver EXTREMITIES: No cyanosis, or edema. MUSCULOSKELETAL: Adequate muscle tone. NEUROLOGICAL: No obvious focal deficit. Awake, alert, and oriented x3. PSYCHIATRIC: tearful Assessment/Plan Assessment 52y/o male with Multifocal hepatocellular carcinoma admitted with intractable abdominal pain. CT reviewed and he has enlarging adenopathy in the upper abd which is responsible for much of the pain and will not improve with treatment ofthe liver as it is EXTRAHEPATIC. His disease is progressing rapidly and now that the bilirubin is elevated to the current level he is not a candidate of sorafenib. Given rapidly progressive disease both intrahepatic and extrahepatic I do not see systemic treatments that are likely to benefit him and presently the daily issue is pain management. He has a great [facility] of [facility] Plan 1: at this point I believe Hospice is appropriate and I would only consider systemic therapy if there is an improvement in liver functions and performance status which is not likely to occur. I spoke to him about hospice and how this will provide support to his family and make it easier to access medicines rather then going through [facility]. He is open to this and I told him I would speak to his tomorrow and can do this by phone if we miss each other. He understands that he can not take sorafenib with elevated bilirubin. Yosef Carey MD Jan 20, 2017 22:18
[2017-01-21] VITALS (11 sets, daily range): BP systolic 125–177; BP diastolic 70–106; PULSE 95–132; RESP 17–20; TEMP 97.7–98.4; O2SAT 93–98
[2017-01-21] MEDS: HYDROmorphone HCL PF 2 MG/ML VIAL IV PUSH PRN ×6 (04:35→22:02)
[2017-01-21] MEDS: SIMETHICONE 125 MG CHEWABLE TAB PO SCH ×3 (05:43→22:00)
[2017-01-21] MEDS: oxyCODONE HCL 80 MG CONTROLLED RELEASE TAB PO SCH ×3 (05:44→22:01)
[2017-01-21 07:14] LABS: ALT (GPT) 79 U/L (12-78)
[2017-01-21 07:16] LABS: ALKALINE PHOSPHATASE 183 U/L (45-117); TOTAL BILIRUBIN ADULT 10.9 MG/DL (0.2-1.0)
[2017-01-21 07:24] LABS: ANION GAP 9 MEQ/L (5-15); AST (GOT) 194 U/L (15-37); BICARBONATE 24.2 MEQ/L (21.0-32.0); CHLORIDE 94 MEQ/L (98-107); GLOMERULAR FILTRATION RATE 131 ML/MIN (>89); POTASSIUM 3.5 MEQ/L (3.5-5.1); SODIUM (NA) 127 MEQ/L (136-145)
[2017-01-21 07:25] LABS: BLOOD UREA NITROGEN 10 MG/DL (7-18)
[2017-01-21] MEDS: predniSONE 5 MG TAB PO SCH (08:48)
[2017-01-21] MEDS: NICOTINE 21 MG/24 HR PATCH T-DERMAL SCH (08:48)
[2017-01-21] MEDS: REMOVE OLD PATCH T-DERMAL SCH (08:48)
[2017-01-21] MEDS: POLYETHYLENE GLYCOL 17 GM PKG PO SCH (08:49)
[2017-01-21] MEDS: METHYLNALTREXONE BROMIDE 12 MG/0.6 ML VIAL SQ SCH (08:49)
[2017-01-21] MEDS: HYDROCHLOROTHIAZIDE 25 MG TAB PO SCH (08:49)
[2017-01-21] MEDS: FAMOTIDINE 20 MG TAB PO SCH ×2 (08:49→22:00)
[2017-01-21] MEDS: METOPROLOL TARTRATE 25 MG TAB PO SCH ×2 (08:49→22:00)
[2017-01-21] MEDS: CYPROHEPTADINE HCL 4 MG TAB PO SCH ×2 (08:49→22:01)
[2017-01-21] MEDS: NYSTAT/DIPHENHY/LIDO MOUTHWASH (Adult) 120ML SWISH-SWAL SCH ×4 (08:50→22:01)
[2017-01-21] MEDS ORDERED: LORazepam 2 MG/ML VIAL IV PUSH ONE (10:15)
--- NOTE | 2017-01-21 10:19 | PD.ONC.PN ---
Subjective Subjective Remarks Afebrile overnight. Patient resting in bed, anxious. Continues to have pain in RUQ but pain is improved with current pain regimen. Objective Data Date Time Temp Pulse Resp B/P (MAP) Pulse Ox O2 Delivery O2 Flow Rate FiO2 01/21/17 07:10 16 01/21/17 06:44 16 01/21/17 05:42 104 17 131/85 (100) 95 01/21/17 04:40 97.7 115 20 177/106 (129) 95 01/21/17 04:06 95 01/21/17 00:22 97 01/21/17 00:01 98.0 106 18 144/91 (108) 94 01/20/17 20:12 116 01/20/17 20:05 Room Air 01/20/17 20:04 98.2 123 137/105 (116) 94 01/20/17 17:19 98.8 98 18 144/90 (108) 97 01/20/17 12:23 98.4 112 20 136/97 (110) 96 01/20/17 11:31 94 Room Air 01/21/17 01/21/17 01/21/17 07:00 15:00 23:00 Output Total 300 ml Balance -300 ml Result Diagram: 01/20/1715 01/21/17 0625 Laboratory Results Laboratory Tests Test 01/21/17 06:25 Blood Urea Nitrogen 10 MG/DL Creatinine 0.64 MG/DL Random Glucose 82 MG/DL Total Protein 7.5 GM/DL Albumin 1.8 GM/DL Calcium Level 8.2 MG/DL Alkaline Phosphatase 183 U/L Aspartate Amino Transf (AST/SGOT) 194 U/L Alanine Aminotransferase (ALT/SGPT) 79 U/L Total Bilirubin 10.9 MG/DL Sodium Level 127 MEQ/L Potassium Level 3.5 MEQ/L Chloride Level 94 MEQ/L Carbon Dioxide Level 24.2 MEQ/L Anion Gap 9 MEQ/L Estimat Glomerular Filtration Rate 131 ML/MIN Administered Medications Medications (Trade) Dose Ordered Sig/Ivis Route PRN Reason Start Time Stop Time Status Last Admin Dose Admin Sodium Chloride (NS Flush) 2 ml UNSCH PRN IV FLUSH FLUSH AFTER USING IV ACCESS 01/17/17 11:30 01/20/17 04:08 Metoprolol Tartrate (Lopressor) 25 mg BID PO 01/17/17 21:00 01/21/17 08:49 Famotidine (Pepcid) 20 mg BID PO 01/17/17 21:00 01/21/17 08:49 Simethicone (Phazyme Chew) 125 mg Q8HR PO 01/17/17 16:00 01/21/17 05:43 Hydrochlorothiazide (Hydrodiuril) 25 mg DAILY PO 01/17/17 16:00 01/21/17 08:49 Polyethylene Glycol (Miralax) 17 gm DAILY PO 01/17/17 16:00 01/21/17 08:49 Methylnaltrexone [place] (Relistor Inj) 12 mg DAILY SQ 01/17/17 16:00 01/21/17 08:49 Cyproheptadine HCl (Periactin) 4 mg BID PO 01/17/17 21:00 01/21/17 08:49 Promethazine HCl (Phenergan) 12.5 mg Q4H PRN PO nausea 01/17/17 17:30 01/19/17 03:32 Nicotine (Habitrol 21 Mg Patch.24 Hr) 1 patch DAILY T-DERMAL 01/18/17 09:30 01/21/17 08:48 Miscellaneous Information 1 DAILY T-DERMAL 01/19/17 09:00 01/21/17 08:48 Prednisone (Deltasone) 15 mg DAILY PO 01/19/17 12:00 01/21/17 08:48 Hydromorphone HCl (Dilaudid Pf Inj) 2 mg Q2H PRN IV PUSH pain 5-10 01/19/17 12:30 01/21/17 08:50 Oxycodone HCl (OxyCONTIN CR) 80 mg Q8HR PO 01/19/17 22:00 01/21/17 05:44 Multi-Ingredient Mouthwash/Gargle (Magic Mouthwash Adult Liq) 5 ml QID SWISH-SWAL 01/20/17 18:00 01/21/17 08:50 Objective Remarks GENERAL: Anxious middle aged male sitting up in bed. SKIN: Warm and dry. HEAD: Normocephalic. EYES: No scleral icterus. No injection or drainage. NECK: Supple, trachea midline. No JVD or lymphadenopathy. LYMPHATIC: No adenopathy. CARDIOVASCULAR: +S1/S2, tachy RESPIRATORY: anterior [place] clear. GASTROINTESTINAL: Abdomen distended, tender to palpation RUQ. EXTREMITIES: No cyanosis NEUROLOGICAL: No obvious focal deficit. Awake, alert, and oriented x3. Assessment/Plan Assessment 52y/o male with hepatocellular carcinoma. Plan 1. Had a long discussion with patient regarding plan of care. Patient agreeable to hospice. will plan for follow up with Dr. Carey in two weeks time. 2. continue pain management with OxyContin/Dilaudid. appreciate palliative care assistance. Attending Statement The exam, history, and the medical decision-making described in the above note were completed with the assistance of the mid-level provider. I reviewed and agree with the findings presented. I attest that I had a [id number] encounter with the patient on the same day, and personally performed and documented my assessment and findings in the medical record. His disease is rapidly progressive and there are no plans for further liver directed therapy given the elevation in the bilirubin and the extent of extracellular disease. I have spoken with Dr. Pablo from radiology and Dr Solano from palliative care today and everyone is in agreement. He can go home tomorrow with hospice and I would like to see in two week with a cmp before visit as I told him I would reconsider treatment if there was a significant improvement in liver functions which is not likely. No change in exam today. I was not able to speak with . Nany Hamilton Jan 21, 2017 10:19 Yosef Carey MD Jan 21, 2017 21:15
--- NOTE | 2017-01-21 10:26 | HHI.HCPN ---
Reason for visit a. To assist with evaluation and management of symptoms including: Pain b. To assist medical decision maker(s) with: better understanding of current medical conditions; weighing benefits/burdens of medical treatment options; making medical treatment decisions. . Subjective/Interval History INTERVAL NOTE: The patient's pain was a little better initially after beginning the 80 mg OxyContin, but he has continued to need parenteral hydromorphone fairly regularly. His bilirubin remains elevated at greater than 10. The latest alpha- fetoprotein is greater than 1000. In discussion with Dr. Carey this morning, it was noted that the patient is not a candidate for serafenib now since his bilirubin is greater than 3. Dr. Carey has recommended hospice services. I had a lengthy discussion with the patient at the bedside regarding hospice, what they offer, how they will approach symptom management, the care that is available in various settings, and the support that will be available for his family. I answered all of his questions. . Advance Directives Living Will: Never completed Health Care Surrogate: Never completed Durable Power of Topographical Drafter: Never completed Advance Directive Specifics Significant change in goals: The patient is open to hospice services, and is hoping to get home to focus on symptom management soon. . Objective Vital Signs Date Time Temp Pulse Resp B/P (MAP) Pulse Ox O2 Delivery O2 Flow Rate FiO2 01/21/17 07:10 16 01/21/17 06:44 16 01/21/17 05:42 104 17 131/85 (100) 95 01/21/17 04:40 97.7 115 20 177/106 (129) 95 01/21/17 04:06 95 01/21/17 00:22 97 01/21/17 00:01 98.0 106 18 144/91 (108) 94 01/20/17 20:12 116 01/20/17 20:05 Room Air 01/20/17 20:04 98.2 123 137/105 (116) 94 01/20/17 17:19 98.8 98 18 144/90 (108) 97 01/20/17 12:23 98.4 112 20 136/97 (110) 96 01/20/17 11:31 94 Room Air Intake & Output 01/21/17 01/21/17 07:00 19:00 Intake Total 660 ml Output Total 900 ml Balance -240 ml Intake Oral 660 ml Output Urine Total 900 ml # Bowel Movements 2 Physical Exam CONSTITUTIONAL/GENERAL: This is a thin patient, in mild to moderate distress from pain. TUBES/LINES/DRAINS: Peripheral IV EYES:Has some mild scleral icterus. No injection or drainage. Fundi not examined. ENT: Hearing grossly normal. Nose without bleeding or purulent drainage. Throat without visible erythema, exudates, masses, or lesions. CARDIOVASCULAR: Regular rate and rhythm without murmurs, gallops, or rubs. No JVD. Peripheral pulses symmetric. RESPIRATORY/CHEST: Symmetric, unlabored respirations. Clear to auscultation. Breath sounds equal bilaterally. No wheezes, rales, or rhonchi. GASTROINTESTINAL: Abdomen soft, but moderately distended. There is mild tenderness to palpation at the liver edge 4 cm below the RCM. No hepato- splenomegaly, or palpable masses. No guarding. Bowel sounds present. NEUROLOGICAL: Awake and alert. Motor and sensory grossly within normal limits. Follows commands. Cognitively sharp. Moves all extremities. PSYCHIATRIC: No obvious anxiety/depression. no apparent hallucinations or other psychotic thought process. . Diagnostic Tests Laboratory Laboratory Tests Test 01/18/17 15:15 01/18/17 16:31 01/19/17 11:34 01/20/17 06:15 Urine Color ORANGE (YELLW/STRAW) Urine Turbidity CLEAR (CLEAR) Urine pH 6.0 (5.0-8.5) Urine Specific [place] 1.024 (1.002-1.035) Urine Protein NEG mg/dL (NEG-TRACE) Urine Glucose (UA) NEG mg/dL (NEG) Urine Ketones NEG mg/dL (NEG) Urine Occult Blood NEG (NEG) Urine Nitrite NEG (NEG) Urine Bilirubin MOD (NEG) Urine Urobilinogen 8.0 MG/DL (LESS THAN Urine Leukocyte Esterase NEG (NEG) Urine RBC 1 /hpf (0-3) Urine WBC 1 /hpf (0-5) Urine Mucus FEW /lpf (OCC) Microscopic Urinalysis Comment CULT NOT INDICATED Tumor Marker Alpha Fetoprotein GREATER THAN 1000.0 NG/ML Blood Urea Nitrogen 11 MG/DL (7-18) 9 MG/DL (7-18) Creatinine 0.64 MG/DL (0.60-1.30) 0.58 MG/DL (0.60-1.30) Random Glucose 110 MG/DL (74-106) 109 MG/DL (74-106) Total Protein 7.7 GM/DL (6.4-8.2) 7.4 GM/DL (6.4-8.2) Albumin 1.9 GM/DL (3.4-5.0) 1.8 GM/DL (3.4-5.0) Calcium Level 8.4 MG/DL (8.5-10.1) 8.1 MG/DL (8.5-10.1) Alkaline Phosphatase 194 U/L (45-117) 185 U/L (45-117) Aspartate Amino Transf (AST/SGOT) 164 U/L (15-37) 171 U/L (15-37) Alanine Aminotransferase (ALT/SGPT) 64 U/L (12-78) 65 U/L (12-78) Total Bilirubin 9.7 MG/DL (0.2-1.0) 9.6 MG/DL (0.2-1.0) Sodium Level 129 MEQ/L (136-145) 128 MEQ/L (136-145) Potassium Level 3.9 MEQ/L (3.5-5.1) 3.6 MEQ/L (3.5-5.1) Chloride Level 95 MEQ/L (98-107) 95 MEQ/L (98-107) Carbon Dioxide Level 24.8 MEQ/L (21.0-32.0) 28.0 MEQ/L (21.0-32.0) Anion Gap 9 MEQ/L (5-15) 5 MEQ/L (5-15) Estimat Glomerular Filtration Rate 131 ML/MIN (>89) 147 ML/MIN (>89) White Blood Count 9.6 TH/MM3 (4.0-11.0) Red Blood Count 4.20 MIL/MM3 (4.50-5.90) Hemoglobin 14.0 GM/DL (13.0-17.0) Hematocrit 39.7 % (39.0-51.0) Mean Corpuscular Volume 94.6 FL (80.0-100.0) Mean Corpuscular Hemoglobin 33.3 PG (27.0-34.0) Mean Corpuscular Hemoglobin Concent 35.2 % (32.0-36.0) Red Cell Distribution Width 16.6 % (11.6-17.2) Platelet Count 133 TH/MM3 (150-450) Mean Platelet Volume 8.5 FL (7.0-11.0) Neutrophils (%) (Auto) 86.8 % (16.0-70.0) Lymphocytes (%) (Auto) 4.3 % (9.0-44.0) Monocytes (%) (Auto) 6.8 % (0.0-8.0) Eosinophils (%) (Auto) 1.2 % (0.0-4.0) Basophils (%) (Auto) 0.9 % (0.0-2.0) Neutrophils # (Auto) 8.3 TH/MM3 (1.8-7.7) Lymphocytes # (Auto) 0.4 TH/MM3 (1.0-4.8) Monocytes # (Auto) 0.6 TH/MM3 (0-0.9) Eosinophils # (Auto) 0.1 TH/MM3 (0-0.4) Basophils # (Auto) 0.1 TH/MM3 (0-0.2) CBC Comment DIFF FINAL Differential Comment Prothrombin Time 16.0 SEC (9.8-11.6) Prothromb Time International Ratio 1.4 RATIO Test 01/21/17 06:25 Blood Urea Nitrogen 10 MG/DL (7-18) Creatinine 0.64 MG/DL (0.60-1.30) Random Glucose 82 MG/DL (74-106) Total Protein 7.5 GM/DL (6.4-8.2) Albumin 1.8 GM/DL (3.4-5.0) Calcium Level 8.2 MG/DL (8.5-10.1) Alkaline Phosphatase 183 U/L (45-117) Aspartate Amino Transf (AST/SGOT) 194 U/L (15-37) Alanine Aminotransferase (ALT/SGPT) 79 U/L (12-78) Total Bilirubin 10.9 MG/DL (0.2-1.0) Sodium Level 127 MEQ/L (136-145) Potassium Level 3.5 MEQ/L (3.5-5.1) Chloride Level 94 MEQ/L (98-107) Carbon Dioxide Level 24.2 MEQ/L (21.0-32.0) Anion Gap 9 MEQ/L (5-15) Estimat Glomerular Filtration Rate 131 ML/MIN (>89) Result Diagram: 01/20/1715 01/21/1725 Assessment and Plan Disease Oriented Problem List: (1) uncontrolled pain Comment: Most likely due to the tumor burden, and particular the increasingly large areas of adenopathy including in the retroperitoneum and perigastric areas (2) metastatic hepatocellular carcinoma (3) hepatic cirrhosis (4) history of daily alcohol use (5) history of hepatitis C (6) hypertension (7) hyperlipidemia (8) depression (9) GERD (10) chronic neck/back pain for several years Symptom Scale: (1) pain 0-10 Scale: 6 Pertinent Non-Medical Issues Psychosocial: Originally from [place], lives with , has one son in [place]. Former telecommunications worker, now on disability. Spiritual: Unaffiliated Islam Mandaeism, open to map mounter visits. Legal: The patient has capacity for decision-making. His will be the healthcare proxy if he loses that capacity. Ethical issues impacting care: None . Important Contacts Spouse: Alethea [phone] . Prognosis This patient is likely terminal, with weeks or months to live depending on his response to further treatment. . Code Status: Full Code Plan * FULL CODE - the patient says he would want to be on life support "for a few days, but not hanging on for a month." He reports that his knows that she is to remove him from life support if it "goes on and on." He is reconsidering this now that he is going to be entering hospice. * GOALS: The patient's main goal is to get the pain under control and to get back home. * DECISION-MAKING: The patient has capacity for decision-making. His will be the healthcare proxy if he loses that capacity. * SYMPTOMS: * PAIN: The 80 mg OxyContin every 8 hour dosing was begun last evening, and may be causing some improvement already. He will likely need continued dosing adjustments of opiates to manage his pain. Hospice will be involved in that. * Palliative Care will continue to follow the patient during this hospitalization. . Time Spent Total Floor Time (mins): 38 Face to Face Time (mins): 25 >50% Counseling/Coord of Care: Yes (d/w Dr. Carey) Attestation To help prompt me to consider important information that might be impacting today's encounter and assessment, information from prior notes written by myself or my colleagues may have been "brought forward" into today's note. My signature on this note, however, is an attestation that I personally performed the exam, history, and/or decision-making noted today, and, unless otherwise indicated, the interactions with patient, family, and staff as well as the review of records all occurred today. I also attest that the listed assessment and stated plan reflect my best clinical judgment today based on the combination of historical information, prior notes, and today's exam/ interactions. When time spent is documented, it refers only to time spent today by the signer, or if indicated, combined time spent today by collaborating physician/nurse practitioner. Thalia Solano MD Jan 21, 2017 10:26
--- NOTE | 2017-01-21 12:02 | HHI.PR ---
Subjective Remarks Follow-up intractable abdominal pain/HCC 01/20/17-patient seen and examined reports some improvement overnight with current regimen as patient was able to sleep at least 2-4 hours. Still using breakthrough IV Dilaudid 01/21/17-patient seen and examined, still continues to have abdominal pain. Patient is not agreeable to home hospice. Not a candidate to Sorafenib Objective Vitals Vital Signs Date Time Temp Pulse Resp B/P (MAP) Pulse Ox O2 Delivery O2 Flow Rate FiO2 01/21/17 07:10 16 01/21/17 06:44 16 01/21/17 05:42 104 17 131/85 (100) 95 01/21/17 04:40 97.7 115 20 177/106 (129) 95 01/21/17 04:06 95 01/21/17 00:22 97 01/21/17 00:01 98.0 106 18 144/91 (108) 94 01/20/17 20:12 116 01/20/17 20:05 Room Air 01/20/17 20:04 98.2 123 137/105 (116) 94 01/20/17 17:19 98.8 98 18 144/90 (108) 97 01/20/17 12:23 98.4 112 20 136/97 (110) 96 I/O 01/20/17 01/20/17 01/20/17 01/21/17 01/21/17 01/21/17 07:00 15:00 23:00 07:00 15:00 23:00 Intake Total 1000 ml 660 ml Output Total 800 ml 600 ml 300 ml Balance 200 ml 60 ml -300 ml Intake Oral 660 ml IV Total 1000 ml Output Urine Total 800 ml 600 ml 300 ml # Bowel Movements 2 Result Diagram: 01/20/17 0615 01/21/17 0625 Imaging Last Impressions Cholangiopancreatography MRI 01/20/17 0000 Signed Impressions: Service Date/Time: Friday, January 20, 2017 11:17 - CONCLUSION: 1. No evidence of biliary obstructive disease. 2. Diffuse neoplastic disease to liver. 3. Portal vein effacement with developing intraluminal thrombus and poorly documented flow into the right lobe. 4. 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 5. Decompressed gallbladder with mild wall thickening, pericholecystic fluid and inspissated bile. Cheng Alford MD Hepatobiliary Scan Nuclear Medicine 01/18/17 0000 Signed Impressions: Service Date/Time: Wednesday, January 18, 2017 12:09 - CONCLUSION: 1. Visualization of gallbladder within the 1st hour excludes cystic duct obstruction. 2. Slow uptake of radiotracer in the hepatic vein with prolonged retention in the blood pool. This is indicative of hepatocellular dysfunction. There is also a photopenic area in the central left lobe of the liver which corresponds to the hypodense 6 cm mass seen on CT. Maury Adkins MD Abdomen/Pelvis CT 01/17/17 1126 Signed Impressions: Service Date/Time: Tuesday, January 17, 2017 12:24 - CONCLUSION: 1. Diffuse neoplastic infiltration of the liver similar to December 3. Stable to worsened periportal and retroperitoneal adenopathy. 2. Trace free fluid in the abdomen and pelvis with some new nodularity along the left peritoneal surface. 3. No bowel obstruction or free air. Donaldo Braga MD Gall Bladder Ultrasound 01/17/17 0000 Signed Impressions: Service Date/Time: Tuesday, January 17, 2017 16:11 - CONCLUSION: 1. Gallbladder wall is diffusely thickened measuring in excess of 10 mm. No gallstones seen however. 2. Common bile duct is mildly dilated at 9 mm. 3. Multiple solid masses in the enlarged liver measuring up to 5.[address] Angiography 01/17/17 0000 Signed Impressions: Service Date/Time: Tuesday, January 17, 2017 20:00 - CONCLUSION: 1. The study is negative for pulmonary embolism. 2. There is a new 1.7 cm masslike opacity in the lower lateral left lung costophrenic angle and there is a new 1.3 cm perigastric lymph node. Cannot differentiate between malignancy and infectious/inflammatory process; but both of these findings are new compared to a prior CT pulmonary angiogram in September 2016. Maury Adkins MD Objective Remarks GENERAL: NAD SKIN: Warm and dry. HEAD: Normocephalic. EYES: No scleral icterus. No injection or drainage. NECK: Supple, trachea midline. No JVD or lymphadenopathy. CARDIOVASCULAR: Regular rate and rhythm without murmurs, gallops, or rubs. RESPIRATORY: Breath sounds equal bilaterally. No accessory muscle use. GASTROINTESTINAL: Abdomen hard, mildly tender, distended. Positive for hepatosplenomegaly MUSCULOSKELETAL: No cyanosis, or edema. BACK: Nontender without obvious deformity. No CVA tenderness. A/P Problem List: (1) Intractable abdominal pain ICD Code: R10.9 - Unspecified abdominal pain Status: Acute (2) metastatic hepatocellular carcinoma Assessment and Plan 52-year-old man with Intractable abdominal pain Patient with a history of hepatocellular carcinoma Currently on sick contact and 80 mg every 8 hour as well as Dilaudid IV for breakthrough pain Likely will start short acting oxycodone as breakthrough pain today 01/21/17 per palliative care medicine Patient is not agreeable to hospice Acute transaminitis MRCP noted Appreciate input from gastroenterology Continue simethicone, Relistor for narcotic-induced constipation History of metastasis hepatocellular carcinoma Appreciate input from oncology, patient is not a candidate to Soranefib due to rapidly progressing disease, increased bilirubin Patient is not agreeable to hospice Continue with prednisone, Periactin sinus Tachycardia intermittent, 2/2 pain-pain management accordingly Continue as well with Lopressor Hypertension Currently on Lopressor 12 mg daily, hydrochlorothiazide 25 mg daily DVT prophylaxis :Govind Waggoner MD Jan 21, 2017 12:01
--- NOTE | 2017-01-21 13:56 | HHI.GIFU ---
Subjective Remarks dozing, resting from pain meds, but awakens vin light tactile stimuli. Some tachycardia noted, afebrile Anxiety increased over the past 24 hours Abdominal pain with some bloating noted, unchanged BMs 2, loose (Shirin Hamilton) Objective Vitals I&O Vital Signs Date Time Temp Pulse Resp B/P (MAP) Pulse Ox O2 Delivery O2 Flow Rate FiO2 01/21/17 13:19 Room Air 01/21/17 08:00 98.2 132 20 125/88 (100) 93 01/21/17 07:10 16 01/21/17 06:44 16 01/21/17 05:42 104 17 131/85 (100) 95 01/21/17 04:40 97.7 115 20 177/106 (129) 95 01/21/17 04:06 95 01/21/17 00:22 97 01/21/17 00:01 98.0 106 18 144/91 (108) 94 01/20/17 20:12 116 01/20/17 20:05 Room Air 01/20/17 20:04 98.2 123 137/105 (116) 94 01/20/17 17:19 98.8 98 18 144/90 (108) 97 I/O 01/20/17 01/20/17 01/20/17 01/21/17 01/21/17 01/21/17 07:00 15:00 23:00 07:00 15:00 23:00 Intake Total 1000 ml 660 ml Output Total 800 ml 600 ml 300 ml Balance 200 ml 60 ml -300 ml Intake Oral 660 ml IV Total 1000 ml Output Urine Total 800 ml 600 ml 300 ml # Bowel Movements 2 Laboratory Laboratory Tests Test 01/21/17 06:25 Blood Urea Nitrogen 10 Creatinine 0.64 Random Glucose 82 Total Protein 7.5 Albumin 1.8 Calcium Level 8.2 Alkaline Phosphatase 183 Aspartate Amino Transf (AST/SGOT) 194 Alanine Aminotransferase (ALT/SGPT) 79 Total Bilirubin 10.9 Sodium Level 127 Potassium Level 3.5 Chloride Level 94 Carbon Dioxide Level 24.2 Anion Gap 9 Estimat Glomerular Filtration Rate 131 Imaging Last Impressions Cholangiopancreatography MRI 01/20/17 0000 Signed Impressions: Service Date/Time: Friday, January 20, 2017 11:17 - CONCLUSION: 1. No evidence of biliary obstructive disease. 2. Diffuse neoplastic disease to liver. 3. Portal vein effacement with developing intraluminal thrombus and poorly documented flow into the right lobe. 4. 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 5. Decompressed gallbladder with mild wall thickening, pericholecystic fluid and inspissated bile. Cheng Alford MD Hepatobiliary Scan Nuclear Medicine 01/18/17 0000 Signed Impressions: Service Date/Time: Wednesday, January 18, 2017 12:09 - CONCLUSION: 1. Visualization of gallbladder within the 1st hour excludes cystic duct obstruction. 2. Slow uptake of radiotracer in the hepatic vein with prolonged retention in the blood pool. This is indicative of hepatocellular dysfunction. There is also a photopenic area in the central left lobe of the liver which corresponds to the hypodense [address] seen on [address]. Maury Adkins MD Abdomen/Pelvis CT 01/17/17 1126 Signed Impressions: Service Date/Time: Tuesday, January 17, 2017 12:24 - CONCLUSION: 1. Diffuse neoplastic infiltration of the liver similar to December 3. Stable to worsened periportal and retroperitoneal adenopathy. 2. Trace free fluid in the abdomen and pelvis with some new nodularity along the left peritoneal surface. 3. No bowel obstruction or free air. Donaldo Braga MD Gall Bladder Ultrasound 01/17/17 0000 Signed Impressions: Service Date/Time: Tuesday, January 17, 2017 16:11 - CONCLUSION: 1. Gallbladder wall is diffusely thickened measuring in excess of 10 mm. No gallstones seen however. 2. Common bile duct is mildly dilated at 9 mm. 3. Multiple solid masses in the enlarged liver measuring up to 5.[address] Angiography 01/17/17 0000 Signed Impressions: Service Date/Time: Tuesday, January 17, 2017 20:00 - CONCLUSION: 1. The study is negative for pulmonary embolism. 2. There is a new 1.7 cm masslike opacity in the lower lateral left lung costophrenic angle and there is a new 1.3 cm perigastric lymph node. Cannot differentiate between malignancy and infectious/inflammatory process; but both of these findings are new compared to a prior CT pulmonary angiogram in September 2016. Maury Adkins MD Physical Exam HEENT: Normocephalic; atraumatic; generalized jaundice. CHEST: CTA, tachycardia noted with increased activity but seems to be tolerating fairly well CARDIAC: RRR ABDOMEN: Round, taut, Distended, Diffuse TTP, worse at RUQ; hepatomegaly , bowel sounds soft but active EXTREMITIES: No clubbing, cyanosis, or edema. SKIN: Normal; no rash; positive for jaundice. [employer]: No focal deficits; alert and oriented times three., Anxious over current condition (Shirin Hamilton) Assessment and Plan Plan ASSESSMENT: - Abdominal pain, multifactorial. Patient with known diagnosis of stage 4 hepatocellular carcinoma, diagnosed in September followed by the [place], received Y-90 treatment, he is unsure when, states he is due for another soon. Followed by Oncology. CT Abdomen/Pelvis 01/17/17--1. Diffuse neoplastic infiltration of the liver similar to December 3. Stable to worsened periportal and retroperitoneal adenopathy. 2. Trace free fluid in the abdomen and pelvis with some new nodularity along the left peritoneal surface. 3. No bowel obstruction or free air. Gallbladder US 01/17/17--1. Gallbladder wall is diffusely thickened measuring in excess of 10 mm. No gallstones seen however. 2. Common bile duct is mildly dilated at 9 mm. 3. Multiple solid masses in the enlarged liver measuring up to 5.9 cm. HIDA scan (01/17/17) --> Visualization of the gallbladder within the 1st hour excludes cystic duct obstruction. Slow uptake of radiotracer in the hepatic vein with prolonged retention in the blood pool. This is indicative of hepatocellular dysfunction. There is also a photopenic area in the central left lobe of the liver which corresponds to the hypodense [address] Reports continued RUQ abdominal pain, nausea, vomiting, and decreased appetite. MRCP; performed on 01/20/17, results showed no obstructive disease; diffuse neoplastic lesions throughout the liver. Patient was seen per Dr. Carey for update on reports and his expert opinion for patient's cancer and plan of care. Patient has some increased anxiety, supportive care - Elevated LFTs and Hyperbilirubinemia- CT abdomen, US gallbladder, and HIDA scan as above. Patient continues to have elevated labs secondary to his liver cancer but no obstruction. HIDA scan ruled out cholecystitis and showed no gallstones. - Constipation- initially was having days without bowel movements, but BMs 2 today with medical management. Some of this is probable secondary to pain management, Dilaudid and Oxycodone. Pt initially refused Miralax, but took today's dose - History of hepatitis C- reports he received treatment and cleared the virus approx 3-4 years ago PLAN: - Diet advanced to regular diet, encourage patient to eat anything he thinks would satisfy him and let us assist to get what he wants if needed - Monitor labs - Pain control - Monitor bowel regimen, medical management, MiraLAX - Anti-emetics - Supportive care - Further recommendations to follow based on results of above Patient seen and examined by Dr. Cardenas and myself and this note is written on her behalf (Shirin Hamilton) Shirin Hamilton Jan 21, 2017 13:56 Andria Cardenas MD Jan 21, 2017 20:03
[2017-01-22] MEDS: HYDROmorphone HCL PF 2 MG/ML VIAL IV PUSH PRN ×6 (00:37→13:48)
[2017-01-22 00:42] VITALS: BP 146/93; PULSE 109; RESP 18; TEMP 97.6; O2SAT 96
[2017-01-22] MEDS: PROMETHAZINE HCL 25 MG TAB PO PRN ×2 (03:19→08:44)
[2017-01-22 03:39] VITALS: PULSE 104
[2017-01-22 05:49] VITALS: BP 125/84; PULSE 87; RESP 18; TEMP 98; O2SAT 96
[2017-01-22] MEDS: oxyCODONE HCL 80 MG CONTROLLED RELEASE TAB PO SCH ×2 (05:56→13:47)
[2017-01-22] MEDS: SIMETHICONE 125 MG CHEWABLE TAB PO SCH ×2 (05:57→13:47)
[2017-01-22 07:00] VITALS: PULSE 95
[2017-01-22 08:07] VITALS: BP 146/96; PULSE 106; RESP 18; TEMP 97.5; O2SAT 95
[2017-01-22] MEDS: predniSONE 5 MG TAB PO SCH (08:44)
[2017-01-22] MEDS: FAMOTIDINE 20 MG TAB PO SCH (08:44)
[2017-01-22] MEDS: POLYETHYLENE GLYCOL 17 GM PKG PO SCH (08:44)
[2017-01-22] MEDS: CYPROHEPTADINE HCL 4 MG TAB PO SCH (08:44)
[2017-01-22] MEDS: METOPROLOL TARTRATE 25 MG TAB PO SCH (08:44)
[2017-01-22] MEDS: HYDROCHLOROTHIAZIDE 25 MG TAB PO SCH (08:45)
[2017-01-22] MEDS: NICOTINE 21 MG/24 HR PATCH T-DERMAL SCH (08:55)
[2017-01-22] MEDS: NYSTAT/DIPHENHY/LIDO MOUTHWASH (Adult) 120ML SWISH-SWAL SCH ×2 (08:55→13:48)
[2017-01-22] MEDS: REMOVE OLD PATCH T-DERMAL SCH (08:56)
--- NOTE | 2017-01-22 09:58 | HHI.PR ---
Subjective Remarks Follow-up intractable abdominal pain/HCC 01/20/17-patient seen and examined reports some improvement overnight with current regimen as patient was able to sleep at least 2-4 hours. Still using breakthrough IV Dilaudid 01/21/17-patient seen and examined, still continues to have abdominal pain. Patient is not agreeable to home hospice. Not a candidate to Sorafenib 01/22/17-patient seen and examined, reports some improvement of abdominal pain. Looking for discharge home with hospice Objective Vitals Vital Signs Date Time Temp Pulse Resp B/P (MAP) Pulse Ox O2 Delivery O2 Flow Rate FiO2 01/22/17 08:23 95 Room Air 01/22/17 08:07 97.5 106 18 146/96 (113) 95 01/22/17 06:55 16 01/22/17 06:25 16 01/22/17 05:49 98.0 87 18 125/84 (98) 96 01/22/17 03:39 104 01/22/17 00:42 97.6 109 18 146/93 (110) 96 01/21/17 23:06 116 01/21/17 20:06 119 01/21/17 20:01 98.2 118 18 135/98 (110) 94 01/21/17 20:00 Room Air 01/21/17 17:30 98.4 101 20 135/80 (98) 98 01/21/17 13:20 97.8 100 18 148/70 (96) 96 01/21/17 13:19 Room Air I/O 01/21/17 01/21/17 01/21/17 01/22/17 01/22/17 01/22/17 07:00 15:00 23:00 07:00 15:00 23:00 Intake Total 1500 ml Output Total 300 ml Balance -300 ml 1500 ml Intake Oral 1500 ml Output Urine Total 300 ml # Voids 4 # Bowel Movements 2 Result Diagram: 01/20/17 0615 01/21/17 0625 Imaging Last Impressions Cholangiopancreatography MRI 01/20/17 0000 Signed Impressions: Service Date/Time: Friday, January 20, 2017 11:17 - CONCLUSION: 1. No evidence of biliary obstructive disease. 2. Diffuse neoplastic disease to liver. 3. Portal vein effacement with developing intraluminal thrombus and poorly documented flow into the right lobe. 4. 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 5. Decompressed gallbladder with mild wall thickening, pericholecystic fluid and inspissated bile. Cheng Alford MD Hepatobiliary Scan Nuclear Medicine 01/18/17 0000 Signed Impressions: Service Date/Time: Wednesday, January 18, 2017 12:09 - CONCLUSION: 1. Visualization of gallbladder within the 1st hour excludes cystic duct obstruction. 2. Slow uptake of radiotracer in the hepatic vein with prolonged retention in the blood pool. This is indicative of hepatocellular dysfunction. There is also a photopenic area in the central left lobe of the liver which corresponds to the hypodense 6 cm mass seen on CT. Maury Adkins MD Abdomen/Pelvis CT 01/17/17 1126 Signed Impressions: Service Date/Time: Tuesday, January 17, 2017 12:24 - CONCLUSION: 1. Diffuse neoplastic infiltration of the liver similar to December 3. Stable to worsened periportal and retroperitoneal adenopathy. 2. Trace free fluid in the abdomen and pelvis with some new nodularity along the left peritoneal surface. 3. No bowel obstruction or free air. Donaldo Braga MD Gall Bladder Ultrasound 01/17/17 0000 Signed Impressions: Service Date/Time: Tuesday, January 17, 2017 16:11 - CONCLUSION: 1. Gallbladder wall is diffusely thickened measuring in excess of 10 mm. No gallstones seen however. 2. Common bile duct is mildly dilated at 9 mm. 3. Multiple solid masses in the enlarged liver measuring up to 5.[address] Angiography 01/17/17 0000 Signed Impressions: Service Date/Time: Tuesday, January 17, 2017 20:00 - CONCLUSION: 1. The study is negative for pulmonary embolism. 2. There is a new 1.7 cm masslike opacity in the lower lateral left lung costophrenic angle and there is a new 1.3 cm perigastric lymph node. Cannot differentiate between malignancy and infectious/inflammatory process; but both of these findings are new compared to a prior CT pulmonary angiogram in September 2016. Maury Adkins MD Objective Remarks GENERAL: NAD SKIN: Warm and dry. HEAD: Normocephalic. EYES: No scleral icterus. No injection or drainage. NECK: Supple, trachea midline. No JVD or lymphadenopathy. CARDIOVASCULAR: Regular rate and rhythm without murmurs, gallops, or rubs. RESPIRATORY: Breath sounds equal bilaterally. No accessory muscle use. GASTROINTESTINAL: Abdomen hard, mildly tender, distended. Positive for hepatosplenomegaly MUSCULOSKELETAL: No cyanosis, or edema. BACK: Nontender without obvious deformity. No CVA tenderness. Procedures None A/P Problem List: (1) Intractable abdominal pain ICD Code: R10.9 - Unspecified abdominal pain Status: Acute (2) metastatic hepatocellular carcinoma Assessment and Plan 52-year-old man with Intractable abdominal pain Patient with a history of hepatocellular carcinoma Currently on Oxycontin 80 mg every 8 hour as well as Dilaudid IV for breakthrough pain Appreciate input from palliative care medicine Patient is now agreeable to hospice and likely will be discharged home today 01/22/17 Acute transaminitis MRCP noted Appreciate input from gastroenterology Continue simethicone, Relistor for narcotic-induced constipation History of metastasis hepatocellular carcinoma Appreciate input from oncology, patient is not a candidate to Soranefib due to rapidly progressing disease, increased bilirubin Patient is now agreeable to hospice Continue with prednisone, Periactin sinus Tachycardia intermittent, 2/2 pain-pain management accordingly Continue as well with Lopressor Hypertension Currently on Lopressor 12 mg daily, hydrochlorothiazide 25 mg daily DVT prophylaxis :Govind Waggoner MD Jan 22, 2017 09:58
--- NOTE | 2017-01-22 10:01 | HHI.DS ---
Discharge Summary Admission Date Jan 17, 2017 at 13:52 Discharge Date: Jan 22, 2017 Admitting Diagnosis intractable abdominal pain. Metastatic hepatocellular carcinoma. H (1) Intractable abdominal pain ICD Code: R10.9 - Unspecified abdominal pain Status: Acute (2) metastatic hepatocellular carcinoma Procedures None Brief History - From Admission 52-year-old white male being admitted for intractable abdominal pain. Patient states that he was in his usual state of health until about 2-3 days ago when his chronic abdominal pain became worse. States that the pain will become a 10 at times and will fluctuate, most of the pain is on his right side over the abdomen and right underneath this lowermost ribs. States that it hurts for him to take a deep breath. He says the pain eases up when he leans forward. Says that he normally takes 40 mg of oxycodone every 8 hours as well as "10 mg pills of oxycodone" for breakthrough in between. He says he took 3 of the 10 mg pills back to back with no relief of his pain this time around. He says he almost wanted to cry; did not want to come 2 days ago when the pain was at its worse because he did not feel like moving around. Now he says he is just tired of it and wants to seek assistance. He states that he has not eaten anything in the last 2-3 days including , has not had the appetite to do so. Reports that he has chronic intermittent N/V/D since the onset of his cancer which is largely unchanged. CT scan in the emergency room of the abdomen shows slightly increased size of retroportal and retroperitoneal adenopathy as well as a partially thrombosed portal vein. He recently had a postprocedure follow-up visit on 01/02 regarding his Y 90 embolization of the right hepatic artery, he is now in the time frame due for embolization of the left hepatic lobe. CBC/BMP: 01/20/17 0615 01/21/17 0625 Significant Findings Laboratory Tests Test 01/19/17 11:34 01/20/17 06:15 01/21/17 06:25 Random Glucose 110 MG/DL (74-106) 109 MG/DL (74-106) Albumin 1.9 GM/DL (3.4-5.0) 1.8 GM/DL (3.4-5.0) 1.8 GM/DL (3.4-5.0) Calcium Level 8.4 MG/DL (8.5-10.1) 8.1 MG/DL (8.5-10.1) 8.2 MG/DL (8.5-10.1) Alkaline Phosphatase 194 U/L (45-117) 185 U/L (45-117) 183 U/L (45-117) Aspartate Amino Transf (AST/SGOT) 164 U/L (15-37) 171 U/L (15-37) 194 U/L (15-37) Total Bilirubin 9.7 MG/DL (0.2-1.0) 9.6 MG/DL (0.2-1.0) 10.9 MG/DL (0.2-1.0) Sodium Level 129 MEQ/L (136-145) 128 MEQ/L (136-145) 127 MEQ/L (136-145) Chloride Level 95 MEQ/L (98-107) 95 MEQ/L (98-107) 94 MEQ/L (98-107) Red Blood Count 4.20 MIL/MM3 (4.50-5.90) Platelet Count 133 TH/MM3 (150-450) Neutrophils (%) (Auto) 86.8 % (16.0-70.0) Lymphocytes (%) (Auto) 4.3 % (9.0-44.0) Neutrophils # (Auto) 8.3 TH/MM3 (1.8-7.7) Lymphocytes # (Auto) 0.4 TH/MM3 (1.0-4.8) Prothrombin Time 16.0 SEC (9.8-11.6) Creatinine 0.58 MG/DL (0.60-1.30) Alanine Aminotransferase (ALT/SGPT) 79 U/L (12-78) Imaging Last Impressions Cholangiopancreatography MRI 01/20/17 0000 Signed Impressions: Service Date/Time: Friday, January 20, 2017 11:17 - CONCLUSION: 1. No evidence of biliary obstructive disease. 2. Diffuse neoplastic disease to liver. 3. Portal vein effacement with developing intraluminal thrombus and poorly documented flow into the right lobe. 4. 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 5. Decompressed gallbladder with mild wall thickening, pericholecystic fluid and inspissated bile. Cheng Alford MD Hepatobiliary Scan Nuclear Medicine 01/18/17 0000 Signed Impressions: Service Date/Time: Wednesday, January 18, 2017 12:09 - CONCLUSION: 1. Visualization of gallbladder within the 1st hour excludes cystic duct obstruction. 2. Slow uptake of radiotracer in the hepatic vein with prolonged retention in the blood pool. This is indicative of hepatocellular dysfunction. There is also a photopenic area in the central left lobe of the liver which corresponds to the hypodense 6 cm mass seen on CT. Maury Adkins MD Abdomen/Pelvis CT 01/17/17 1126 Signed Impressions: Service Date/Time: Tuesday, January 17, 2017 12:24 - CONCLUSION: 1. Diffuse neoplastic infiltration of the liver similar to December 3. Stable to worsened periportal and retroperitoneal adenopathy. 2. Trace free fluid in the abdomen and pelvis with some new nodularity along the left peritoneal surface. 3. No bowel obstruction or free air. Donaldo Braga MD Gall Bladder Ultrasound 01/17/17 0000 Signed Impressions: Service Date/Time: Tuesday, January 17, 2017 16:11 - CONCLUSION: 1. Gallbladder wall is diffusely thickened measuring in excess of 10 mm. No gallstones seen however. 2. Common bile duct is mildly dilated at 9 mm. 3. Multiple solid masses in the enlarged liver measuring up to 5.[address] Angiography 01/17/17 0000 Signed Impressions: Service Date/Time: Tuesday, January 17, 2017 20:00 - CONCLUSION: 1. The study is negative for pulmonary embolism. 2. There is a new 1.7 cm masslike opacity in the lower lateral left lung costophrenic angle and there is a new 1.3 cm perigastric lymph node. Cannot differentiate between malignancy and infectious/inflammatory process; but both of these findings are new compared to a prior CT pulmonary angiogram in September 2016. Maury Adkins MD PE at Discharge GENERAL: NAD SKIN: Warm and dry. HEAD: Normocephalic. EYES: No scleral icterus. No injection or drainage. NECK: Supple, trachea midline. No JVD or lymphadenopathy. CARDIOVASCULAR: Regular rate and rhythm without murmurs, gallops, or rubs. RESPIRATORY: Breath sounds equal bilaterally. No accessory muscle use. GASTROINTESTINAL: Abdomen hard, mildly tender, distended. Positive for hepatosplenomegaly MUSCULOSKELETAL: No cyanosis, or edema. BACK: Nontender without obvious deformity. No CVA tenderness. Hospital Course Patient admitted secondary to intractable abdominal pain due to metastasis hepatocellular carcinoma, for which palliative care medicine was consulted for management of pain and patient was started on OxyContin 80 mg every 8 hours and continue on breakthrough narcotics. Oncology was consulted. Secondary to elevated LFTs gastroenterology was consulted and MRCP was performed. Patient was continued on his medication for other chronic medical conditions. DVT and GI prophylaxis were provided. Hospice was consulted and patient will be discharged home with hospice. Pt Condition on Discharge: Fair Discharge Disposition: Hospice/ Home Discharge Time: > 30 minutes Discharge Instructions DIET: Follow Instructions for: As Tolerated, No Restrictions Activities you can perform: Regular-No Restrictions New Medications: Metoprolol Tartrate (Metoprolol Tartrate) 25 Mg Tab 25 MG PO BID for Blood Pressure Management, #60 TAB 11 Refills Prednisone (Prednisone) 5 Mg Tab 15 MG PO DAILY for Immunosuppression, #7 TAB Continued Medications: Cyanocobalamin (Vitamin B-12) (B-12) 1,000 Mcg Tablet 1 TAB PO DAILY Cyclobenzaprine (Flexeril) 7.5 Mg Tab 7.5 MG PO TID for Muscle Spasm, #90 TAB 0 Refills Hydrochlorothiazide (Hydrochlorothiazide) 25 Mg Tab 25 MG PO DAILY, #30 TAB 0 Refills Polyethylene Glycol 3350 Powder (Miralax Powder) 17 Gm Powd 17 GM PO DAILY for Constipation, #1 CAN 0 Refills Mix and dissolve one measuring cap-ful (17 grams) in water or juice. Ranitidine (Ranitidine) 300 Mg Tab 300 MG PO HS for Heartburn Management, #30 TAB 0 Refills Discontinued Medications: Metoprolol Tartrate (Metoprolol Tartrate) 25 Mg Tab 25 MG PO BID, #60 TAB 0 Refills Prednisone (Prednisone) 10 Mg Tab 10 MG PO DAILY, #5 TAB 0 Refills Govind Mcgarry MD Jan 22, 2017 10:01
--- NOTE | 2017-01-22 11:10 | PD.ONC.PN ---
Subjective Subjective Remarks Afebrile overnight Pt reports he feels much better Pain well controlled with current regimen Reports he feels like he is able to move a lot more freely than before Meeting with hospice this morning Objective Data Date Time Temp Pulse Resp B/P (MAP) Pulse Ox O2 Delivery O2 Flow Rate FiO2 01/22/17 08:23 95 Room Air 01/22/17 08:07 97.5 106 18 146/96 (113) 95 01/22/17 07:00 95 01/22/17 06:55 16 01/22/17 06:25 16 01/22/17 05:49 98.0 87 18 125/84 (98) 96 01/22/17 03:39 104 01/22/17 00:42 97.6 109 18 146/93 (110) 96 01/21/17 23:06 116 01/21/17 20:06 119 01/21/17 20:01 98.2 118 18 135/98 (110) 94 01/21/17 20:00 Room Air 01/21/17 17:30 98.4 101 20 135/80 (98) 98 01/21/17 13:20 97.8 100 18 148/70 (96) 96 01/21/17 13:19 Room Air Result Diagram: 01/20/17 0615 01/21/17 0625 Administered Medications Medications (Trade) Dose Ordered Sig/Ivis Route PRN Reason Start Time Stop Time Status Last Admin Dose Admin Sodium Chloride (NS Flush) 2 ml UNSCH PRN IV FLUSH FLUSH AFTER USING IV ACCESS 01/17/17 11:30 01/20/17 04:08 Metoprolol Tartrate (Lopressor) 25 mg BID PO 01/17/17 21:00 01/22/17 08:44 Famotidine (Pepcid) 20 mg BID PO 01/17/17 21:00 01/22/17 08:44 Simethicone (Phazyme Chew) 125 mg Q8HR PO 01/17/17 16:00 01/22/17 05:57 Hydrochlorothiazide (Hydrodiuril) 25 mg DAILY PO 01/17/17 16:00 01/22/17 08:45 Polyethylene Glycol (Miralax) 17 gm DAILY PO 01/17/17 16:00 01/22/17 08:44 Cyproheptadine HCl (Periactin) 4 mg BID PO 01/17/17 21:00 01/22/17 08:44 Promethazine HCl (Phenergan) 12.5 mg Q4H PRN PO nausea 01/17/17 17:30 01/22/17 08:44 Nicotine (Habitrol 21 Mg Patch.24 Hr) 1 patch DAILY T-DERMAL 01/18/17 09:30 01/22/17 08:55 Miscellaneous Information 1 DAILY T-DERMAL 01/19/17 09:00 01/22/17 08:56 Prednisone (Deltasone) 15 mg DAILY PO 01/19/17 12:00 01/22/17 08:44 Hydromorphone HCl (Dilaudid Pf Inj) 2 mg Q2H PRN IV PUSH pain 5-10 01/19/17 12:30 01/22/17 08:44 Oxycodone HCl (OxyCONTIN CR) 80 mg Q8HR PO 01/19/17 22:00 01/22/17 05:56 Hydromorphone HCl (Dilaudid Pf Inj) 1 mg Q2H PRN IV PUSH pain 1-4 01/19/17 14:45 01/21/17 11:30 Multi-Ingredient Mouthwash/Gargle (Magic Mouthwash Adult Liq) 5 ml QID SWISH-SWAL 01/20/17 18:00 01/22/17 08:55 Objective Remarks GENERAL: Older male asleep in bed in no acute distress. Awakens easily to verbal stimuli SKIN: Warm and dry. HEAD: Normocephalic. EYES: No scleral icterus. No injection or drainage. NECK: Supple, trachea midline. No JVD or lymphadenopathy. LYMPHATIC: No adenopathy. CARDIOVASCULAR: +S1/S2, tachy RESPIRATORY: Clear posteriorly. Breathing unlabored at rest. GASTROINTESTINAL: Abdomen distended, minimally tender to palpation RUQ. EXTREMITIES: No cyanosis. No edema NEUROLOGICAL: No obvious focal deficit. Awake, alert, and oriented x3. Assessment/Plan Assessment 52y/o male with hepatocellular carcinoma. Plan 1. Patient has a meeting with hospice this morning scheduled for 11:30. His is planning to attend. The patient has hepatocellular carcinoma and it is noted that his alpha-fetoprotein has been increasing substantially over the last month or so. We're unable to offer him chemotherapy due to his elevated bilirubin/ liver enzymes. Hospice is a clear and appropriate plan for the patient this time. We discussed that we would recheck his CMP in approximately 2 -3 weeks. If this has substantially improved by that time then we can discontinue hospice can offer him treatment but the patient understands that this is not likely. Discussed with Estefany Beck Jan 22, 2017 11:10
--- NOTE | 2017-01-22 11:12 | HHI.HCPN ---
Reason for visit a. To assist with evaluation and management of symptoms including: Pain b. To assist medical decision maker(s) with: better understanding of current medical conditions; weighing benefits/burdens of medical treatment options; making medical treatment decisions. . Subjective/Interval History INTERVAL NOTE: The patient's pain is definitely improved overall, and he is smiling at times this morning. He did still ask for a total of 15 mg of parenteral hydromorphone in the past 24 hours. He remains on the OxyContin 80 mg every 8 hours. His latest bilirubin remains elevated at greater than 10. The latest alpha- fetoprotein is greater than 1000. The patient and his will be meeting with the hospice admissions nurse at noon today, and I anticipate a possible transition home after that. I have spoken with hospice, and they will keep the patient on both long-acting and breakthrough short-acting opiates as well as continuing the steroid at home. I have asked hospice to obtain a CMP to recheck his bilirubin in 2 or 3 weeks, as the patient remains hopeful that the bilirubin total may decrease down to 3 or less and that he would then be able to leave hospice and be eligible for the serafenib treatment. . Advance Directives Living Will: Never completed Health Care Surrogate: Never completed Durable Power of Disability Advocate: Never completed Advance Directive Specifics Significant change in goals: Hopefully home with hospice today . Objective Vital Signs Date Time Temp Pulse Resp B/P (MAP) Pulse Ox O2 Delivery O2 Flow Rate FiO2 01/22/17 08:23 95 Room Air 01/22/17 08:07 97.5 106 18 146/96 (113) 95 01/22/17 07:00 95 01/22/17 06:55 16 01/22/17 06:25 16 01/22/17 05:49 98.0 87 18 125/84 (98) 96 01/22/17 03:39 104 01/22/17 00:42 97.6 109 18 146/93 (110) 96 01/21/17 23:06 116 01/21/17 20:06 119 01/21/17 20:01 98.2 118 18 135/98 (110) 94 01/21/17 20:00 Room Air 01/21/17 17:30 98.4 101 20 135/80 (98) 98 01/21/17 13:20 97.8 100 18 148/70 (96) 96 01/21/17 13:19 Room Air Physical Exam CONSTITUTIONAL/GENERAL: This is a thin patient, appearing more comfortable now. TUBES/LINES/DRAINS: Peripheral IV EYES:Has some mild scleral icterus. No injection or drainage. Fundi not examined. ENT: Hearing grossly normal. Nose without bleeding or purulent drainage. Throat without visible erythema, exudates, masses, or lesions. CARDIOVASCULAR: Regular rate and rhythm without murmurs, gallops, or rubs. No JVD. Peripheral pulses symmetric. RESPIRATORY/CHEST: Symmetric, unlabored respirations. Clear to auscultation. Breath sounds equal bilaterally. No wheezes, rales, or rhonchi. GASTROINTESTINAL: Abdomen soft, but moderately distended. There is mild tenderness to palpation at the liver edge 4 cm below the RCM. No hepato- splenomegaly, or palpable masses. No guarding. Bowel sounds present. NEUROLOGICAL: Awake and alert. Motor and sensory grossly within normal limits. Follows commands. Cognitively sharp. Moves all extremities. PSYCHIATRIC: No obvious anxiety/depression. no apparent hallucinations or other psychotic thought process. . Diagnostic Tests Laboratory Laboratory Tests Test 01/19/17 11:34 01/20/17 06:15 01/21/17 06:25 Blood Urea Nitrogen 11 MG/DL (7-18) 9 MG/DL (7-18) 10 MG/DL (7-18) Creatinine 0.64 MG/DL (0.60-1.30) 0.58 MG/DL (0.60-1.30) 0.64 MG/DL (0.60-1.30) Random Glucose 110 MG/DL (74-106) 109 MG/DL (74-106) 82 MG/DL (74-106) Total Protein 7.7 GM/DL (6.4-8.2) 7.4 GM/DL (6.4-8.2) 7.5 GM/DL (6.4-8.2) Albumin 1.9 GM/DL (3.4-5.0) 1.8 GM/DL (3.4-5.0) 1.8 GM/DL (3.4-5.0) Calcium Level 8.4 MG/DL (8.5-10.1) 8.1 MG/DL (8.5-10.1) 8.2 MG/DL (8.5-10.1) Alkaline Phosphatase 194 U/L (45-117) 185 U/L (45-117) 183 U/L (45-117) Aspartate Amino Transf (AST/SGOT) 164 U/L (15-37) 171 U/L (15-37) 194 U/L (15-37) Alanine Aminotransferase (ALT/SGPT) 64 U/L (12-78) 65 U/L (12-78) 79 U/L (12-78) Total Bilirubin 9.7 MG/DL (0.2-1.0) 9.6 MG/DL (0.2-1.0) 10.9 MG/DL (0.2-1.0) Sodium Level 129 MEQ/L (136-145) 128 MEQ/L (136-145) 127 MEQ/L (136-145) Potassium Level 3.9 MEQ/L (3.5-5.1) 3.6 MEQ/L (3.5-5.1) 3.5 MEQ/L (3.5-5.1) Chloride Level 95 MEQ/L (98-107) 95 MEQ/L (98-107) 94 MEQ/L (98-107) Carbon Dioxide Level 24.8 MEQ/L (21.0-32.0) 28.0 MEQ/L (21.0-32.0) 24.2 MEQ/L (21.0-32.0) Anion Gap 9 MEQ/L (5-15) 5 MEQ/L (5-15) 9 MEQ/L (5-15) Estimat Glomerular Filtration Rate 131 ML/MIN (>89) 147 ML/MIN (>89) 131 ML/MIN (>89) White Blood Count 9.6 TH/MM3 (4.0-11.0) Red Blood Count 4.20 MIL/MM3 (4.50-5.90) Hemoglobin 14.0 GM/DL (13.0-17.0) Hematocrit 39.7 % (39.0-51.0) Mean Corpuscular Volume 94.6 FL (80.0-100.0) Mean Corpuscular Hemoglobin 33.3 PG (27.0-34.0) Mean Corpuscular Hemoglobin Concent 35.2 % (32.0-36.0) Red Cell Distribution Width 16.6 % (11.6-17.2) Platelet Count 133 TH/MM3 (150-450) Mean Platelet Volume 8.5 FL (7.0-11.0) Neutrophils (%) (Auto) 86.8 % (16.0-70.0) Lymphocytes (%) (Auto) 4.3 % (9.0-44.0) Monocytes (%) (Auto) 6.8 % (0.0-8.0) Eosinophils (%) (Auto) 1.2 % (0.0-4.0) Basophils (%) (Auto) 0.9 % (0.0-2.0) Neutrophils # (Auto) 8.3 TH/MM3 (1.8-7.7) Lymphocytes # (Auto) 0.4 TH/MM3 (1.0-4.8) Monocytes # (Auto) 0.6 TH/MM3 (0-0.9) Eosinophils # (Auto) 0.1 TH/MM3 (0-0.4) Basophils # (Auto) 0.1 TH/MM3 (0-0.2) CBC Comment DIFF FINAL Differential Comment Prothrombin Time 16.0 SEC (9.8-11.6) Prothromb Time International Ratio 1.4 RATIO Result Diagram: 01/20/1715 01/21/17 0625 Assessment and Plan Disease Oriented Problem List: (1) uncontrolled pain Comment: Most likely due to the tumor burden, and particular the increasingly large areas of adenopathy including in the retroperitoneum and perigastric areas ; improving 01/22/17 (2) metastatic hepatocellular carcinoma (3) hepatic cirrhosis (4) history of daily alcohol use (5) history of hepatitis C (6) hypertension (7) hyperlipidemia (8) depression (9) GERD (10) chronic neck/back pain for several years Symptom Scale: (1) pain 0-10 Scale: 6 Pertinent Non-Medical Issues Psychosocial: Originally from [place], lives with , has one son in [place]. Former telecommunications worker, now on disability. Spiritual: [employer], open to hvac residential service technician visits. Legal: The patient has capacity for decision-making. His will be the healthcare proxy if he loses that capacity. Ethical issues impacting care: None . Important Contacts Spouse: Alethea [phone] . Prognosis This patient is likely terminal, with weeks or months to live depending on his response to further treatment. . Code Status: Full Code Plan * FULL CODE - the patient says he would want to be on life support "for a few days, but not hanging on for a month." He reports that his knows that she is to remove him from life support if it "goes on and on." He is reconsidering this now that he is going to be entering hospice. * GOALS: The patient's main goal is to get the pain under control and to get back home; he will engage hospice services to help with that. * DECISION-MAKING: The patient has capacity for decision-making. His will be the healthcare proxy if he loses that capacity. * SYMPTOMS: * PAIN: The 80 mg OxyContin every 8 hour dosing was begun last evening, and may be causing some improvement already. He will likely need continued dosing adjustments of opiates to manage his pain. Hospice will be involved in that. * The patient and his will be meeting with the hospice admissions nurse at noon today, and I anticipate a possible transition home after that. I have spoken with hospice, and they will keep the patient on both long-acting and breakthrough short-acting opiates, as well as continuing the steroid at home. I have asked hospice to obtain a CMP to recheck his bilirubin in 2 or 3 weeks, as the patient remains hopeful that the bilirubin total may decrease down to 3 or less and that he would then be able to leave hospice and be eligible for the serafenib treatment. * Palliative Care will continue to follow the patient during this hospitalization. . Time Spent Total Floor Time (mins): 37 Face to Face Time (mins): 16 >50% Counseling/Coord of Care: Yes (d/w R [facility]) Attestation To help prompt me to consider important information that might be impacting today's encounter and assessment, information from prior notes written by myself or my colleagues may have been "brought forward" into today's note. My signature on this note, however, is an attestation that I personally performed the exam, history, and/or decision-making noted today, and, unless otherwise indicated, the interactions with patient, family, and staff as well as the review of records all occurred today. I also attest that the listed assessment and stated plan reflect my best clinical judgment today based on the combination of historical information, prior notes, and today's exam/ interactions. When time spent is documented, it refers only to time spent today by the signer, or if indicated, combined time spent today by collaborating physician/nurse practitioner. Thalia Solano MD Jan 22, 2017 11:12
[2017-01-22 11:28] VITALS: BP 150/101; PULSE 122; RESP 18; TEMP 97.4; O2SAT 93
[2017-01-22] MEDS ORDERED: PRED5TAB PO (12:44)
[2017-01-22] MEDS ORDERED: METO25TA3 PO (12:44)
== END 2017-01-22 14:35 | disposition hospice, home (50) | DRG 840 ==
LOC: NEPE 10:31 → NEDA 13:52 → HCIN 18:03
PROVIDERS: ADMIT Hospitalist; ATTEND Hospitalist
DX: C77.2 Secondary and unspecified malignant neoplasm of intra-abdominal lymph nodes (principal); I81 Portal vein thrombosis; C22.0 Liver cell carcinoma; K76.6 Portal hypertension; E87.1 Hypo-osmolality and hyponatremia; K81.9 Cholecystitis, unspecified; I10 Essential (primary) hypertension; K72.90 Hepatic failure, unspecified without coma; K21.9 Gastro-esophageal reflux disease without esophagitis; K70.30 Alcoholic cirrhosis of liver without ascites; G89.3 Neoplasm related pain (acute) (chronic); R10.11 Right upper quadrant pain; K59.03 Drug induced constipation; T40.605A Adverse effect of unspecified narcotics, initial encounter; R09.1 Pleurisy; M54.2 Cervicalgia; E78.5 Hyperlipidemia, unspecified; R00.0 Tachycardia, unspecified; F10.20 Alcohol dependence, uncomplicated; F12.90 Cannabis use, unspecified, uncomplicated; F17.210 Nicotine dependence, cigarettes, uncomplicated; F32.9 Major depressive disorder, single episode, unspecified; F41.9 Anxiety disorder, unspecified; Z51.5 Encounter for palliative care; Z86.19 Personal history of other infectious and parasitic diseases; Z88.5 Allergy status to narcotic agent
CPT/HCPCS: 71275; 74177; 74183; 76377; 76705; 78226; 80053; 81001; 82105; 83690; 85025; 85610; 85730; 93005; 96361; 96374; 96375; 96376; A9537; A9579; J1170; J2060; J2212; J2405; J7030; J7512; Q0169; Q9967